=== PATIENT | female | born 1960 | race Caucasian/White ===

== ENCOUNTER 2024-02-01 08:46 | Outpatient (OUT) | payer OTHER, SELFPAY ==
[2024-02-01 10:17] LABS: Anion Gap 10.3; BUN Creatinine Ratio 14.4; Carbon Dioxide 30.7 mmol/L (21.0-32.0); Chloride 100 mmol/L (98-107); Estimated GFR (African America 60 (>=60); Estimated GFR (Non-African Ame 49 (>=60); Glucose 146 mg/dL (74-106); Sodium 138 mmol/L (136-145)
== END 2024-02-01 08:47 | disposition home or self-care (01) ==
PROVIDERS: PCP Family Medicine; Visit Provider Urology
DX: Z01.812 Encounter for preprocedural laboratory examination (principal); N20.0 Calculus of kidney; E78.5 Hyperlipidemia, unspecified; F32.A Depression, unspecified; N12 Tubulo-interstitial nephritis, not specified as acute or chronic; R31.9 Hematuria, unspecified
CPT/HCPCS: 80048

== ENCOUNTER 2024-02-04 07:18 | Day surgery (SDC) | payer OTHER, SELFPAY ==
[2024-02-01 09:46] VITALS: BP 148/85; PULSE 100; TEMP 36.2; O2SAT 97; BMI 37.2
[2024-02-04] VITALS (11 sets, daily range): BP systolic 162–182; BP diastolic 68–107; PULSE 81–102; TEMP 36.2–36.8; O2SAT 94–98; BMI 37.2
--- OUTSIDE RECORDS SUMMARY | 2024-02-04 07:21 | XMS_ITS | CCD ---
Author Organization [facility] Care Team Providers Care Aerial Lineman Name Role Phone Flakito Jade Attending Provider [phone] Boy Thompson Attending Provider [phone] Rhonda Narayan Primary Care Provider [phone] Boy Thompson Unavailable Rhonda Narayan Primary Care Physician Emely Larose Unavailable Unavailable Rhonda Narayan Attending Unavailable Rhonda Narayan Admitting Unavailable Rhonda Narayan Attending Unavailable Rhonda Narayan Admitting Unavailable Sudhir Amaral Attending Unavailable Rhonda Narayan Admitting Unavailable Rhonda Narayan Attending Unavailable Sudhir Amaral Attending Unavailable Janis Calderon Attending Unavailable Janis Calderon Attending Unavailable Vamsi MILLER Attending Unavailable Vamsi MILLER Attending Unavailable Vamsi MILLER Admitting Unavailable Allergies Allergy Classification Reported Allergen(s) Allergy Type Date of Onset Reaction(s) Facility Dihydrofolate Reductase Inhibitors (antibiotic) (1 source) Trimethoprim Drug Allergy 08-17-19 21 N/V [facility] Iodine (and Iodine containting drugs) (1 source) Iodine Drug Allergy 08-17-19 21 Anaphylaxis [facility] Macrolides (antibiotic) (1 source) Clarithromycin Drug Allergy 08-17-19 21 N/V [facility] Mushrooms (1 source) Mushroom (edible) Food Allergy 08-17-19 21 Congested, sneeze [facility] NSAIDs (2 sources) Ibuprofen Drug Allergy 08-17-19 21 N/V, closed up throat, N/V, throat closed [facility] Opioid Agonists (1 source) HYDROcodone Drug Allergy 08-17-19 21 N/V [facility] Penicillins (antibiotic) (1 source) Penicillins Drug Allergy 08-17-[address] [facility] Sulfonamides (antibiotic) (1 source) Sulfamethoxazole Drug Allergy 08-17-19 N/[address] [facility] Unclassified (1 source) Fish Containing Products Allergy to substance 08-17-[address] [facility] Unclassified (1 source) perfume Allergy to substance 08-17-[address] [facility] (10 sources) Clarithromycin; Translations: [clarithromycin] Drug Allergy Unknown, Respiratory distress, needing intubation/mec hanical ventilation [facility] [employer] Other (2 sources) HYDROcodone Drug Allergy Unknown [facility] [employer] Other (14 sources) Ibuprofen; Translations: [Ibuprofen] Drug Allergy Unknown, Respiratory distress, needing intubation/mec hanical ventilation [facility] [employer] Other (10 sources) meloxicam; Translations: [meloxicam] Drug Allergy Unknown, Respiratory distress, needing intubation/mec hanical ventilation [facility] [employer] Other (2 sources) penicillAMINE Drug Allergy Unknown [facility] [employer] Other (10 sources) Sulfamethoxazole / Trimethoprim; Translations: [sulfamethoxazole-t rimethoprim] Drug Allergy Unknown, Respiratory distress, needing intubation/mec hanical ventilation [facility] [employer] Other (12 sources) Acetaminophen / HYDROcodone; Translations: [acetaminophen-hydr ocodone] Drug Allergy Respiratory distress, needing intubation/mec hanical ventilation [facility] (20 sources) Ibuprofen; Translations: [ibuprofen] Drug Allergy Respiratory distress, needing intubation/mec hanical ventilation [facility] (12 sources) Penicillin; Translations: [penicillin] Drug Allergy Respiratory distress, needing intubation/mec hanical ventilation [facility] (12 sources) Shellfish; Translations: [shellfish] Drug allergy Congestion of throat (finding) [facility] (4 sources) Clarithromycin; Translations: [Biaxin] Drug Allergy [facility] (4 sources) Ibuprofen; Translations: [Advil] Drug Allergy [facility] (4 sources) meloxicam; Translations: [Mobic] Drug Allergy [facility] (4 sources) Sulfamethoxazole / Trimethoprim; Translations: [Bactrim] Drug Allergy [facility] Medications Current Medications Medication Drug Class(es) Dates Sig (Normalized) Sig (Original) [id number] 200 actuat albuterol 0.09 mg/actuat metered dose inhaler (2 sources) beta2-Adrenergic Agonist take 2 puff(s) by mouth every four hours as needed Albuterol Sulfate HFA 108 (90 Base) MCG/ACT INHALE 2 PUFFS BY MOUTH EVERY 4 HOURS NEEDED FOR SHORTNESS OF BREATH Inhalation for 17 Active take 2 puff(s) by mo uth every four hours as needed Albuterol Sulfate HFA 108 (90 Base) MCG/ ACT INHALE 2 PUFFS BY MOUTH EVERY 4 HOURS NEEDED FOR SHORTNESS OF BREATH Inhalation for 17 Active alendronic acid 70 mg oral tablet (2 sources) Bisphosphonate Start: 01-27-2024 alendronate 70 mg Tab 70 mg = 1 tab(s), Oral Start Date: 01/27/24 Status: Ordered aspirin 81 mg delayed release oral tablet (1 source) Platelet Aggregation Inhibitor, Nonsteroidal Anti-inflammatory Drug Start: 08-16-2020 take 1 tablet by mouth once daily Aspirin (Aspirin Low Dose) 81 mg Tablet,Delayed Release (Dr/Ec) Active 81 MG PO Daily August 16, 2020 2:05pm Black Cohosh (1 source) Start: 08-16-2020 take 540 mg by mouth once daily [place] Active 540 MG PO Daily August 16, 2020 2:01pm buPROPion hydrochloride 75 mg oral tablet (12 sources) Aminoketone Start: 08-16-2020 take 150 mg by mouth once daily in the morning Bupropion Hcl Active 150 MG PO Every morning August 16, 2020 1:47pm Start: 08-16-2020 take 75 mg by mouth once daily in the morning Bupropion Hcl Active 75 MG PO Every morning August 16, 2020 1:47pm Start: 11-19-2009 take 150 mg by mouth once bob y Wellbutrin 150 mg, Oral, Daily, Refills(s) 0 Start Date: 11/19/09 Status: Ordered cefpodoxime 200 mg oral tablet (2 sources) Cephalosporin Antibacterial Start: 01-27-2024 take 1 tablet by mouth every twelve hours cefpodoxime 200 mg Tab 200 mg = 1 tab(s), Oral, q12hr Start Date: 01/27/24 Status: Ordered clotrimazole 10 mg/ml topical cream (1 source) Azole Antifungal Start: 08-16-2020 Clotrimazole Active 1 APPLIC TOPICAL Daily August 16, 2020 1:47pm esomeprazole 40 mg oral tablet (8 sources) Proton Pump Inhibitor Start: 11-19-2009 take 40 mg by mouth once daily Nexium 40 mg, Oral, Daily, Refills(s) 0 Start Date: 11/19/09 Status: Ordered furosemide 20 mg oral tablet (2 sources) Loop Diuretic take 1 tablet by mouth once daily as needed Furosemide 20 MG TAKE 1 TABLET BY MOUTH ONCE DAILY NEEDED FOR SWELLING Oral for 30 Active gabapentin 300 mg oral capsule (11 sources) Anti-epileptic Agent Start: 02-22-2020 take 1 capsule by mouth three times daily gabapentin 300 mg Cap 300 mg = 1 cap(s), Oral, TID, Refills(s) 0 Start Date: 02/22/20 Status: Ordered hydroCHLOROthiazide 12.5 mg / losartan potassium 50 mg oral tablet (11 sources) Thiazide Diuretic, Angiotensin 2 Receptor Patricia Start: 11-02-2011 take 1 tablet by mouth once daily Hyzaar 12.5 mg-50 mg Tab 1 tab(s), Oral, Daily, Refill(s) 0 Start Date: 11/02/11 Status: Ordered take 1 tablet by mouth once bob y Losartan Potassium-HCTZ 100-12.5 MG TAKE 1 TABLET BY MOUTH ONCE DAILY Oral for 30 Active levocetirizine dihydrochloride 5 mg oral tablet (11 sources) Histamine-1 Receptor Antagonist Start: 11-19-2009 take 5 mg by mouth once daily Xyzal 5 mg, Oral, Daily, Refill(s) 0 Start Date: 11/19/09 Status: Ordered metoclopramide 10 mg oral tablet (11 sources) Dopamine-2 Receptor Antagonist Start: 11-19-2009 take 10 mg by mouth once daily Reglan 10 mg, Oral, Daily, Refills(s) 0 Start Date: 11/19/09 Status: Ordered metoprolol tartrate 25 mg oral tablet (2 sources) beta-Adrenergic Patricia Start: 01-27-2024 take 1 tablet by mouth once daily Lopressor 25 mg oral tablet 25 mg = 1 tab(s), Oral, Daily Start Date: 01/27/24 Status: Ordered Multivitamin preparation (1 source) Start: 08-16-2020 take 1 tablet by mouth once daily Multivitamin Active 1 TAB PO Daily August 16, 2020 2:01pm naproxen 500 mg oral tablet (1 source) Nonsteroidal Anti-inflammatory Drug Start: 08-16-2020 take 500 mg by mouth once daily Naproxen Active 500 MG PO Daily August 16, 2020 1:54pm nitrofurantoin, macrocrystals 25 mg / nitrofurantoin, monohydrate 75 mg oral capsule (1 source) Nitrofuran Antibacterial Start: 01-05-2024 End: 01-10-2024 take 1 capsule by mouth twice daily nitrofurantoin macrocrystals-monoh ydrate 100 mg Cap 100 mg = 1 cap(s), Oral, BID, X 5 day(s), # 10 cap(s), Refills(s) 0, Pharmacy: [facility], 157.5, cm, 01/05/24 17:40:00 EDT, Height/Length Dosing, 95.8, kg, 01/05/24 17:40:00 EDT, Weight Dosing Start Date: 01/05/24 Stop Date: 01/10/24 Status: Ordered Nystatin (3 sources) Polyene Antifungal Start: 01-27-2024 nystatin Oral, Refills(s) 0 Start Date: 01/27/24 Status: Ordered Start: 01-24-2022 End: 02-07-2022 nystatin Top 100,000 units/g Oint 1 major, Topical, TID for 14 day(s), 30 gm, Refill(s) 0, Apply with triamcinolone ointment to left foot, [facility], 158, cm, 01/24/22 17:57:00 EDT, Height/Length Dosing, 99.4, kg, 01/24/22 17:57:00 EDT, Weight Dosing Start Date: 01/24/22 Stop Date: 02/07/22 Status: Ordered omeprazole 40 mg delayed release oral capsule (3 sources) Proton Pump Inhibitor Start: 08-16-2020 take 40 mg by mouth once daily in the morning Omeprazole Active 40 MG PO Every morning August 16, 2020 1:54pm ondansetron 4 mg oral tablet (4 sources) Serotonin-3 Receptor Antagonist Start: 01-27-2024 take 1 tablet by mouth every eight hours Zofran 4 mg Tab 4 mg = 1 tab(s), Oral, q8hr, # 20 tab(s), Refills(s) 0, Pharmacy: [facility] 1986, 157, cm, 01/27/24 14:06:00 EDT, Height/Length Dosing, 91.5, kg, 01/27/24 14:06:00 EDT, Weight Dosing Start Date: 01/27/24 Status: Ordered polyethylene glycol 3350 51721 mg powder for oral solution (9 sources) Osmotic Laxative Start: 08-16-2020 Polyethylene Glycol 3350 (Clearlax) 17 gram/dose powder Active 17 GM PO Daily August 16, 2020 1:54pm Start: 11-02-2011 MiraLax 17 gra m, Oral, Daily Constipation, Refill(s) 0 Start Date: 11/02/11 Status: Ordered sertraline 50 mg oral tablet (11 sources) Serotonin Reuptake Inhibitor Start: 02-21-2020 take 1 tablet by mouth once daily Zoloft 50 mg Tab 50 mg = 1 tab(s), Oral, Daily, Refills(s) 0 Start Date: 02/21/20 Status: Ordered simvastatin 40 mg oral tablet (11 sources) HMG-CoA Reductase Inhibitor Start: 02-21-2020 take 1 tablet by mouth once daily at bedtime simvastatin 40 mg Tab 40 mg = 1 tab(s), Oral, Once a day (at bedtime), Refills(s) 0 Start Date: 02/21/20 Status: Ordered temazepam 15 mg oral capsule (10 sources) Benzodiazepine Start: 11-19-2009 take 15 mg by mouth once daily at bedtime Restoril 15 mg, Oral, Once a day (at bedtime), Refills(s) 0 Start Date: 11/19/09 Status: Ordered 24 hr tolterodine tartrate 2 mg extended release oral capsule (3 sources) Cholinergic Muscarinic Antagonist Start: 08-16-2020 take 2 mg by mouth once daily in the morning Tolterodine Active 2 MG PO Every morning August 16, 2020 1:54pm traMADol hydrochloride 50 mg oral tablet (9 sources) Opioid Agonist Start: 11-19-2009 take 50 mg by mouth three times daily Ultram 50 mg, Oral, TID, Refills(s) 0 Start Date: 11/19/09 Status: Ordered triamcinolone acetonide 0.001 mg/mg topical ointment (1 source) Corticosteroid Start: 01-24-2022 End: 02-07-2022 triamcinolone Top 0.1% Oint 1 major, Topical, TID for 14 day(s), 30 gm, Refill(s) 0, Apply with nystatin ointment to left foot, [facility], 158, cm, 01/24/22 17:57:00 EDT, Height/Length Dosing, 99.4, kg, 01/24/22 17:57:00 EDT, Weight Dosing Start Date: 01/24/22 Stop Date: 02/07/22 Status: Ordered zolpidem tartrate 10 mg oral tablet (3 sources) gamma-Aminobutyric Acid-ergic Agonist Start: 01-27-2024 take 1 tablet by mouth once daily at bedtime as needed for sleep zolpidem 10 mg Tab 10 mg = 1 tab(s), Oral, Once a day (at bedtime), PRN for sleep Start Date: 01/27/24 Status: Ordered Start: 08-16-2020 take 10 mg by mouth once daily at bedtime Zolpidem Active 10 MG PO Daily at bedtime August 16, 2020 1:54pm Completed/Discontinued Medications Medication Drug Class(es) Dates Sig (Normalized) Sig (Original) benzonatate 200 mg oral capsule (1 source) Non-narcotic Antitussive Start: 08-16-2020 End: 08-16-2020 Benzonatate Discontinued MG PO August 16, 2020 1:44pm August 16, 2020 1:46pm Problems Active Problems Problem Classification Problem Date Documented Da te Episodic/Chronic Calculus of urinary tract (3 sources) Kidney stone; Translations: [Calculus of kidney] Onset: 01-27-2024 Episodic Diabetes mellitus without complication (8 sources) Diabetes mellitus 07-15-2013 Chronic Essential hypertension (16 sources) Hypertensive disorder 11-02-2011 Chronic Other injuries and conditions due to external causes (1 source) Foreign body in bladder; Translations: [Foreign body in bladder, initial encounter] Onset: 01-27-2024 Episodic Other nervous system disorders (2 sources) Cervical myelopathy; Translations: [Disease of spinal cord, unspecified] Chronic Other nervous system disorders (2 sources) Disease of spinal cord, unspecified Onset: 2021 Resolved: 07-25-2021 Chronic Other nutritional; endocrine; and metabolic disorders (1 source) Obese class II; Translations: [Body mass index (BMI) 39.0-39.9, adult] Onset: 01-24-2022 Chronic Other skin disorders (1 source) Eruption; Translations: [Rash and other nonspecific skin eruption] Onset: 01-24-2022 Episodic Spondylosis; intervertebral disc disorders; other back problems (2 sources) Lumbar spondylosis; Translations: [Spondylosis without myelopathy or radiculopathy, lumbar region] Chronic Urinary tract infections (4 sources) Urinary tract infectious disease; Translations: [Urinary tract infection, site not specified] Onset: 01-05-2024 Episodic Past or Other Problems Problem Classification Problem Date Documented Da te Episodic/Chronic Other connective tissue disease (2 sources) Arthrodesis status Onset: 2021 Resolved: 07-25-2021 Episodic Unclassified (2 sources) Hyperlipemia( Confirmed ) 11-02-2011 Unclassified (6 sources) Hyperlipemia 11-02-2011 Results Test Name Value Interpretation Reference Range Facility C Urineon 01-21-2024 Bacteria identified Cx Nom (U) Microbiology PROCEDURE: Urine Culture [R1] SOURCE: U CleanCatch BODY SITE: COLLECTED DATE/TIME: 01/19/2024 17:43 EDT RECEIVED DATE/TIME: 01/19/2024 18:56 EDT START DATE/TIME: 01/19/2024 18:56 EDT FREE TEXT SOURCE: Kvng Espinoza, Janis Calderon M.D., Janis Akbar FINAL REPORTS Final Report [] Verified Date/Time: 01/21/2024 09:54 EDT <10,000 cfu/ml Mixed skin contaminants Performing Locations R1: This test was performed at: [facility], [address] [place] [address], [address] [place] [address], [facility] Comment on above: Performed By: #### 2 [id number] #### [facility] [address] [place] [address] BMPon 01-19-2024 Anion gap [Moles/Vol] 13 mmol/L Normal 6-16 [facility] Comment on above: Performed By: #### 2 [id number] #### [facility] [address] [place] [address] Calcium [Mass/Vol] 9.5 mg/dL Normal 8.9-11.1 [facility] Comment on above: Performed By: #### 2 [id number] #### [facility] [address] [place] [address] Chloride [Moles/Vol] 101 mmol/L Normal 101-111 [facility] Comment on above: Performed By: #### 2 [id number] #### [facility] [address] [place] [address] CO2 [Moles/Vol] 28 mmol/L Normal 21-31 [facility] Comment on above: Performed By: #### 2 [id number] #### [facility] [address] [place] [address] Creatinine [Mass/Vol] 0.9 mg/dL Normal 0.5-1.3 [facility] Comment on above: Performed By: #### 2 [id number] #### [facility] [address] [place] [address] Glucose [Mass/Vol] 153 mg/dL Normal 55-199 [facility] Comment on above: Performed By: #### 2 [id number] #### [facility] [address] [place] [address] Potassium [Moles/Vol] 3.6 mmol/L Normal 3.5-5.3 [facility] Comment on above: Performed By: #### 2 [id number] #### [facility] [address] [place] [address] Sodium [Moles/Vol] 138 mmol/L Normal 135-145 [facility] Comment on above: Performed By: #### 2 [id number] #### [facility] [address] [place] [address] Urea nitrogen [Mass/Vol] 18 mg/dL Normal 5-21 [facility] Comment on above: Performed By: #### 2 [id number] #### [facility] [address] [place] [address] Urea nitrogen/Creatinine [Mass ratio] 20 No Units Normal 10-20 [facility] Comment on above: Performed By: #### 2 [id number] #### [facility] [address] [place] [address] CBC w/ Auto Diffon 4 Basophils/100 WBC (Bld) 0.6 % Normal 0.0-2.0 [facility] Comment on above: Performed By: #### 2 [id number] #### [facility] [address] [place] [address] Basophils/Leukocytes Auto (Bld) [Pure # fraction] 0.1 E9/L Normal 0.0-0.2 [facility] Comment on above: Performed By: #### 2 [id number] #### [facility] [address] [place] [address] Eosinophils (Bld) [#/Vol] 0.3 E9/L Normal 0.0-0.5 [facility] Comment on above: Performed By: #### 2 [id number] #### [facility] [address] [place] [address] Eosinophils/100 WBC (Bld) 2.4 % Normal 0.0-8.0 [facility] Comment on above: Performed By: #### 2 [id number] #### [facility] [address] [place] [address] Erythrocyte distribution width (RBC) [Ratio] 13.6 % Normal 10.9-14.2 [facility] Comment on above: Performed By: #### 2 [id number] #### [facility] [address] [place] [address] Hematocrit (Bld) [Volume fraction] 38.5 % Normal 34.0-46.0 [facility] Comment on above: Performed By: #### 2 [id number] #### [facility] [address] [place] [address] Hemoglobin (Bld) [Mass/Vol] 13.5 g/dL Normal 12.0-16.0 [facility] Comment on above: Performed By: #### 2 [id number] #### [facility] [address] [place] [address] Lymphocytes (Bld) [#/Vol] 3.1 E9/L Normal 1.0-4.0 [facility] Comment on above: Performed By: #### 2 [id number] #### [facility] [address] [place] [address] Lymphocytes/100 WBC (Bld) 24.7 % Normal 14.0-50.0 [facility] Comment on above: Performed By: #### 2 [id number] #### [facility] [address] [place] [address] MCH (RBC) [Entitic mass] 32.7 pg Normal 27.0-34.0 [facility] Comment on above: Performed By: #### 2 [id number] #### [facility] [address] [place] [address] MCHC (RBC) [Mass/Vol] 35.1 g/dL Normal 31.4-36.0 [facility] Comment on above: Performed By: #### 2 [id number] #### [facility] [address] [place] [address] MCV (RBC) [Entitic vol] 93.0 fL Normal 80.0-100.0 [facility] Comment on above: Performed By: #### 2 [id number] #### [facility] [address] [place] [address] Monocytes (Bld) [#/Vol] 0.8 E9/L Normal 0.2-1.0 [facility] Comment on above: Performed By: #### 2 [id number] #### [facility] [address] [place] [address] Neutrophils (Bld) [#/Vol] 8.2 E9/L High 2.0-7.5 [facility] Comment on above: Performed By: #### 2 [id number] #### [facility] [address] [place] [address] Neutrophils/100 WBC (Bld) 65.8 % Normal 36.0-75.0 [facility] Comment on above: Performed By: #### 2 [id number] #### [facility] [address] [place] [address] Platelet 323.0 E9/L Normal 150.0-500.0 [facility] Comment on above: Performed By: #### 2 [id number] #### [facility] [address] [place] [address] Platelet mean volume (Bld) [Entitic vol] 8.6 fL Normal 6.4-10.8 [facility] Comment on above: Performed By: #### 2 [id number] #### [facility] [address] [place] [address] RBC (Bld) [#/Vol] 4.1 E12/L Low 4.3-5.9 [facility] Comment on above: Performed By: #### 2 [id number] #### [facility] [address] [place] [address] WBC corrected for nucl RBC Auto (Bld) [#/Vol] 12.5 E9/L High 4.0-11.0 [facility] Comment on above: Performed By: #### 2 [id number] #### [facility] [address] [place] [address] CT Abdomen/Pelvis w/o Contra ston 01-19-2024 CT Abdomen/Pelvis w/o Contrast Exam Date/Time: 01/19/2024 17:13 EDT Reason for Exam: ABDOMINAL PAIN, ACUTE, NONLOCALIZED;Other (please specify) Report IMPRESSION: Mildly obstructing 13 mm calculus right renal pelvis. Additional nonobstructing right renal calculi. Nonspecific mild prominence of the endometrium, not well assessed on this study. Correlate with pelvic symptoms and could consider nonemergent follow-up pelvic ultrasound for further evaluation. EXAMINATION: CT Abdomen/Pelvis w/o Contrast HISTORY: Right lower abdominal pain. Right flank pain. Hematuria. TECHNIQUE: Non-IV contrast imaging of the abdomen and pelvis was performed using standard technique, scanning from just above the dome of the diaphragm to the symphysis pubis. Unenhanced imaging is limited for the evaluation of some intra-abdominal and pelvic pathology. Unless otherwise stated, incidental findings in this report do not require further routine follow-up imaging. All CT scans at this facility use dose modulation, iterative reconstruction, and/or weight based dosing when appropriate to reduce radiation dose to as low as reasonably achievable. COMPARISON: None. RESULT: Abdomen / Pelvis: Liver: Possible steatosis. Subcentimeter lesion right superior liver, too small to characterize but likely benign. Biliary: Cholelithiasis. No associated gallbladder wall thickening or pericholecystic fluid. No distinct bile duct dilation. Pancreas: Unremarkable. Spleen: No splenomegaly. Adrenals: No mass. Kidneys and urinary tract: 13 mm calculus right renal pelvis. Mild right hydronephrosis. Mild stranding adjacent to the renal pelvis. Multiple additional Report right-sided renal calculi especially within the lower pole with the largest measuring around 12 mm. No distinct left renal calculi. No left hydronephrosis. No ureteral calculi or bladder calculi. Bladder decompressed. GI Tract: Moderate hiatal hernia. No bowel dilation. Normal appendix. Diverticulosis, without evidence for diverticulitis. Feces throughout the colon. Lymph Nodes: No lymphadenopathy. Mesentery/peritoneum/r etroperitoneum: No ascites or mass. Vasculature: Mild to moderate vascular calcifications. No aortic aneurysm. Pelvis: No significant free fluid. Mild prominence of the endometrium, not well assessed on this study. Bones/Soft Tissues: No acute osseous findings. Degenerative changes. Lower thorax: Bibasilar atelectasis/scarring. Ordering Provider: Janis Calderon FINAL REPORT Dictated: 01/19/2024 5:30 pm Joby Kolb MD Signed (Electronic Signature): 01/19/2024 5:30 pm Signed by: Joby Kolb MD Transcribed by: JULIETA Technologist: NICK Technical Comments Rectal Contrast Given? No Oral contrast amount in ml's: 0 Normal [facility] ED Clinical Summaryon 2023 ED Clinical Summary ED Clinical Summary [address] [address] ED Clinical Summary Person Information Name: CIERA CHAN [facility] Age: 63 Years : 1960 Sex: Female Language: Cameroonian PCP: Rhonda Narayan MD Marital Status: Single Visit Id: Visit Reason: Flank pain; Abdominal pain; Dysuria; Hematuria; LOWER RIGHT SIDE/ BACK PAIN Speciality: Acuity: 3 Enc Type: Emergency Med Service: Emergency Arrival: 01/19/2024 16:26:28 Discharge: 01/19/2024 20:34:46 LOS: 000 04:08 Checkin: 01/19/2024 16:26:28 Checkout: 01/19/2024 20:34:46 Dispo Type: Undefined HC Fac EVENTS: Event Name Event Status Request Date/Time Start Date/Time Complete Date/Time Arrive Complete 01/19/2024 16:26:28 01/19/2024 16:26:28 01/19/2024 16:26:28 Document Home Meds Request 01/19/2024 16:26:28 Triage Complete 01/19/2024 16:26:28 01/19/2024 16:32:32 01/19/2024 16:32:32 Bed Assign Complete 01/19/2024 16:26:28 01/19/2024 16:26:28 01/19/2024 16:26:28 Dr Exam Complete 01/19/2024 16:26:28 01/19/2024 16:28:23 01/19/2024 16:28:23 RN Exam Complete 01/19/2024 16:26:28 01/19/2024 16:55:56 01/19/2024 16:55:56 Registration Complete 01/19/2024 16:28:23 01/19/2024 16:52:38 01/19/2024 16:52:38 CT Complete 01/19/2024 16:37:43 01/19/2024 16:48:01 01/19/2024 17:13:41 Meds Admin Complete 01/19/2024 16:37:43 01/19/2024 16:54:51 Pending Labs Complete 01/19/2024 16:37:43 01/19/2024 18:26:47 Lab Complete 01/19/2024 16:37:43 01/19/2024 17:22:23 Reg Complete Request 01/19/2024 16:52:38 Reg Bed Request Complete 01/19/2024 16:52:38 01/19/2024 16:52:38 01/19/2024 16:52:38 Pending Labs Complete 01/19/2024 16:59:22 01/19/2024 16:59:22 01/19/2024 17:22:23 Lab Complete 01/19/2024 16:59:22 01/19/2024 16:59:22 01/19/2024 17:22:23 Pending Labs Complete 01/19/2024 17:00:00 01/19/2024 17:00:00 01/19/2024 17:00:00 Meds Admin Complete 01/19/2024 17:59:05 01/19/2024 18:14:55 Pending Labs Inlab 01/19/2024 18:26:48 01/19/2024 18:26:48 Lab Inlab 01/19/2024 18:26:48 01/19/2024 18:26:48 Meds Admin Complete 01/19/2024 18:37:17 01/19/2024 19:06:33 Meds Admin Complete 01/19/2024 18:54:24 01/19/2024 19:06:34 Patient Care Request 01/19/2024 19:11:34 Transfer Complete 01/19/2024 19:11:34 01/19/2024 20:35:26 01/19/2024 20:35:26 Discharge Complete 01/19/2024 20:35:26 01/19/2024 20:35:26 01/19/2024 20:35:26 ADDRESS: [address] [place] [id number] [facility] DOC NOTES: MEDICAL INFORMATION: Prescriptions Given: Medications to Continue with No Changes Other Medications buPROPion (Wellbutrin) 150 Milligram By Mouth every day. esomeprazole (Nexium) 40 Milligram By Mouth every day. gabapentin (gabapentin 300 mg Cap) 1 Capsules By Mouth 3 times a day. hydrochlorothiazide-lo sartan (Hyzaar 12.5 mg-50 mg Tab) 1 Tablets By Mouth every day. levocetirizine (Xyzal) 5 Milligram By Mouth every day. metoclopramide (Reglan) 10 Milligram By Mouth every day. polyethylene glycol 3350 (MiraLax) 17 Gram By Mouth every day as needed Constipation. sertraline (Zoloft 50 mg Tab) 1 Tablets By Mouth every day. simvastatin (simvastatin 40 mg Tab) 1 Tablets By Mouth once a day (at bedtime). temazepam (Restoril) 15 Milligram By Mouth once a day (at bedtime). tramadol (Ultram) 50 Milligram By Mouth 3 times a day. PATIENT EDUCATION INFORMATION: Instructions: Follow up: DIAGNOSIS: 1:Renal colic; 2:Kidney stone; 3:Hydronephrosis with obstructing calculus; 4:Urinary tract infection; 5:Accelerated hypertension Normal [facility] ED Note-Nursingon 01-19-2024 ED Note-Nursing ED Note-Nursing spoke with pts sister Day lyle from pt. via phone, sister aware that pt. will go to [facility] with a squad eta of 2030 tonight. Normal [facility] ED Note-Physicianon 01-19-20 ED Note-Physician ED Note-Physician Basic Information Time Seen: Janis Calderon M.D. 01/19/2024 16:28 Chief Complaint pt to Er c/o R lower abd pain, r flank pain and hematuria. Pt states that the pain has come and gone since Mar. Pt recently seen and treated for UTI. pt also c/o nausea. History of Present Illness The patient is a 63-year-old female past medical history of hypertension, hyperlipidemia, diabetes who presented to the emergency room with a right flank pain. The patient stated the pain starts in right lower quadrants and radiates to the right flank. The patient states she has been having this pain since last March on and off. The patient reports nausea. She vomited the other day. The patient reports burning with urination and frequency with urination. She reports hematuria. The patient denies any fever denies any chills. She denies any diarrhea. The patient states the pain gets worse when she is ambulating or leaning forward. The patient denies any other associated symptoms. Review of Systems Additional ROS info: Except as noted in the above Review of Systems and in the History of Present Illness all other systems have been reviewed and are negative or noncontributory. Physical Exam Vitals & Measurements T: 36.7 ?C(Oral) HR: 118(Monitored) RR: 19 BP: 193/95 SpO2: 94% HT: 157.48 cm WT: 98.3 kg BMI: 39.64 General: alert, no acute distress Skin: warm, dry, Head: no trauma, normocephalic Neck: Trachea midline, no tenderness, supple Eye: normal conjunctiva, sclera clear, PERRL, EOMI, vision unchanged ENMT: Oral mucosa dry Cardiovascular: regular rate and rhythm, Respiratory: Lungs CTA, respirations non labored, breath sounds equal, Gastrointestinal: soft, non distended, mild tenderness right lower quadrant and right hypochondria, no guarding, Back: Mild CVA tenderness on the right side Extremities: no deformity, no trauma Neurological: Alert and oriented, speech normal, no focal neuro deficits Psychiatric: cooperative, affect appropriate for age, Medical Decision Making MEDICAL DECISION MAKING Number and Complexity of Problems Differential Diagnosis: [] [facility] Data External documents reviewed: [] My EKG interpretation: [] My CT interpretation: [] My X-ray interpretation: [] My Ultrasound interpretation: [] Decision rules/scores evaluated: [] Discussed with: Dr. Gilman and Treatment and Disposition ED Course: The patient presented with right flank pain. She does have a 13 mm mildly obstructing renal pelvis stone on the right with mild hydronephrosis and pelvic stranding. The patient has leukocytosis. She has elements of urinary tract infection as well. The patient is afebrile. The patient was started on Rocephin. She has had cefdinir in the past. The patient was given IV fluid and morphine and her pain improved. The blood pressure was elevated. Patient was given hydralazine. There is no urology on-call at [facility]. Initially the case was discussed with who has recommended patient going to the ER. I discussed the case with the ER attending Dr. Capo Trotter who accepted the patient. The patient will be transferred via [facility]. Shared decision making: [] Code status: [] Critical Care Time: 40 minutes, critical care time is separate from any procedures that are performed. The following was considered in the determination of critical care but not limited to the level medical decision-making, intensive cardiac and/or respiratory monitor, frequent vital sign monitoring, evaluation of laboratory studies, evaluation of a radiographic studies, oxygen monitoring and constant monitoring. Assessment/Plan 1. Renal colic (N23: Unspecified renal colic) 2. Kidney stone (N20.0: Calculus of kidney) 3. Hydronephrosis with obstructing calculus (N13.2: Hydronephrosis with renal and ureteral calculous obstruction) 4. Urinary tract infection (N39.0: Urinary tract infection, site not specified) 5. Accelerated hypertension (I10: Essential (primary) hypertension) Orders: ceftriaxone + Sodium Chloride 0.9% intravenous solution 50 mL, 1,000 mg = 1 EA, IV Piggyback, Once, Stop date 01/19/24 18:37:00 EDT, STAT, Start date 01/19/24 18:37:00 EDT, 100 mL/hr, Infuse over 30 minute(s), 01/19/24 18:37:00 EDT hydrALAZINE, 10 mg = 0.5 mL, Injection, IV Push, Once, Stop date 01/19/24 18:54:00 EDT, STAT, Start date 01/19/24 18:54:00 EDT, 01/19/24 18:54:00 EDT morphine, 4 mg = 1 mL, Injection, IV Push, Once, Stop date 01/19/24 17:58:00 EDT, STAT, Start date 01/19/24 17:58:00 EDT, 01/19/24 17:58:00 EDT morphine, 2 mg = 1 mL, Injection, IV Push, Once, Stop date 01/19/24 16:37:00 EDT, STAT, Start date 01/19/24 16:37:00 EDT, 01/19/24 16:37:00 EDT ondansetron, 4 mg = 2 mL, Injection, IV Push, Once, Stop date 01/19/24 16:37:00 EDT, STAT, Start date 01/19/24 16:37:00 EDT, 01/19/24 16:37:00 EDT Sodium Chloride 0.9% intravenous solution, 1,000 mL, Soln-IV, IV, Once, Stop date 01/19/24 16:37:00 (more content not included)... Normal [facility] Comment on above: Result Comment: Elec tronically Signed By: Kvng Espinoza, Janis Akbar\.br\Date and Time Signed: 01/19/24 19:17 EDT ED Patient Education Noteon 01-19-2024 ED Patient Education Note ED Patient Education Note Normal [facility] ED Patient Summaryon ED Patient Summary ED Patient Summary [place] [id number] Patient Discharge Instructions Person Information Name: CIERA CHAN Age: 63 Years Arrival Date: 01/19/2024 16:26:28 Discharge Diagnosis: 1:Renal colic; 2:Kidney stone; 3:Hydronephrosis with obstructing calculus; 4:Urinary tract infection; 5:Accelerated hypertension Primary Care Physician: Rhonda Narayan MD Provider Information Primary Provider: Janis Calderon M.D. Advanced Hoop Cutter:None The exam and treatment you received in the Emergency Department were for an urgent problem and are not intended as complete care. It is important that you follow up with a doctor, nurse practitioner, or physician?s assistant professor of life sciences for ongoing care. If your symptoms become worse or you do not improve as expected and you are unable to reach your usual health care provider, you should return to the Emergency Department. We are available 24 hours a day. CIERA CHAN has been given the following list of patient education materials, prescriptions and follow-up instructions: Follow-up Instructions: In the event that this physician does not participate in your insurance network, please consult with your insurance company to find a nearby participating provider. Patient Education Materials: A MESSAGE TO ALL PATIENTS REGARDING OPIOIDS PRESCRIPTION OPIOIDS: WHAT YOU NEED TO KNOW Prescription opioids can be used to help relieve hakasfxn-eo-kbwlug pain and are often prescribed following a surgery or injury, or for certain health conditions. These medications can be an important part of the treatment but also come with serious risks. It is important to work with your healthcare provider to make sure you are getting the safest, most effective care. WHAT ARE THE RISKS AND SIDE EFFECTS OF OPIOID USE? Prescription opioids carry serious risks of addiction and overdose, especially with prolonged use. An opioid overdose, often marked by slowed breathing, can cause sudden . The use of prescription opioids can have a number of side effects as well, even when taken as directed: ? Tolerance?meaning you might need to take more of the medication for the same pain relief ? Physical dependence?meaning you have symptoms of withdrawal when a medication is stopped ? Increased sensitivity to pain ? Constipation ? Nausea, vomiting, and dry mouth ? Sleepiness and dizziness ? Confusion ? Depression ? Low levels of testosterone that can result in lower sex drive, energy, and strength ? Itching and sweating RISKS ARE GREATER WITH: ? History of drug misuse, substance use disorder, or overdose ? Mental health conditions (such as depression or anxiety) ? Sleep apnea ? Older age (65 years and older) ? Avoid alcohol while taking prescription opioids. Also, unless specifically advised by your health care provider, medications to avoid include: ? Benzodiazepines (such as Xanax or Valium) ? Muscle relaxants (such as Soma or Flexeril) ? Hypnotics (such as Ambien or Lunesta) ? Other prescription opioids KNOW YOUR OPTIONS Talk to your health care provider about ways to manage your pain that don?t involve prescription opioids. Some of these options may actually work better and have fewer risks and side effects. Options may include: ? Pain relievers such as acetaminophen, ibuprofen, and naproxen ? Some medication that are also used for depression or seizures ? Physical therapy and exercise ? Cognitive behavioral therapy, a psychological, goal-directed approach, in which patients learn how to modify physical, behavioral, and emotional triggers of pain and stress. IF YOU ARE PRESCRIBED OPIOIDS FOR PAIN: ? Never take opioids in greater amounts or more often than prescribed. ? Follow up with your primary health care provider. o Work together to create a plan on how to manage your pain. o Talk about ways to help manage your pain that don?t involve prescription opioids. o Talk about any and all concerns and side effects. ? Help prevent misuse and abuse o Never sell or share prescription opioids. o Never use another person?s prescription opioids. ? Store prescription opioids in a secure place and out of reach of others (this may include visitors, children, friends, and family). ? Safely dispose of unused prescription opioids: Find your community drug take-back program or your pharmacy mail-back program, or flush them down the toilet, following guidance from the Food and Drug Administration (www.fda.gov/Drugs/Res ourcesForYou). ? Visit www.cdc.gov/drugoverdo se to learn about the risks of opioids abuse and overdose. ? If you believe you may be struggling with addiction, tell your health manager career and ask for guidance or call [facility]?S National Helpline at 7-995-350-DHJH. i Source: [place] Department of Health and Human Services/ (more content not included)... [facility] Hep Func Panelon 01-19-2024 Albumin [Mass/Vol] 4.3 g/dL Normal 3.3-5.0 [facility] Comment on above: Performed By: #### 2 [id number] #### [facility] [address] [place] [address] Albumin/Globulin (S) [Mass conc ratio] 1.3 Normal 1.1-2.2 [facility] Comment on above: Performed By: #### 2 [id number] #### [facility] [address] [place] [address] ALP [Catalytic activity/Vol] 75 Int._Unit/L Normal 21-98 [facility] Comment on above: Performed By: #### 2 [id number] #### [facility] [address] [place] [address] ALT No additional P-5'-P [Catalytic activity/Vol] 15 Int._Unit/L Normal 6-46 [facility] Comment on above: Performed By: #### 2 [id number] #### [facility] [address] [place] [address] AST [Catalytic activity/Vol] 19 Int._Unit/L Normal 5-43 [facility] Comment on above: Performed By: #### 2 [id number] #### [facility] [address] [place] [address] Bilirubin [Mass/Vol] 0.5 mg/dL Normal 0.0-1.1 [facility] Comment on above: Performed By: #### 2 [id number] #### [facility] [address] [place] [address] Bilirubin.direct [Mass/Vol] 0.0 mg/dL Normal 0.0-0.4 [facility] Comment on above: Performed By: #### 2 [id number] #### [facility] [address] [place] [address] Bilirubin.indirect [Mass or moles/Vol] 0.5 mg/dL Normal 0.1-0.9 [facility] Comment on above: Performed By: #### 2 [id number] #### [facility] [address] [place] [address] Globulin (S) [Mass/Vol] 3.4 g/dL Normal 1.4-4.0 [facility] Comment on above: Performed By: #### 2 [id number] #### [facility] [address] [place] [address] Protein [Mass/Vol] 7.7 g/dL Normal 6.0-7.8 [facility] Comment on above: Performed By: #### 2 [id number] #### [facility] [address] [place] [address] Lipase Levelon 01-19-2024 Lipase [Catalytic activity/Vol] 24 U/L Normal 13-58 [facility] Comment on above: Performed By: #### 2 [id number] #### [facility] [address] [place] [address] PT & PTTon 01-19-2024 aPTT Coag (PPP) [Time] 33.9 second(s) Normal 25.1-36.5 [facility] Comment on above: Result Comment: Para meter 15 days - 4 weeks 1 - 5 months 6 - 11 months 1 - 5 years 6 - 10 years 11 - 17 years PTT Mean: 35.4 (27.6-45.6) Mean: 33.5 (24.8-40.7) Mean: 32.4 (25.1-40.7) Mean: 31.6 (24.0-39.2) Mean: 31.6 (26.9-38.7) Mean: 31.0 (24.6-38.4) Pediatric Reference ranges were obtained from a study by [employer] prepared from 1437 samples obtained at 7 different centers using the same coagulation reagent and instrumentation as [facility]. Currently there are no coagulation studies available worldwide for children to 14 days, and no normal ranges. Heparin therapeutic range (represented by Anti-Factor Xa activity of 0.2 - 0.4 U/mL) corresponds to PTT of 56.6 - 109.0 sec. Performed By: #### 1 [id number] #### [facility] [address] [place] [address] INR Coag (PPP) [Relative time] 1.00 {INR} Invalid Interpretation Code [facility] Comment on above: Result Comment: INR results are specifically intended to assess patients stabilized on long-term Anticoagulation therapy suggested INR?s ?Less Intensive Anticoagulation? 2.0 ? 3.0 Conventional Range 3.0 ? 4.5 Performed By: #### 1 [id number] #### [facility] [address] [place] [address] PT Coag (PPP) [Time] 11.2 second(s) Normal 9.4-12.5 [facility] Comment on above: Result Comment: 15 d ays - 4 weeks 1 - 5 months 6 -11 months 1 ? 5 years 6 ? 10 years 11 -17 years Mean: 11.2 (9.5 ? 12.6) Mean: 11.0 (9.7 ? 12.8) Mean: 11.0 (9.8 ? 13.0) Mean: 11.3 (9.9 ? 13.4) Mean: 11.7 (10.0 ? 14.6) Mean: 11.8 (10.0 - 14.1) Pediatric Reference ranges were obtained from a study by [place], et al. prepared from 1437 samples obtained at 7 different centers using the same coagulation reagent and instrumentation as [facility]. Currently there are no coagulation studies available worldwide for children to 14 days, and no normal ranges. Performed By: #### 1 [id number] #### [facility] [address] [place] [address] Pre-Arrival Noteon Pre-Arrival Note Pre-Arrival Note Pre-Arrival Summary Name: , [place] [id number] Current Date: 01/19/2024 16:27:08 EDT Gender: Female Date of : Age: 63 Pre-Arrival Type: EMS ETA: 01/19/2024 16:47:00 EDT Primary Care Physician: Presenting Problem: abd. pain, hematuria, on antibiotics Pre-Arrival User: Deepali Vega RN Referring Source: Location: DC Completion Date/Time: 01/19/2024 16:18:00 [facility] Emergency Department Pre-Hospital Report Form Vital Signs: Pre-Hospital Report: Treatment in Route: Response to Treatment: Misc. Issues: Normal [facility] UA with Cult Rflxon 01-19-20 24 Bacteria Auto Ql (U) Trace Normal Trace [facility] Comment on above: Performed By: #### 4 [id number] #### [facility] [address] [place] [address] Bilirubin Ql (U) Negative Normal Negative [facility] Comment on above: Performed By: #### 4 [id number] #### [facility] [address] [place] [address] Clarity (U) Turbid Abnormal Clear [facility] Comment on above: Performed By: #### 4 [id number] #### [facility] [address] [place] [address] Color (U) Yellow Normal Yellow [facility] Comment on above: Result Comment: Micr oscopic readings are only performed on those samples that meet specific criteria set forth by [facility]. Performed By: #### 4 [id number] #### [facility] [address] [place] [address] Epithelial cells.squamous Auto (Urine sed) [#/Area] >10 Invalid Interpretation Code [facility] Comment on above: Performed By: #### 4 [id number] #### [facility] [address] [place] [address] Glucose Ql (U) Negative Normal Negative [facility] Comment on above: Performed By: #### 4 [id number] #### [facility] [address] [place] [address] Hemoglobin Auto test strip (U) [Mass/Vol] 3+ mg/dL Abnormal Negative [facility] Comment on above: Performed By: #### 4 [id number] #### [facility] [address] [place] [address] Ketones Auto test strip Ql (U) Negative Normal Negative [facility] Comment on above: Performed By: #### 4 [id number] #### [facility] [address] [place] [address] Leukocyte clumps Auto (Urine sed) [#/Area] 4-[address] [facility] Comment on above: Performed By: #### 4 [id number] #### [facility] [address] [place] [address] Leukocyte esterase Auto test strip Ql (U) 500 Jorge A/uL Abnormal Negative [facility] Comment on above: Performed By: #### 4 [id number] #### [facility] [address] [place] [address] Mucus Auto Ql (U) Negative Normal Negative [facility] Comment on above: Performed By: #### 4 [id number] #### [facility] [address] [place] [address] Nitrite Auto test strip Ql (U) Negative Normal Negative [facility] Comment on above: Performed By: #### 4 [id number] #### [facility] [address] [place] [address] pH (U) 7.0 [pH] Invalid Interpretation Code 5.0-9.0 [facility] Comment on above: Performed By: #### 4 [id number] #### [facility] [address] [place] [address] Protein Ql (U) 1+ mg/dL Abnormal Negative [facility] Comment on above: Performed By: #### 4 [id number] #### [facility] [address] [place] [address] RBC Ql (U) >75 Abnormal 0-3 [facility] Comment on above: Performed By: #### 4 [id number] #### [facility] [address] [place] [address] Specific gravity (U) [Rel density] 1.023 Invalid Interpretation Code 1.005-1.030 [facility] Comment on above: Performed By: #### 4 [id number] #### [facility] [address] [place] [address] Urobilinogen (U) [Mass/Vol] Negative Normal Negative [facility] Comment on above: Performed By: #### 4 [id number] #### [facility] [address] [place] [address] WBC Auto (Urine sed) [#/Area] >75 Abnormal 0-5 [facility] Comment on above: Performed By: #### 4 [id number] #### [facility] [address] [place] [address] Type of Urine collection method Clean Catch Normal [facility] Comment on above: Performed By: #### 4 [id number] #### [facility] [address] [place] [address] eGFRon 01-19-2024 eGFR 71 mL/min/1.73 m2 Normal >=59 [facility] Comment on above: Order Comment: Order added by Discern Expert. Performed By: #### 1 [id number] #### [facility] [address] [place] [address] C Urineon 01-08-2024 Bacteria identified Cx Nom (U) Microbiology PROCEDURE: Urine Culture [R1] SOURCE: U Random BODY SITE: COLLECTED DATE/TIME: 01/05/2024 19:55 EDT RECEIVED DATE/TIME: 01/06/2024 00:29 EDT START DATE/TIME: 01/06/2024 00:29 EDT FREE TEXT SOURCE: Sudhir Amaral DO, DO, Sudhir FINAL REPORTS Final Report [] Verified Date/Time: 01/08/2024 10:51 EDT <10,000 cfu/ml Mixed skin contaminants Performing Locations R1: This test was performed at: [facility], [address] [place] [address], [phone] , [place], Normal [facility] Comment on above: Performed By: #### 2 [id number] #### [facility] [address] [place] [address] ED Note-Physicianon 01-08-20 24 ED Note-Physician ED Note-Physician Basic Information Time Seen: Valentina CALLAWAY, Domitila Whitney 01/05/2024 19:45 Chief Complaint patient presents with right lower quadrant abdominal pain that wraps around into flank with hematuria and dysuria. patient states this is on and off since march. treated for UTI multiple times History of Present Illness Patient is a 63-year-old female with a history of diabetes and hypertension who presents to the ED with right lower quadrant abdominal pain that radiates to her right flank that has been occurring intermittently since March. Patient also notes dysuria and hematuria that began 2 to 3 days ago. Patient states that she has previously seen her family physician for similar symptoms in which she has been diagnosed with a urinary tract infection numerous times. She states her most recent UTI was 2 to 3 months ago in which she was prescribed Ultram. Patient denies any fever, nausea/vomiting, or any other complaints. Review of Systems A 10 point review of systems is negative except as noted above. Medical and Surgical History: Reviewed and noted Social history: Lives at home Family History: Reviewed. Tobacco: denies Physical Exam Vitals & Measurements T: 36.6 ?C(Oral) HR: 82(Peripheral) RR: 18 BP: 117/77 SpO2: 98% HT: 157.48 cm WT: 95.8 kg BMI: 38.63 General: The patient appears well and in no apparent distress. Patient is resting comfortably on cart. Skin: Warm, dry, no pallor noted. Head: Normocephalic, atraumatic Neck: No JVD Eye: PERRLA, EOMI ENT: Moist mucus membranes Cardiovascular: Regular rate normal peripheral perfusion Respiratory: No respiratory distress no accessory muscle use no obvious audible wheezing Chest Wall: no deformity Musculoskeletal: normal ROM, no deformity, no swelling GI: no tenderness to palpation, negative psoas and Rovsing sign, soft no obvious distention. No rebound or rigidity. No guarding. No CVA tenderness. Neurological: A&O moves all extremities equal strength and symmetry Psychiatric: Cooperative and appropriate Medical Decision Making Patient is a 63-year-old female with a history of diabetes and hypertension who presents to the ED with right lower quadrant abdominal pain that radiates to her right flank that has been occurring intermittently since March. Patient is hemodynamically stable and afebrile. Abdominal exam is unremarkable without tenderness to palpation. Patient had negative psoas and Rovsing signs. Patient was given fluids while in the ED. Lab work is reviewed and unremarkable. Urinalysis is positive for a urinary tract infection in which the patient is being prescribed nitrofurantoin and was given her first dose prior to discharge. Abdominal x-ray shows normal bowel gas patterns. Patient was updated on the results. She will follow-up with her family physician for further management of care. She was advised to return to the ED with any worsening symptoms. Patient is agreeable with the plan and all questions were answered. Assessment/Plan Acute lower UTI (urinary tract infection) (N39.0: Urinary tract infection, site not specified) Orders: nitrofurantoin, 100 mg = 1 cap(s), Cap, Oral, Once, Stop date 01/05/24 21:42:00 EDT, STAT, Start date 01/05/24 21:42:00 EDT, 01/05/24 21:42:00 EDT nitrofurantoin, 100 mg = 1 cap(s), Oral, BID, X 5 day(s), # 10 cap(s), Refills(s) 0, Pharmacy: [facility] 1986, 157.5, cm, 01/05/24 17:40:00 EDT, Height/Length Dosing, 95.8, kg, 01/05/24 17:40:00 EDT, Weight Dosing Sodium Chloride 0.9% intravenous solution 1,000 mL, 1,000 mL, IV, bolus, STAT, Start date 01/05/24 20:07:00 EDT, Total volume (mL): 1,000, Bolus Dose: 1,000 mL, 95.8 kg, 2.05, m2 XR Abdomen Series w/ Chest 1 View Medications Administered Given Sodium Chloride 0.9% IV Nery 1000 mL 1,000 mL, 1000 mL, IV nitrofurantoin macrocrystals-monohydr ate 100 mg Cap, 100 mg, Oral Disposition Plan Patient Discharge Condition stable Discharge Disposition home Discharge Prescription List Prescriptions nitrofurantoin macrocrystals-monohydr ate 100 mg Cap, 100 mg= 1 cap(s), Oral, BID Follow-up With When Contact Information Rhonda Narayan In 3 days 01/08/2024 EDT [address] [place] [address] [employer] (1) Additional Instructions: Call to schedule a follow-up appoint with your family physician if symptoms not improve in the next 2 to 3 days. Use the antibiotic as prescribed. Return to the ED with any worsening symptoms. Patient Education Urinary Tract Infection, Adult, Eunr-ha-Cdyx Attestation Patient seen and evaluated by the physician assistant professor of life sciences. Attending physician was present in the emergency department and supervised care. This visit was performed by both the physician and an APC. I performed all aspects of the MDM as documented. This report was transcribed using voice recognition software. Every effort was made to ensure accuracy, however, inadvertently computerized unemployment claims adjudicator mistakes may be present. Appr (more content not included)... Normal [facility] Comment on above: Result Comment: Elec tronically Signed By: Domitila Montgomery PA-C\.br\Date and Time Signed: 01/06/24 00:15 EDT\.br\Electronically Co-Signed By: Sudhir Amaral DO\.br\Date and Time Co-Signed: 01/08/24 07:31 EDT XR Abdomen Series w/ Chest 1 Viewon 01-06-2024 XR Abdomen Series w/ Chest 1 View Exam Date/Time: 01/05/2024 20:39 EDT Reason for Exam: Flank pain Report IMPRESSION: No acute findings radiographically. EXAMINATION/TECHNIQUE: XR Abdomen Series w/ Chest 1 View HISTORY: Right lower quadrant pain. COMPARISON: None RESULT: No distinct focal consolidation. No large pleural effusion. No pneumothorax. Linear area of probable scarring left lower lung zone. Normal cardiomediastinal silhouette. No evidence for pneumoperitoneum. No urinary tract calcifications radiographically. Nonspecific nondilated bowel gas pattern. Feces throughout the colon. No distinct acute osseous findings. Degenerative changes within the spine and bony pelvis. Postsurgical changes lower cervical spine. No other significant abnormality. Ordering Provider: Domitila Montgomery FINAL REPORT Dictated: 01/06/2024 10:13 am Joby Kolb MD Signed (Electronic Signature): 01/06/2024 10:13 am Signed by: Joby Kolb MD Transcribed by: JULIETA Technologist: EDDIE Technical Comments Radiation Dose: Ka,r in mGy = na DAP = na [facility] Anion gap [Moles/Vol] 14 mmol/L Normal 6-16 [facility] Comment on above: Performed By: #### 2 [id number] #### [facility] [address] [place] [address] Calcium [Mass/Vol] 9.2 mg/dL Normal 8.9-11.1 [facility] Comment on above: Performed By: #### 2 [id number] #### [facility] [address] [place] [address] Chloride [Moles/Vol] 102 mmol/L Normal 101-111 [facility] Comment on above: Performed By: #### 2 [id number] #### [facility] [address] [place] [address] CO2 [Moles/Vol] 27 mmol/L Normal 21-31 [facility] Comment on above: Performed By: #### 2 [id number] #### [facility] [address] [place] [address] Creatinine [Mass/Vol] 0.9 mg/dL Normal 0.5-1.3 [facility] Comment on above: Performed By: #### 2 [id number] #### [facility] [address] [place] [address] Glucose [Mass/Vol] 126 mg/dL Normal 55-199 [facility] Comment on above: Performed By: #### 2 [id number] #### [facility] [address] [place] [address] Potassium [Moles/Vol] 3.9 mmol/L Normal 3.5-5.3 [facility] Comment on above: Performed By: #### 2 [id number] #### [facility] [address] [place] [address] Sodium [Moles/Vol] 139 mmol/L Normal 135-145 [facility] Comment on above: Performed By: #### 2 [id number] #### [facility] [address] [place] [address] Urea nitrogen [Mass/Vol] 15 mg/dL Normal 5-21 [facility] Comment on above: Performed By: #### 2 [id number] #### [facility] [address] [place] [address] Urea nitrogen/Creatinine [Mass ratio] 17 No Units Normal 10-20 [facility] Comment on above: Performed By: #### 2 [id number] #### [facility] [address] [place] [address] CBC w/ Auto Diffon 4 Basophils/100 WBC (Bld) 0.7 % Normal 0.0-2.0 [facility] Comment on above: Performed By: #### 2 [id number] #### [facility] [address] [place] [address] Basophils/Leukocytes Auto (Bld) [Pure # fraction] 0.1 E9/L Normal 0.0-0.2 [facility] Comment on above: Performed By: #### 2 [id number] #### [facility] [address] [place] [address] Eosinophils (Bld) [#/Vol] 0.3 E9/L Normal 0.0-0.5 [facility] Comment on above: Performed By: #### 2 [id number] #### [facility] [address] [place] [address] Eosinophils/100 WBC (Bld) 3.3 % Normal 0.0-8.0 [facility] Comment on above: Performed By: #### 2 [id number] #### [facility] [address] [place] [address] Erythrocyte distribution width (RBC) [Ratio] 13.8 % Normal 10.9-14.2 [facility] Comment on above: Performed By: #### 2 [id number] #### [facility] [address] [place] [address] Hematocrit (Bld) [Volume fraction] 41.1 % Normal 34.0-46.0 [facility] Comment on above: Performed By: #### 2 [id number] #### [facility] [address] [place] [address] Hemoglobin (Bld) [Mass/Vol] 13.9 g/dL Normal 12.0-16.0 [facility] Comment on above: Performed By: #### 2 [id number] #### [facility] [address] [place] [address] Lymphocytes (Bld) [#/Vol] 3.7 E9/L Normal 1.0-4.0 [facility] Comment on above: Performed By: #### 2 [id number] #### [facility] [address] [place] [address] Lymphocytes/100 WBC (Bld) 36.9 % Normal 14.0-50.0 [facility] Comment on above: Performed By: #### 2 [id number] #### [facility] [address] [place] [address] MCH (RBC) [Entitic mass] 31.7 pg Normal 27.0-34.0 [facility] Comment on above: Performed By: #### 2 [id number] #### [facility] [address] [place] [address] MCHC (RBC) [Mass/Vol] 33.8 g/dL Normal 31.4-36.0 [facility] Comment on above: Performed By: #### 2 [id number] #### [facility] [address] [place] [address] MCV (RBC) [Entitic vol] 93.9 fL Normal 80.0-100.0 [facility] Comment on above: Performed By: #### 2 [id number] #### [facility] [address] [place] [address] Monocytes (Bld) [#/Vol] 0.7 E9/L Normal 0.2-1.0 [facility] Comment on above: Performed By: #### 2 [id number] #### [facility] [address] [place] [address] Neutrophils (Bld) [#/Vol] 5.2 E9/L Normal 2.0-7.5 [facility] Comment on above: Performed By: #### 2 [id number] #### [facility] [address] [place] [address] Neutrophils/100 WBC (Bld) 52.3 % Normal 36.0-75.0 [facility] Comment on above: Performed By: #### 2 [id number] #### [facility] [address] [place] [address] Platelet mean volume (Bld) [Entitic vol] 8.8 fL Normal 6.4-10.8 [facility] Comment on above: Performed By: #### 2 [id number] #### [facility] [address] [place] [address] Platelets (Bld) [#/Vol] 277.0 E9/L Normal 150.0-500.0 [facility] Comment on above: Performed By: #### 2 [id number] #### [facility] [address] [place] [address] RBC (Bld) [#/Vol] 4.4 E12/L Normal 4.3-5.9 [facility] Comment on above: Performed By: #### 2 [id number] #### [facility] [address] [place] [address] WBC corrected for nucl RBC Auto (Bld) [#/Vol] 10.0 E9/L Normal 4.0-11.0 [facility] Comment on above: Performed By: #### 2 [id number] #### [facility] [address] [place] [address] CHEMISTRYOrdered By: SYSTEM SYSTEM on 01-05-2024 Albumin [Mass/Vol] 4.4 g/dL Normal 3.3 - 5.0 gm/dL Remisol Chem Albumin/Globulin [Mass ratio] 1.3 {ratio} Normal 1.1 - 2.2 Remisol Chem ALP [Catalytic activity/Vol] 72 [iU]/d Normal 21 - 98 Int._Unit/L Remisol Chem ALT No additional P-5'-P [Catalytic activity/Vol] 19 [iU]/d Normal 6 - 46 Int._Unit/L Remisol Chem Anion gap [Moles/Vol] 14 mmol/L Normal 6 - 16 mEq/L R emisol Chem AST [Catalytic activity/Vol] 20 [iU]/d Normal 5 - 43 Int._Unit/L Remisol Chem Bilirubin [Mass/Vol] 0.5 mg/dL Normal 0.0 - 1 .1 mg/dL Remisol Chem Bilirubin.direct [Mass/Vol] 0.0 mg/dL Normal 0.0 - 0.4 mg/dL Remisol Chem Bilirubin.indirect [Mass or moles/Vol] 0.5 mg/dL Normal 0.1 - 0.9 mg/dL Remisol Chem Calcium [Mass/Vol] 9.2 mg/dL Normal 8.9 - 11. 1 mg/dL Rem[facility] Chem Chloride [Moles/Vol] 102 mmol/L Normal 101 - 1 11 mmol/L Rem[facility] Chem CO2 [Moles/Vol] 27 mmol/L Normal 21 - 31 mmol/L [facility] Chem Creatinine [Mass/Vol] 0.9 mg/dL Normal 0.5 - 1.3 mg/dL Remisol Chem eGFR 71 mL/min/1.73 m2 Normal >=59mL/min /1 .73 m2 Rem[facility] Chem Globulin (S) [Mass/Vol] 3.5 g/dL Normal 1.4 - 4.0 gm/dL Remisol Chem Glucose [Mass/Vol] 126 mg/dL Normal 55 - 199 mg/dL Remisol Chem Lipase [Catalytic activity/Vol] 21 U/L Normal 13 - 58 unit/L Remisol Chem Potassium [Moles/Vol] 3.9 mmol/L Normal 3.5 - 5.3 mmol/L Remisol Chem Protein [Mass/Vol] 7.9 g/dL High 6.0 - 7.8 gm/dL Remisol Chem Sodium [Moles/Vol] 139 mmol/L Normal 135 - 145 mmol/L Remisol Chem Urea nitrogen [Mass/Vol] 15 mg/dL Normal 5 - 21 mg/dL Remisol Chem Urea nitrogen/Creatinine [Mass ratio] 17 mg/mg Normal 10 - 20 Rem[facility] Chem ED Clinical Summaryon 2023 ED Clinical Summary ED Clinical Summary [place] [address] ED Clinical Summary Person Information Name: CIERA CHAN [facility] Age: 63 Years : 1960 Sex: Female Language: Cameroonian PCP: Rhonda Narayan MD Marital Status: Single Visit Id: Visit Reason: Hematuria; Flank pain; Abdominal pain; RIGHT SIDE PAIN Speciality: Acuity: 3 Enc Type: Emergency Med Service: Emergency Arrival: 01/05/2024 17:13:45 Discharge: 01/05/2024 22:24:32 LOS: 000 05:11 Checkin: 01/05/2024 17:13:45 Checkout: 01/05/2024 22:24:32 Dispo Type: Home (Routine DC) EVENTS: Event Name Event Status Request Date/Time Start Date/Time Complete Date/Time Arrive Complete 01/05/2024 17:13:45 01/05/2024 17:13:45 01/05/2024 17:13:45 Document Home Meds Request 01/05/2024 17:13:45 Triage Complete 01/05/2024 17:13:45 01/05/2024 17:40:11 01/05/2024 17:40:11 Registration Complete 01/05/2024 17:17:02 01/05/2024 17:17:02 01/05/2024 17:17:02 Reg Complete Request 01/05/2024 17:17:02 Reg Bed Request Complete 01/05/2024 17:17:02 01/05/2024 17:17:02 01/05/2024 17:17:02 Pending Labs Complete 01/05/2024 17:41:59 01/05/2024 20:14:52 Lab Complete 01/05/2024 17:41:59 01/05/2024 18:45:41 Pending Labs Complete 01/05/2024 18:18:12 01/05/2024 18:18:12 01/05/2024 18:18:12 Pending Labs Complete 01/05/2024 18:23:09 01/05/2024 18:23:09 01/05/2024 18:45:41 Lab Complete 01/05/2024 18:23:09 01/05/2024 18:23:09 01/05/2024 18:45:41 Bed Assign Complete 01/05/2024 19:42:22 01/05/2024 19:42:22 01/05/2024 19:42:22 Dr Exam Complete 01/05/2024 19:42:22 01/05/2024 19:45:39 01/05/2024 19:45:39 RN Exam Complete 01/05/2024 19:42:22 01/05/2024 19:59:50 01/05/2024 19:59:50 Registration Request 01/05/2024 19:45:39 Dr Exam Complete 01/05/2024 19:45:51 01/05/2024 19:45:51 01/05/2024 19:45:51 Meds Admin Request 01/05/2024 20:07:25 X-Ray Complete 01/05/2024 20:09:11 01/05/2024 20:15:17 01/05/2024 20:39:17 Pending Labs Collected 01/05/2024 20:14:52 01/05/2024 20:14:52 Lab Collected 01/05/2024 20:14:52 01/05/2024 20:14:52 Wet Read Request 01/05/2024 20:39:17 Meds Admin Complete 01/05/2024 21:42:34 01/05/2024 21:50:19 Discharge Complete 01/05/2024 21:44:42 01/05/2024 22:24:39 01/05/2024 22:24:39 Transfer Complete 01/05/2024 22:24:39 01/05/2024 22:24:39 01/05/2024 22:24:39 ADDRESS: [address] [place] [id number] PHYS DOC NOTES: MEDICAL INFORMATION: Prescriptions Given: New Medications [facility] 1987, [address] [facility] [place], [place] [id number], [phone] nitrofurantoin (nitrofurantoin macrocrystals-monohydr ate 100 mg Cap) 1 Capsules By Mouth 2 times a day for 5 Days. Refills: 0. Medications to Continue with No Changes Other Medications buPROPion (Wellbutrin) 150 Milligram By Mouth every day. esomeprazole (Nexium) 40 Milligram By Mouth every day. gabapentin (gabapentin 300 mg Cap) 1 Capsules By Mouth 3 times a day. hydrochlorothiazide-lo sartan (Hyzaar 12.5 mg-50 mg Tab) 1 Tablets By Mouth every day. levocetirizine (Xyzal) 5 Milligram By Mouth every day. metoclopramide (Reglan) 10 Milligram By Mouth every day. polyethylene glycol 3350 (MiraLax) 17 Gram By Mouth every day as needed Constipation. sertraline (Zoloft 50 mg Tab) 1 Tablets By Mouth every day. simvastatin (simvastatin 40 mg Tab) 1 Tablets By Mouth once a day (at bedtime). temazepam (Restoril) 15 Milligram By Mouth once a day (at bedtime). tramadol (Ultram) 50 Milligram By Mouth 3 times a day. PATIENT EDUCATION INFORMATION: Instructions: Urinary Tract Infection, Adult, Yfrs-ca-Btjd Follow up: With: Address: When: Rhonda Narayan [address] [place], [place] [address]e., [address] [place] [address] [phone] Business (1) In 3 days 01/08/2024 Comments: Call to schedule a follow-up appoint with your family physician if symptoms not improve in the next 2 to 3 days. Use the antibiotic as prescribed. Return to the ED with any worsening symptoms. DIAGNOSIS: Acute lower UTI (urinary tract infection) Normal [facility] ED Patient Summaryon 024 ED Patient Summary ED Patient Summary [address] [id number] Patient Discharge Instructions Person Information Name: CIERA CHAN Age: 63 Years Arrival Date: 01/05/2024 17:13:45 Discharge Diagnosis: Acute lower UTI (urinary tract infection) Primary Care Physician: Rhonda Narayan MD Provider Information Primary Provider: Vinnie Marcus DO Advanced Hoop Cutter:Domitila Montgomery PA-C The exam and treatment you received in the Emergency Department were for an urgent problem and are not intended as complete care. It is important that you follow up with a doctor, nurse practitioner, or physician?s assistant professor of life sciences for ongoing care. If your symptoms become worse or you do not improve as expected and you are unable to reach your usual health care provider, you should return to the Emergency Department. We are available 24 hours a day. CIERA CHAN has been given the following list of patient education materials, prescriptions and follow-up instructions: Follow-up Instructions: With: Address: When: Rhonda Narayan [address] [place] [id number] [employer] (1) In 3 days 01/08/2024 Comments: Call to schedule a follow-up appoint with your family physician if symptoms not improve in the next 2 to 3 days. Use the antibiotic as prescribed. Return to the ED with any worsening symptoms. In the event that this physician does not participate in your insurance network, please consult with your insurance company to find a nearby participating provider. Patient Education Materials: Urinary Tract Infection, Adult, Mwox-aw-Iuit A MESSAGE TO ALL PATIENTS REGARDING OPIOIDS PRESCRIPTION OPIOIDS: WHAT YOU NEED TO KNOW Prescription opioids can be used to help relieve llfzemzs-hh-bzecsn pain and are often prescribed following a surgery or injury, or for certain health conditions. These medications can be an important part of the treatment but also come with serious risks. It is important to work with your healthcare provider to make sure you are getting the safest, most effective care. WHAT ARE THE RISKS AND SIDE EFFECTS OF OPIOID USE? Prescription opioids carry serious risks of addiction and overdose, especially with prolonged use. An opioid overdose, often marked by slowed breathing, can cause sudden . The use of prescription opioids can have a number of side effects as well, even when taken as directed: ? Tolerance?meaning you might need to take more of the medication for the same pain relief ? Physical dependence?meaning you have symptoms of withdrawal when a medication is stopped ? Increased sensitivity to pain ? Constipation ? Nausea, vomiting, and dry mouth ? Sleepiness and dizziness ? Confusion ? Depression ? Low levels of testosterone that can result in lower sex drive, energy, and strength ? Itching and sweating RISKS ARE GREATER WITH: ? History of drug misuse, substance use disorder, or overdose ? Mental health conditions (such as depression or anxiety) ? Sleep apnea ? Older age (65 years and older) ? Avoid alcohol while taking prescription opioids. Also, unless specifically advised by your health care provider, medications to avoid include: ? Benzodiazepines (such as Xanax or Valium) ? Muscle relaxants (such as Soma or Flexeril) ? Hypnotics (such as Ambien or Lunesta) ? Other prescription opioids KNOW YOUR OPTIONS Talk to your health care provider about ways to manage your pain that don?t involve prescription opioids. Some of these options may actually work better and have fewer risks and side effects. Options may include: ? Pain relievers such as acetaminophen, ibuprofen, and naproxen ? Some medication that are also used for depression or seizures ? Physical therapy and exercise ? Cognitive behavioral therapy, a psychological, goal-directed approach, in which patients learn how to modify physical, behavioral, and emotional triggers of pain and stress. IF YOU ARE PRESCRIBED OPIOIDS FOR PAIN: ? Never take opioids in greater amounts or more often than prescribed. ? Follow up with your primary health care provider. o Work together to create a plan on how to manage your pain. o Talk about ways to help manage your pain that don?t involve prescription opioids. o Talk about any and all concerns and side effects. ? Help prevent misuse and abuse o Never sell or share prescription opioids. o Never use another person?s prescription opioids. ? Store prescription opioids in a secure place and out of reach of others (this may include visitors, children, friends, and family). ? Safely dispose of unused prescription opioids: Find your community drug take-back program or your pharmacy mail-back program, or flush them down the toilet, following guidance from the Food and Drug Administration (www.fda.gov/Drugs/Res ourcesForYou) (more content not included)... Normal [facility] Extra Blueon 01-05-2024 Tube Collected Plasma Yes Invalid Interpretation Code [facility] Comment on above: Performed By: #### 1 [id number] #### [facility] [address] [place] [address] HEMATOLOGYOrdered By: SYSTEM SYSTEM on 01-05-2024 Basophils/100 WBC (Bld) 0.7 % Normal 0.0 - 2.0 % Remisol Heme Basophils/Leukocytes Auto (Bld) [Pure # fraction] 0.1 E9/L Normal 0.0 - 0.2 E9/L Remisol Heme Eosinophils (Bld) [#/Vol] 0.3 E9/L Normal 0.0 - 0.5 E9/L Remisol Heme Eosinophils/100 WBC (Bld) 3.3 % Normal 0.0 - 8.0 % Remisol Heme Erythrocyte distribution width (RBC) [Ratio] 13.8 % Normal 10.9 - 14.2 % Remisol Heme Hematocrit (Bld) [Volume fraction] 41.1 % Normal 34.0 - 46.0 % Remisol Heme Hemoglobin (Bld) [Mass/Vol] 13.9 g/dL Normal 12.0 - 16.0 gm/dL Remisol Heme Lymphocytes (Bld) [#/Vol] 3.7 E9/L Normal 1.0 - 4.0 E9/L Remisol Heme Lymphocytes/100 WBC (Bld) 36.9 % Normal 14.0 - 50.0 % Remisol Heme MCH (RBC) [Entitic mass] 31.7 pg Normal 27.0 - 34.0 pg Remisol Heme MCHC (RBC) [Mass/Vol] 33.8 g/dL Normal 31.4 - 36.0 gm/dL Remisol Heme MCV (RBC) [Entitic vol] 93.9 fL Normal 80.0 - 100.0 fL Remisol Heme Monocytes (Bld) [#/Vol] 0.7 E9/L Normal 0.2 - 1.0 E9/L Remisol Heme Monocytes/100 WBC (Bld) 6.8 % Normal 4.0 - 14.0 % Remisol Heme Neutrophils (Bld) [#/Vol] 5.2 E9/L Normal 2.0 - 7.5 E9/L Remisol Heme Neutrophils/100 WBC (Bld) 52.3 % Normal 36.0 - 75.0 % Remisol Heme Platelet mean volume (Bld) [Entitic vol] 8.8 fL Normal 6.4 - 10.8 fL Remisol Heme Platelets (Bld) [#/Vol] 277.0 E9/L Normal 150.0 - 500.0 E9/L Remisol Heme RBC (Bld) [#/Vol] 4.4 E12/L Normal 4.3 - 5.9 E12/L Remisol Heme WBC corrected for nucl RBC Auto (Bld) [#/Vol] 10.0 E9/L Normal 4.0 - 11.0 E9/L Remisol Heme Hep Func Panelon 01-05-2024 Albumin [Mass/Vol] 4.4 g/dL Normal 3.3-5.0 [facility] Comment on above: Performed By: #### 2 [id number] #### [facility] [address] [place] [address] Albumin/Globulin (S) [Mass conc ratio] 1.3 Normal 1.1-2.2 [facility] Comment on above: Performed By: #### 2 [id number] #### [facility] [address] [place] [address] ALP [Catalytic activity/Vol] 72 Int._Unit/L Normal 21-98 [facility] Comment on above: Performed By: #### 2 [id number] #### [facility] [address] [place] [address] ALT No additional P-5'-P [Catalytic activity/Vol] 19 Int._Unit/L Normal 6-46 [facility] Comment on above: Performed By: #### 2 [id number] #### [facility] [address] [place] [address] AST [Catalytic activity/Vol] 20 Int._Unit/L Normal 5-43 [facility] Comment on above: Performed By: #### 2 [id number] #### [facility] [address] [place] [address] Bilirubin [Mass/Vol] 0.5 mg/dL Normal 0.0-1.1 [facility] Comment on above: Performed By: #### 2 [id number] #### [facility] [address] [place] [address] Bilirubin.direct [Mass/Vol] 0.0 mg/dL Normal 0.0-0.4 [facility] Comment on above: Performed By: #### 2 [id number] #### [facility] [address] [place] [address] Bilirubin.indirect [Mass or moles/Vol] 0.5 mg/dL Normal 0.1-0.9 [facility] Comment on above: Performed By: #### 2 [id number] #### [facility] [address] [place] [address] Globulin (S) [Mass/Vol] 3.5 g/dL Normal 1.4-4.0 [facility] Comment on above: Performed By: #### 2 [id number] #### [facility] [address] [place] [address] Protein [Mass/Vol] 7.9 g/dL High 6.0-7.8 [facility] Comment on above: Performed By: #### 2 [id number] #### [facility] [address] [place] [address] Lipase Levelon 01-05-2024 Lipase [Catalytic activity/Vol] 21 U/L Normal 13-58 [facility] Comment on above: Performed By: #### 2 [id number] #### [facility] [address] [place] [address] UA with Cult [employer] 01-05-20 24 Bacteria Auto Ql (U) 4+ /HPF Abnormal Trace Fish er [facility] Comment on above: Performed By: #### 4 [id number] #### [facility] [address] [place] [address] Bilirubin Ql (U) Negative Normal Negative [facility] Comment on above: Performed By: #### 4 [id number] #### [facility] [address] [place] [address] Clarity (U) Turbid Abnormal Clear [facility] Comment on above: Performed By: #### 4 [id number] #### [facility] [address] [place] [address] Color (U) Yellow Normal Yellow [facility] Comment on above: Result Comment: Micr oscopic readings are only performed on those samples that meet specific criteria set forth by [facility]. Performed By: #### 4 [id number] #### [facility] [address] [place] [address] Epithelial cells.squamous Auto (Urine sed) [#/Area] >10 Invalid Interpretation Code [facility] Comment on above: Performed By: #### 4 [id number] #### [facility] [address] [place] [address] Glucose Ql (U) Negative Normal Negative [facility] Comment on above: Performed By: #### 4 [id number] #### [facility] [address] [place] [address] Hemoglobin Auto test strip (U) [Mass/Vol] 2+ Abnormal Negative [facility] Comment on above: Performed By: #### 4 [id number] #### [facility] [address] [place] [address] Ketones Auto test strip Ql (U) Negative Normal Negative [facility] Comment on above: Performed By: #### 4 [id number] #### [facility] [address] [place] [address] Leukocyte esterase Auto test strip Ql (U) 500 Jorge A/uL Abnormal Negative [facility] Comment on above: Performed By: #### 4 [id number] #### [facility] [address] [place] [address] Mucus Auto Ql (U) Trace Normal Negative [facility] Comment on above: Performed By: #### 4 [id number] #### [facility] [address] [place] [address] Nitrite Auto test strip Ql (U) Negative Normal Negative [facility] Comment on above: Performed By: #### 4 [id number] #### [facility] [address] [place] [address] pH (U) 7.5 [pH] Invalid Interpretation Code 5.0-9.0 [facility] Comment on above: Performed By: #### 4 [id number] #### [facility] [address] [place] [address] Protein Ql (U) 1+ mg/dL Abnormal Negative [facility] Comment on above: Performed By: #### 4 [id number] #### [facility] [address] [place] [address] RBC Ql (U) >75 Abnormal 0-3 [facility] Comment on above: Performed By: #### 4 [id number] #### [facility] [address] [place] [address] Specific gravity (U) [Rel density] 1.013 Invalid Interpretation Code 1.005-1.030 [facility] Comment on above: Performed By: #### 4 [id number] #### [facility] [address] [place] [address] Transitional cells Computer assisted (U) [#/Area] 0-2 Normal 0-2 [facility] Comment on above: Performed By: #### 4 [id number] #### [facility] [address] [place] [address] Urobilinogen (U) [Mass/Vol] Negative Normal Negative [facility] Comment on above: Performed By: #### 4 [id number] #### [facility] [address] [place] [address] WBC Auto (Urine sed) [#/Area] >75 Abnormal 0-5 [facility] Comment on above: Performed By: #### 4 [id number] #### [facility] [address] [place] [address] Type of Urine collection method Clean Catch Normal [facility] Comment on above: Performed By: #### 4 [id number] #### [facility] [address] [place] [address] URINALYSISOrdered By: Prakash Menjivar on 01-05-2024 Bacteria Auto Ql (U) 4+ /HPF Invalid Interpretation Code Trace/HPF [facility] UA Auto SS Bilirubin Ql (U) Negative Normal Negativemg/ d L [facility] UA Auto SS Clarity (U) Turbid *ABN* (01/05/24 7:55 PM) Invalid Interpretation Code Clear [facility] UA Auto SS Color (U) Yellow 1 (01/05/24 7:55 PM) Normal Yellow [facility] UA Auto SS Comment on above: Interpretive Data: M icroscopic readings are only performed on those samples that meet specific criteria set forth by [facility]. Epithelial cells.squamous Auto (Urine sed) [#/Area] >10 graded/HPF Invalid Interpretation Code [facility] UA Auto SS Glucose Ql (U) Negative Normal Negativemg/d L [facility] UA Auto SS Hemoglobin Auto test strip (U) [Mass/Vol] 2+ *ABN* (01/05/24 7:55 PM) Invalid Interpretation Code Negative [facility] UA Auto SS Ketones Auto test strip Ql (U) Negative Normal Negativemg/d L [facility] UA Auto SS Leukocyte esterase Auto test strip Ql (U) 500 Jorge A/uL *ABN* (01/05/24 7:55 PM) Invalid Interpretation Code Negative [facility] UA Auto SS Mucus Auto Ql (U) Trace Normal Negative [facility] UA Auto SS Nitrite Auto test strip Ql (U) Negative Normal Negativemg/d L [facility] UA Auto SS pH (U) 7.5 *NA* (01/05/24 7:55 PM) Invalid Interpretation Code 5.0 - 9.0 [facility] UA Auto SS Protein Ql (U) 1+ mg/dL Invalid Interpretation Code Negativemg/d L [facility] UA Auto SS RBC Ql (U) >75 graded/HPF Invalid Interpretation Code 0-3graded/HP F [facility] UA Auto SS Specific gravity (U) [Rel density] 1.013 *NA* (01/05/24 7:55 PM) Invalid Interpretation Code 1.005 - 1.030 [facility] UA Auto SS Transitional cells Computer assisted (U) [#/Area] 0-2 graded/HPF Normal 0-2graded/HP F [facility] UA Auto SS Urobilinogen (U) [Mass/Vol] Negative Normal Negativemg/d L [facility] UA Auto SS WBC Auto (Urine sed) [#/Area] >75 *ABN* (01/05/24 7:55 PM) Invalid Interpretation Code 0-5 [facility] UA Auto SS URINALYSISOrdered By: Adrienne Mckeon on 01-05-2024 UA Spec Desc Clean Catch (01/05/24 7:55 PM) Normal [place] U[facility] Auto SS eGFRon 01-05-2024 eGFR 71 mL/min/1.73 m2 Normal >=59 [facility] Comment on above: Order Comment: Order added by Discern Expert. Performed By: #### 1 [id number] #### [facility] [address] [place] [address] BMPon 09-17-2023 Anion gap [Moles/Vol] 13 mmol/L Normal 6-16 [facility] Comment on above: Performed By: #### 2 [id number] #### [facility] [address] [place] [address] Calcium [Mass/Vol] 9.4 mg/dL Normal 8.9-11.1 [facility] Comment on above: Performed By: #### 2 [id number] #### [facility] [address] [place] [address] Chloride [Moles/Vol] 102 mmol/L Normal 101-111 [facility] Comment on above: Performed By: #### 2 [id number] #### [facility] [address] [place] [address] CO2 [Moles/Vol] 27 mmol/L Normal 21-31 [facility] Comment on above: Performed By: #### 2 [id number] #### [facility] [address] [place] [address] Creatinine [Mass/Vol] 1.1 mg/dL Normal 0.5-1.3 [facility] Comment on above: Performed By: #### 2 [id number] #### [facility] [address] [place] [address] Glucose [Mass/Vol] 143 mg/dL Normal 55-199 [facility] Comment on above: Performed By: #### 2 [id number] #### [facility] [address] [place] [address] Potassium [Moles/Vol] 4.2 mmol/L Normal 3.5-5.3 [facility] Comment on above: Performed By: #### 2 111617 #### [facility] [address] [place] [address] Sodium [Moles/Vol] 138 mmol/L Normal 135-145 [facility] Comment on above: Performed By: #### 2 [id number] #### [facility] [address] [place] [address] Urea nitrogen [Mass/Vol] 16 mg/dL Normal 5-21 [facility] Comment on above: Performed By: #### 2 768321 #### [facility] [address] [place] [address] Urea nitrogen/Creatinine [Mass ratio] 14 No Units Normal 10-20 [facility] Comment on above: Performed By: #### 2 [id number] #### [facility] [address] [place] [address] CBC w/Indiceson 09-17-2023 Erythrocyte distribution width (RBC) [Ratio] 14.8 % High 10.9-14.2 [facility] Comment on above: Performed By: #### 2 [id number] #### [facility] [address] [place] [address] Hematocrit (Bld) [Volume fraction] 40.5 % Normal 34.0-46.0 [facility] Comment on above: Performed By: #### 2 [id number] #### [facility] [address] [place] [address] Hemoglobin (Bld) [Mass/Vol] 13.4 g/dL Normal 12.0-16.0 [facility] Comment on above: Performed By: #### 2 [id number] #### [facility] [address] [place] [address] MCH (RBC) [Entitic mass] 30.8 pg Normal 27.0-34.0 [facility] Comment on above: Performed By: #### 2 292530 #### [facility] [address] [place] [address] MCHC (RBC) [Mass/Vol] 33.1 g/dL Normal 31.4-36.0 [facility] Comment on above: Performed By: #### 2 848209 #### [facility] [address] [place] [address] MCV (RBC) [Entitic vol] 92.8 fL Normal 80.0-100.0 [facility] Comment on above: Performed By: #### 2 [id number] #### [facility] [address] [place] [address] Platelet mean volume (Bld) [Entitic vol] 9.0 fL Normal 6.4-10.8 [facility] Comment on above: Performed By: #### 2 [id number] #### [facility] [address] [place] [address] Platelets (Bld) [#/Vol] 306.0 E9/L Normal 150.0-500.0 [facility] Comment on above: Performed By: #### 2 151275 #### [facility] [address] [place] [address] RBC (Bld) [#/Vol] 4.4 E12/L Normal 4.3-5.9 [facility] Comment on above: Performed By: #### 2 739182 #### [facility] [address] [place] [address] RBC size Nom (Bld) NORMAL Invalid Interpretation Code [facility] Comment on above: Performed By: #### 2 [id number] #### [facility] [address] [place] [address] WBC corrected for nucl RBC Auto (Bld) [#/Vol] 11.3 E9/L High 4.0-11.0 [facility] Comment on above: Performed By: #### 2 [id number] #### [facility] [address] [place] [address] CHEMISTRYOrdered By: SYSTEM SYSTEM on 09-17-2023 Albumin [Mass/Vol] 4.4 g/dL Normal 3.3 - 5.0 gm/dL [facility] Albumin/Globulin [Mass ratio] 1.4 {ratio} Normal 1.1 - 2.2 [facility] ALP [Catalytic activity/Vol] 74 [iU]/d Normal 21 - 98 Int._Unit/L [facility] ALT No additional P-5'-P [Catalytic activity/Vol] 16 [iU]/d Normal 6 - 46 Int._Unit/L [facility] Anion gap [Moles/Vol] 13 mmol/L Normal 6 - 16 mEq/L R [facility] Chem AST [Catalytic activity/Vol] 21 [iU]/d Normal 5 - 43 Int._Unit/L [facility] Bilirubin [Mass/Vol] 0.5 mg/dL Normal 0.0 - 1 .1 mg/dL [facility] Bilirubin.direct [Mass/Vol] 0.1 mg/dL Normal 0.0 - 0.4 mg/dL [facility] Bilirubin.indirect [Mass or moles/Vol] 0.4 mg/dL Normal 0.1 - 0.9 mg/dL [facility] Calcium [Mass/Vol] 9.4 mg/dL Normal 8.9 - 11. 1 mg/dL [facility] Chloride [Moles/Vol] 102 mmol/L Normal 101 - 1 11 mmol/L [facility] Cholesterol [Mass/Vol] 186 mg/dL Normal 120 - 200 mg/dL [facility] Cholesterol in HDL [Mass/Vol] 41 mg/dL Invalid Interpretation Code [facility] Comment on above: Result Comment: '>= 60 LOW RISK' '<= 40 HIGH RISK' Cholesterol in LDL [Mass/Vol] 117 mg/dL Normal <=129mg/dL [facility] Cholesterol in VLDL [Mass/Vol] 42 mg/dL High 7 - 40 mg/dL [facility] CO2 [Moles/Vol] 27 mmol/L Normal 21 - 31 mmol/L [facility] Creatinine [Mass/Vol] 1.1 mg/dL Normal 0.5 - 1.3 mg/dL [facility] eGFR 56 mL/min/1.73 m2 Low >=59mL/min /1 .73 m2 [facility] Globulin (S) [Mass/Vol] 3.2 g/dL Normal 1.4 - 4.0 gm/dL [facility] Glucose [Mass/Vol] 143 mg/dL Normal 55 - 199 mg/dL [facility] Potassium [Moles/Vol] 4.2 mmol/L Normal 3.5 - 5.3 mmol/L [facility] Protein [Mass/Vol] 7.6 g/dL Normal 6.0 - 7.8 gm/dL [facility] Sodium [Moles/Vol] 138 mmol/L Normal 135 - 145 mmol/L [facility] Triglyceride [Mass/Vol] 210 mg/dL High <=149mg/dL [facility] Urea nitrogen [Mass/Vol] 16 mg/dL Normal 5 - 21 mg/dL [facility] Urea nitrogen/Creatinine [Mass ratio] 14 mg/mg Normal 10 - 20 [facility] CHEMISTRYOrdered By: Lizet Ha on 09-17-2023 HbA1c (Bld) [Mass fraction] 6.3 % High <=5.9% [place] ChemAutoSS Consent for Treatmenton 09-01 Consent for Treatment [id number]#[id number] 0TIFF Normal [facility] HEMATOLOGYOrdered By: SYSTEM SYSTEM on 09-17-2023 Erythrocyte distribution width (RBC) [Ratio] 14.8 % High 10.9 - 14.2 % [facility] Hematocrit (Bld) [Volume fraction] 40.5 % Normal 34.0 - 46.0 % [facility] Hemoglobin (Bld) [Mass/Vol] 13.4 g/dL Normal 12.0 - 16.0 gm/dL [facility] MCH (RBC) [Entitic mass] 30.8 pg Normal 27.0 - 34.0 pg [facility] MCHC (RBC) [Mass/Vol] 33.1 g/dL Normal 31.4 - 36.0 gm/dL [facility] MCV (RBC) [Entitic vol] 92.8 fL Normal 80.0 - 100.0 fL [facility] Platelet mean volume (Bld) [Entitic vol] 9.0 fL Normal 6.4 - 10.8 fL [facility] Platelets (Bld) [#/Vol] 306.0 E9/L Normal 150.0 - 500.0 E9/L [facility] RBC (Bld) [#/Vol] 4.4 E12/L Normal 4.3 - 5.9 E12/L [facility] RBC size Nom (Bld) NORMAL *NA* (09/17/23 12:10 PM) Invalid Interpretation Code [facility] WBC corrected for nucl RBC Auto (Bld) [#/Vol] 11.3 E9/L High 4.0 - 11.0 E9/L [facility] Hep Func Panelon 09-17-2023 Albumin [Mass/Vol] 4.4 g/dL Normal 3.3-5.0 [facility] Comment on above: Performed By: #### 2 [id number] #### [facility] [address] [place] [address] Albumin/Globulin (S) [Mass conc ratio] 1.4 Normal 1.1-2.2 [facility] Comment on above: Performed By: #### 2 998399 #### [facility] [address] [place] [address] ALP [Catalytic activity/Vol] 74 Int._Unit/L Normal 21-98 [facility] Comment on above: Performed By: #### 2 [id number] #### [facility] [address] [place] [address] ALT No additional P-5'-P [Catalytic activity/Vol] 16 Int._Unit/L Normal 6-46 [facility] Comment on above: Performed By: #### 2 105047 #### [facility] [address] [place] [address] AST [Catalytic activity/Vol] 21 Int._Unit/L Normal 5-43 [facility] Comment on above: Performed By: #### 2 [id number] #### [facility] [address] [place] [address] Bilirubin [Mass/Vol] 0.5 mg/dL Normal 0.0-1.1 [facility] Comment on above: Performed By: #### 2 360104 #### [facility] [address] [place] [address] Bilirubin.direct [Mass/Vol] 0.1 mg/dL Normal 0.0-0.4 [facility] Comment on above: Performed By: #### 2 624033 #### [facility] [address] [place] [address] Bilirubin.indirect [Mass or moles/Vol] 0.4 mg/dL Normal 0.1-0.9 [facility] Comment on above: Performed By: #### 2 [id number] #### [facility] [address] [place] [address] Globulin (S) [Mass/Vol] 3.2 g/dL Normal 1.4-4.0 [facility] Comment on above: Performed By: #### 2 200038 #### [facility] [address] [place] [address] Protein [Mass/Vol] 7.6 g/dL Normal 6.0-7.8 [facility] Comment on above: Performed By: #### 2 246616 #### [facility] [address] [place] [address] [id number] 09-17-2023 HbA1c (Bld) [Mass fraction] 6.3 % High <=5.9 [facility] Comment on above: Performed By: #### 7 [id number] #### [facility] [address] [place] [address] Lipid Panelon 09-17-2023 Cholesterol [Mass/Vol] 186 mg/dL Normal 120-200 [facility] Comment on above: Performed By: #### 2 270523 #### [facility] [address] [place] [address] Cholesterol in HDL [Mass/Vol] 41 mg/dL Invalid Interpretation Code [facility] Comment on above: Result Comment: '>= 60 LOW RISK' '<= 40 HIGH RISK' Performed By: #### 2 269790 #### [facility] [address] [place] [address] Cholesterol in LDL [Mass/Vol] 117 mg/dL Normal <=129 [facility] Comment on above: Performed By: #### 2 193006 #### [facility] [address] [place] [address] Cholesterol in VLDL [Mass/Vol] 42 mg/dL High 7-40 [facility] Comment on above: Performed By: #### 2 718106 #### [facility] [address] [place] [address] Triglyceride [Mass/Vol] 210 mg/dL High <=149 [facility] Comment on above: Performed By: #### 2 087447 #### [facility] [address] [place] [address] Physician Orderon 09-17-2023 Physician Order [id number] Normal [facility] eGFRon 09-17-2023 eGFR 56 mL/min/1.73 m2 Low >=59 [facility] Comment on above: Order Comment: Order added by Discern Expert. Performed By: #### 1 [id number] #### [facility] [address] [place] [address] BMPon 02-12-2023 Creatinine [Mass/Vol] 1.1 mg/dL Normal 0.5-1.3 [facility] Comment on above: Performed By: #### 2 273187, 9570769, 37935211, 8208513, 224780295, 5306803 #### [facility] [address] [place] [address] Urea nitrogen [Mass/Vol] 19 mg/dL Normal 5-21 [facility] Comment on above: Performed By: #### 2 861664, 8567898, 97104312, 4589568, 076016422, 4556042 #### [facility] [address] [place] [address] Urea nitrogen/Creatinine [Mass ratio] 17 No Units Normal 10-20 [facility] Comment on above: Performed By: #### 2 125191, 9283165, 14780312, 9936095, 841120424, 9179689 #### [facility] [address] [place] [address] Anion gap [Moles/Vol] 15 mmol/L Normal 6-16 [facility] Comment on above: Performed By: #### 2 685437, 9553630, 83726961, 8258061, 690714022, 1162560 #### [facility] [address] [place] [address] Calcium [Mass/Vol] 10.0 mg/dL Normal 8.9-11.1 [facility] Comment on above: Performed By: #### 2 991799, 2092239, 72458153, 6395120, 110668979, 2881872 #### [facility] [address] [place] [address] Chloride [Moles/Vol] 107 mmol/L Normal 101-111 [facility] Comment on above: Performed By: #### 2 916268, 1553125, 45695495, 6097770, 606750966, 5376860 #### [facility] [address] [place] [address] CO2 [Moles/Vol] 24 mmol/L Normal 21-31 [facility] Comment on above: Performed By: #### 2 682892, 4282242, 42969639, 3277224, 493005746, 4611724 #### [facility] [address] [place] [address] Glucose [Mass/Vol] 155 mg/dL Normal 55-199 [facility] Comment on above: Result Comment: If t his glucose result represents a fasting glucose, interpretation should refer to the following reference range: 55-99 mg/dL Performed By: #### 2 673392, 4006390, 32837675, 9919788, 790042317, 5528758 #### [facility] [address] [place] [address] Potassium [Moles/Vol] 3.9 mmol/L Normal 3.5-5.3 [facility] Comment on above: Performed By: #### 2 096513, 0166978, 74952144, 3178411, 418654723, 0145296 #### [facility] [address] [place] [address] Sodium [Moles/Vol] 142 mmol/L Normal 135-145 [facility] Comment on above: Performed By: #### 2 944119, 0996689, 40318410, 1884675, 256309339, 6095335 #### [facility] [address] [place] [address] CBC w/Indiceson 02-12-2023 Erythrocyte distribution width (RBC) [Ratio] 13.5 % Normal 10.9-14.2 [facility] Comment on above: Performed By: #### 2 553548, 5534896, 26938273, 4807233, 630378362, 4966053 #### [facility] [address] [place] [address] Hematocrit (Bld) [Volume fraction] 39.2 % Normal 34.0-46.0 [facility] Comment on above: Performed By: #### 2 076605, 9691958, 11915225, 7755014, 306543396, 9083854 #### [facility] [address] [place] [address] Hemoglobin (Bld) [Mass/Vol] 13.2 g/dL Normal 12.0-16.0 [facility] Comment on above: Performed By: #### 2 528617, 2713469, 94578994, 4906339, 987315816, 0601296 #### [facility] [address] [place] [address] MCH (RBC) [Entitic mass] 31.3 pg Normal 27.0-34.0 [facility] Comment on above: Performed By: #### 2 568494, 8014178, 94641367, 8135737, 731704306, 7642003 #### [facility] [address] [place] [address] MCHC (RBC) [Mass/Vol] 33.6 g/dL Normal 31.4-36.0 [facility] Comment on above: Performed By: #### 2 095371, 1429261, 43358187, 1772618, 930675009, 6706656 #### [facility] [address] [place], [place] [address] MCV (RBC) [Entitic vol] 93.2 fL Normal 80.0-100.0 [facility] Comment on above: Performed By: #### 2 635323, 3626332, 59166589, 8860632, 330800995, 7745400 #### [facility] [address] [place], [place] [address] Platelet mean volume (Bld) [Entitic vol] 9.3 fL Normal 6.4-10.8 [facility] Comment on above: Performed By: #### 2 002471, 3861502, 04072047, 5436722, 904842149, 4714159 #### [facility] [address] [place], [place] [address] Platelets (Bld) [#/Vol] 290.0 E9/L Normal 150.0-500.0 [facility] Comment on above: Performed By: #### 2 253522, 3987890, 52092903, 4718145, 089566403, 7711606 #### [facility] [address] [place] [address] RBC (Bld) [#/Vol] 4.2 E12/L Low 4.3-5.9 [facility] Comment on above: Performed By: #### 2 418138, 5638915, 15711381, 6071246, 420927901, 1929261 #### [facility] [address] [place] [address] WBC corrected for nucl RBC Auto (Bld) [#/Vol] 8.4 E9/L Normal 4.0-11.0 [facility] Comment on above: Performed By: #### 2 173694, 2801935, 98865473, 5783448, 989631095, 2709106 #### [facility] [address] [place] [address] CHEMISTRYOrdered By: SYSTEM SYSTEM on 02-12-2023 Albumin [Mass/Vol] 3.9 g/dL Normal 3.3 - 5.0 gm/dL [facility] Remisol Albumin/Globulin [Mass ratio] 1.0 {ratio} Low 1.1 - 2.2 [facility] Remisol ALP [Catalytic activity/Vol] 76 [iU]/d Normal 21 - 98 Int._Unit/L [facility] Remisol ALT No additional P-5'-P [Catalytic activity/Vol] 23 [iU]/d Normal 6 - 46 Int._Unit/L [facility] Remisol Anion gap [Moles/Vol] 15 mmol/L Normal 6 - 16 mEq/L [facility] Remisol AST [Catalytic activity/Vol] 33 [iU]/d Normal 5 - 43 Int._Unit/L [facility] Remisol Bilirubin [Mass/Vol] 0.5 mg/dL Normal 0.0 - 1 .1 mg/dL [facility] Remisol Bilirubin.direct [Mass/Vol] 0.2 mg/dL Normal 0.1 - 0.4 mg/dL [facility] Remisol Bilirubin.indirect [Mass or moles/Vol] 0.3 mg/dL Normal 0.1 - 0.9 mg/dL [facility] Remisol Calcium [Mass/Vol] 10.0 mg/dL Normal 8.9 - 11. 1 mg/dL [facility]isol Chloride [Moles/Vol] 107 mmol/L Normal 101 - 1 11 mmol/L [facility] Remisol Cholesterol [Mass/Vol] 191 mg/dL Normal 120 - 200 mg/dL [facility] Remisol Cholesterol in HDL [Mass/Vol] 37 mg/dL Invalid Interpretation Code [facility] Comment on above: Interpretive Data: H DL > or equal to 60 mg/dL: Low cardiovascular risk HDL < 40 mg/dL : High cardiovascular risk Cholesterol in LDL [Mass/Vol] 115 mg/dL Normal <=129mg/dL [facility] Remisol Cholesterol in VLDL [Mass/Vol] 41 mg/dL High 7 - 40 mg/dL FT Remisol CO2 [Moles/Vol] 24 mmol/L Normal 21 - 31 mmol/L FT Remisol Creatinine [Mass/Vol] 1.1 mg/dL Normal 0.5 - 1.3 mg/dL FT Remisol GFR/1.73 sq M.predicted among non-blacks MDRD (S/P/Bld) [Vol rate/Area] 56 mL/min/1.73 m2 Low >=59mL/min/1 .73 m2 [facility] Comment on above: Interpretive Data: C hronic kidney disease could be indicated at eGFR's of less than 60 mL/min/1.73m2. Kidney failure is indicated at less than 15 mL/min/1.73m2. Globulin (S) [Mass/Vol] 3.9 g/dL Normal 1.4 - 4.0 gm/dL [facility] Glucose [Mass/Vol] 155 mg/dL Normal 55 - 199 mg/dL [facility] Comment on above: Interpretive Data: I f this glucose result represents a fasting glucose, interpretation should refer to the following reference range: 55-99 mg/dL Potassium [Moles/Vol] 3.9 mmol/L Normal 3.5 - 5.3 mmol/L [facility] Protein [Mass/Vol] 7.8 g/dL Normal 6.0 - 7.8 gm/dL [facility] Sodium [Moles/Vol] 142 mmol/L Normal 135 - 145 mmol/L [facility] Triglyceride [Mass/Vol] 206 mg/dL High <=149mg/dL [facility] Urea nitrogen [Mass/Vol] 19 mg/dL Normal 5 - 21 mg/dL [facility] Urea nitrogen/Creatinine [Mass ratio] 17 mg/mg Normal 10 - 20 [facility] CHEMISTRYOrdered By: Karoline wiley on 02-12-2023 HbA1c (Bld) [Mass fraction] 6.1 % High <=5.9% [facility] Consent for Treatmenton 02-01 Consent for Treatment [id number] 0TIFF Normal [facility] HEMATOLOGYOrdered By: Sarah araiza on 02-12-2023 Erythrocyte distribution width (RBC) [Ratio] 13.5 % Normal 10.9 - 14.2 % [facility] Hematocrit (Bld) [Volume fraction] 39.2 % Normal 34.0 - 46.0 % [facility] Hemoglobin (Bld) [Mass/Vol] 13.2 g/dL Normal 12.0 - 16.0 gm/dL [facility] MCH (RBC) [Entitic mass] 31.3 pg Normal 27.0 - 34.0 pg [facility] MCHC (RBC) [Mass/Vol] 33.6 g/dL Normal 31.4 - 36.0 gm/dL [facility] MCV (RBC) [Entitic vol] 93.2 fL Normal 80.0 - 100.0 fL [facility] Platelet mean volume (Bld) [Entitic vol] 9.3 fL Normal 6.4 - 10.8 fL [facility] Platelets (Bld) [#/Vol] 290.0 E9/L Normal 150.0 - 500.0 E9/L [facility] RBC (Bld) [#/Vol] 4.2 E12/L Low 4.3 - 5.9 E12/L [facility] WBC corrected for nucl RBC Auto (Bld) [#/Vol] 8.4 E9/L Normal 4.0 - 11.0 E9/L [facility] Hep Func Panelon 02-12-2023 Albumin [Mass/Vol] 3.9 g/dL Normal 3.3-5.0 [facility] Comment on above: Performed By: #### 2 145505, 8212700, 02637305, 9369899, [id number], 4299196 #### [facility] [address] [place] [address] Albumin/Globulin (S) [Mass conc ratio] 1.0 Low 1.1-2.2 [facility] Comment on above: Performed By: #### 2 414050, 7728251, 16518417, 6121181, [id number], 1612623 #### [facility] [address] [place] [address] AST [Catalytic activity/Vol] 33 Int._Unit/L Normal 5-43 [facility] Comment on above: Performed By: #### 2 257496, 0370189, 51481670, 0506975, [id number], 4168994 #### [facility] [address] [place] [address] Bilirubin [Mass/Vol] 0.5 mg/dL Normal 0.0-1.1 [facility] Comment on above: Performed By: #### 2 512206, 4709799, 25007713, 5752954, [id number], 6979545 #### [facility] [address] [place] [address] Bilirubin.direct [Mass/Vol] 0.2 mg/dL Normal 0.1-0.4 [facility] Comment on above: Performed By: #### 2 303276, 7965524, 47812851, 2749071, 381762069, 8466088 #### [facility] [address] [place] [address] Bilirubin.indirect [Mass or moles/Vol] 0.3 mg/dL Normal 0.1-0.9 [facility] Comment on above: Performed By: #### 2 703122, 3688793, 99218642, 4237531, 649513129, 4432940 #### [facility] [address] [place] [address] Globulin (S) [Mass/Vol] 3.9 g/dL Normal 1.4-4.0 [facility] Comment on above: Performed By: #### 2 031886, 3598323, 75664426, 3035211, 092626376, 2807364 #### [facility] [address] [place] [address] Protein [Mass/Vol] 7.8 g/dL Normal 6.0-7.8 [facility] Comment on above: Performed By: #### 2 262214, 3945759, 17916944, 2687143, 379195935, 3287031 #### [facility] [address] [place] [address] ALP [Catalytic activity/Vol] 76 Int._Unit/L Normal 21-98 [facility] Comment on above: Performed By: #### 2 599210, 7566255, 12200006, 0937877, 142901740, 6215654 #### [facility] [address] [place] [address] ALT No additional P-5'-P [Catalytic activity/Vol] 23 Int._Unit/L Normal 6-46 [facility] Comment on above: Performed By: #### 2 172670, 6874122, 04561603, 7517967, 513389527, 9270236 #### [facility] [address] [place] [address] [id number] 02-12-2023 HbA1c (Bld) [Mass fraction] 6.1 % High <=5.9 [facility] Comment on above: Performed By: #### 2 081152, 9274037, 58929159, 9970712, 825775917, 3347206 #### [facility] [address] [place] [address] Lipid Panelon 02-12-2023 Cholesterol in HDL [Mass/Vol] 37 mg/dL Invalid Interpretation Code [facility] Comment on above: Result Comment: HDL > or equal to 60 mg/dL: Low cardiovascular risk HDL < 40 mg/dL : High cardiovascular risk Performed By: #### 2 953620, 2301841, 49842371, 8594275, 310948519, 7381561 #### [facility] [address] [place] [address] Cholesterol in LDL [Mass/Vol] 115 mg/dL Normal <=129 [facility] Comment on above: Performed By: #### 2 075195, 3826534, 63360676, 8471565, 694633385, 6086737 #### [facility] [address] [place] [address] Cholesterol in VLDL [Mass/Vol] 41 mg/dL High 7-40 [facility] Comment on above: Performed By: #### 2 014895, 9846109, 44091993, 8868817, 821730299, 5254270 #### [facility] [address] [place] [address] Triglyceride [Mass/Vol] 206 mg/dL High <=149 [facility] Comment on above: Performed By: #### 2 744583, 4449550, 50798118, 5233139, 714341590, 5765016 #### [facility] [address] [place] [address] Cholesterol [Mass/Vol] 191 mg/dL Normal 120-200 [facility] Comment on above: Performed By: #### 2 057131, 2028690, 30641419, 3744208, 238153169, 7582884 #### [facility] [address] [place] [address] Physician Orderon 02-12-2023 Physician Order [id number] TIFF Normal [facility] eGFRon 02-12-2023 GFR/1.73 sq M.predicted among non-blacks MDRD (S/P/Bld) [Vol rate/Area] 56 mL/min/1.73 m2 Low >=59 [facility] Comment on above: Order Comment: Order added by Discern Expert. Result Comment: Shaping Machine Operator ami kidney disease could be indicated at eGFR's of less than 60 mL/min/1.73m2. Kidney failure is indicated at less than 15 mL/min/1.73m2. Performed By: #### 2 609676, 1447980, 72387094, 3272605, 973230198, 9636617 #### [facility] [address] [place] [address] CHEMISTRYOrdered By: SYSTEM SYSTEM on 05-20-2022 Albumin [Mass/Vol] 4.2 g/dL Normal 3.3 - 5.0 gm/dL [facility] Albumin/Globulin [Mass ratio] 1.1 {ratio} Normal 1.1 - 2.2 [facility] ALP [Catalytic activity/Vol] 70 [iU]/d Normal 21 - 98 Int._Unit/L [facility] ALT No additional P-5'-P [Catalytic activity/Vol] 24 [iU]/d Normal 6 - 46 Int._Unit/L [facility] Anion gap [Moles/Vol] 18 mmol/L High 6 - 16 mEq/L [facility] AST [Catalytic activity/Vol] 29 [iU]/d Normal 5 - 43 Int._Unit/L [facility] Bilirubin [Mass/Vol] 0.6 mg/dL Normal 0.0 - 1 .1 mg/dL [facility] Bilirubin.direct [Mass/Vol] mg/dL Normal 0.1 - 0.4 mg/dL [facility] Bilirubin.indirect [Mass or moles/Vol] Unable to Calculate mg/dL Invalid Interpretation Code 0.1 - 0.9 mg/dL [facility] Calcium [Mass/Vol] 9.4 mg/dL Normal 8.9 - 11. 1 mg/dL [facility] Chloride [Moles/Vol] 101 mmol/L Normal 101 - 1 11 mmol/L [facility] Cholesterol [Mass/Vol] 195 mg/dL Normal 120 - 200 mg/dL [facility] Cholesterol in HDL [Mass/Vol] 43 mg/dL Invalid Interpretation Code [facility] Cholesterol in LDL [Mass/Vol] 121 mg/dL Normal <=129mg/dL [facility] Cholesterol in VLDL [Mass/Vol] 41 mg/dL High 7 - 40 mg/dL [facility] CO2 [Moles/Vol] 23 mmol/L Normal 21 - 31 mmol/L [facility] Creatinine [Mass/Vol] 1.0 mg/dL Normal 0.5 - 1.3 mg/dL [facility] GFR/1.73 sq M.predicted among blacks MDRD (S/P/Bld) [Vol rate/Area] mL/min/1.73 m2 Normal >=59mL/min/1 .73 m2 [facility] GFR/1.73 sq M.predicted among non-blacks MDRD (S/P/Bld) [Vol rate/Area] 56 mL/min/1.73 m2 Low >=59mL/min/1 .73 m2 [facility] Globulin (S) [Mass/Vol] 3.7 g/dL Normal 1.4 - 4.0 gm/dL [facility] Glucose [Mass/Vol] 140 mg/dL Normal 55 - 199 mg/dL [facility] Potassium [Moles/Vol] 3.6 mmol/L Normal 3.5 - 5.3 mmol/L [facility] Protein [Mass/Vol] 7.9 g/dL High 6.0 - 7.8 gm/dL [facility] Sodium [Moles/Vol] 138 mmol/L Normal 135 - 145 mmol/L [facility] Triglyceride [Mass/Vol] 207 mg/dL High <=149mg/dL [facility] Urea nitrogen [Mass/Vol] 18 mg/dL Normal 5 - 21 mg/dL [facility] Urea nitrogen/Creatinine [Mass ratio] 18 mg/mg Normal 10 - 20 [facility] CHEMISTRYOrdered By: Reji mukherjee on 05-20-2022 HbA1c (Bld) [Mass fraction] 6.4 % High <=5.9% [facility] HEMATOLOGYOrdered By: Olivia Lucas on 05-20-2022 Erythrocyte distribution width (RBC) [Ratio] 13.7 % Normal 10.9 - 14.2 % [facility] Hematocrit (Bld) [Volume fraction] 41.6 % Normal 34.0 - 46.0 % [facility] Hemoglobin (Bld) [Mass/Vol] 13.8 g/dL Normal 12.0 - 16.0 gm/dL [facility] MCH (RBC) [Entitic mass] 31.3 pg Normal 27.0 - 34.0 pg [facility] MCHC (RBC) [Mass/Vol] 33.3 g/dL Normal 31.4 - 36.0 gm/dL [facility] MCV (RBC) [Entitic vol] 93.9 fL Normal 80.0 - 100.0 fL [facility] Platelet mean volume (Bld) [Entitic vol] 9.6 fL Normal 6.4 - 10.8 fL [facility] Platelets (Bld) [#/Vol] 274.0 E9/L Normal 150.0 - 500.0 E9/L [facility] RBC (Bld) [#/Vol] 4.4 E12/L Normal 4.3 - 5.9 E12/L [facility] WBC corrected for nucl RBC Auto (Bld) [#/Vol] 8.7 E9/L Normal 4.0 - 11.0 E9/L [facility] CHEMISTRYOrdered By: SYSTEM SYSTEM on 11-21-2021 Albumin [Mass/Vol] 3.9 g/dL Normal 3.3 - 5.0 gm/dL [facility] Albumin/Globulin [Mass ratio] 1.0 {ratio} Low 1.1 - 2.2 [facility] ALP [Catalytic activity/Vol] 63 [iU]/d Normal 21 - 98 Int._Unit/L [facility] ALT No additional P-5'-P [Catalytic activity/Vol] 25 [iU]/d Normal 6 - 46 Int._Unit/L [facility] Anion gap [Moles/Vol] 18 mmol/L High 6 - 16 mEq/L [facility] AST [Catalytic activity/Vol] 34 [iU]/d Normal 5 - 43 Int._Unit/L [facility] Bilirubin [Mass/Vol] 0.8 mg/dL Normal 0.0 - 1 .1 mg/dL [facility] Bilirubin.direct [Mass/Vol] 0.1 mg/dL Normal 0.1 - 0.4 mg/dL [facility] Bilirubin.indirect [Mass or moles/Vol] 0.7 mg/dL Normal 0.1 - 0.9 mg/dL [facility] Calcium [Mass/Vol] 9.4 mg/dL Normal 8.9 - 11. 1 mg/dL [facility] Chloride [Moles/Vol] 101 mmol/L Normal 101 - 1 11 mmol/L [facility] Cholesterol [Mass/Vol] 193 mg/dL Normal 120 - 200 mg/dL [facility] Cholesterol in HDL [Mass/Vol] 39 mg/dL Invalid Interpretation Code [facility] Cholesterol in LDL [Mass/Vol] 108 mg/dL Normal <=129mg/dL [facility] Cholesterol in VLDL [Mass/Vol] 61 mg/dL High 7 - 40 mg/dL [facility] CO2 [Moles/Vol] 28 mmol/L Normal 21 - 31 mmol/L [facility] Creatinine [Mass/Vol] 0.9 mg/dL Normal 0.5 - 1.3 mg/dL [facility] GFR/1.73 sq M.predicted among blacks MDRD (S/P/Bld) [Vol rate/Area] mL/min/1.73 m2 Normal >=59mL/min/1 .73 m2 [facility] GFR/1.73 sq M.predicted among non-blacks MDRD (S/P/Bld) [Vol rate/Area] mL/min/1.73 m2 Normal >=59mL/min/1 .73 m2 [facility] Globulin (S) [Mass/Vol] 3.7 g/dL Normal 1.4 - 4.0 gm/dL [facility] Glucose [Mass/Vol] 128 mg/dL Normal 55 - 199 mg/dL [facility] Potassium [Moles/Vol] 4.5 mmol/L Normal 3.5 - 5.3 mmol/L [facility] Protein [Mass/Vol] 7.6 g/dL Normal 6.0 - 7.8 gm/dL [facility] Sodium [Moles/Vol] 142 mmol/L Normal 135 - 145 mmol/L [facility] Triglyceride [Mass/Vol] 304 mg/dL High <=149mg/dL [facility] Urea nitrogen [Mass/Vol] 16 mg/dL Normal 5 - 21 mg/dL [facility] Urea nitrogen/Creatinine [Mass ratio] 18 mg/mg Normal 10 - 20 [facility] CHEMISTRYOrdered By: Analisa griffith on 11-21-2021 HbA1c (Bld) [Mass fraction] 6.7 % High <=5.9% [facility] HEMATOLOGYOrdered By: Sierra mills on 11-21-2021 Erythrocyte distribution width (RBC) [Ratio] 13.6 % Normal 10.9 - 14.2 % [facility] Hematocrit (Bld) [Volume fraction] 39.9 % Normal 34.0 - 46.0 % [facility] Hemoglobin (Bld) [Mass/Vol] 13.2 g/dL Normal 12.0 - 16.0 gm/dL [facility] MCH (RBC) [Entitic mass] 30.8 pg Normal 27.0 - 34.0 pg [facility] MCHC (RBC) [Mass/Vol] 33.2 g/dL Normal 31.4 - 36.0 gm/dL [facility] MCV (RBC) [Entitic vol] 92.9 fL Normal 80.0 - 100.0 fL [facility] Platelet mean volume (Bld) [Entitic vol] 9.7 fL Normal 6.4 - 10.8 fL [facility] Platelets (Bld) [#/Vol] 262.0 E9/L Normal 150.0 - 500.0 E9/L [facility] RBC (Bld) [#/Vol] 4.3 E12/L Normal 4.3 - 5.9 E12/L [facility] WBC corrected for nucl RBC Auto (Bld) [#/Vol] 8.1 E9/L Normal 4.0 - 11.0 E9/L [facility] XR cerv spine AP/LAT/FLX/EXT on 07-25-2021 XR cerv spine AP/LAT/FLX/EXT [facility] [place] [address] XRay Report Signed Patient: Ciera Chan MR#: [id number] : 1960 Acct:[id number] Age/Sex: 61 / F ADM Date: 07/25/21 Loc: XD Room: Type: [facility] Attending Dr: Boy Thompson MD Ordering Provider: Boy Thompson MD Date of Service: 07/25/21 XR/XR cerv spine AP/LAT/FLX/EXT: G95.9 Copies to: Boy Thompson MD CERVICAL SPINE WITH FLEXION AND EXTENSION VIEWS -4 views: CLINICAL HISTORY: Follow-up after cervical fusion. COMPARISON: 2021 AP as well as lateral views in neutral, flexion and extension were obtained. There is osteopenia. There is redemonstration of an anterior plate and screws and interbody grafting material extending from C4 through C7. Appearance is unchanged from the prior. There are no developing fractures or displacement. No instability is seen. The disc spaces above the level of fusion are maintained. No prevertebral soft tissue swelling is seen. XR/XR cerv spine AP/LAT/FLX/EXT IMPRESSION: STABLE CERVICAL FUSION. Impression dictated by: Vanna Mcinytre M.D.07/25/2021 3:22 PM Dictation Location: [place] [address] Transcribed By: [facility] 07/25/21 152 Dictated By: Vanna Mcintyre MD 07/25/21 1520 Signed By: 07/25/21 1522 [facility] XR cerv spine AP/LAT/FLX/EXT on 2021 XR cerv spine AP/LAT/FLX/EXT [facility] [place] [address] XRay Report Signed Patient: Ciera Chan MR#: [id number] : 1960 Acct:[id number] Age/Sex: 61 / F ADM Date: 03/21/21 Loc: XD Room: Type: [facility] Attending Dr: Boy Thompson MD Ordering Provider: Boy Thompson MD Date of Service: 03/21/21 XR/XR cerv spine AP/LAT/FLX/EXT: G95.9 Copies to: Boy Thompson MD XR cerv spine AP/LAT/FLX/EXT 2021 12:36 PM SIGNS AND SYMPTOMS: Follow-up anterior cervical fusion. PROTOCOLS: Frontal and lateral radiographs of the cervical spine including flexion and extension views COMPARISON: 10/18/2020 FINDINGS: The bones are in anatomic alignment. There is anterior fusion hardware at the C4-C7 level. There is no pathologic movement on flexion or extension. There is preservation of the vertebral body heights and intervertebral disc spaces outside diffuse levels. There is no fracture or destructive lesion. XR/XR cerv spine AP/LAT/FLX/EXT IMPRESSION: There is anterior fusion hardware at the C4-C7 level. There is no pathologic movement on flexion or extension. No fracture or subluxation. Impression dictated by: Garret Sanchez M.D.03/21/2021 2:34 PM Dictation Location: [facility] Transcribed By: MARY 03/21/21 1434 Dictated By: Garret Sanchez II, MD 03/21/21 1429 Signed By: 03/21/21 1434 [facility] XR cervical spine 2Von 10-18 XR cervical spine 2V [facility] [place] [address] XRay Report Signed Patient: Ciera Chan MR#: [id number] : 1960 Acct:[id number] Age/Sex: 60 / F ADM Date: 10/18/20 Loc: XD Room: Type: [facility] Attending Dr: Boy Thompson MD Ordering Provider: Boy Thompson MD Date of Service: 10/18/20 XR/XR cervical spine 2V: G95.9 CERV MYELOPATHY Copies to: Boy Thompson MD XR cervical spine 2V 10/18/2020 1:22 PM SIGNS AND SYMPTOMS: Status post revision of cervical hardware, follow-up PROTOCOLS: Frontal and lateral graphs of the cervical spine COMPARISON: 07/12/2020 FINDINGS: There has been extension of anterior fusion hardware now covering the C4-C7 levels. There is no hardware palpation. There is no malalignment. This preservation of vertebral body heights with preservation of intervertebral disks outside diffuse levels. The prevertebral soft tissues are within normal limits. XR/XR cervical spine 2V IMPRESSION: Interval extension of anterior fusion hardware from C4 through C7 without hardware complication or malalignment. Impression dictated by: Garret Sanchez M.D.10/18/2020 3:39 PM Dictation Location: [facility]--11 Transcribed By: MARY 10/18/20 1539 Dictated By: Garret Sanchez II, MD 10/18/20 1538 Signed By: 10/18/20 1539 [facility] Complete Blood Count Auto Di ffon 08-31-2020 Basophils (Bld) [#/Vol] 0.1 10*3/uL Normal 0.0-0.[address] [facility] Comment on above: Result Comment: PERF ORMED BY: [place] [address] PATHOLOGIST RESEARCH EPIDEMIOLOGIST JANELLE SHANNON M.D. Performed By: #### B MP, CBC #### [address] Basophils/100 WBC (Bld) 0.5 % Normal . [facility] Comment on above: Performed By: #### B MP, CBC #### [address] Eosinophils (Bld) [#/Vol] 0.1 10*3/uL Normal 0.0-0.[address] [facility] Comment on above: Performed By: #### B MP, CBC #### [address] Eosinophils/100 WBC (Bld) 0.5 % Normal . [facility] Comment on above: Performed By: #### B MP, CBC #### [address] Erythrocyte distribution width (RBC) [Ratio] 13.9 % Normal 11.9-15.[address] [facility] Comment on above: Performed By: #### B MP, CBC #### [address] Hematocrit (Bld) [Volume fraction] 37.4 % Normal 34.0-46.[address] [facility] Comment on above: Performed By: #### B MP, CBC #### [address] Hemoglobin (Bld) [Mass/Vol] 12.5 g/dL Normal 11.8-15.[address] [facility] Comment on above: Performed By: #### B MP, CBC #### [address] Lymphocytes (Bld) [#/Vol] 3.8 10*3/uL Normal 1.00-4.[address] [facility] Comment on above: Performed By: #### B MP, CBC #### [address] [address] [place] Lymphocytes/100 WBC (Bld) 30.9 % Normal . [facility] Comment on above: Performed By: #### B MP, CBC #### [address] MCH (RBC) [Entitic mass] 31.1 pg Normal 24.7-34.[address] [facility] Comment on above: Performed By: #### B MP, CBC #### [address] MCV (RBC) [Entitic vol] 92.9 fL Normal 80-[address] [facility] Comment on above: Performed By: #### B MP, CBC #### [address] Mean Corpuscular HGB Conc 33.5 g/dL Normal 32.0-35.[address] [facility] Comment on above: Performed By: #### B MP, CBC #### [address] Monocytes (Bld) [#/Vol] 1.2 10*3/uL High 0.0-0.[address] [facility] Comment on above: Performed By: #### B MP, CBC #### [address] Monocytes/100 WBC (Bld) 10.0 % Normal . [facility] Comment on above: Performed By: #### B MP, CBC #### [address] Neutrophils (Bld) [#/Vol] 7.2 10*3/uL Normal 1.8-7.[address] [facility] Comment on above: Performed By: #### B MP, CBC #### [address] Neutrophils/100 WBC (Bld) 58.1 % Normal . [facility] Comment on above: Performed By: #### B MP, CBC #### [address] Nucleated RBC/100 WBC (Bld) [Ratio] 0.2 % Normal 0-0.[address] [facility] Comment on above: Performed By: #### B MP, CBC #### [address] Platelet mean volume (Bld) [Entitic vol] 9.2 fL Normal 6.3-10.[address] [facility] Comment on above: Performed By: #### B MP, CBC #### [address] Platelets (Bld) [#/Vol] 252 10*3/uL Normal 150-[address] [facility] Comment on above: Performed By: #### B MP, CBC #### [address] RBC (Bld) [#/Vol] 4.03 10*6/uL Normal 3.60-5.00 [facility] Comment on above: Performed By: #### B MP, CBC #### [address] WBC (Bld) [#/Vol] 12.5 10*3/uL High 4.5-11.0 [facility] Comment on above: Performed By: #### B MP, CBC #### [address] Comprehensive Metabolic Pane sean 08-31-2020 Albumin [Mass/Vol] 3.4 g/dL Normal 3.2-5.5 [facility] Comment on above: Performed By: #### B MP, CBC #### [address] Albumin/Globulin [Mass ratio] 1.1 {ratio} Normal [facility] Comment on above: Performed By: #### B MP, CBC #### [address] ALP [Catalytic activity/Vol] 71 U/L Normal 32-[address] [facility] Comment on above: Performed By: #### B MP, CBC #### [address] ALT [Catalytic activity/Vol] 25 U/L Normal 10-[address] [facility] Comment on above: Performed By: #### B MP, CBC #### [facility] [address] [place] [id number] [facility] AST [Catalytic activity/Vol] 21 U/L Normal 10-[address] [facility] Comment on above: Performed By: #### B MP, CBC #### [facility] [address] Bilirubin [Mass/Vol] 0.3 mg/dL Normal 0.3-1.2 [facility] Comment on above: Performed By: #### B MP, CBC #### [facility] [address] Calcium [Mass/Vol] 9.0 mg/dL Normal 8.2-10.2 [facility] Comment on above: Performed By: #### B MP, CBC #### [facility] [address] Chloride [Moles/Vol] 105 mmol/L Normal 95-114 [facility] Comment on above: Performed By: #### B MP, CBC #### [facility] [address] CO2 [Moles/Vol] 26.7 mmol/L Normal 22.0-30.0 [facility] Comment on above: Performed By: #### B MP, CBC #### [facility] [address] [place] [address] [place] Creatinine [Mass/Vol] 0.98 mg/dL Normal 0.44-1.[address] [facility] Comment on above: Performed By: #### B MP, CBC #### [facility] [address] [place] [address] [place] Creatinine Clr Calc Pharmacy 62.[address] [facility] Comment on above: Performed By: #### B MP, CBC #### [facility] [address] [place] [address] [place] Estimated GFR ( Jacqui > [address] [facility] Comment on above: Result Comment: GFR estimated reference range: According to KDOQI guidelines, <60 ml/min/1.73m2 is sufficient to diagnose a patient with chronic kidney disease. Performed By: #### B MP, CBC #### [facility] [address] Estimated GFR (Non- Am 58 [facility] Comment on above: Performed By: #### B MP, CBC #### [facility] [address] Globulin (S) [Mass/Vol] 3.0 g/dL [facility] Comment on above: Performed By: #### B MP, CBC #### [address] Glucose [Mass/Vol] 111 mg/dL High 70-100 [facility] Comment on above: Result Comment: [place] Glucose Reference Range is dependent on time and content of last meal. Glucose of more than 200 mg/dL in a nonstressed, ambulatory subject supports the diagnosis of Diabetes Mellitus. ADA recommended reference range Performed By: #### B MP, CBC #### [address] Potassium [Moles/Vol] 3.6 mmol/L Normal 3.5-5.[address] [facility] Comment on above: Performed By: #### B MP, CBC #### [address] Protein [Mass/Vol] 6.4 g/dL Normal 6.1-7.9 [facility] Comment on above: Performed By: #### B MP, CBC #### [address] Sodium [Moles/Vol] 142 mmol/L Normal 136-146 [facility] Comment on above: Performed By: #### B MP, CBC #### [address] Urea nitrogen [Mass/Vol] 13 mg/dL Normal 9-[address] [facility] Comment on above: Performed By: #### B MP, CBC #### [place] [address] [place] Folateon 08-31-2020 Folate 22.0 ng/mL Normal >5.[address] [facility] Comment on above: Result Comment: Adry te reference range: >5.9 ng/ml The WHO technical consultation on folate and vitamin b12 deficiencies has determined that folate concentrations less than 4 ng/ml are considered deficient. PERFORMED BY: [place] [address] PATHOLOGIST RESEARCH EPIDEMIOLOGIST JANELLE SHANNON M.D. Performed By: #### B MP, CBC #### [address] Prealbuminon 08-31-2020 Prealbumin [Mass/Vol] 20.1 mg/dL Normal 18.0-38.[address] [facility] Comment on above: Performed By: #### B MP, CBC #### [address] Vitamin B12on 08-31-2020 Cobalamin (Vitamin B12) [Mass/Vol] 323 pg/mL Normal 180-[address] [facility] Comment on above: Performed By: #### B MP, CBC #### [address] Basic Metabolic Panelon 08-03 Calcium [Mass/Vol] 8.6 mg/dL Normal 8.2-10.2 [facility] Comment on above: Performed By: #### B MP #### [place] [address] [place] Chloride [Moles/Vol] 104 mmol/L Normal 95-114 [facility] Comment on above: Performed By: #### B MP #### [place] [address] [place] CO2 [Moles/Vol] 24.2 mmol/L Normal 22.0-30.0 [facility] Comment on above: Performed By: #### B MP #### [address] Creatinine [Mass/Vol] 0.81 mg/dL Normal 0.44-1.[address] [facility] Comment on above: Performed By: #### B MP #### [facility] [address] [place] [address] [place] Creatinine Clr Calc Pharmacy 76.06 [facility] Comment on above: Result Comment: PERF ORMED BY: [place] [address] PATHOLOGIST RESEARCH EPIDEMIOLOGIST JANELLE SHANNON M.D. Performed By: #### B MP #### [address] Estimated GFR ( Jacqui > 60 [facility] Comment on above: Result Comment: GFR estimated reference range: According to KDOQI guidelines, <60 ml/min/1.73m2 is sufficient to diagnose a patient with chronic kidney disease. Performed By: #### B MP #### [address] Estimated GFR (Non- Am > 60 [facility] Comment on above: Performed By: #### B MP #### [address] Glucose [Mass/Vol] 206 mg/dL High 70-100 [facility] Comment on above: Result Comment: [place] om Glucose Reference Range is dependent on time and content of last meal. Glucose of more than 200 mg/dL in a nonstressed, ambulatory subject supports the diagnosis of Diabetes Mellitus. ADA recommended reference range Performed By: #### B MP #### [place] [address] [place] Potassium [Moles/Vol] 4.0 mmol/L Normal 3.5-5.[address] [facility] Comment on above: Performed By: #### B MP #### [place] [address] [place] Sodium [Moles/Vol] 137 mmol/L Normal 136-146 [facility] Comment on above: Performed By: #### B MP #### [address] Urea nitrogen [Mass/Vol] 8 mg/dL Low 9-[address] [facility] Comment on above: Performed By: #### B MP #### [facility] [address] [place], [place] [id number] [facility] COVID-19 FRMCon 08-30-2020 SARS-CoV-2 (COVID-19) RNA ZENA+probe Ql (Unsp spec) Negative Normal Negative [facility] Comment on above: Order Comment: Healt hcare Worker?: N Result Comment: Test ing for SARS-CoV-2 by RT-PCR This test was developed and its performance characteristics determined by [employer] (Zapproved) and validated at the [facility]. This test has not been FDA cleared or approved. This test has been authorized by FDA under an Emergency Use Authorization (EUA). This test has been validated in accordance with the FDA's Guidance Document (Policy for Diagnostics Testing in Laboratories Certified to Perform High Complexity Testing under CLIA prior to Emergency Use Authorization for Coronavirus Disease-2019 during the Public Health Emergency) issued on August 04, 2019. This test is only authorized for the duration of time the declaration that circumstances exist justifying the authorization of the emergency use of in vitro diagnostic tests for detection of SARS-CoV-2 virus and/or diagnosis of COVID-19 infection under section 564(b)(1) of the Act, 21 U.S.C. 360bbb-3(b)(1), unless the authorization is terminated or revoked sooner. PERFORMED BY: [place] [address] PATHOLOGIST RESEARCH EPIDEMIOLOGIST JANELLE SHANNON M.D. Performed By: #### C OVID-19 [facility] #### [facility] [address] [place], [place] [id number] [facility] ABO/Rh Retypeon 08-29-2020 ABO/RH Recheck Result Positive Normal [facility] Comment on above: Result Comment: PERF ORMED BY: [place] [address] PATHOLOGIST RESEARCH EPIDEMIOLOGIST JANELLE SHANNON M.D. Sean 08-29-2020 L -- ---- Specimen: Received: 08/29/20 Status: WILLIAM Chavesbette Num: [id number] Spec Type: Surgical Subm Dr: Boy Thompson MD Tissues: A Disc - Intervertebral/Lumbar/ Cervical (DISC ANTERIOR NECK) Procedures: HE Stain, Gross/Micro L3 ---- Patient Age/Sex Location Account Attending Physician ---- Ciera Chan 60/F [place] [id number] Boy Thompson MD ---- SPEC NUM: RECD: 08/29/20 STATUS: WILLIAM CHAVESBette NUM: [id number] DION: 08/29/20-[address]: Boy Thompson MD ENTERED: 08/29/20 GENARO OCHOA: SPEC TYPE: Surgical DEPT: S ORDERED: HE Stain, Gross/Micro L3 ORDERED: HE Stain, Gross/Micro L3 Pathological Diagnosis Cervical disc, C45, C5-6 and C6-7, discectomies/revision: - Fragments of fibrocartilaginous tissue, minute bone and marrow with trilineage hematopoiesis. Clinical Information Myelopathy Gross Description Received in formalin labeled with the patient's name, number and disc is a 3 x 2.8 x 1 cm aggregate of mandujano-pink, slightly cauterized and ragged fibrous tissue. Turkey Boner sections are submitted in one cassette labeled A1. (FREEDOM/YJ) Microscopic Description One glass slide with H E stained material has been examined. The microscopic findings support the above pathologic diagnosis. CPT Codes 10438 ---- ---- Specimen: [id number] Received: 08/29/20 Status: WILLIAM Metz Num: [id number] Spec Type: Surgical Subm Dr: Boy Thompson MD Tissues: A Disc - Intervertebral/Lumbar/ Cervical (DISC ANTERIOR NECK) Procedures: HE Stain, Gross/Micro L3 ---- Patient: Ciera Chan [id number] (Continued) ---- Signed (signature on file) Hu Garrett MD 08/30/20 1507 [facility] Type and Screenon 08-29-2020 ABO and Rh group Nom (Bld) Blood group A Rh(D) positive [facility] Comment on above: Result Comment: PERF ORMED BY: [place] [address] PATHOLOGIST RESEARCH EPIDEMIOLOGIST JANELLE SHANNON M.D. XR cervical spine 1Von 08-29 XR cervical spine 1V [facility] [place] [address] XRay Report Signed Patient: Ciera Chan MR#: [id number] : 1960 Acct:[id number] Age/Sex: 60 / F ADM Date: 08/29/20 Loc: [place] Room: Type: [facility] Attending Dr: Boy Thompson MD Ordering Provider: Boy Thompson MD Date of Service: 08/29/20 XR/XR cervical spine 1V: . Copies to: Boy Thompson MD Single fluoroscopic imaging for localization intraoperatively. One image. Total time 40 seconds. HISTORY: C4-5 fusion. C5-6 revision Cervical localization performed. XR/XR cervical spine 1V IMPRESSION: Cervical localization. Impression dictated by: Demetrio Asencio M.D.08/29/2020 12:49 PM Dictation Location: [place] [address] Transcribed By: [facility] 08/29/20 1249 Dictated By: Demetrio Asencio DO 08/29/20 1244 Signed By: 08/29/[address] [facility] COVID-19 FRMCon 08-27-2020 SARS-CoV-2 (COVID-19) RNA ZENA+probe Ql (Unsp spec) Negative Normal Negative [facility] Comment on above: Order Comment: Healt hcare Worker?: N Result Comment: Test ing for SARS-CoV-2 by RT-PCR This test was developed and its performance characteristics determined by [employer] (Zapproved) and validated at the [facility]. This test has not been FDA cleared or approved. This test has been authorized by FDA under an Emergency Use Authorization (EUA). This test has been validated in accordance with the FDA's Guidance Document (Policy for Diagnostics Testing in Laboratories Certified to Perform High Complexity Testing under CLIA prior to Emergency Use Authorization for Coronavirus Disease-2019 during the Public Health Emergency) issued on August 04, 2019. This test is only authorized for the duration of time the declaration that circumstances exist justifying the authorization of the emergency use of in vitro diagnostic tests for detection of SARS-CoV-2 virus and/or diagnosis of COVID-19 infection under section 564(b)(1) of the Act, 21 U.S.C. 360bbb-3(b)(1), unless the authorization is terminated or revoked sooner. PERFORMED BY: [place] [address] PATHOLOGIST RESEARCH EPIDEMIOLOGIST JANELLE SHANNON M.D. Performed By: #### C OVID-19 [facility] #### [facility] [address] [place] [address] COVID-19 Positive/Negativeon 08-27-2020 SARS-CoV-2 (COVID-19) N gene ZENA+probe Ql (Resp) Negative Negative [facility] Comment on above: Testing for SARS-CoV -2 by RT-PCRThis test was developed and its performance characteristics determined by [employer] (Zapproved) and validated at the [facility]. This test has not been FDA cleared or approved. This test has been authorized by FDA under an Emergency Use Authorization (EUA). This test has been validated in accordance with the FDA's Guidance Document (Policy for Diagnostics Testing in Laboratories Certified to Perform High Complexity Testing under CLIA prior to Emergency Use Authorization for Coronavirus Disease-2019 during the Public Health Emergency) issued on August 04, 2019. This test is only authorized for the duration of time the declaration that circumstances exist justifying the authorization of the emergency use of in vitro diagnostic tests for detection of SARS-CoV-2 virus and/or diagnosis of COVID-19 infection under section 564(b)(1) of the Act, 21 U.S.C. 360bbb-3(b)(1), unless the authorization is terminated or revoked sooner. Laboratory - Microbiology an d Antimicrobial susceptibilityon 08-27-2020 SARS-CoV-2 (COVID-19) RNA ZENA+probe Ql (Unsp spec) N/A [facility] Basic Metabolic Panelon 08-02 Calcium [Mass/Vol] 9.7 mg/dL Normal 8.2-10.2 [facility] Comment on above: Result Comment: PERF ORMED BY: [place] [address] PATHOLOGIST RESEARCH EPIDEMIOLOGIST JANELLE SHANNON M.D. Performed By: #### B MP, CBC #### [address] Chloride [Moles/Vol] 104 mmol/L Normal 95-114 [facility] Comment on above: Performed By: #### B MP, CBC #### [address] CO2 [Moles/Vol] 29.2 mmol/L Normal 22.0-30.0 [facility] Comment on above: Performed By: #### B MP, CBC #### [address] Creatinine [Mass/Vol] 0.95 mg/dL Normal 0.44-1.[address] [facility] Comment on above: Performed By: #### B MP, CBC #### [place] [address] [place] Estimated GFR ( Jacqui > [address] [facility] Comment on above: Result Comment: GFR estimated reference range: According to KDOQI guidelines, <60 ml/min/1.73m2 is sufficient to diagnose a patient with chronic kidney disease. Performed By: #### B MP, CBC #### [address] Estimated GFR (Non- Am [address] [facility] Comment on above: Performed By: #### B MP, CBC #### [address] Glucose [Mass/Vol] 106 mg/dL High 70-100 [facility] Comment on above: Result Comment: [place] Glucose Reference Range is dependent on time and content of last meal. Glucose of more than 200 mg/dL in a nonstressed, ambulatory subject supports the diagnosis of Diabetes Mellitus. ADA recommended reference range Performed By: #### B MP, CBC #### [address] Potassium [Moles/Vol] 4.4 mmol/L Normal 3.5-5.[address] [facility] Comment on above: Performed By: #### B MP, CBC #### [address] Sodium [Moles/Vol] 141 mmol/L Normal 136-146 [facility] Comment on above: Performed By: #### B MP, CBC #### [address] Urea nitrogen [Mass/Vol] 13 mg/dL Normal 9-[address] [facility] Comment on above: Performed By: #### B MP, CBC #### [place] [address] [place] Basophils Auto (Bld) [#/Vol] on 08-16-2020 Basophils (Bld) [#/Vol] 0.0 10*3/uL 0.0-0.2 [facility] Basophils/100 WBC Auto (Bld) on 08-16-2020 Basophils/100 WBC (Bld) 0.6 % [facility] Blood hemoglobin measurement (mass/volume)on 08-16-2020 Hemoglobin (Bld) [Mass/Vol] 13.8 g/dL 11.8-15.4 [facility] Blood leukocytes automated c ount (number/volume)on 08-16-2020 WBC (Bld) [#/Vol] 7.4 10*3/uL 4.5-11.0 [facility] Complete Blood Count Auto Di ffon 08-16-2020 Basophils (Bld) [#/Vol] 0.0 10*3/uL Normal 0.0-0.[address] [facility] Comment on above: Result Comment: PERF ORMED BY: [place] [address] PATHOLOGIST RESEARCH EPIDEMIOLOGIST JANELLE SHANNON M.D. Performed By: #### B MP, CBC #### [address] Basophils/100 WBC (Bld) 0.6 % Normal . [facility] Comment on above: Performed By: #### B MP, CBC #### [address] Eosinophils (Bld) [#/Vol] 0.2 10*3/uL Normal 0.0-0.[address] [facility] Comment on above: Performed By: #### B MP, CBC #### [address] Eosinophils/100 WBC (Bld) 2.7 % Normal . [facility] Comment on above: Performed By: #### B MP, CBC #### [address] Erythrocyte distribution width (RBC) [Ratio] 14.2 % Normal 11.9-15.[address] [facility] Comment on above: Performed By: #### B MP, CBC #### [address] Hematocrit (Bld) [Volume fraction] 40.5 % Normal 34.0-46.[address] [facility] Comment on above: Performed By: #### B MP, CBC #### [address] Hemoglobin (Bld) [Mass/Vol] 13.8 g/dL Normal 11.8-15.[address] [facility] Comment on above: Performed By: #### B MP, CBC #### [facility] [address] [place] [address] [place] Lymphocytes (Bld) [#/Vol] 2.7 10*3/uL Normal 1.00-4.[address] [facility] Comment on above: Performed By: #### B MP, CBC #### [facility] [address] Lymphocytes/100 WBC (Bld) 36.0 % Normal . [facility] Comment on above: Performed By: #### B MP, CBC #### [facility] [address] MCH (RBC) [Entitic mass] 31.6 pg Normal 24.7-34.[address] [facility] Comment on above: Performed By: #### B MP, CBC #### [facility] [address] MCV (RBC) [Entitic vol] 93.2 fL Normal 80-[address] [facility] Comment on above: Performed By: #### B MP, CBC #### [address] Mean Corpuscular HGB Conc 33.9 g/dL Normal 32.0-35.[address] [facility] Comment on above: Performed By: #### B MP, CBC #### [facility] [address] [place] [address] [place] Monocytes (Bld) [#/Vol] 0.6 10*3/uL Normal 0.0-0.[address] [facility] Comment on above: Performed By: #### B MP, CBC #### [facility] [address] [place] [address] [place] Monocytes/100 WBC (Bld) 8.0 % Normal . [facility] Comment on above: Performed By: #### B MP, CBC #### [address] Neutrophils (Bld) [#/Vol] 3.9 10*3/uL Normal 1.8-7.[address] [facility] Comment on above: Performed By: #### B MP, CBC #### [facility] [address] [place] [address] [place] Neutrophils/100 WBC (Bld) 52.7 % Normal . [facility] Comment on above: Performed By: #### B MP, CBC #### [facility] [address] [place] [address] [place] Nucleated RBC/100 WBC (Bld) [Ratio] 0.4 % Normal 0-0.[address] [facility] Comment on above: Performed By: #### B MP, CBC #### [facility] [address] Platelet mean volume (Bld) [Entitic vol] 8.6 fL Normal 6.3-10.[address] [facility] Comment on above: Performed By: #### B MP, CBC #### [facility] [address] [place] [address] [place] Platelets (Bld) [#/Vol] 254 10*3/uL Normal 150-[address] [facility] Comment on above: Performed By: #### B MP, CBC #### [facility] [address] [place] [address] [place] RBC (Bld) [#/Vol] 4.35 10*6/uL Normal 3.60-5.00 [facility] Comment on above: Performed By: #### B MP, CBC #### [facility] [address] [place] [address] [place] WBC (Bld) [#/Vol] 7.4 10*3/uL Normal 4.5-11.0 [facility] Comment on above: Performed By: #### B MP, CBC #### [place] [address] [place] Creatinine and Glomerular fi ltration rate.predicted panel (S/P/Bld)on 08-16-2020 Creatinine [Mass/Vol] 0.95 mg/dL 0.44-1.03 [facility] ECG 12 lead ECGon 08-16-2020 ECG 12 lead ECG [facility] [place] [address] [place] [address] Electrocardiograph Report Signed Patient: Ciera Chan MR#: [id number] : 1960 Acct:[id number] Age/Sex: 60 / F ADM Date: 08/16/20 Loc: PS Room: Type: [facility] Attending Dr: Boy Thompson MD Ordering Provider: Boy Thompson MD Date of Service: 08/16/20 ECG/ECG 12 lead ECG: surgery 08-29-2020 Copies to: Test Reason : Blood Pressure : / mmHG Vent. Rate : 081 BPM Atrial Rate : 081 BPM P-R Int : 146 ms QRS Dur : 088 ms QT Int : 398 ms P-R-T Axes : 055 021 032 degrees QTc Int : 462 ms Normal sinus rhythm Normal ECG No previous ECGs available Confirmed by DEMETRIO SANCHEZ DO ([id number]) on 08/16/2020 3:41:49 PM Referred By: SHAHNAZ THOMPSON Electronically Signed By:DEMETRIO SANCHEZ DO Transcribed By: [facility] Dictated By: Demetrio Sanchez DO 08/16/20 1319 Signed By: 08/16/[address] [facility] Eosinophils Auto (Bld) [#/Vo l]on 08-16-2020 Eosinophils (Bld) [#/Vol] 0.2 10*3/uL 0.0-0.45 [facility] Eosinophils/100 WBC Auto (Bl d)on 08-16-2020 Eosinophils/100 WBC (Bld) 2.7 % [facility] Erythrocyte distribution wid th Auto (RBC) [Ratio]on 08-16-2020 Erythrocyte distribution width (RBC) [Ratio] 14.2 % 11.9-15.3 [facility] Estimated glomerular filtrat ion rate (GFR) non- Americanon 08-16-2020 GFR/1.73 sq M.predicted among non-blacks MDRD (S/P/Bld) [Vol rate/Area] 60 mL/Min [facility] Hematocrit Auto (Bld) [Volum e fraction]on 08-16-2020 Hematocrit (Bld) [Volume fraction] 40.5 % 34.0-46.4 [facility] Laboratory - Hematology and Cell countson 08-16-2020 Nucleated RBC/100 WBC (Bld) [Ratio] 0.4 % 0-0.5 [facility] Lymphocytes Auto (Bld) [#/Vo l]on 08-16-2020 Lymphocytes (Bld) [#/Vol] 2.7 10*3/uL 1.00-4.8 [facility] Lymphocytes/100 WBC Auto (Bl d)on 08-16-2020 Lymphocytes/100 WBC (Bld) 36.0 % [facility] MCH Auto (RBC) [Entitic mass ]on 08-16-2020 MCH (RBC) [Entitic mass] 31.6 pg 24.7-34.3 [facility] MCHC Auto (RBC) [Mass/Vol]on 08-16-2020 MCHC (RBC) [Mass/Vol] 33.9 g/dL 32.0-35.0 [facility] MCV Auto (RBC) [Entitic vol] on 08-16-2020 MCV (RBC) [Entitic vol] 93.2 fL 80-100 [facility] Monocytes Auto (Bld) [#/Vol] on 08-16-2020 Monocytes (Bld) [#/Vol] 0.6 10*3/uL 0.0-0.8 [facility] Monocytes/100 WBC Auto (Bld) on 08-16-2020 Monocytes/100 WBC (Bld) 8.0 % [facility] Neutrophils Auto (Bld) [#/Vo l]on 08-16-2020 Neutrophils (Bld) [#/Vol] 3.9 10*3/uL 1.8-7.7 [facility] Neutrophils/100 WBC Auto (Bl d)on 08-16-2020 Neutrophils/100 WBC (Bld) 52.7 % [facility] No Panel Informationon 08-16 Estimated GFR () > 60 mL/Min [facility] Comment on above: GFR estimated refere nce range: According to KDOQI guidelines, <60 ml/min/1.73m2 is sufficient to diagnose a patient with chronic kidney disease. Pharmacy Creatinine Clearance (Chem N/A [facility] Platelet mean volume Auto (B ld) [Entitic vol]on 08-16-2020 Platelet mean volume (Bld) [Entitic vol] 8.6 fL 6.3-10.7 [facility] Platelets Auto (Bld) [#/Vol] on 08-16-2020 Platelets (Bld) [#/Vol] 254 10*3/uL 150-450 [facility] RBC Auto (Bld) [#/Vol]on RBC (Bld) [#/Vol] 4.35 10*6/uL 3.60-5.00 [facility] Serum or plasma calcium kashmir urement (mass/volume)on 08-16-2020 Calcium [Mass/Vol] 9.7 mg/dL 8.2-10.2 [facility] Serum or plasma chloride bruce surement (moles/volume)on 08-16-2020 Chloride [Moles/Vol] 104 mmol/L 95-114 [facility] Serum or plasma glucose kashmir urement (mass/volume)on 08-16-2020 Glucose [Mass/Vol] 106 mg/dL 70-100 [facility] Comment on above: ADA recommended refe rence rangeRandom Glucose Reference Range is dependent on time and content of last meal. Glucose of more than 200 mg/dL in a nonstressed, ambulatory subject supports the diagnosis of Diabetes Mellitus. Serum or plasma potassium me asurement (moles/volume)on 08-16-2020 Potassium [Moles/Vol] 4.4 mmol/L 3.5-5.1 [facility] Serum or plasma sodium measu rement (moles/volume)on 08-16-2020 Sodium [Moles/Vol] 141 mmol/L 136-146 [facility] Serum or plasma total carbon dioxide measurement (moles/volume)on 08-16-2020 CO2 [Moles/Vol] 29.2 mmol/L 22.0-30.0 [facility] Serum or plasma urea nitroge n measurement (mass/volume)on 08-16-2020 Urea nitrogen [Mass/Vol] 13 mg/dL 9-23 [facility] Vital Signs Date Time Vital Sign Value Performing Clinician Facility 01-27-2024 14:00-0400 Blood Pressure Location Vamsi MILLER [facility] 01-27-2024 14:00-0400 Diastolic blood pressure 77 mm[Hg] Vamsisandra MILLER [facility] 01-27-2024 14:00-0400 Heart rate 88 /min Vamsisandra MILLER [facility] 01-27-2024 14:00-0400 Respiratory rate 16 /min Vamsisandra MILLER [facility] 01-27-2024 14:00-0400 Systolic blood pressure 148 mm[Hg] Vamsisandra MILLER [facility] 01-05-2024 22:00-0400 Hourly Rounding Sudhir Munir [facility] 01-05-2024 22:00-0400 Promise to Return Sudhir Munir [facility] 01-05-2024 21:00-0400 Hourly Rounding Sudhir Munir [facility] 01-05-2024 21:00-0400 Promise to Return Sudhir Munir [facility] 01-05-2024 20:00-0400 Hourly Rounding Sudhir Munir [facility] 01-05-2024 20:00-0400 Promise to Return Sudhir Munir [facility] 01-05-2024 17:36-0400 Body temperature 97.88 [degF] Sudhir Munir [facility] 01-05-2024 17:36-0400 Diastolic blood pressure 77 mm[Hg] Sudhir Munir [facility] 01-05-2024 17:36-0400 Heart rate 82 /min Sudhir Amaral [facility] 01-05-2024 17:36-0400 Respiratory rate 18 /min Sudhir Amaral [facility] 01-05-2024 17:36-0400 SaO2% (BldA) [Mass fraction] 98 % Sudhir Amaral [facility] 01-05-2024 17:36-0400 Systolic blood pressure 117 mm[Hg] Sudhir Amaral [facility] 01-24-2022 17:40-0400 Blood Pressure Location Veracristel Garzaar [facility] 01-24-2022 17:40-0400 Body temperature 97.88 [degF] Vera Cogar [facility] 01-24-2022 17:40-0400 Diastolic blood pressure 90 mm[Hg] Vera Cogar [facility] 01-24-2022 17:40-0400 Heart rate 104 /min Vera Cogar [facility] 01-24-2022 17:40-0400 SaO2% (BldA) [Mass fraction] 99 % Vera Cogar [facility] 01-24-2022 17:40-0400 Systolic blood pressure 140 mm[Hg] Vera Cogar [facility] 07-25-2021 14:40-0400 Body height 157.48 cm Boy Thompson Other [facility] Other 07-25-2021 14:40-0400 Body mass index (BMI) [Ratio] 36.76 kg/m2 Boy Thompson Other [facility] Other 07-25-2021 14:40-0400 Body weight 91.17 kg Boy Thompson Other [facility] Other 2021 14:40-0500 Body height 157.48 cm Boy Thompson Other [facility] Other 2021 14:40-0500 Body mass index (BMI) [Ratio] 36.76 kg/m2 Boy Thompson Other [facility] Other 2021 14:40-0500 Body weight 91.17 kg Boy Thompson Other [employer] Other Encounters Encounter Date Encounter Type Care Provider Facility Start: 01-27-2024 [place] [facility] Start: 01-27-2024 End: 01-27-2024 Patient encounter procedure Vamsi MILLER [facility] Start: 01-27-2024 ambulatory Vamsi Lopez ty:[place] Start: 01-27-2024 End: 01-27-2024 Patient encounter procedure Vamsi MILLER [facility] Start: 01-22-2024 ambulatory Vamsi MILLER Facility :[facility] Start: 01-19-2024 End: 01-19-2024 Emergency department patient visit Janis Akbar Kvng Facility:[facility] Start: 01-05-2024 End: 01-05-2024 Emergency department patient visit Sudhir Amaral [facility] Start: 09-17-2023 ambulatory Rhonda Narayan Faci lity:[facility] Start: 09-17-2023 End: 09-17-2023 ambulatory Rhonda Narayan Facility:[facility] Start: 09-17-2023 End: 09-17-2023 Patient encounter procedure Rhonda Narayan [facility] Start: 02-12-2023 End: 02-13-2023 ambulatory Rhonda Narayan Facility:[facility] Start: 02-12-2023 End: 02-12-2023 Patient encounter procedure Rhonda Narayan [facility] Start: 05-20-2022 End: 05-20-2022 Patient encounter procedure Rhonda Narayan [facility] Start: 01-24-2022 End: 01-24-2022 Patient encounter procedure Vera Flakito Hargrove [facility] Start: 11-21-2021 End: 11-21-2021 Patient encounter procedure Rhonda Narayan [facility] Start: 07-25-2021 End: 07-25-2021 ambulatory Boy Ulises Other [facility] [employer] Other Start: 07-25-2021 Office outpatient visit 15 minutes Boy Thompson [facility] operated by [facility] Start: 2021 End: 2021 ambulatory Boy Thompson Other [facility] [employer] Other Start: 2021 Office outpatient visit 15 minutes Boy Thompson [facility] Start: 08-27-2020 End: 08-27-2020 Patient encounter procedure Flakito Jade Work Phone: -Pre-Surgical Testing Start: 08-16-2020 End: 08-16-2020 Patient encounter procedure Flakito Jade Work Phone: -Pre-Surgical Testing Start: 07-12-2020 End: 07-12-2020 Patient encounter procedure Flakito Jade Work Phone: -MRI [address] Start: 06-11-2020 End: 06-11-2020 Patient encounter procedure Flakito Jade Work Phone: -MRI [address] Procedures Date Procedure Procedure Detail Performing Clinician Start: 08-29-2020 Antibody screen Comment on above: Result Comment: PERF ORMED BY: [facility] [address] [place] [address] PATHOLOGIST RESEARCH EPIDEMIOLOGIST JANELLE SHANNON M.D. Start: 07-12-2020 MRI of cervical spin e without contrast Flakito Valenciaett Work Phone: Start: 07-12-2020 Radiography of cervi kelsea spine Flakito Valenciaett Work Phone: Start: 06-11-2020 MR lumbar spine wo con Flakito Valenciaett Work Phone: Start: 06-11-2020 XR pre/post mri xray Flakito Valenciaett Work Phone: Neck Rhonda Tomso n Immunizations Immunization Date Immunization Notes Care Provider Fa cility 06-05-2020 SARS-CoV-2 (COVID-19 ) mRNA-1273 vaccine Vera Cogar [facility] 05-22-2020 SARS-CoV-2 (COVID-19 ) mRNA BNT-162b2 vax Vera Cogar [facility] 05-08-2020 SARS-CoV-2 (COVID-19 ) mRNA-1273 vaccine Vera Cogar [facility] 05-01-2020 SARS-CoV-2 (COVID-19 ) mRNA BNT-162o8 vax Vera Cogar [facility] Payers Date Payer Category Payer Medicaid [id number] 9a [id number] 1960 Unknown [id number] 2.16.8 [id number] 1960 Unknown [id number] 2.16.8 [id number] 1959 Unknown [id number] 2.16.8 [id number] 1959 Unknown [id number] 2.16.8 [id number] 1959 Unknown [id number] 2.16.8 [id number] 1959 Unknown [id number] 2.16.8 [id number] 1959 Unknown [id number] 2.16.8 [id number] 1959 Unknown [id number] 2.16.8 [id number] 1959 Unknown [id number] 2.16.8 [id number] 1959 Unknown [id number] 2.16.8 [id number] 1959 Unknown [id number] 2.16.8 [id number] Self-pay Self Pay [id number] Unknown [id number] Social History Date Type Detail Facility Start: 08-16-2020 End: 01-27-2024 Tobacco smoking status NHIS Never smoked tobacco (finding) [facility] Start: 1960 Sex Assigned At Female [facility] Sex Assigned At [facility] [employer] Other Tobacco smoking status No Smokin g Status Entered [facility] Comment on above: Denies. Tobacco smoking status Never Isadora [facility] Tobacco smoking status No Smokin g Status Entered [facility] Goals Date Patient Goal Desired Activity /State Functional Status Date Assessment Result Facility 01-27-2024 Functional Status N/A [facility] 01-05-2024 Functional Status N/A [facility] 01-24-2022 Functional Status N/A [facility] Clinical Notes 2021 to 01-27-2024 Note Date & Type Note Facility 01-27-2024 Hospital Discharge instructions Patient Education 01/27/2024 14:45:09 Laser Therapy for Kidney Stones, Care After Laser Therapy for Kidney Stones, Care After After laser therapy for kidney stones, it is common to have: Pain. A burning feeling when you pee (urinate). Small amounts of blood in your pee (urine). A need to pee a lot. Parts of the kidney stone in your pee. Mild discomfort in your back when you pee. You may have this if you had a small mesh tube (stent) placed during the procedure. Follow these instructions at home: Medicines Take hhah-cba-hpxvlbf and prescription medicines only as told by your health care provider. If you were prescribed antibiotics, take them as told by your provider. Do not stop using the antibiotic even if you start to feel better. Ask your provider if the medicine prescribed to you: ?Requires you to avoid driving or using machinery. ?Can cause constipation. You may need to take these actions to prevent or treat constipation: ?Drink enough fluid to keep your pee pale yellow. ?Take bbba-yzi-zfjxxpk or prescription medicines. ?Eat foods that are high in fiber, such as beans, whole grains, and fresh fruits and vegetables. ?Limit foods that are high in fat and processed sugars, such as fried or sweet foods. Activity If you were given a sedative during the procedure, it can affect you for several hours. Do not drive or operate machinery until your provider says that it is safe. Return to your normal activities as told by your provider. Ask your provider what activities are safe for you. General instructions Your provider may recommend that you drink a lot of water for a few hours after your procedure. If you have heart or kidney disease, ask your provider how much you should drink. You may be asked to strain your pee to collect any stone pieces that you pass. Your provider may have these pieces tested. Do not take baths, swim, or use a hot tub until your provider approves. Ask your provider if you may take warm baths to soothe the burning. Keep all follow-up visits. If you have a stent, you will need to go back to your provider to have it removed. Your provider may give you more instructions. Make sure you know what you can and cannot do. Contact a health care provider if: You have pain or a burning feeling that lasts for more than 2 days. You feel nauseous. You vomit more and more often. You have trouble peeing. You have pain that gets worse or does not get better with medicine. You have a fever or shaking chills. Get help right away if: You cannot pee, even when your bladder feels full. You faint. You have chest pain, shortness of breath, or cough up blood. You have: ?Bright red blood or blood clots in your pee. ?Severe pain or discomfort. ?Pain in your abdomen. ?Swelling in your legs. These symptoms may be an emergency. Get help right away. Call 911. Do not wait to see if the symptoms will go away. Do not drive yourself to the hospital. This information is not intended to replace advice given to you by your health care provider. Make sure you discuss any questions you have with your health care provider. Document Revised: 12/19/2022 Document Reviewed: 12/19/2022 [employer] Patient Education 2023 [employer]. 01/27/2024 14:45:08 Laser Therapy for Kidney Stones Laser Therapy for Kidney Stones Laser therapy for kidney stones is a procedure to break up rock-like masses that form inside the kidneys (kidney stones). It is done using a device that beams a strong light (laser) on the kidney stones. This breaks the stones up into small pieces. These small pieces may leave your body when you pee (urinate) or may be taken out during the procedure. You may need laser therapy if you have kidney stones that are painful or that are stopping you from being able to pee. Tell a health care provider about: Any allergies you have. All medicines you are taking, including vitamins, herbs, eye drops, creams, and qfhm-mtg-jwhblya medicines. Any problems you or family members have had with anesthesia. Any bleeding problems you have. Any surgeries you have had. Any medical conditions you have. Whether you are or may be . What are the risks? Your health care provider will talk with you about risks. These may include: Infection. Bleeding. Allergic reactions to medicines. Damage to: ?The part of your body that drains pee (urine) from the bladder (urethra). ?The bladder. ?The tube that connects the bladder to the kidneys (ureter). Urinary tract infection (UTI). Urethral stricture. This is when the urethra is narrowed by scarring. Trouble peeing. Blockage of the kidney. This may be caused by a piece of kidney stone. What happens before the procedure? When to stop eating and drinking Follow instructions from your provider about what you may eat and drink. These may include: 8 hours before the procedure ?Stop eating most foods. Do not eat meat, fried foods, or fatty foods. ?Eat only light foods, such as toast or crackers. ?All liquids are okay except energy drinks and alcohol. 6 hours before the procedure ?Stop eating. ?Drink only clear liquids, such as water, clear fruit juice, black coffee, plain tea, and sports drinks. ?Do not drink energy drinks or alcohol. 2 hours before the procedure ?Stop drinking all liquids. ?You may be allowed to take medicines with small sips of water. If you do not follow your provider's instructions, your procedure may be delayed or canceled. Medicines Ask your provider about: ?Changing or stopping your regular medicines. These include any diabetes medicines or blood thinners you take. ?Taking medicines such as aspirin and ibuprofen. These medicines can thin your blood. Do not take them unless your provider tells you to. ?Taking fjvo-gsy-gdyjmlb medicines, vitamins, herbs, and supplements. Tests You may have a physical exam before the procedure. You may also have tests done. These may include: ?Imaging tests. ?Blood or pee tests. Surgery safety Ask your provider: ?How your surgery site will be marked. ?What steps will be taken to help prevent infection. These steps may include: ?Removing hair at the surgery site. ?Washing skin with a soap that kills germs. ?Taking antibiotics. General instructions Do not use any products that contain nicotine or tobacco for at least 4 weeks before the procedure. These products include cigarettes, chewing tobacco, and vaping devices, such as e-cigarettes. If you need help quitting, ask your provider. If you will be going home right after the procedure, plan to have a responsible adult: ?Take you home from the hospital or clinic. You will not be allowed to drive. ?Care for you for the time you are told. What happens during the procedure? An IV will be inserted into one of your veins. You will be given: ?A sedative. This helps you relax. ?Anesthesia. This keeps you from feeling pain. It will make you fall asleep for surgery. A tool with a camera on the end (ureteroscope) will be put into your urethra. It will be moved through your bladder to your kidney. It will send pictures to a screen in the operating room. This will show what parts of your kidney need to be treated. A tube will be put through the ureteroscope. It will be moved into your kidney. The laser device will be put into your kidney through the tube. The laser will be used to break up the kidney stones. A tool with a tiny wire basket may be put through the tube into your kidney. This can help remove the small pieces of the kidney stone. A small mesh tube (stent) may be placed to allow your kidney to drain. The tube and ureteroscope will be taken out at the end of the surgery. The procedure may vary among providers and hospitals. What happens after the procedure? Your blood pressure, heart rate, breathing rate, and blood oxygen level will be monitored until you leave the hospital or clinic. If you had a stent placed, it may have a string that will be secured to your skin. This helps your provider remove the stent. You may be given a strainer to collect any stone pieces that you pass in your pee. Your provider may have these tested. This information is not intended to replace advice given to you by your health care provider. Make sure you discuss any questions you have with your health care provider. Document Revised: 12/19/2022 Document Reviewed: 12/19/2022 [employer] Patient Education 2023 [employer] Follow Up Care 01/25/2024 14:14:00 With:PAUL GARDNER, Vamsi Schultz, URL Address: [facility] [address], [place] [address]- [phone] When: Unknown Comments:jessica REDDY [facility] 01-19-2024 Note Progress Note-Nurse This nurse into answer call light and patient off bedside commode, pt re-vitalized and tachy on the monitor in the 120's and hypertension. Primary nurse aware and Dr. Calderon [facility] 01-05-2024 Hospital Discharge instructions Patient Education 01/05/2024 21:44:46 Urinary Tract Infection, Adult, Wufv-qd-Zqss Urinary Tract Infection, Adult A urinary tract infection (UTI) is an infection of any part of the urinary tract. The urinary tract includes: The kidneys. The ureters. The bladder. The urethra. These organs make, store, and get rid of pee (urine) in the body. What are the causes? This infection is caused by germs (bacteria) in your genital area. These germs grow and cause swelling (inflammation) of your urinary tract. What increases the risk? The following factors may make you more likely to develop this condition: Using a small, thin tube (catheter) to drain pee. Not being able to control when you pee or poop (incontinence). Being female. If you are female, these things can increase the risk: ?Using these methods to prevent : ?A medicine that kills sperm (spermicide). ?A device that blocks sperm (diaphragm). ?Having low levels of a female hormone (estrogen). ?Being . You are more likely to develop this condition if: You have genes that add to your risk. You are sexually active. You take antibiotic medicines. You have trouble peeing because of: ?A prostate that is bigger than normal, if you are male. ?A blockage in the part of your body that drains pee from the bladder. ?A kidney stone. ?A nerve condition that affects your bladder. ?Not getting enough to drink. ?Not peeing often enough. You have other conditions, such as: ?Diabetes. ?A weak disease-fighting system (immune system). ?Sickle cell disease. ?Gout. ?Injury of the spine. What are the signs or symptoms? Symptoms of this condition include: Needing to pee right away. Peeing small amounts often. Pain or burning when peeing. Blood in the pee. Pee that smells bad or not like normal. Trouble peeing. Pee that is cloudy. Fluid coming from the vagina, if you are female. Pain in the belly or lower back. Other symptoms include: Vomiting. Not feeling hungry. Feeling mixed up (confused). This may be the first symptom in older adults. Being tired and grouchy (irritable). A fever. Watery poop (diarrhea). How is this treated? Taking antibiotic medicine. Taking other medicines. Drinking enough water. In some cases, you may need to see a specialist. Follow these instructions at home: Medicines Take ebnh-btt-rrjzyxr and prescription medicines only as told by your doctor. If you were prescribed an antibiotic medicine, take it as told by your doctor. Do not stop taking it even if you start to feel better. General instructions Make sure you: ?Pee until your bladder is empty. ?Do not hold pee for a long time. ?Empty your bladder after sex. ?Wipe from front to back after peeing or pooping if you are a female. Use each tissue one time when you wipe. Drink enough fluid to keep your pee pale yellow. Keep all follow-up visits. Contact a doctor if: You do not get better after 1 2 days. Your symptoms go away and then come back. Get help right away if: You have very bad back pain. You have very bad pain in your lower belly. You have a fever. You have chills. You feeling like you will vomit or you vomit. Summary A urinary tract infection (UTI) is an infection of any part of the urinary tract. This condition is caused by germs in your genital area. There are many risk factors for a UTI. Treatment includes antibiotic medicines. Drink enough fluid to keep your pee pale yellow. This information is not intended to replace advice given to you by your health care provider. Make sure you discuss any questions you have with your health care provider. Document Revised: 11/25/2020 Document Reviewed: 11/30/2020 [employer] Patient Education 2023 [employer]. Follow Up Care 01/05/2024 17:14:57 With:Rhonda Shahnaz Address: [address] [place] [phone]- Business (1) When:01/08/2024 21:44:28 Comments:Call to schedule a follow-up appoint with your family physician if symptoms not improve in the next 2 to 3 days. Use the antibiotic as prescribed. Return to the ED with any worsening symptoms. [facility] 01-05-2024 Note ED Patient Education Note Obstetrics and Gynecology Urinary Tract Infection, Adult A urinary tract infection (UTI) is an infection of any part of the urinary tract. The urinary tract includes: ? The kidneys. ? The ureters. ? The bladder. ? The urethra. These organs make, store, and get rid of pee (urine) in the body. What are the causes? This infection is caused by germs (bacteria) in your genital area. These germs grow and cause swelling (inflammation) of your urinary tract. What increases the risk? The following factors may make you more likely to develop this condition: ? Using a small, thin tube (catheter) to drain pee. ? Not being able to control when you pee or poop (incontinence). ? Being female. If you are female, these things can increase the risk: ? Using these methods to prevent : ? A medicine that kills sperm (spermicide). ? A device that blocks sperm (diaphragm). ? Having low levels of a female hormone (estrogen). ? Being . You are more likely to develop this condition if: ? You have genes that add to your risk. ? You are sexually active. ? You take antibiotic medicines. ? You have trouble peeing because of: ? A prostate that is bigger than normal, if you are male. ? A blockage in the part of your body that drains pee from the bladder. ? A kidney stone. ? A nerve condition that affects your bladder. ? Not getting enough to drink. ? Not peeing often enough. ? You have other conditions, such as: ? Diabetes. ? A weak disease-fighting system (immune system). ? Sickle cell disease. ? Gout. ? Injury of the spine. What are the signs or symptoms? Symptoms of this condition include: ? Needing to pee right away. ? Peeing small amounts often. ? Pain or burning when peeing. ? Blood in the pee. ? Pee that smells bad or not like normal. ? Trouble peeing. ? Pee that is cloudy. ? Fluid coming from the vagina, if you are female. ? Pain in the belly or lower back. Other symptoms include: ? Vomiting. ? Not feeling hungry. ? Feeling mixed up (confused). This may be the first symptom in older adults. ? Being tired and grouchy (irritable). ? A fever. ? Watery poop (diarrhea). How is this treated? ? Taking antibiotic medicine. ? Taking other medicines. ? Drinking enough water. In some cases, you may need to see a specialist. Follow these instructions at home: Medicines ? Take yefq-wno-zsnflsh and prescription medicines only as told by your doctor. ? If you were prescribed an antibiotic medicine, take it as told by your doctor. Do not stop taking it even if you start to feel better. General instructions ? Make sure you: ? Pee until your bladder is empty. ? Do not hold pee for a long time. ? Empty your bladder after sex. ? Wipe from front to back after peeing or pooping if you are a female. Use each tissue one time when you wipe. ? Drink enough fluid to keep your pee pale yellow. ? Keep all follow-up visits. Contact a doctor if: ? You do not get better after 1?2 days. ? Your symptoms go away and then come back. Get help right away if: ? You have very bad back pain. ? You have very bad pain in your lower belly. ? You have a fever. ? You have chills. ? You feeling like you will vomit or you vomit. Summary ? A urinary tract infection (UTI) is an infection of any part of the urinary tract. ? This condition is caused by germs in your genital area. ? There are many risk factors for a UTI. ? Treatment includes antibiotic medicines. ? Drink enough fluid to keep your pee pale yellow. This information is not intended to replace advice given to you by your health care provider. Make sure you discuss any questions you have with your health care provider. Document Revised: 11/25/2020 Document Reviewed: 11/30/2020 [employer] Patient Education ? 2023 [facility] Evaluation + Plan note Diagnostic Tests PendingUrine Culture 01/05/24 [facility] 01-24-2022 Hospital Discharge instructions Patient Education 01/24/2022 18:42:31 BMI for Adults BMI for Adults Body mass index (BMI) is a number that is calculated from a person's weight and height. BMI may help to estimate how much of a person's weight is composed of fat. BMI can help identify those who may be at higher risk for certain medical problems. How is BMI used with adults? BMI is used as a screening tool to identify possible weight problems. It is used to check whether a person is obese, overweight, healthy weight, or underweight. How is BMI calculated? BMI measures your weight and compares it to your height. This can be done either in [place] or metric measurements. Note that charts are available to help you find your BMI quickly and easily without having to do these calculations yourself. To calculate your BMI in [place] measurements, your health care provider will: 1.Measure your weight in pounds (lb). 2.Multiply the number of pounds by 703. For example, for a person who weighs 180 lb, multiply that number by 703, which equals 126,540. 3.Measure your height in inches (in). Then multiply that number by itself to get a measurement called inches squared. For example, for a person who is 70 in tall, the inches squared measurement is 70 in x 70 in, which equals 4900 inches squared. 4.Divide the total from Step 2 (number of lb x 703) by the total from Step 3 (inches squared): 126,540 4900 = 25.8. This is your BMI. To calculate your BMI in metric measurements, your health care provider will: 1.Measure your weight in kilograms (kg). 2.Measure your height in meters (m). Then multiply that number by itself to get a measurement called meters squared. For example, for a person who is 1.75 m tall, the meters squared measurement is 1.75 m x 1.75 m, which is equal to 3.1 meters squared. 3.Divide the number of kilograms (your weight) by the meters squared number. In this example: 70 3.1 = 22.6. This is your BMI. How is BMI interpreted? To interpret your results, your health care provider will use BMI charts to identify whether you are underweight, normal weight, overweight, or obese. The following guidelines will be used: Underweight: BMI less than 18.5. Normal weight: BMI between 18.5 and 24.9. Overweight: BMI between 25 and 29.9. Obese: BMI of 30 and above. Please note: Weight includes both fat and muscle, so someone with a muscular build, such as an athlete, may have a BMI that is higher than 24.9. In cases like these, BMI is not an accurate measure of body fat. To determine if excess body fat is the cause of a BMI of 25 or higher, further assessments may need to be done by a health care provider. BMI is usually interpreted in the same way for men and women. Why is BMI a useful tool? BMI is useful in two ways: Identifying a weight problem that may be related to a medical condition, or that may increase the risk for medical problems. Promoting lifestyle and diet changes in order to reach a healthy weight. Summary Body mass index (BMI) is a number that is calculated from a person's weight and height. BMI may help to estimate how much of a person's weight is composed of fat. BMI can help identify those who may be at higher risk for certain medical problems. BMI can be measured using Cameroonian measurements or metric measurements. To interpret your results, your health care provider will use BMI charts to identify whether you are underweight, normal weight, overweight, or obese. This information is not intended to replace advice given to you by your health care provider. Make sure you discuss any questions you have with your health care provider. Document Released: 12/30/2004 Document Revised: 04/02/2018 Document Reviewed: 03/03/2018 [employer] Patient Education 2020 [employer] 01/24/2022 18:42:28 Rash, Adult Rash, Adult A rash is a change in the color of your skin. A rash can also change the way your skin feels. There are many different conditions and factors that can cause a rash. Some rashes may disappear after a few days, but some may last for a few weeks. Common causes of rashes include: Viral infections, such as: ?Colds. ?Measles. ?Hand, foot, and mouth disease. Bacterial infections, such as: ?Scarlet fever. ?Impetigo. Fungal infections, such as Unique. Allergic reactions to food, medicines, or skin care products. Follow these instructions at home: The goal of treatment is to stop the itching and keep the rash from spreading. Pay attention to any changes in your symptoms. Follow these instructions to help with your condition: Medicine Take or apply vzfd-bpa-vubuvwm and prescription medicines only as told by your health care provider. These may include: Corticosteroid creams to treat red or swollen skin. Anti-itch lotions. Oral allergy medicines (antihistamines). Oral corticosteroids for severe symptoms. Skin care Apply cool compresses to the affected areas. Do not scratch or rub your skin. Avoid covering the rash. Make sure the rash is exposed to air as much as possible. Managing itching and discomfort Avoid hot showers or baths, which can make itching worse. A cold shower may help. Try taking a bath with: ?Epsom salts. Follow exhibition carver instructions on the packaging. You can get these at your local pharmacy or grocery store. ?Baking soda. Pour a small amount into the bath as told by your health care provider. ?Colloidal oatmeal. Follow exhibition carver instructions on the packaging. You can get this at your local pharmacy or grocery store. Try applying baking soda paste to your skin. Stir water into baking soda until it reaches a paste-like consistency. Try applying calamine lotion. This is an vort-kjo-acjyznn lotion that helps to relieve itchiness. Keep cool and out of the sun. Sweating and being hot can make itching worse. General instructions Rest as needed. Drink enough fluid to keep your urine pale yellow. Wear loose-fitting clothing. Avoid scented soaps, detergents, and perfumes. Use gentle soaps, detergents, perfumes, and other cosmetic products. Avoid any substance that causes your rash. Keep a journal to help track what causes your rash. Write down: ?What you eat. ?What cosmetic products you use. ?What you drink. ?What you wear. This includes jewelry. Keep all follow-up visits as told by your health care provider. This is important. Contact a health care provider if: You sweat at night. You lose weight. You urinate more than normal. You urinate less than normal, or you notice that your urine is a darker color than usual. You feel weak. You vomit. Your skin or the whites of your eyes look yellow (jaundice). Your skin: ?Tingles. ?Is numb. Your rash: ?Does not go away after several days. ?Gets worse. You are: ?Unusually thirsty. ?More tired than normal. You have: ?New symptoms. ?Pain in your abdomen. ?A fever. ?Diarrhea. Get help right away if you: Have a fever and your symptoms suddenly get worse. Develop confusion. Have a severe headache or a stiff neck. Have severe joint pains or stiffness. Have a seizure. Develop a rash that covers all or most of your body. The rash may or may not be painful. Develop blisters that: ?Are on top of the rash. ?Grow larger or grow together. ?Are painful. ?Are inside your nose or mouth. Develop a rash that: ?Looks like purple pinprick-sized spots all over your body. ?Has a bull's eye or looks like a target. ?Is not related to sun exposure, is red and painful, and causes your skin to peel. Summary A rash is a change in the color of your skin. Some rashes disappear after a few days, but some may last for a few weeks. The goal of treatment is to stop the itching and keep the rash from spreading. Take or apply jsex-qnx-pjtwirj and prescription medicines only as told by your health care provider. Contact a health care provider if you have new or worsening symptoms. Keep all follow-up visits as told by your health care provider. This is important. This information is not intended to replace advice given to you by your health care provider. Make sure you discuss any questions you have with your health care provider. Document Released: 04/10/2003 Document Revised: 08/12/2019 Document Reviewed: 11/22/2018 [employer] Patient Education 2020 [employer] Follow Up Care 01/24/2022 17:38:26 With:Rhonda Narayan MD, FAM Address:Unknown When: Unknown [facility] 07-25-2021 Evaluation note Encounter Date Diagnosis Assessment Notes 24 Mar, 2022 History of fusion of cervical spine (ICD-10 - Z98.1) The patient has no neck pain. Her x-ray today looks to have a good functional fusion with flexion and extension views were independently reviewed. She walks poorly she is very proud of her walk now that she no longer uses a cane but I strongly recommended the patient consider the walker, she just looks unsteady. From a neck point of view I think she is doing well I will discharge her from my care I will see her on an as-needed basis Jul, Cervical myelopathy (ICD-10 - G95.9) [facility] [employer] Other 11-18-2021 Evaluation note* Encounter Date Diagnosis Assessment Notes Treatment Notes Treatment Clinical Notes Mar, History of fusion of cervical spine (ICD-10 - Z98.1) At 6 months postop the patient has no neck pain. Her arms do not hurt and her walking is better. She is happy with her progress. I have reviewed the plain x-ray of the cervical spine done today with the previous; there has been subsidence of her graft without full integration into bone. I am concerned there may be a nonunion but she still could be functionally fused. With no symptoms I am happy with her progress but I would like to see her neck with flexion and extension views 1 more time in about 4 months. Mar, Cervical myelopathy (ICD-10 - G95.9) [employer] Other evaluation + Plan note No data available for this section [facility] - Reported* Type Description Date Medical History hypertension Medical History Esophageal reflux Medical History overactive bladder Medical History diabetes mallitus Medical History chronic depression Medical History anxiety Surgical History Neck Surgery Hospitalization History See Above [employer] Other Hospital Discharge instructions No data available for this section [facility] No data available for this section [facility] Advance Directives Advance Directive Response Recorded Date/ Time Advance Directives No May 06, 2020 11:48am Chief Complaint and Reason for Visit Chief Complaint r29.898 e11.49 G95.9 Myelopathy Myelopathy Family History Relationship Condition Age at Onset Recorded Date/T kelly father Coronary artery disease Unknown Deep vein thrombosis (DVT) Unknown Not Specified Malignant neoplasm of colon Unknown Malignant neoplasm of liver Unknown sister Deep vein thrombosis (DVT) Unknown Summary Purpose Additional Source Comments INFORMATION SOURCE (unrecogn ized section and content) DATE CREATED AUTHOR 08/13/2021 [facility] DATE CREATED AUTHOR AUTHOR'S ORGANIZ ATION 09/19/2023 [facility] DATE CREATED AUTHOR AUTHOR'S ORGANIZ ATION 09/20/2023 [facility] DATE CREATED AUTHOR AUTHOR'S ORGANIZ ATION 01/07/2024 [facility] DATE CREATED AUTHOR AUTHOR'S ORGANIZ ATION 01/09/2024 [facility] DATE CREATED AUTHOR AUTHOR'S ORGANIZ ATION 01/21/2024 [facility] DATE CREATED AUTHOR AUTHOR'S ORGANIZ ATION 01/27/2024 [facility] REASON FOR VISIT (unrecogniz ed section and content) 6 months po ACDF10 month po ACDF Care Team (unrecognized sect ion and content) Personnel Name: Rhonda Narayan MD Address: [address] [place] [address] [place] [address] Name: Emely Larose Personnel Name: Rhonda Narayan MD Address: [address] [place] [address]. [address] [place] [address] Name: Emely Larose Personnel Name: Rhonda Narayan MD Address: Address: [address] [place] [address] Name: Emely Larose Personnel Name: Rhonda Narayan MD Address: Address: [address] [place] [address]. [address] Name: Emely Larose Personnel Name: Rhonda Narayan MD Address: Address: [address] [place] [address]. [address] Name: Emely Larose Personnel Name: Rhonda Narayan MD Address: Address: [address] [place] [address] Name: Emely Larose Personnel Name: Rhonda Narayan MD Address: Address: [address] [place] [address]. [address] [place] [address] Name: Emely Larose Personnel Name: Rhonda Narayan MD Address: Address: [address] Name: Emely Larose FOR RECORDS PERTAINING TO PATIENTS WHO ARE OR HAVE BEEN ENROLLED IN A CHEMICAL DEPENDENCY/SUBSTANCEABUSE PROGRAM, SOME INFORMATION MAY BE OMITTED. This clinical summary was aggregated from multiple sources. Caution should be exercised in using it in the provision of clinical care. This summary normalizes information from multiple sources, and as a consequence, information in this document may materially change the coding, format and clinical context of patient data. In addition, data may be omitted in some cases. CLINICAL DECISIONS SHOULD BE BASED ON THE PRIMARY CLINICAL RECORDS. [facility] [employer] [facility]. provides no warranty or guarantee of the accuracy or completeness of information in this document.
--- NOTE | 2024-02-04 07:41 | XR_ITS ---
The [address] [address] Patient Name: ABIEL MARTIN MRN: [id number] date: 1960 Sex: F Assigned Patient Location: [facility] Current Patient Location: Accession/Order Number: [id number] Exam Date: 02/04/2024 07:35 Report Date: 02/04/2024 13:23 At the request of: JESS MILLER Procedure: XR abdomen 1V EXAMINATION: XR abdomen 1V HISTORY: kidney stones COMPARISON: No relevant comparison available. FINDINGS: KIDNEY/URETER - RIGHT: Multiple nephroliths the largest projects over the pelvis measuring 1.2 cm in diameter. Normally positioned right double-J ureteral stent KIDNEY/URETER - LEFT: No visible renal or ureteral calcifications. PELVIS: No visible ureteral calcifications. Any visible calcifications favor phleboliths. BOWEL: No abnormal dilation or deviation. BONES: No acute abnormality. Moderate degenerative changes OTHER: Negative. No abnormal gaseous collections. XR/XR abdomen 1V IMPRESSION: Right nephrolithiasis with ureteral stent Electronically authenticated by: JESS ZUÑIGA Date: 02/04/2024 13:23
[2024-02-04 07:47] LABS: Potassium 3.3 mmol/L (3.5-5.1)
[2024-02-04] MEDS: LACTATED RINGER'S SOLUTION 1,000 ML 50 ML IV (08:10)
[2024-02-04] MEDS: CIPROFLOXACIN 400 MG/200 ML D5W PREMIX 200 MG IV (08:41)
--- NOTE | 2024-02-04 09:40 | P.URON_ITS ---
Urology Surgery Operative Note Operative Note Procedure Date: 02/04/24 Time Out Performed: yes Pre-op Diagnosis: Right nephrolithiasis Post-op Diagnosis: same as pre-op Procedures performed: 1. Right ESWL. Anesthesia: General-LMA Primary Surgeon: Vamsi Anaya Complications: None Estimated blood loss (mL): 0 Findings: Right renal pelvis stone and right lower pole stone; status post right stent placement Indications for Procedures: This lady had a 1.3 cm right renal pelvis stone and a lower pole 1.2 cm right renal stone. She was stented. She now presents for right ESWL and possible right stent removal. She has signed an informed consent after risks were explained. Some of these risks include bleeding, perinephric hematoma, infection and anesthesia to name a few. Detailed description of Procedure: The patient was brought to the Operating Room and placed on Siemens electromagnetic lithotripsy treatment table in the supine position. SCDs were placed on their lower extremities and turned on and functioning during the entire case. Timeout was done by all parties in the room. We all agreed upon the patient's identification and the planned procedures for this patient. General Anesthesia was then administered via LMA. Treatment head was then brought to the patient's correct side. While using flourscopy the right renal pelvis stone was identified and lined up into the crosshairs. We then began applying shocks. We started at power level 2.0 and began increasing the power level to a maximum of 3.5. She experienced ectopy in the form of PVCs. We adjusted her positioning and lowered the rate. The PVCs continued. Therefore, the procedure was temporarily halted. We then started to treat her in a gated fashion. We applied a total of 3000 shocks to this right renal pelvis stone. No ectopy was noted for the remainder of the procedure. We saw dramatic fragmentation in the form of spreading out and debris streaming down the ureter. After 3000 shocks were delivered we could see a minimal persistence of stone debris at the origin of the stone in the renal pelvis along the stent. The procedure was then terminated. The stent was left indwelling. The patient was then transferred to a [facility] bed and wheeled to PACU in stable condition. The plan will be to check a KUB in a week or 2 and then bring her back for a second ESWL treatment and probable right stent removal at that time.
== END 2024-02-04 11:50 | disposition home or self-care (01) ==
PROVIDERS: Anesthesiology; PCP Family Medicine; Visit Provider Urology
PROC: (CPT 873; principal; 2024-02-04 08:50)
DX: N20.0 Calculus of kidney (principal)
CPT/HCPCS: 50590; 36415; 74018; 84132; J0744; J1100; J2405; J2704; J3010

== ENCOUNTER 2024-02-26 13:13 | Outpatient (OUT) | payer OTHER, SELFPAY ==
--- OUTSIDE RECORDS SUMMARY | 2024-02-26 13:17 | XMS_ITS | CCD ---
Author Organization [facility] Inform ion Partnership [facility] Care Team Providers Care Deputy Fire Marshal Name Role Phone Flakito Jade Attending Provider Boy Thompson Attending Provider Rhonda Narayan Primary Care Provider Boy Thompson Unavailable Rhonda Narayan Primary Care Physician Emely Larose Unavailable Unavailable Rhonda Narayan Attending Unavailable Narayan, Rhonda Duran Admitting Unavailable Narayan, Rhonda Duran Attending Unavailable Narayan, Rhonda Duran Admitting Unavailable Munir, Sudhir Attending Unavailable Narayan, Rhonda Duran Admitting Unavailable Narayan, Rhonda Duran Attending Unavailable Munir, Sudhir Attending Unavailable Hajdari, Astrit H Attending Unavailable Hajdari, Astrjose H Attending Unavailable ANAYA, Vamsi R Attending Unavailable ANAYA, Vamsi R Attending Unavailable ANAYA, Vamsi R Attending Unavailable ANAYA, Vamsi R Referring Unavailable ANAYA, Vamsi R Attending Unavailable ANAYA, Vamsi R Admitting Unavailable ANAYA, Vamsi R Attending Unavailable ANAYA, Vamsi R Attending Unavailable ANAYA, Vamsi R Admitting Unavailable Allergies Allergy Classification Reported Allergen(s) Allergy Type Date of Onset Reaction(s) Facility Dihydrofolate Reductase Inhibitors (antibiotic) (1 source) Trimethoprim Drug Allergy 08-17-19 21 N/V [facility] Iodine (and Iodine containting drugs) (1 source) Iodine Drug Allergy 08-17-19 21 Anaphylaxis [facility] Macrolides (antibiotic) (1 source) Clarithromycin Drug Allergy 08-17-19 21 N/V [facility] Mushrooms (1 source) Mushroom (edible) Food Allergy 08-17-19 21 Congested, sneeze [facility] NSAIDs (2 sources) Ibuprofen Drug Allergy 08-17-19 N/V, closed up throat, N/V, throat closed [facility] Opioid Agonists (1 source) HYDROcodone Drug Allergy 08-17-19 N/V [facility] Penicillins (antibiotic) (1 source) Penicillins Drug Allergy 08-17-19 Anaphylaxis [facility] Sulfonamides (antibiotic) (1 source) Sulfamethoxazole Drug Allergy 08-17-19 N/V [facility] Unclassified (1 source) Fish Containing Products Allergy to substance 08-17-19 Anaphylaxis [facility] Unclassified (1 source) perfume Allergy to substance 08-17-19 Difficulty Breathing [facility] (11 sources) Clarithromycin; Translations: [clarithromycin] Drug Allergy Unknown, Respiratory distress, needing intubation/mec hanical ventilation [facility] [employer] Other (2 sources) HYDROcodone Drug Allergy Unknown [email or web address] [employer] Other (15 sources) Ibuprofen; Translations: [Ibuprofen] Drug Allergy Unknown, Respiratory distress, needing intubation/mec hanical ventilation [email or web address] [employer] Other (11 sources) meloxicam; Translations: [meloxicam] Drug Allergy Unknown, Respiratory distress, needing intubation/mec hanical ventilation [email or web address] [employer] Other (2 sources) penicillAMINE Drug Allergy Unknown [email or web address] [employer] Other (11 sources) Sulfamethoxazole / Trimethoprim; Translations: [sulfamethoxazole-t rimethoprim] Drug Allergy Unknown, Respiratory distress, needing intubation/mec hanical ventilation [facility] [employer] Other (13 sources) Acetaminophen / HYDROcodone; Translations: [acetaminophen-hydr ocodone] Drug Allergy Respiratory distress, needing intubation/mec hanical ventilation [facility] (20 sources) Ibuprofen; Translations: [ibuprofen] Drug Allergy Respiratory distress, needing intubation/mec hanical ventilation [facility] (13 sources) Penicillin; Translations: [penicillin] Drug Allergy Respiratory distress, needing intubation/mec hanical ventilation [facility] (13 sources) Shellfish; Translations: [shellfish] Drug allergy Congestion of throat (finding) [facility] (4 sources) Clarithromycin; Translations: [Biaxin] Drug Allergy [facility] (4 sources) Ibuprofen; Translations: [Advil] Drug Allergy [facility] (4 sources) meloxicam; Translations: [Mobic] Drug Allergy [facility] (4 sources) Sulfamethoxazole / Trimethoprim; Translations: [Bactrim] Drug Allergy [facility] Medications Current Medications Medication Drug Class(es) Dates Sig (Normalized) Sig (Original) [id number] 200 actuat albuterol 0.09 mg/actuat metered dose [...] Active alendronic acid 70 mg oral tablet (3 sources) Bisphosphonate Start: 01-27-2024 alendronate 70 mg [...] 2:01pm buPROPion hydrochloride 75 mg oral tablet (13 sources) Aminoketone Start: 08-16-2020 take 150 mg [...] Status: Ordered cefpodoxime 200 mg oral tablet (3 sources) Cephalosporin Antibacterial Start: 01-27-2024 take 1 tablet by mouth every twelve hours cefpodoxime 200 mg Tab 200 mg = 1 tab(s), Oral, q12hr Start Date: 01/27/24 Status: Ordered clotrimazole 10 mg/ml topical cream (1 source) Azole Antifungal Start: 08-16-2020 Clotrimazole Active 1 APPLIC TOPICAL Daily August 16, 2020 1:47pm esomeprazole 40 mg oral tablet (9 sources) Proton Pump Inhibitor Start: 11-19-2009 take [...] 30 Active gabapentin 300 mg oral capsule (12 sources) Anti-epileptic Agent Start: 02-22-2020 take 1 capsule by mouth three times daily gabapentin 300 mg Cap 300 mg = 1 cap(s), Oral, TID, Refills(s) 0 Start Date: 02/22/20 Status: Ordered hydroCHLOROthiazide 12.5 mg / losartan potassium 50 mg oral tablet (12 sources) Thiazide Diuretic, Angiotensin 2 Receptor Patricia Start: 11-02-2011 take 1 tablet by mouth once daily Hyzaar 12.5 mg-50 mg Tab 1 tab(s), Oral, Daily, Refill(s) 0 Start Date: 11/02/11 Status: Ordered take 1 tablet by mouth once bob y Losartan Potassium-HCTZ 100-12.5 MG TAKE 1 TABLET BY MOUTH ONCE DAILY Oral for 30 Active levocetirizine dihydrochloride 5 mg oral tablet (12 sources) Histamine-1 Receptor Antagonist Start: 11-19-2009 take 5 mg by mouth once daily Xyzal 5 mg, Oral, Daily, Refill(s) 0 Start Date: 11/19/09 Status: Ordered metoclopramide 10 mg oral tablet (12 sources) Dopamine-2 Receptor Antagonist Start: 11-19-2009 take 10 mg by mouth once daily Reglan 10 mg, Oral, Daily, Refills(s) 0 Start Date: 11/19/09 Status: Ordered metoprolol tartrate 25 mg oral tablet (3 sources) beta-Adrenergic Patricia Start: 01-27-2024 take 1 [...] day(s), # 10 cap(s), Refills(s) 0, Pharmacy: [facility], 157.5, cm, 01/05/24 17:40:00 EDT, Height/Length Dosing, 95.8, kg, 01/05/24 17:40:00 EDT, Weight Dosing Start Date: 01/05/24 Stop Date: 01/10/24 Status: Ordered Nystatin (4 sources) Polyene Antifungal Start: 01-27-2024 nystatin Oral, Refills(s) 0 Start Date: 01/27/24 Status: Ordered Start: 01-24-2022 End: 02-07-2022 nystatin Top 100,000 units/g Oint 1 major, Topical, TID for 14 day(s), 30 gm, Refill(s) 0, Apply with triamcinolone ointment to left foot, [facility], 158, cm, 01/24/22 17:57:00 [...] 2020 1:54pm ondansetron 4 mg oral tablet (6 sources) Serotonin-3 Receptor Antagonist Start: 01-27-2024 take 1 tablet by mouth every eight hours Zofran 4 mg Tab 4 mg = 1 tab(s), Oral, q8hr, # 20 tab(s), Refills(s) 0, Pharmacy: [facility], 157, cm, 01/27/24 14:06:00 EDT, Height/Length Dosing, 91.5, kg, 01/27/24 14:06:00 EDT, Weight Dosing Start Date: 01/27/24 Status: Ordered polyethylene glycol 3350 60756 mg powder for oral solution (10 sources) Osmotic Laxative Start: 08-16-2020 Polyethylene Glycol 3350 (Clearlax) 17 gram/dose powder Active 17 GM PO Daily August 16, 2020 1:54pm Start: 11-02-2011 MiraLax 17 gra m, Oral, Daily Constipation, Refill(s) 0 Start Date: 11/02/11 Status: Ordered sertraline 50 mg oral tablet (12 sources) Serotonin Reuptake Inhibitor Start: 02-21-2020 take 1 tablet by mouth once daily Zoloft 50 mg Tab 50 mg = 1 tab(s), Oral, Daily, Refills(s) 0 Start Date: 02/21/20 Status: Ordered simvastatin 40 mg oral tablet (12 sources) HMG-CoA Reductase Inhibitor Start: 02-21-2020 take 1 tablet by mouth once daily at bedtime simvastatin 40 mg Tab 40 mg = 1 tab(s), Oral, Once a day (at bedtime), Refills(s) 0 Start Date: 02/21/20 Status: Ordered temazepam 15 mg oral capsule (11 sources) Benzodiazepine Start: 11-19-2009 take 15 mg [...] 1:54pm traMADol hydrochloride 50 mg oral tablet (10 sources) Opioid Agonist Start: 11-19-2009 take 50 mg by mouth three times daily Ultram 50 mg, Oral, TID, Refills(s) 0 Start Date: 11/19/09 Status: Ordered triamcinolone acetonide 0.001 mg/mg topical ointment (1 source) Corticosteroid Start: 01-24-2022 End: 02-07-2022 triamcinolone Top 0.1% Oint 1 major, Topical, TID for 14 day(s), 30 gm, Refill(s) 0, Apply with nystatin ointment to left foot, [facility], 158, cm, 01/24/22 17:57:00 EDT, Height/Length Dosing, 99.4, kg, 01/24/22 17:57:00 EDT, Weight Dosing Start Date: 01/24/22 Stop Date: 02/07/22 Status: Ordered zolpidem tartrate 10 mg oral tablet (4 sources) gamma-Aminobutyric Acid-ergic Agonist Start: 01-27-2024 take [...] Da te Episodic/Chronic Calculus of urinary tract (4 sources) Kidney stone; Translations: [Calculus of kidney] Onset: 01-27-2024 Episodic Diabetes mellitus without complication (9 sources) Diabetes mellitus 07-15-2013 Chronic Essential hypertension (18 sources) Hypertensive disorder 11-02-2011 Chronic Other injuries [...] radiculopathy, lumbar region] Chronic Urinary tract infections (5 sources) Urinary tract infectious disease; Translations: [Urinary tract infection, site not specified] Onset: 01-05-2024 Episodic Past or Other Problems Problem Classification Problem Date Documented Da te Episodic/Chronic Other connective tissue disease (2 sources) Arthrodesis status Onset: 2021 Resolved: 07-25-2021 Episodic Unclassified (2 sources) Hyperlipemia( Confirmed ) 11-02-2011 Unclassified (7 sources) Hyperlipemia 11-02-2011 Results Test Name Value Interpretation Reference Range Facility XR Abdomen 1 Viewon 02-16-20 XR Abdomen 1 View Exam Date/Time: 02/12/2024 12:10 EDT Reason for Exam: Kidney stone;Kidney stone Report IMPRESSION: RIGHT DOUBLE-J URETERAL STENT UNCHANGED IN POSITION WITH MULTIPLE RIGHT RENAL CALCULI DISCUSSED. CLINICAL HISTORY: Kidney stone, Kidney stone COMPARISON: 01/27/2024 FINDINGS: Right double-J ureteral stent unchanged in position. Multiple calculi identified over region right kidney measuring up to 6 7 mm. No right ureteral calculi identified. No calculi identified over region of left ureter or left kidney. Phleboliths left pelvic inlet unchanged. Gas and stool in colon. No diffuse small bowel dilatation or mass effect. Marginal osteophytes lower lumbar spine. Ordering Provider: Vamsi ANAYA FINAL REPORT Dictated: 02/16/2024 5:46 pm Ricardo Pimentel MD Signed (Electronic Signature): 02/16/2024 5:46 pm Signed by: Ricardo Pimentel MD Transcribed by: JULIETA Technologist: MICKEY Technical Comments Radiation Dose: Ka,r in mGy = . DAP = . Normal [facility] XR Abdomen 1 Viewon 01-29-20 24 XR Abdomen 1 View Exam Date/Time: 01/27/2024 12:12 EDT Reason for Exam: kidney stones;Kidney stone Report IMPRESSION: RIGHT RENAL CALCULI. EXAMINATION: XR Abdomen 1 View HISTORY: Kidney stone TECHNIQUE: Frontal view of the abdomen and pelvis COMPARISON: 01/05/2024 radiograph 01/19/2024 CT FINDINGS: Right-sided ureteral stent is present. 3 calcifications project over the right renal shadow, the largest of which measures approximately 14 mm. No calcifications identified over the left renal shadow, expected course of the left ureter, or along the right ureteral stent. Pelvic calcifications noted. Nonobstructive bowel gas pattern. No evidence of free air. No acute osseous abnormality. Ordering Provider: Vamsi ANAYA FINAL REPORT Dictated: 01/29/2024 3:56 pm Guanakito Jones DO Signed (Electronic Signature): 01/29/2024 3:56 pm Signed by: Guanakito Jones DO Transcribed by: JULIETA Technologist: OJ Technical Comments Radiation Dose: Ka,r in mGy = na DAP = na Normal [facility] Ambulatory Visit Summaryon 0 01-27-2024 Ambulatory Visit Summary Ambulatory Visit Summary CIERA CHAN :1960 Visit Date:01/27/2024 Ambulatory Visit Instructions Your Diagnosis Kidney stones Foreign body in bladder Pyelonephritis Your Care Team Attending Physician - Vamsi ANAYA MD Primary Care Physician - Rhonda Narayan MD This Is Your Medications List ondansetron (Zofran 4 mg Tab) ondansetron (Zofran 4 mg Tab) Contact prescribing physician if questions or concerns alendronate (alendronate 70 mg Tab) buPROPion (Wellbutrin) cefpodoxime (cefpodoxime 200 mg Tab) esomeprazole (Nexium) gabapentin (gabapentin 300 mg Cap) hydrochlorothiazide-lo sartan (Hyzaar 12.5 mg-50 mg Tab) levocetirizine (Xyzal) metoclopramide (Reglan) metoprolol (Lopressor 25 mg oral tablet) nystatin polyethylene glycol 3350 (MiraLax) sertraline (Zoloft 50 mg Tab) simvastatin (simvastatin 40 mg Tab) temazepam (Restoril) tramadol (Ultram) zolpidem (zolpidem 10 mg Tab) Procedures Performed Neck. Discharge Vitals Heart Rate (Peripheral) 88 Respiratory Rate 16 Blood Pressure 148/77 Height 157 cm Height 62 in Weight 91.5 kg Weight 201.3 lb BMI 37.12 What to do next You Need to Schedule the Following Appointments Follow Up with PAUL GARDNER, GEOVANNI Su When: Comments: jessica REDDY Where: [facility] [address] , [place] [address]- [phone] Medications What How Much When Instructions New ondansetron (Zofran 4 mg Tab) 1 Tablets By Mouth Every 8 hours as needed for Nausea Pickup at [facility] 1985 New ondansetron (Zofran 4 mg Tab) 1 Tablets By Mouth Every 8 hours Pickup at [facility] 1985 Unchanged alendronate (alendronate 70 mg Tab) 1 Tablets By Mouth Contact prescribing physician if questions or concerns Unchanged buPROPion (Wellbutrin) 150 Milligram By Mouth Every day Contact prescribing physician if questions or concerns Unchanged cefpodoxime (cefpodoxime 200 mg Tab) 1 Tablets By Mouth Every 12 hours Contact prescribing physician if questions or concerns Unchanged esomeprazole (Nexium) 40 Milligram By Mouth Every day Contact prescribing physician if questions or concerns Unchanged gabapentin (gabapentin 300 mg Cap) 1 Capsules By Mouth 3 times a day Contact prescribing physician if questions or concerns Unchanged hydrochlorothiazide-lo sartan (Hyzaar 12.5 mg-50 mg Tab) 1 Tablets By Mouth Every day Contact prescribing physician if questions or concerns Unchanged levocetirizine (Xyzal) 5 Milligram By Mouth Every day Contact prescribing physician if questions or concerns Unchanged metoclopramide (Reglan) 10 Milligram By Mouth Every day Contact prescribing physician if questions or concerns Unchanged metoprolol (Lopressor 25 mg oral tablet) 1 Tablets By Mouth Every day Contact prescribing physician if questions or concerns Unchanged nystatin By Mouth Contact prescribing physician if questions or concerns Unchanged polyethylene glycol 3350 (MiraLax) 17 Gram By Mouth Every day as needed for Constipation Contact prescribing physician if questions or concerns Unchanged sertraline (Zoloft 50 mg Tab) 1 Tablets By Mouth Every day Contact prescribing physician if questions or concerns Unchanged simvastatin (simvastatin 40 mg Tab) 1 Tablets By Mouth Once a day (at bedtime) Contact prescribing physician if questions or concerns Unchanged temazepam (Restoril) 15 Milligram By Mouth Once a day (at bedtime) Contact prescribing physician if questions or concerns Unchanged tramadol (Ultram) 50 Milligram By Mouth 3 times a day Contact prescribing physician if questions or concerns Unchanged zolpidem (zolpidem 10 mg Tab) 1 Tablets By Mouth Once a day (at bedtime) as needed for for sleep Contact prescribing physician if questions or concerns Pharmacy Information [facility]: [address] [facility] [place], [place] [id number] [phone] Allergies Advil Bactrim (Respiratory distress, needing intubation/mechanical ventilation) Biaxin (Respiratory distress, needing intubation/mechanical ventilation) Mobic (Respiratory distress, needing intubation/mechanical ventilation) Motrin (Respiratory distress, needing intubation/mechanical ventilation) Vicodin (Respiratory distress, needing intubation/mechanical ventilation) ibuprofen (Respiratory distress, needing intubation/mechanical ventilation) penicillin (Respiratory distress, needing intubation/mechanical ventilation) shellfish (Swelling of throat) Problems Ongoing - Any problem that you are currently receiving treatment for. Hypertension Kidney stones Pyelonephritis Historical - Any problem that you are no longer receiving treatment for. Diabetes mellitus HTN - Hypertension Hyperlipemia Patient Survey You may receive a survey via text or e-mail asking about your office visit. Please share your experience with us by completing your survey. We appreciate your feedback and thank you for choosing us for yo (more content not included)... Normal [facility] Urology Office/Clinic Noteon 01-27-2024 Urology Office/Clinic Note Urology Office/Clinic Note Chief Complaint New Pt HPI Staff New Pt. Hospital follow up from [facility] 01/19/24 due to calculus of renal pelvis KUB 01/27/24[facility] Cysto/right renal stone w/intermittent obstruction with right urteral sten placement 01/21/24- [facility] Dysuria: denies pain burning Incomplete bladder emptying: denies Hematuria: denies visible blood Frequency: 5x or more Urgency: yes Nocturia: 2x Stream: denies hesitancy, denies weak stream Leaking: yes Post void dripping: denies Wearing pads/ Depends: yes wears depends daily, changes once a day Urge incontinence: sometimes Stress incontinence: yes Incontinence without Sensory Awareness: denies Abdominal pain: denies Flank pain: denies Sexual complaints: denies History of Present Illness Tests reviewed: reviewed UA, ER notes & labs I have reviewed the previous health record information and history for this patient from external providers. I have reviewed and verified the staff HPI to be accurate for this encounter. Review of Systems PHQ Score Initial Depression Screen Score: 0 SCORE ROS - Provider Constitutional: denies weight loss, denies hot flashes. Eyes: denies eye problems. Gastrointestinal: denies nausea, denies vomiting. Cardiovascular: denies chest pain or angina. Integumentary: no dryness Musculoskeletal: denies musculoskeletal symptoms. ENMT: denies otolaryngeal symptoms. Respiratory: no shortness of breath. Heme/Lymph: denies easy bleeding tendency, denies easy bruising tendency. Psychiatric: no confusion, no anxiety. Genitourinary: See HPI. Physical Exam Vitals & Measurements HR: 88(Peripheral) RR: 16 BP: 148/77 HT: 62 in HT: 157 cm WT: 91.5 kg WT: 201.3 lb BMI: 37.12 General Appearance: alert , no acute distress, well nourished, well developed female. Assessment/Plan Ciera is a 63 yo female new pt here for f/u to ER visit due to kidney stones. Pt here with her niece. 1. Kidney stones (N20.0: Calculus of kidney) CT AP wo con 01/19/24 [facility] - 13 mm calculus R renal pelvis. Mild R hydro. Mild stranding adjacent to the renal pelvis. Multiple additional R renal calculi especially within the lower pole, largest measuring 12 mm. No distinct L renal calculi. No L hydro. No ureteral calculi or bladder calculi. S/p Cysto/R ureteral stent placement 01/21/24 at [facility]. KUB 01/27/24 [facility] - report pending. Personal review: right ureteral stent in place with significant stone burden Most recent renal fxn 01/21/24 - BUN 10, Cr 0.69, GFR >90 Has been nauseated since stent placement. Has not been able to keep food down. Shares she has been taking OTC anti-nausea medication. Reviewed imaging results. Advised pt 13mm stone needs treated and may require staged procedures given multiple other renal calculi. Discussed intervention including extracorporeal shockwave lithotripsy vs ureteroscopy with laser lithotripsy/stone basket extraction possible stent. Risks/benefits of each were discussed including but not limited to: ESWL- bleeding, hematoma, pain, infection, inability to break up the stone, ureteral obstruction, cardiac arrhythmias, damage to surrounding structures and need for additional procedures; ureteroscopy - bleeding, pain, infection, damage to surrounding structures, ureteral perforation, stricture, inability to treat the stone and need for additional procedures. -Take Zofran. Rx sent to [facility]. -Will schedule Right ESWL. The procedure risks, benefits, details and treatment alternatives have been discussed with the patient. These include blood in the urine, infection, bleeding around the kidney, kidney bruising, inability to break up the stone, need for blood transfusion, blockage from stone fragments, and need for additional procedures, among others. Full informed consent has been obtained. Will order General anesthesia. 2. Foreign body in bladder (T19.1XXA: Foreign body in bladder, initial encounter) S/p Cysto/R ureteral stent placement 01/21/24 at [facility]. -Schedule stent removal after R ESWL 3. Pyelonephritis (N12: Tubulo-interstitial nephritis, not specified as acute or chronic) [facility] ER 01/19/24 due to R flank pain. Pt had leukocytosis and was started on Rocephin. Pt was transferred to [facility]. Infectious disease was consulted and treated pt. UCx 01/19/24 [facility] - [facility] today shows large blood and small leuks. Likely due to stone burden. Currently on abx. -Stay on current abx course Follow-up With When Contact Information PAUL GARDNER, Vamsi Schultz, [facility] [address], [place] [address]- [phone] Additional Instructions: sched R ESWL Patient Education Laser Therapy for Kidney Stones, Care After Laser Therapy for Kidney Stones I, Reena Arteaga, personally scribed for Dr. Anaya on 01/27/2024 14:51:36. . Documentation recorded by the (more content not included)... [facility] Comment on above: Result Comment: Elec tronically Signed By: Vamsi ANAYA MD\.br\Date and Time Signed: 01/27/24 14:56 EDT\.br\Electronically Co-Signed By: Reena Arteaga\.br\Date and Time Co-Signed: 01/27/24 14:52 EDT C Urineon 01-21-2024 Bacteria identified Cx Nom [...] Locations R1: This test was performed at: [facility], [address] [place] [address], [phone] , , [facility] Comment on above: Performed By: #### [id number] #### [facility] [address] [place] [address] BMPon 01-19-2024 Anion gap [Moles/Vol] 13 mmol/L Normal 6-16 [facility] Comment on above: Performed By: #### [id number] #### [facility] [address] [place] [address] Calcium [Mass/Vol] 9.5 mg/dL Normal 8.9-11.1 [facility] Comment on above: Performed By: #### 2 [id number] #### [facility] [address] [place] [address] Chloride [Moles/Vol] 101 mmol/L Normal 101-111 [facility] Comment on above: Performed By: #### 2 [id number] #### [facility] [address] [place] [address] CO2 [Moles/Vol] 28 mmol/L Normal 21-31 [facility] Comment on above: Performed By: #### 2 [id number] #### [facility] [address] [place] [address] Creatinine [Mass/Vol] 0.9 mg/dL Normal 0.5-1.3 [facility] Comment on above: Performed By: #### 2 [id number] #### [facility] [address] [place] [address] Glucose [Mass/Vol] 153 mg/dL Normal 55-199 [facility] Comment on above: Performed By: #### 2 [id number] #### [facility] [address] [place] [address] Potassium [Moles/Vol] 3.6 mmol/L Normal 3.5-5.3 [facility] [facility] Comment on above: Performed By: #### 2 [id number] #### [facility] [address] [place] [address] Sodium [Moles/Vol] 138 mmol/L Normal 135-145 [facility] Comment on above: Performed By: #### 2 [id number] #### [facility] [address] [place] [address] Urea nitrogen [Mass/Vol] 18 mg/dL Normal 5-21 [facility] Comment on above: Performed By: #### 2 [id number] #### [facility] [address] [place] [address] Urea nitrogen/Creatinine [Mass ratio] 20 No Units Normal 10-20 [facility] Comment on above: Performed By: #### 2 737172 #### [facility] [address] [place] [address] CBC w/ Auto Diffon 4 Basophils/100 WBC (Bld) 0.6 % Normal 0.0-2.0 [facility] Comment on above: Performed By: #### 2 [id number] #### [facility] [address] [place] [address] Basophils/Leukocytes Auto (Bld) [Pure # fraction] 0.1 E9/L Normal 0.0-0.2 [facility] Comment on above: Performed By: #### 2 036220 #### [facility] [address] [place] [address] Eosinophils (Bld) [#/Vol] 0.3 E9/L Normal 0.0-0.5 [facility] Comment on above: Performed By: #### 2 359881 #### [facility] [address] [place] [address] Eosinophils/100 WBC (Bld) 2.4 % Normal 0.0-8.0 [facility] Comment on above: Performed By: #### 2 169379 #### [facility] [address] [place] [address] Erythrocyte distribution width (RBC) [Ratio] 13.6 % Normal 10.9-14.2 [facility] Comment on above: Performed By: #### 2 977004 #### [facility] [address] [place] [address] Hematocrit (Bld) [Volume fraction] 38.5 % Normal 34.0-46.0 [facility] Comment on above: Performed By: #### 2 333934 #### [facility] [address] [place] [address] Hemoglobin (Bld) [Mass/Vol] 13.5 g/dL Normal 12.0-16.0 [facility] Comment on above: Performed By: #### 2 416210 #### [facility] [address] [place] [address] Lymphocytes (Bld) [#/Vol] 3.1 E9/L Normal 1.0-4.0 [facility] Comment on above: Performed By: #### 2 662251 #### [facility] [address] [place] [address] Lymphocytes/100 WBC (Bld) 24.7 % Normal 14.0-50.0 [facility] Comment on above: Performed By: #### 2 259602 #### [facility] [address] [place] [address] MCH (RBC) [Entitic mass] 32.7 pg Normal 27.0-34.0 [facility] Comment on above: Performed By: #### 2 000903 #### [facility] [address] [place] [address] MCHC (RBC) [Mass/Vol] 35.1 g/dL Normal 31.4-36.0 [facility] Comment on above: Performed By: #### 2 110925 #### [facility] [address] [place] [address] MCV (RBC) [Entitic vol] 93.0 fL Normal 80.0-100.0 [facility] Comment on above: Performed By: #### 2 583838 #### [facility] [address] [place] [address] Monocytes (Bld) [#/Vol] 0.8 E9/L Normal 0.2-1.0 [facility] Comment on above: Performed By: #### 2 363955 #### [facility] [address] [place] [address] Neutrophils (Bld) [#/Vol] 8.2 E9/L High 2.0-7.5 [facility] Comment on above: Performed By: #### 2 701329 #### [facility] [address] [place] [address] Neutrophils/100 WBC (Bld) 65.8 % Normal 36.0-75.0 [facility] Comment on above: Performed By: #### 2 415082 #### [facility] [address] [place] [address] Platelet 323.0 E9/L Normal 150.0-500.0 [facility] Comment on above: Performed By: #### 2 518699 #### [facility] [address] [place] [address] Platelet mean volume (Bld) [Entitic vol] 8.6 fL Normal 6.4-10.8 [facility] Comment on above: Performed By: #### 2 434477 #### [facility] [address] [place] [address] RBC (Bld) [#/Vol] 4.1 E12/L Low 4.3-5.9 [facility] Comment on above: Performed By: #### 2 222412 #### [facility] [address] [place] [address] WBC corrected for nucl RBC Auto (Bld) [#/Vol] 12.5 E9/L High 4.0-11.0 [facility] Comment on above: Performed By: #### 2 941124 #### [facility] [address] [place] [address] CT Abdomen/Pelvis w/o Contra romeo 01-19-2024 CT Abdomen/Pelvis w/o Contrast Exam Date/Time: [...] Oral contrast amount in ml's: 0 Normal [facility] ED Clinical Summaryon 2023 ED Clinical Summary ED Clinical Summary [address] [address] ED Clinical Summary Person Information Name: CIERA CHAN [facility] Age: 63 Years : 1960 Sex: Female Language: Montenegrin PCP: Rhonda Narayan MD Marital Status: Single [...] 01/19/2024 20:35:26 01/19/2024 20:35:26 01/19/2024 20:35:26 ADDRESS: [address] [place] [id number] PHYS DOC NOTES: MEDICAL INFORMATION: Prescriptions Given: Medications [...] calculus; 4:Urinary tract infection; 5:Accelerated hypertension Normal [facility] ED Note-Nursingon 01-19-2024 ED Note-Nursing ED Note-Nursing spoke with pts sister Day lyle from pt. via phone, sister aware that pt. will go to [facility] with a squad eta of 2030 tonight. Normal [facility] ED Note-Physicianon 01-19-20 ED Note-Physician ED Note-Physician [...] and Complexity of Problems Differential Diagnosis: [] [facility] Data External documents reviewed: [] [...] hydralazine. There is no urology on-call at [facility]. Initially the case was discussed with who has recommended patient going to the ER. I discussed the case with the ER attending Dr. Capo Trotter who accepted the patient. The patient will be transferred via [facility]. Shared decision making: [] Code status: [] [...] 01/19/24 16:37:00 (more content not included)... Normal [facility] Comment on above: Result Comment: Elec tronically Signed By: Kvng Espinoza, Janis Akbar\.br\Date and Time Signed: 01/19/24 19:17 EDT ED Patient Education Noteon 01-19-2024 ED Patient Education Note ED Patient Education Note Normal [facility] ED Patient Summaryon 024 ED Patient Summary ED Patient Summary [place] [id number] Patient Discharge Instructions Person Information Name: CIERA CHAN Age: 63 Years Arrival Date: 01/19/2024 16:26:28 Discharge Diagnosis: 1:Renal colic; 2:Kidney stone; 3:Hydronephrosis with obstructing calculus; 4:Urinary tract infection; 5:Accelerated hypertension Primary Care Physician: Rhonda Narayan MD Provider Information Primary Provider: Janis Calderon M.D. [facility] Custodian:None The exam and treatment you received in the Emergency Department were for an urgent problem and are not intended as complete care. It is important that you follow up with a doctor, nurse practitioner, or physician?s content assistant for ongoing care. If your symptoms become [...] opioids can be used to help relieve loxlkjmt-mu-xbwlsq pain and are often prescribed following a [...] be struggling with addiction, tell your health managed care provider and ask for guidance or call [facility]?S National Helpline at 8-056-792-HGVV. x Source: [place] Department of Health and Human Services/ (more content not included)... Normal [facility] Hep Func Panelon 01-19-2024 Albumin [Mass/Vol] 4.3 g/dL Normal 3.3-5.0 [facility] Comment on above: Performed By: #### 2 [id number] #### [facility] [address] [place] [address] Albumin/Globulin (S) [Mass conc ratio] 1.3 Normal 1.1-2.2 [facility] Comment on above: Performed By: #### 2 358892 #### [facility] [address] [place] [address] ALP [Catalytic activity/Vol] 75 Int._Unit/L Normal 21-98 [facility] Comment on above: Performed By: #### 2 743247 #### [facility] [address] [place] [address] ALT No additional P-5'-P [Catalytic activity/Vol] 15 Int._Unit/L Normal 6-46 [facility] Comment on above: Performed By: #### 2 271215 #### [facility] [address] [place] [address] AST [Catalytic activity/Vol] 19 Int._Unit/L Normal 5-43 [facility] Comment on above: Performed By: #### 2 344111 #### [facility] [address] [place] [address] Bilirubin [Mass/Vol] 0.5 mg/dL Normal 0.0-1.1 [facility] Comment on above: Performed By: #### 2 284772 #### [facility] [address] [place] [address] Bilirubin.direct [Mass/Vol] 0.0 mg/dL Normal 0.0-0.4 [facility] Comment on above: Performed By: #### 2 076206 #### [facility] [address] [place] [address] Bilirubin.indirect [Mass or moles/Vol] 0.5 mg/dL Normal 0.1-0.9 [facility] Comment on above: Performed By: #### 2 068319 #### [facility] [address] [place] [address] Globulin (S) [Mass/Vol] 3.4 g/dL Normal 1.4-4.0 [facility] Comment on above: Performed By: #### 2 307165 #### [facility] [address] [place] [address] Protein [Mass/Vol] 7.7 g/dL Normal 6.0-7.8 [facility] Comment on above: Performed By: #### 2 167524 #### [facility] [address] [place] [address] Lipase Levelon 01-19-2024 Lipase [Catalytic activity/Vol] 24 U/L Normal 13-58 [facility] Comment on above: Performed By: #### 2 884838 #### [facility] [address] [place] [address] PT & PTTon 01-19-2024 aPTT Coag (PPP) [Time] 33.9 second(s) Normal 25.1-36.5 [facility] Comment on above: Result Comment: Para meter 15 days - 4 weeks 1 - 5 months 6 - 11 months 1 - 5 years 6 - 10 years 11 - 17 years PTT Mean: 35.4 (27.6-45.6) Mean: 33.5 (24.8-40.7) Mean: 32.4 (25.1-40.7) Mean: 31.6 (24.0-39.2) Mean: 31.6 (26.9-38.7) Mean: 31.0 (24.6-38.4) Pediatric Reference ranges were obtained from a study by beatriz Oshea. prepared from 1437 samples obtained at 7 different centers using the same coagulation reagent and instrumentation as [facility]. Currently there are no coagulation studies available worldwide for children to 14 days, and no normal ranges. Heparin therapeutic range (represented by Anti-Factor Xa activity of 0.2 - 0.4 U/mL) corresponds to PTT of 56.6 - 109.0 sec. Performed By: #### 1 [id number] #### [facility] [address] [place] [address] INR Coag (PPP) [Relative time] 1.00 {INR} Invalid Interpretation Code [facility] Comment on above: Result Comment: INR results are specifically intended to assess patients stabilized on long-term Anticoagulation therapy suggested INR?s ?Less Intensive Anticoagulation? 2.0 ? 3.0 Conventional Range 3.0 ? 4.5 Performed By: #### 1 [id number] #### [facility] [address] [place] [address] PT Coag (PPP) [Time] 11.2 second(s) Normal 9.4-12.5 [facility] Comment on above: Result Comment: 15 d [...] were obtained from a study by Rocco Pruitt et al. prepared from 1437 samples obtained at 7 different centers using the same coagulation reagent and instrumentation as [facility]. Currently there are no coagulation studies available worldwide for children to 14 days, and no normal ranges. Performed By: #### 1 [id number] #### [facility] [address] [place] [address] Pre-Arrival Noteon Pre-Arrival Note Pre-Arrival Note Pre-Arrival Summary Name: , [place] [id number] Current Date: 01/19/2024 16:27:08 EDT Gender: Female Date of : Age: 63 Pre-Arrival Type: EMS ETA: 01/19/2024 16:47:00 EDT Primary Care Physician: Presenting Problem: abd. pain, hematuria, on antibiotics Pre-Arrival User: Gary CAIN, Deepali Hilliard Referring Source: Location: [place] Completion Date/Time: 01/19/2024 16:18:00 [facility] Emergency Department Pre-Hospital Report Form Vital Signs: Pre-Hospital Report: Treatment in Route: Response to Treatment: Misc. Issues: Normal [facility] UA with Cult Rflxon 01-19-20 24 Bacteria Auto Ql (U) Trace Normal Trace [facility] Comment on above: Performed By: #### 4 [id number] #### [facility] [address] [place] [address] Bilirubin Ql (U) Negative Normal Negative [facility] Comment on above: Performed By: #### 4 [id number] #### [facility] [address] [place] [address] Clarity (U) Turbid Abnormal Clear [facility] Comment on above: Performed By: #### 4 [id number] #### [facility] [address] [place] [address] Color (U) Yellow Normal Yellow [facility] Comment on above: Result Comment: Micr oscopic readings are only performed on those samples that meet specific criteria set forth by [facility]. Performed By: #### 4 [id number] #### [facility] [address] [place] [address] Epithelial cells.squamous Auto (Urine sed) [#/Area] >10 Invalid Interpretation Code [facility] Comment on above: Performed By: #### 4 [id number] #### [facility] [address] [place] [address] Glucose Ql (U) Negative Normal Negative [facility] Comment on above: Performed By: #### 4 [id number] #### [facility] [address] [place] [address] Hemoglobin Auto test strip (U) [Mass/Vol] 3+ mg/dL Abnormal Negative [facility] Comment on above: Performed By: #### 4 [id number] #### [facility] [address] [place] [address] Ketones Auto test strip Ql (U) Negative Normal Negative [facility] Comment on above: Performed By: #### 4 [id number] #### [facility] [address] [place] [address] Leukocyte clumps Auto (Urine sed) [#/Area] 4-10 Abnormal [facility] Comment on above: Performed By: #### 4 [id number] #### [facility] [address] [place] [address] Leukocyte esterase Auto test strip Ql (U) 500 Jorge A/uL Abnormal Negative [facility] Comment on above: Performed By: #### 4 [id number] #### [facility] [address] [place] [address] Mucus Auto Ql (U) Negative Normal Negative [facility] Comment on above: Performed By: #### 4 [id number] #### [facility] [address] [place] [address] Nitrite Auto test strip Ql (U) Negative Normal Negative [facility] Comment on above: Performed By: #### 4 [id number] #### [facility] [address] [place] [address] pH (U) 7.0 [pH] Invalid Interpretation Code 5.0-9.0 [facility] Comment on above: Performed By: #### 4 [id number] #### [facility] [address] [place] [address] Protein Ql (U) 1+ mg/dL Abnormal Negative [facility] Comment on above: Performed By: #### 4 [id number] #### [facility] [address] [place] [address] RBC Ql (U) >75 Abnormal 0-3 [facility] Comment on above: Performed By: #### 4 [id number] #### [facility] [address] [place] [address] Specific gravity (U) [Rel density] 1.023 Invalid Interpretation Code 1.005-1.030 [facility] Comment on above: Performed By: #### 4 [id number] #### [facility] [address] [place] [address] Urobilinogen (U) [Mass/Vol] Negative Normal Negative [facility] Comment on above: Performed By: #### 4 [id number] #### [facility] [address] [place] [address] WBC Auto (Urine sed) [#/Area] >75 Abnormal 0-5 [facility] Comment on above: Performed By: #### 4 [id number] #### [facility] [address] [place] [address] Type of Urine collection method Clean Catch Normal [facility] Comment on above: Performed By: #### 4 [id number] #### [facility] [address] [place] [address] eGFRon 01-19-2024 eGFR 71 mL/min/1.73 m2 Normal >=59 [facility] Comment on above: Order Comment: Order added by Discern Expert. Performed By: #### 1 [id number] #### [facility] [address] [place] [address] C Urineon 01-08-2024 Bacteria identified Cx Nom (U) Microbiology PROCEDURE: Urine Culture [R1] SOURCE: U Random BODY SITE: COLLECTED DATE/TIME: 01/05/2024 19:55 EDT RECEIVED DATE/TIME: 01/06/2024 00:29 EDT START DATE/TIME: 01/06/2024 00:29 EDT FREE TEXT SOURCE: Sudhir Amaral DO, DO, John FINAL REPORTS Final Report [] Verified Date/Time: 01/08/2024 10:51 EDT <10,000 cfu/ml Mixed skin contaminants Performing Locations R1: [facility], [address] [place] [address], [address] , [place], Normal [facility] Comment on above: Performed By: #### 2 [id number] #### [facility] [address] [place] [address] ED Note-Physicianon 01-08-20 ED Note-Physician ED Note-Physician Basic Information Time Seen: Domitila Montgomery PA-C 01/05/2024 19:45 Chief Complaint patient presents with [...] day(s), # 10 cap(s), Refills(s) 0, Pharmacy: [facility], 157.5, cm, 01/05/24 17:40:00 [...] Narayan In 3 days 01/08/[address] [place] [address]- [facility] (1) Additional Instructions: Call to schedule a follow-up appoint with your family physician if symptoms not improve in the next 2 to 3 days. Use the antibiotic as prescribed. Return to the ED with any worsening symptoms. Patient Education Urinary Tract Infection, Adult, Yxwq-io-Nwqt Attestation Patient seen and evaluated by the physician content assistant. Attending physician was present in the emergency department and supervised care. This visit was performed by both the physician and an APC. I performed all aspects of the MDM as documented. This report was transcribed using voice recognition software. Every effort was made to ensure accuracy, however, inadvertently computerized legal transcriptionist mistakes may be present. Appr (more content not included)... Normal [facility] Comment on above: Result Comment: Elec tronically [...] mGy = na DAP = na Normal [facility] BMPon 01-05-2024 Anion gap [Moles/Vol] 14 mmol/L Normal 6-16 [facility] Comment on above: Performed By: #### 2 [id number] #### [facility] [address] [place] [address] Calcium [Mass/Vol] 9.2 mg/dL Normal 8.9-11.1 [facility] Comment on above: Performed By: #### 2 [id number] #### [facility] [address] [place] [address] Chloride [Moles/Vol] 102 mmol/L Normal 101-111 [facility] Comment on above: Performed By: #### 2 [id number] #### [facility] [address] [place] [address] CO2 [Moles/Vol] 27 mmol/L Normal 21-31 [facility] Comment on above: Performed By: #### 2 064039 #### [facility] [address] [place] [address] Creatinine [Mass/Vol] 0.9 mg/dL Normal 0.5-1.3 [facility] Comment on above: Performed By: #### 2 079958 #### [facility] [address] [place] [address] Glucose [Mass/Vol] 126 mg/dL Normal 55-199 [facility] Comment on above: Performed By: #### 2 152978 #### [facility] [address] [place] [address] Potassium [Moles/Vol] 3.9 mmol/L Normal 3.5-5.3 [facility] Comment on above: Performed By: #### 2 [id number] #### [facility] [address] [place] [address] Sodium [Moles/Vol] 139 mmol/L Normal 135-145 [facility] Comment on above: Performed By: #### 2 774644 #### [facility] [address] [place] [address] Urea nitrogen [Mass/Vol] 15 mg/dL Normal 5-21 [facility] Comment on above: Performed By: #### 2 983590 #### [facility] [address] [place] [address] Urea nitrogen/Creatinine [Mass ratio] 17 No Units Normal 10-20 [facility] Comment on above: Performed By: #### 2 [id number] #### [facility] [address] [place] [address] CBC w/ Auto Diffon 4 Basophils/100 WBC (Bld) 0.7 % Normal 0.0-2.0 [facility] Comment on above: Performed By: #### 2 [id number] #### [facility] [address] [place] [address] Basophils/Leukocytes Auto (Bld) [Pure # fraction] 0.1 E9/L Normal 0.0-0.2 [facility] Comment on above: Performed By: #### 2 [id number] #### [facility] [address] [place] [address] Eosinophils (Bld) [#/Vol] 0.3 E9/L Normal 0.0-0.5 [facility] Comment on above: Performed By: #### 2 667115 #### [facility] [address] [place] [address] Eosinophils/100 WBC (Bld) 3.3 % Normal 0.0-8.0 [facility] Comment on above: Performed By: #### 2 094429 #### [facility] [address] [place] [address] Erythrocyte distribution width (RBC) [Ratio] 13.8 % Normal 10.9-14.2 [facility] Comment on above: Performed By: #### 2 577097 #### [facility] [address] [place] [address] Hematocrit (Bld) [Volume fraction] 41.1 % Normal 34.0-46.0 [facility] Comment on above: Performed By: #### 2 427902 #### [facility] [address] [place] [address] Hemoglobin (Bld) [Mass/Vol] 13.9 g/dL Normal 12.0-16.0 [facility] Comment on above: Performed By: #### 2 036745 #### [facility] [address] [place] [address] Lymphocytes (Bld) [#/Vol] 3.7 E9/L Normal 1.0-4.0 [facility] Comment on above: Performed By: #### 2 909929 #### [facility] [address] [place] [address] Lymphocytes/100 WBC (Bld) 36.9 % Normal 14.0-50.0 [facility] Comment on above: Performed By: #### 2 568733 #### [facility] [address] [place] [address] MCH (RBC) [Entitic mass] 31.7 pg Normal 27.0-34.0 [facility] Comment on above: Performed By: #### 2 814626 #### [facility] [address] [place] [address] MCHC (RBC) [Mass/Vol] 33.8 g/dL Normal 31.4-36.0 [facility] Comment on above: Performed By: #### 2 377207 #### [facility] [address] [place] [address] MCV (RBC) [Entitic vol] 93.9 fL Normal 80.0-100.0 [facility] Comment on above: Performed By: #### 2 404444 #### [facility] [address] [place] [address] Monocytes (Bld) [#/Vol] 0.7 E9/L Normal 0.2-1.0 [facility] Comment on above: Performed By: #### 2 053002 #### [facility] [address] [place] [address] Neutrophils (Bld) [#/Vol] 5.2 E9/L Normal 2.0-7.5 [facility] Comment on above: Performed By: #### 2 170884 #### [facility] [address] [place] [address] Neutrophils/100 WBC (Bld) 52.3 % Normal 36.0-75.0 [facility] Comment on above: Performed By: #### 2 [id number] #### [facility] [address] [place] [address] Platelet mean volume (Bld) [Entitic vol] 8.8 fL Normal 6.4-10.8 [facility] Comment on above: Performed By: #### 2 523431 #### [facility] [address] [place] [address] Platelets (Bld) [#/Vol] 277.0 E9/L Normal 150.0-500.0 [facility] Comment on above: Performed By: #### 2 836253 #### [facility] [address] [place] [address] RBC (Bld) [#/Vol] 4.4 E12/L Normal 4.3-5.9 [facility] Comment on above: Performed By: #### 2 730621 #### [facility] [address] [place] [address] WBC corrected for nucl RBC Auto (Bld) [#/Vol] 10.0 E9/L Normal 4.0-11.0 [facility] Comment on above: Performed By: #### 2 567251 #### [facility] [address] [place] [address] CHEMISTRYOrdered By: SYSTEM SYSTEM on 01-05-2024 Albumin [...] 2023 ED Clinical Summary ED Clinical Summary [place] [address] ED Clinical Summary Person Information Name: CIERA CHAN [facility] Age: 63 Years : 1960 Sex: Female Language: Montenegrin PCP: Rhonda Narayan MD Marital Status: Single [...] 01/05/2024 22:24:39 01/05/2024 22:24:39 01/05/2024 22:24:39 AD[address]ESS: [address] [id number] PHYS DOC NOTES: MEDICAL INFORMATION: Prescriptions Given: New Medications [facility] 1987, [address] [facility] [place] [id number], [phone] nitrofurantoin (nitrofurantoin macrocrystals-monohydr ate 100 mg Cap) [...] EDUCATION INFORMATION: Instructions: Urinary Tract Infection, Adult, Nnyb-mc-Tugz Follow up: With: Address: When: Rhonda Narayan [address] [place] [address], [address] [place] [address] Business (1) In 3 days 01/08/2024 Comments: Call to schedule a follow-up appoint with your family physician if symptoms not improve in the next 2 to 3 days. Use the antibiotic as prescribed. Return to the ED with any worsening symptoms. DIAGNOSIS: Acute lower UTI (urinary tract infection) Normal [facility] ED Patient Summaryon 024 ED Patient Summary ED Patient Summary [address] [address] Patient Discharge Instructions Person Information Name: CIERA CHAN Age: 63 Years Arrival Date: 01/05/2024 17:13:45 Discharge Diagnosis: Acute lower UTI (urinary tract infection) Primary Care Physician: Rhonda Narayan MD Provider Information Primary Provider: Vinnie Marcus DO [facility] Custodian:Domitila Montgomery PA-C The exam and treatment you received in the Emergency Department were for an urgent problem and are not intended as complete care. It is important that you follow up with a doctor, nurse practitioner, or physician?s content assistant for ongoing care. If your symptoms become worse or you do not improve as expected and you are unable to reach your usual health care provider, you should return to the Emergency Department. We are available 24 hours a day. CIERA CHAN has been given the following list of patient education materials, prescriptions and follow-up instructions: Follow-up Instructions: With: Address: When: Rhonda Narayan [address] [place] [address]., [address] [place] [address] Business (1) In 3 days 01/08/2024 Comments: [...] Patient Education Materials: Urinary Tract Infection, Adult, Ocxj-id-Gsai A MESSAGE TO ALL PATIENTS REGARDING OPIOIDS PRESCRIPTION OPIOIDS: WHAT YOU NEED TO KNOW Prescription opioids can be used to help relieve ccaxhecd-mj-kyvxke pain and are often prescribed following a [...] (www.fda.gov/Drugs/Res ourcesForYou) (more content not included)... Normal [facility] Extra Blueon 09-03-2024 Tube Collected Plasma Yes Invalid Interpretation Code [facility] Comment on above: Performed By: #### 1 [id number] #### [facility] [address] [address] HEMATOLOGYOrdered By: SYSTEM SYSTEM on 01-05-2024 Basophils/100 [...] 01-05-2024 Albumin [Mass/Vol] 4.4 g/dL Normal 3.3-5.0 [facility] Comment on above: Performed By: #### 2 747032 #### [facility] [address] [place] [address] Albumin/Globulin (S) [Mass conc ratio] 1.3 Normal 1.1-2.2 [facility] Comment on above: Performed By: #### 2 458115 #### [facility] [address] [place] [address] ALP [Catalytic activity/Vol] 72 Int._Unit/L Normal 21-98 [facility] Comment on above: Performed By: #### 2 830034 #### [facility] [address] [place] [address] ALT No additional P-5'-P [Catalytic activity/Vol] 19 Int._Unit/L Normal 6-46 [facility] Comment on above: Performed By: #### 2 212618 #### [facility] [address] [place] [address] AST [Catalytic activity/Vol] 20 Int._Unit/L Normal 5-43 [facility] Comment on above: Performed By: #### 2 954050 #### [facility] [address] [place] [address] Bilirubin [Mass/Vol] 0.5 mg/dL Normal 0.0-1.1 [facility] Comment on above: Performed By: #### 2 667304 #### [facility] [address] [place] [address] Bilirubin.direct [Mass/Vol] 0.0 mg/dL Normal 0.0-0.4 [facility] Comment on above: Performed By: #### 2 913875 #### [facility] [address] [place] [address] Bilirubin.indirect [Mass or moles/Vol] 0.5 mg/dL Normal 0.1-0.9 [facility] Comment on above: Performed By: #### 2 893446 #### [facility] [address] [place] [address] Globulin (S) [Mass/Vol] 3.5 g/dL Normal 1.4-4.0 [facility] Comment on above: Performed By: #### 2 527608 #### [facility] [address] [place] [address] Protein [Mass/Vol] 7.9 g/dL High 6.0-7.8 [facility] Comment on above: Performed By: #### 2 745460 #### [facility] [address] [place] [address] Lipase Levelon 01-05-2024 Lipase [Catalytic activity/Vol] 21 U/L Normal 13-58 [facility] Comment on above: Performed By: #### 2 606344 #### [facility] [address] [place] [address] UA with Cult [employer] 01-05-20 24 Bacteria Auto Ql (U) 4+ /HPF Abnormal Trace [facility] Comment on above: Performed By: #### 4 [id number] #### [facility] [address] [place] [address] Bilirubin Ql (U) Negative Normal Negative [facility] Comment on above: Performed By: #### 4 [id number] #### [facility] [address] [place] [address] Clarity (U) Turbid Abnormal Clear [facility] Comment on above: Performed By: #### 4 [id number] #### [facility] [address] [place] [address] Color (U) Yellow Normal Yellow [facility] Comment on above: Result Comment: Micr oscopic readings are only performed on those samples that meet specific criteria set forth by [facility]. Performed By: #### 4 [id number] #### [facility] [address] [place] [address] Epithelial cells.squamous Auto (Urine sed) [#/Area] >10 Invalid Interpretation Code [facility] Comment on above: Performed By: #### 4 [id number] #### [facility] [address] [place] [address] Glucose Ql (U) Negative Normal Negative [facility] Comment on above: Performed By: #### 4 [id number] #### [facility] [address] [place] [address] Hemoglobin Auto test strip (U) [Mass/Vol] 2+ Abnormal Negative [facility] Comment on above: Performed By: #### 4 [id number] #### [facility] [address] [place] [address] Ketones Auto test strip Ql (U) Negative Normal Negative [facility] Comment on above: Performed By: #### 4 [id number] #### [facility] [address] [place] [address] Leukocyte esterase Auto test strip Ql (U) 500 Jorge A/uL Abnormal Negative [facility] Comment on above: Performed By: #### 4 [id number] #### [facility] [address] [place] [address] Mucus Auto Ql (U) Trace Normal Negative [facility] Comment on above: Performed By: #### 4 [id number] #### [facility] [address] [place] [address] Nitrite Auto test strip Ql (U) Negative Normal Negative [facility] Comment on above: Performed By: #### 4 [id number] #### [facility] [address] [place] [address] pH (U) 7.5 [pH] Invalid Interpretation Code 5.0-9.0 [facility] Comment on above: Performed By: #### 4 [id number] #### [facility] [address] [place] [address] Protein Ql (U) 1+ mg/dL Abnormal Negative [facility] Comment on above: Performed By: #### 4 [id number] #### [facility] [address] [place] [address] RBC Ql (U) >75 Abnormal 0-3 [facility] Comment on above: Performed By: #### 4 [id number] #### [facility] [address] [place] [address] Specific gravity (U) [Rel density] 1.013 Invalid Interpretation Code 1.005-1.030 [facility] Comment on above: Performed By: #### 4 [id number] #### [facility] [address] [place] [address] Transitional cells Computer assisted (U) [#/Area] 0-2 Normal 0-2 [facility] Comment on above: Performed By: #### 4 [id number] #### [facility] [address] [place] [address] Urobilinogen (U) [Mass/Vol] Negative Normal Negative [facility] Comment on above: Performed By: #### 4 [id number] #### [facility] [address] [place] [address] WBC Auto (Urine sed) [#/Area] >75 Abnormal 0-5 [facility] Comment on above: Performed By: #### 4 [id number] #### [facility] [address] [place] [address] Type of Urine collection method Clean Catch Normal [facility] Comment on above: Performed By: #### 4 [id number] #### [facility] [address] [place] [address] URINALYSISOrdered By: Prakash Menjivar on 01-05-2024 Bacteria [...] that meet specific criteria set forth by [facility]. Epithelial cells.squamous Auto (Urine sed) [#/Area] [...] >75 graded/HPF Invalid Interpretation Code 0-3graded/HP F [facility] UA Auto SS Specific gravity (U) [Rel density] 1.013 *NA* (01/05/24 7:55 PM) Invalid Interpretation Code 1.005 - 1.030 [facility] UA Auto SS Transitional cells Computer assisted (U) [#/Area] 0-2 graded/HPF Normal 0-2graded/HP F [facility] UA Auto SS Urobilinogen (U) [Mass/Vol] Negative Normal Negativemg/d L [facility] UA Auto SS WBC Auto (Urine sed) [#/Area] >75 *ABN* (01/05/24 7:55 PM) Invalid Interpretation Code 0-5 [facility] UA Auto SS URINALYSISOrdered By: Adrienne Mckeon on 01-05-2024 UA Spec Desc Clean Catch (01/05/24 7:55 PM) Normal [facility] UA Auto SS eGFRon 01-05-2024 eGFR 71 mL/min/1.73 m2 Normal >=59 [facility] Comment on above: Order Comment: Order added by Discern Expert. Performed By: #### 1 [id number] #### [facility] [address] [place] [address] BMPon 09-17-2023 Anion gap [Moles/Vol] 13 mmol/L Normal 6-16 [facility] Comment on above: Performed By: #### 2 241528 #### [facility] [address] [place] [address] Calcium [Mass/Vol] 9.4 mg/dL Normal 8.9-11.1 [facility] Comment on above: Performed By: #### 2 990745 #### [facility] [address] [place] [address] Chloride [Moles/Vol] 102 mmol/L Normal 101-111 [facility] Comment on above: Performed By: #### 2 577200 #### [facility] [address] [place] [address] CO2 [Moles/Vol] 27 mmol/L Normal 21-31 [facility] Comment on above: Performed By: #### 2 443651 #### [facility] [address] [place] [address] Creatinine [Mass/Vol] 1.1 mg/dL Normal 0.5-1.3 [facility] Comment on above: Performed By: #### 2 746235 #### [facility] [address] [place] [address] Glucose [Mass/Vol] 143 mg/dL Normal 55-199 [facility] Comment on above: Performed By: #### 2 283739 #### [facility] [address] [place] [address] Potassium [Moles/Vol] 4.2 mmol/L Normal 3.5-5.3 [facility] Comment on above: Performed By: #### 2 749454 #### [facility] [address] [place] [address] Sodium [Moles/Vol] 138 mmol/L Normal 135-145 [facility] Comment on above: Performed By: #### 2 356353 #### [facility] [address] [place] [address] Urea nitrogen [Mass/Vol] 16 mg/dL Normal 5-21 [facility] Comment on above: Performed By: #### 2 936202 #### [facility] [address] [place] [address] Urea nitrogen/Creatinine [Mass ratio] 14 No Units Normal 10-20 [facility] Comment on above: Performed By: #### 2 053618 #### [facility] [address] [place] [address] CBC w/Indiceson 09-17-2023 Erythrocyte distribution width (RBC) [Ratio] 14.8 % High 10.9-14.2 [facility] Comment on above: Performed By: #### 2 083757 #### [facility] [address] [place] [address] Hematocrit (Bld) [Volume fraction] 40.5 % Normal 34.0-46.0 [facility] Comment on above: Performed By: #### 2 875832 #### [facility] [address] [place] [address] Hemoglobin (Bld) [Mass/Vol] 13.4 g/dL Normal 12.0-16.0 [facility] Comment on above: Performed By: #### 2 267435 #### [facility] [address] [place] [address] MCH (RBC) [Entitic mass] 30.8 pg Normal 27.0-34.0 [facility] Comment on above: Performed By: #### 2 053585 #### [facility] [address] [place] [address] MCHC (RBC) [Mass/Vol] 33.1 g/dL Normal 31.4-36.0 [facility] Comment on above: Performed By: #### 2 560029 #### [facility] [address] [place] [address] MCV (RBC) [Entitic vol] 92.8 fL Normal 80.0-100.0 [facility] Comment on above: Performed By: #### 2 343585 #### [facility] [address] [place] [address] Platelet mean volume (Bld) [Entitic vol] 9.0 fL Normal 6.4-10.8 [facility] Comment on above: Performed By: #### 2 514995 #### [facility] [address] [place] [address] Platelets (Bld) [#/Vol] 306.0 E9/L Normal 150.0-500.0 [facility] Comment on above: Performed By: #### 2 139429 #### [facility] [address] [place] [address] RBC (Bld) [#/Vol] 4.4 E12/L Normal 4.3-5.9 [facility] Comment on above: Performed By: #### 2 546268 #### [facility] [address] [place] [address] RBC size Nom (Bld) NORMAL Invalid Interpretation Code [facility] Comment on above: Performed By: #### 2 646230 #### [facility] [address] [place] [address] WBC corrected for nucl RBC Auto (Bld) [#/Vol] 11.3 E9/L High 4.0-11.0 [facility] Comment on above: Performed By: #### 2 885532 #### [facility] [address] [place] [address] CHEMISTRYOrdered By: SYSTEM SYSTEM on 09-17-2023 Albumin [...] (Bld) [Mass fraction] 6.3 % High <=5.9% [facility] ChemAutoSS Consent for Treatmenton 09-01 Consent for Treatment [id number] 0TIFF Normal [facility] HEMATOLOGYOrdered By: SYSTEM SYSTEM on 09-17-2023 Erythrocyte [...] 09-17-2023 Albumin [Mass/Vol] 4.4 g/dL Normal 3.3-5.0 [facility] Comment on above: Performed By: #### 2 826991 #### [facility] [address] [place] [address] Albumin/Globulin (S) [Mass conc ratio] 1.4 Normal 1.1-2.2 [facility] Comment on above: Performed By: #### 2 647078 #### [facility] [address] [place] [address] ALP [Catalytic activity/Vol] 74 Int._Unit/L Normal 21-98 [facility] Comment on above: Performed By: #### 2 952967 #### [facility] [address] [place] [address] ALT No additional P-5'-P [Catalytic activity/Vol] 16 Int._Unit/L Normal 6-46 [facility] Comment on above: Performed By: #### 2 786452 #### [facility] [address] [place] [address] AST [Catalytic activity/Vol] 21 Int._Unit/L Normal 5-43 [facility] Comment on above: Performed By: #### 2 127492 #### [facility] [address] [place] [address] Bilirubin [Mass/Vol] 0.5 mg/dL Normal 0.0-1.1 [facility] Comment on above: Performed By: #### 2 168944 #### [facility] [address] [place] [address] Bilirubin.direct [Mass/Vol] 0.1 mg/dL Normal 0.0-0.4 [facility] Comment on above: Performed By: #### 2 191932 #### [facility] [address] [place] [address] Bilirubin.indirect [Mass or moles/Vol] 0.4 mg/dL Normal 0.1-0.9 [facility] Comment on above: Performed By: #### 2 649406 #### [facility] [address] [place] [address] Globulin (S) [Mass/Vol] 3.2 g/dL Normal 1.4-4.0 [facility] Comment on above: Performed By: #### 2 445485 #### [facility] [address] [place] [address] Protein [Mass/Vol] 7.6 g/dL Normal 6.0-7.8 [facility] Comment on above: Performed By: #### 2 652917 #### [facility] [address] [place] [address] MpvH0vly 09-17-2023 HbA1c (Bld) [Mass fraction] 6.3 % High <=5.9 [facility] Comment on above: Performed By: #### 7 [id number] #### [facility] [address] [place] [address] Lipid Panelon 09-17-2023 Cholesterol [Mass/Vol] 186 mg/dL Normal 120-200 [facility] Comment on above: Performed By: #### 2 320576 #### [facility] [address] [place] [address] Cholesterol in HDL [Mass/Vol] 41 mg/dL Invalid Interpretation Code [facility] Comment on above: Result Comment: '>= 60 LOW RISK' '<= 40 HIGH RISK' Performed By: #### 2 403453 #### [facility] [address] [place] [address] Cholesterol in LDL [Mass/Vol] 117 mg/dL Normal <=129 [facility] Comment on above: Performed By: #### 2 169584 #### [facility] [address] [place] [address] Cholesterol in VLDL [Mass/Vol] 42 mg/dL High 7-40 [facility] Comment on above: Performed By: #### 2 177146 #### [facility] [address] [place] [address] Triglyceride [Mass/Vol] 210 mg/dL High <=149 [facility] Comment on above: Performed By: #### 2 607113 #### [facility] [address] [place] [address] Physician Orderon 09-17-2023 Physician Order [id number]. [id number] Normal [facility] eGFRon 09-17-2023 eGFR 56 mL/min/1.73 m2 Low >=59 [facility] Comment on above: Order Comment: Order added by Discern Expert. Performed By: #### 1 [id number] #### [facility] [address] [place] [address] BMPon 02-12-2023 Creatinine [Mass/Vol] 1.1 mg/dL Normal 0.5-1.3 [facility] Comment on above: Performed By: #### 2 440292, 2656545, 31707862, 2663907, 487156676, 3295553 #### [facility] [address] [place] [address] Urea nitrogen [Mass/Vol] 19 mg/dL Normal 5-21 [facility] Comment on above: Performed By: #### 2 428570, 7980186, 98516228, 9427451, 982704578, 8827314 #### [facility] [address] [place] [address] Urea nitrogen/Creatinine [Mass ratio] 17 No Units Normal 10-20 [facility] Comment on above: Performed By: #### 2 058856, 4932634, 70961642, 0954890, 065220789, 7786107 #### [facility] [address] [place] [address] Anion gap [Moles/Vol] 15 mmol/L Normal 6-16 [facility] Comment on above: Performed By: #### 2 317279, 5848586, 45327481, 9135330, 789594944, 9201201 #### [facility] [address] [place] [address] Calcium [Mass/Vol] 10.0 mg/dL Normal 8.9-11.1 [facility] Comment on above: Performed By: #### 2 219350, 5152673, 93327157, 6837839, 471236616, 5701264 #### [facility] [address] [place] [address] Chloride [Moles/Vol] 107 mmol/L Normal 101-111 [facility] Comment on above: Performed By: #### 2 949003, 5479266, 91258465, 8868732, 961648464, 4536187 #### [facility] [address] [place] [address] CO2 [Moles/Vol] 24 mmol/L Normal 21-31 [facility] Comment on above: Performed By: #### 2 294196, 4981981, 15063830, 4812601, 298432740, 2731143 #### [facility] [address] [place] [address] Glucose [Mass/Vol] 155 mg/dL Normal 55-199 [facility] Comment on above: Result Comment: If t his glucose result represents a fasting glucose, interpretation should refer to the following reference range: 55-99 mg/dL Performed By: #### 2 787686, 7637568, 35343431, 8434945, 860445613, 1813916 #### [facility] [address] [place] [address] Potassium [Moles/Vol] 3.9 mmol/L Normal 3.5-5.3 [facility] Comment on above: Performed By: #### 2 908689, 0361654, 73083028, 5225114, 741463314, 3721960 #### [facility] [address] [place] [address] Sodium [Moles/Vol] 142 mmol/L Normal 135-145 [facility] Comment on above: Performed By: #### 2 339991, 6017581, 18268006, 4263638, 002730220, 5619745 #### [facility] [address] [place] [address] CBC w/Indiceson 02-12-2023 Erythrocyte distribution width (RBC) [Ratio] 13.5 % Normal 10.9-14.2 [facility] Comment on above: Performed By: #### 2 530696, 9178543, 28072868, 0357266, 525782107, 7264347 #### [facility] [address] [place] [address] Hematocrit (Bld) [Volume fraction] 39.2 % Normal 34.0-46.0 [facility] Comment on above: Performed By: #### 2 522953, 1298498, 38995574, 7537445, 283202148, 7144849 #### [facility] [address] [place] [address] Hemoglobin (Bld) [Mass/Vol] 13.2 g/dL Normal 12.0-16.0 [facility] Comment on above: Performed By: #### 2 137587, 2834828, 93117965, 3549904, 173066161, 1530405 #### [facility] [address] [place] [address] MCH (RBC) [Entitic mass] 31.3 pg Normal 27.0-34.0 [facility] Comment on above: Performed By: #### 2 039178, 4367844, 34905575, 7944141, 409416588, 2518197 #### [facility] [address] [place] [address] MCHC (RBC) [Mass/Vol] 33.6 g/dL Normal 31.4-36.0 [facility] Comment on above: Performed By: #### 2 562627, 6678591, 78812234, 5307445, 958980327, 0700115 #### [facility] [address] [place] [address] MCV (RBC) [Entitic vol] 93.2 fL Normal 80.0-100.0 [facility] Comment on above: Performed By: #### 2 090807, 6093974, 29934529, 4574935, 214196219, 3186926 #### [facility] [address] [place] [address] Platelet mean volume (Bld) [Entitic vol] 9.3 fL Normal 6.4-10.8 [facility] Comment on above: Performed By: #### 2 819953, 4660431, 13264380, 5070873, [id number], 0994451 #### [facility] [address] [place] [address] Platelets (Bld) [#/Vol] 290.0 E9/L Normal 150.0-500.0 [facility] Comment on above: Performed By: #### 2 937087, 9259820, 54710928, 5494672, 692564819, 2235078 #### [facility] [address] [place], [place] [address] RBC (Bld) [#/Vol] 4.2 E12/L Low 4.3-5.9 [facility] Comment on above: Performed By: #### 2 242209, 1837518, 35497576, 6640092, 207833614, 8826113 #### [facility] [address] [place] [address] WBC corrected for nucl RBC Auto (Bld) [#/Vol] 8.4 E9/L Normal 4.0-11.0 [facility] Comment on above: Performed By: #### 2 020226, 2482648, 24562768, 1320433, 223728871, 3124198 #### [facility] [address] [place], [place] [address] CHEMISTRYOrdered By: SYSTEM SYSTEM on 02-12-2023 Albumin [...] - 40 mg/dL [facility] Remisol CO2 [Moles/Vol] 24 mmol/L Normal 21 - 31 mmol/L [facility] Remisol Creatinine [Mass/Vol] 1.1 mg/dL Normal 0.5 - 1.3 mg/dL [facility] Remisol GFR/1.73 sq M.predicted among non-blacks MDRD (S/P/Bld) [Vol rate/Area] 56 mL/min/1.73 m2 Low >=59mL/min/[address] [facility] Chem S Comment on above: Interpretive Data: C hronic kidney disease could be indicated at eGFR's of less than 60 mL/min/1.73m2. Kidney failure is indicated at less than 15 mL/min/1.73m2. Globulin (S) [Mass/Vol] 3.9 g/dL Normal 1.4 - 4.0 gm/dL [facility] Remisol Glucose [Mass/Vol] 155 mg/dL Normal 55 - 199 mg/dL [facility] Remisol Comment on above: Interpretive Data: I [...] Remisol Triglyceride [Mass/Vol] 206 mg/dL High <=149mg/dL [facility] Remisol Urea nitrogen [Mass/Vol] 19 mg/dL Normal 5 - 21 mg/dL [facility] Remisol Urea nitrogen/Creatinine [Mass ratio] 17 mg/mg Normal 10 - [address] [facility] Remisol CHEMISTRYOrdered By: Karoline wiley on 02-12-2023 HbA1c (Bld) [Mass fraction] 6.1 % High <=5.9% [facility] ChemAutoSS Consent for Treatmenton 02-01 Consent for Treatment [id number] 0TIFF Normal [facility] HEMATOLOGYOrdered By: Sarah araiza on 02-12-2023 Erythrocyte distribution width (RBC) [Ratio] 13.5 % Normal 10.9 - 14.2 % [facility] HemeAutoSS Hematocrit (Bld) [Volume fraction] 39.2 % Normal 34.0 - 46.0 % [facility] HemeAutoSS Hemoglobin (Bld) [Mass/Vol] 13.2 g/dL Normal [...] 8.4 E9/L Normal 4.0 - 11.0 E9/L [facility] HemeAutoSS Hep Func Panelon 02-12-2023 Albumin [Mass/Vol] 3.9 g/dL Normal 3.3-5.0 [facility] Comment on above: Performed By: #### 2 639017, 1082177, 33890717, 3307706, 151772703, 6806587 #### [facility] [address] [place] [address] Albumin/Globulin (S) [Mass conc ratio] 1.0 Low 1.1-2.2 [facility] Comment on above: Performed By: #### 2 640845, 5330076, 91501742, 7659327, 445455415, 2643535 #### [facility] [address] [place] [address] AST [Catalytic activity/Vol] 33 Int._Unit/L Normal 5-43 [facility] Comment on above: Performed By: #### 2 040878, 7923547, 98902412, 2199825, 427222390, 6591048 #### [facility] [address] [place] [address] Bilirubin [Mass/Vol] 0.5 mg/dL Normal 0.0-1.1 [facility] Comment on above: Performed By: #### 2 824695, 2836236, 14721261, 9152530, 173484612, 1160933 #### [facility] [address] [place] [address] Bilirubin.direct [Mass/Vol] 0.2 mg/dL Normal 0.1-0.4 [facility] Comment on above: Performed By: #### 2 009737, 1811811, 04271109, 3488479, 584645831, 6745465 #### [facility] [address] [place] [address] Bilirubin.indirect [Mass or moles/Vol] 0.3 mg/dL Normal 0.1-0.9 [facility] Comment on above: Performed By: #### 2 164519, 6094233, 14366564, 4474615, 837490335, 5943687 #### [facility] [address] [place] [address] Globulin (S) [Mass/Vol] 3.9 g/dL Normal 1.4-4.0 [facility] Comment on above: Performed By: #### 2 369164, 1022679, 84218895, 0647137, 327766181, 2126284 #### [facility] [address] [place] [address] Protein [Mass/Vol] 7.8 g/dL Normal 6.0-7.8 [facility] Comment on above: Performed By: #### 2 220036, 8820101, 20393404, 3843322, 752323792, 4068939 #### [facility] [address] [place] [address] ALP [Catalytic activity/Vol] 76 Int._Unit/L Normal 21-98 [facility] Comment on above: Performed By: #### 2 149264, 1873835, 65329143, 0458073, 816463514, 9868134 #### [facility] [address] [place] [address] ALT No additional P-5'-P [Catalytic activity/Vol] 23 Int._Unit/L Normal 6-46 [facility] Comment on above: Performed By: #### 2 051186, 1261753, 15251366, 3286189, 627459645, 3086118 #### [facility] [address] [place] [address] [id number] 02-12-2023 HbA1c (Bld) [Mass fraction] 6.1 % High <=5.9 [facility] Comment on above: Performed By: #### 2 465550, 1934378, 85349940, 5763825, 628011579, 2793147 #### [facility] [address] [place] [address] Lipid Panelon 02-12-2023 Cholesterol in HDL [Mass/Vol] 37 mg/dL Invalid Interpretation Code [facility] Comment on above: Result Comment: HDL > or equal to 60 mg/dL: Low cardiovascular risk HDL < 40 mg/dL : High cardiovascular risk Performed By: #### 2 305844, 9405028, 01504150, 4678017, 013908876, 3753996 #### [facility] [address] [place] [address] Cholesterol in LDL [Mass/Vol] 115 mg/dL Normal <=129 [facility] Comment on above: Performed By: #### 2 240503, 9149752, 22598306, 6216949, 857273190, 2181281 #### [facility] [address] [place] [address] Cholesterol in VLDL [Mass/Vol] 41 mg/dL High 7-40 [facility] Comment on above: Performed By: #### 2 710748, 2569073, 91309301, 6691294, 238765580, 8226998 #### [facility] [address] [place] [address] Triglyceride [Mass/Vol] 206 mg/dL High <=149 [facility] Comment on above: Performed By: #### 2 390256, 0813141, 38861899, 6743349, 983810812, 8604788 #### [facility] [address] [place] [address] Cholesterol [Mass/Vol] 191 mg/dL Normal 120-200 [facility] Comment on above: Performed By: #### 2 492594, 0617709, 15706537, 7104876, 826527019, 5656182 #### [facility] [address] [place] [address] Physician Orderon 02-12-2023 Physician Order [id number] TIFF Normal [facility] eGFRon 02-12-2023 GFR/1.73 sq M.predicted among non-blacks MDRD (S/P/Bld) [Vol rate/Area] 56 mL/min/1.73 m2 Low >=59 [facility] Comment on above: Order Comment: Order added by Discern Expert. Result Comment: [employer] ami kidney disease could be indicated at eGFR's of less than 60 mL/min/1.73m2. Kidney failure is indicated at less than 15 mL/min/1.73m2. Performed By: #### 2 885288, 9471018, 06135037, 8659643, 063043579, 9437400 #### [facility] [address] [place] [address] CHEMISTRYOrdered By: SYSTEM SYSTEM on 05-20-2022 Albumin [...] 56 mL/min/1.73 m2 Low >=59mL/min/1 .73 m2 [facility] S Globulin (S) [Mass/Vol] 3.7 g/dL Normal 1.4 - 4.0 gm/dL [facility] Remisol Glucose [Mass/Vol] 140 mg/dL Normal 55 - 199 mg/dL [facility] Remisol Potassium [Moles/Vol] 3.6 mmol/L Normal 3.5 - 5.3 mmol/L [facility] Protein [Mass/Vol] 7.9 g/dL High 6.0 - 7.8 gm/dL [facility] Sodium [Moles/Vol] 138 mmol/L Normal 135 - 145 mmol/L [facility] Triglyceride [Mass/Vol] 207 mg/dL High <=149mg/dL [facility] Urea nitrogen [Mass/Vol] 18 mg/dL Normal 5 - 21 mg/dL [facility] Remisol Urea nitrogen/Creatinine [Mass ratio] 18 mg/mg Normal 10 - 20 [facility] CHEMISTRYOrdered By: Reji mukherjee on 05-20-2022 HbA1c (Bld) [Mass fraction] 6.4 % High <=5.9% [facility] ChemAutoSS HEMATOLOGYOrdered By: Olivia Lucas on 05-20-2022 Erythrocyte distribution width (RBC) [Ratio] 13.7 % Normal 10.9 - 14.2 % [facility] HemeAutoSS Hematocrit (Bld) [Volume fraction] 41.6 % Normal 34.0 - 46.0 % [facility] HemeAutoSS Hemoglobin (Bld) [Mass/Vol] 13.8 g/dL Normal 12.0 - 16.0 gm/dL [facility] HemeAutoSS MCH (RBC) [Entitic mass] 31.3 pg Normal 27.0 - 34.0 pg [facility] HemeAutoSS MCHC (RBC) [Mass/Vol] 33.3 g/dL Normal 31.4 - 36.0 gm/dL [facility] HemeAutoSS MCV (RBC) [Entitic vol] 93.9 fL Normal 80.0 - 100.0 fL [facility] HemeAutoSS Platelet mean volume (Bld) [Entitic vol] 9.6 fL Normal 6.4 - 10.8 fL [facility] HemeAutoSS Platelets (Bld) [#/Vol] 274.0 E9/L Normal 150.0 - 500.0 E9/L [facility] HemeAutoSS RBC (Bld) [#/Vol] 4.4 E12/L Normal 4.3 - 5.9 E12/L [facility] HemeAutoSS WBC corrected for nucl RBC Auto (Bld) [#/Vol] 8.7 E9/L Normal 4.0 - 11.0 E9/L [facility] HemeAutoSS CHEMISTRYOrdered By: SYSTEM SYSTEM on 11-21-2021 [...] rate/Area] mL/min/1.73 m2 Normal >=59mL/min/[address] [facility] Chem S GFR/1.73 sq M.predicted among non-blacks MDRD (S/P/Bld) [Vol rate/Area] mL/min/1.73 m2 Normal >=59mL/min/[address] [facility] Chem S Globulin (S) [Mass/Vol] 3.7 g/dL Normal 1.4 - 4.0 gm/dL [facility]isol Glucose [Mass/Vol] 128 mg/dL Normal 55 - 199 mg/dL [facility] Potassium [Moles/Vol] 4.5 mmol/L Normal 3.5 - 5.3 mmol/L [facility] Protein [Mass/Vol] 7.6 g/dL Normal 6.0 - 7.8 gm/dL [facility] Sodium [Moles/Vol] 142 mmol/L Normal 135 - 145 mmol/L [facility] Triglyceride [Mass/Vol] 304 mg/dL High <=149mg/dL [facility] Urea nitrogen [Mass/Vol] 16 mg/dL Normal 5 - 21 mg/dL [facility] Urea nitrogen/Creatinine [Mass ratio] 18 mg/mg Normal 10 - [address] [facility] Remisol CHEMISTRYOrdered By: Analisa griffith on 11-21-2021 HbA1c (Bld) [Mass fraction] 6.7 % High <=5.9% [facility] ChemAutoSS HEMATOLOGYOrdered By: Sierra mills on 11-21-2021 Erythrocyte distribution width (RBC) [Ratio] 13.6 % Normal 10.9 - 14.2 % [facility] HemeAutoSS Hematocrit (Bld) [Volume fraction] 39.9 % Normal 34.0 - 46.0 % [facility] HemeAutoSS Hemoglobin (Bld) [Mass/Vol] 13.2 g/dL Normal 12.0 - 16.0 gm/dL [facility] HemeAutoSS MCH (RBC) [Entitic mass] 30.8 pg Normal 27.0 - 34.0 pg [facility] HemeAutoSS MCHC (RBC) [Mass/Vol] 33.2 g/dL Normal 31.4 - 36.0 gm/dL [facility] HemeAutoSS MCV (RBC) [Entitic vol] 92.9 fL Normal 80.0 - 100.[address] [facility] HemeAutoSS Platelet mean volume (Bld) [Entitic vol] 9.7 fL Normal 6.4 - 10.8 fL [facility] HemeAutoSS Platelets (Bld) [#/Vol] 262.0 E9/L Normal 150.0 - 500.0 E9/L [facility] HemeAutoSS RBC (Bld) [#/Vol] 4.3 E12/L Normal 4.3 - 5.9 E12/L [facility] HemeAutoSS WBC corrected for nucl RBC Auto (Bld) [#/Vol] 8.1 E9/L Normal 4.0 - 11.0 E9/L [facility] HemeAutoSS XR cerv spine AP/LAT/FLX/EXT on 07-25-2021 XR cerv spine AP/LAT/FLX/EXT [facility] [place] [address] XRay Report Signed Patient: Ciera Chan MR#: [id number] : 1960 Acct:[id number] Age/Sex: 61 / F ADM Date: 07/25/21 Loc: XD Room: Type: [facility] Attending Dr: Boy Thompson MD Ordering [...] STABLE CERVICAL FUSION. Impression dictated by: Vanna Mcintyre M.D.07/25/2021 3:22 PM Dictation Location: [place] [address] Transcribed By: [facility] 07/25/21 1522 Dictated By: Vanna Mcintyre MD 07/25/21 1520 Signed By: 07/25/21 1522 [place] XR cerv spine AP/LAT/FLX/EXT on 2021 XR cerv spine AP/LAT/FLX/EXT [facility] Main [address] [address] XRay Report Signed Patient: Ciera Chan MR#: [id number] : 1960 Acct:[id number] Age/Sex: 61 / F ADM Date: 03/21/21 Loc: XD Room: Type: [facility] Attending Dr: Boy Thompson MD Ordering Provider: Boy Tohmpson MD Date of Service: 03/21/21 XR/XR cerv [...] Garret Sanchez M.D.03/21/2021 2:34 PM Dictation Location: [place] [address] Transcribed By: [facility] 03/21/21 1434 Dictated By: Garret Sanchez II, MD 03/21/21 1429 Signed By: 03/21/21 1434 [place] XR cervical spine 2Von 10-18 XR cervical spine 2V [facility] Main [address] [address] XRay Report Signed Patient: Ciera Chan MR#: [id number] : 1960 Acct:[id number] Age/Sex: 60 / F ADM Date: 10/18/20 Loc: XD Room: Type: [facility] Attending Dr: Boy Thompson MD Ordering [...] Garret Sanchez M.D.10/18/2020 3:39 PM Dictation Location: [place] [address] Transcribed By: [facility] 10/18/20 153 Dictated By: Garret Sanchez II, MD 10/18/20 153 Signed By: 10/18/20 1539 Normal [facility] Complete Blood Count Auto Di ffon 08-31-2020 Basophils (Bld) [#/Vol] 0.1 10*3/uL Normal 0.0-0.2 [facility] Comment on above: Result Comment: PERF ORMED BY: [place] [address] PATHOLOGIST [employer] JANELLE SHANNON M.D. Performed By: #### B MP, CBC #### [facility] [address] [place] [address] Basophils/100 WBC (Bld) 0.5 % Normal . [facility] Comment on above: Performed By: #### B MP, CBC #### [facility] [address] [place] [address] [place] Eosinophils (Bld) [#/Vol] 0.1 10*3/uL Normal 0.0-0.45 [facility] Comment on above: Performed By: #### B MP, CBC #### [address] Eosinophils/100 WBC (Bld) 0.5 % Normal . [facility] Comment on above: Performed By: #### B MP, CBC #### [address] Erythrocyte distribution width (RBC) [Ratio] 13.9 % Normal 11.9-15.3 [facility] Comment on above: Performed By: #### B MP, CBC #### [address] Hematocrit (Bld) [Volume fraction] 37.4 % Normal 34.0-46.4 [facility] Comment on above: Performed By: #### B MP, CBC #### [address] Hemoglobin (Bld) [Mass/Vol] 12.5 g/dL Normal 11.8-15.4 [facility] Comment on above: Performed By: #### B MP, CBC #### [address] Lymphocytes (Bld) [#/Vol] 3.8 10*3/uL Normal 1.00-4.8 [facility] Comment on above: Performed By: #### B MP, CBC #### [address] Lymphocytes/100 WBC (Bld) 30.9 % Normal . [facility] Comment on above: Performed By: #### B MP, CBC #### [address] MCH (RBC) [Entitic mass] 31.1 pg Normal 24.7-34.3 [facility] Comment on above: Performed By: #### B MP, CBC #### [address] MCV (RBC) [Entitic vol] 92.9 fL Normal 80-100 [facility] Comment on above: Performed By: #### B MP, CBC #### [address] Mean Corpuscular HGB Conc 33.5 g/dL Normal 32.0-35.0 [facility] Comment on above: Performed By: #### B MP, CBC #### [address] Monocytes (Bld) [#/Vol] 1.2 10*3/uL High 0.0-0.8 [facility] Comment on above: Performed By: #### B MP, CBC #### [address] Monocytes/100 WBC (Bld) 10.0 % Normal . [facility] Comment on above: Performed By: #### B MP, CBC #### [address] Neutrophils (Bld) [#/Vol] 7.2 10*3/uL Normal 1.8-7.7 [facility] Comment on above: Performed By: #### B MP, CBC #### [address] Neutrophils/100 WBC (Bld) 58.1 % Normal . [facility] Comment on above: Performed By: #### B MP, CBC #### [address] Nucleated RBC/100 WBC (Bld) [Ratio] 0.2 % Normal 0-0.5 [facility] Comment on above: Performed By: #### B MP, CBC #### [address] Platelet mean volume (Bld) [Entitic vol] 9.2 fL Normal 6.3-10.7 [facility] Comment on above: Performed By: #### B MP, CBC #### [address] Platelets (Bld) [#/Vol] 252 10*3/uL Normal 150-450 [facility] Comment on above: Performed By: #### B MP, CBC #### [facility] [address] [place] [address] RBC (Bld) [#/Vol] 4.03 10*6/uL Normal 3.60-5.00 [facility] Comment on above: Performed By: #### B MP, CBC #### [address] WBC (Bld) [#/Vol] 12.5 10*3/uL High 4.5-11.0 [facility] Comment on above: Performed By: #### B MP, CBC #### [address] Comprehensive Metabolic Pane sean 08-31-2020 Albumin [Mass/Vol] 3.4 g/dL Normal 3.2-5.5 [facility] Comment on above: Performed By: #### B MP, CBC #### [address] Albumin/Globulin [Mass ratio] 1.1 {ratio} Normal [facility] Comment on above: Performed By: #### B MP, CBC #### [address] ALP [Catalytic activity/Vol] 71 U/L Normal 32-92 [facility] Comment on above: Performed By: #### B MP, CBC #### [address] ALT [Catalytic activity/Vol] 25 U/L Normal 10-60 [facility] Comment on above: Performed By: #### B MP, CBC #### [address] AST [Catalytic activity/Vol] 21 U/L Normal 10-42 [facility] Comment on above: Performed By: #### B MP, CBC #### [address] Bilirubin [Mass/Vol] 0.3 mg/dL Normal 0.3-1.2 [facility] Comment on above: Performed By: #### B MP, CBC #### [facility] [address] Calcium [Mass/Vol] 9.0 mg/dL Normal 8.2-10.2 [facility] Comment on above: Performed By: #### B MP, CBC #### [facility] [address] Chloride [Moles/Vol] 105 mmol/L Normal 95-114 [facility] Comment on above: Performed By: #### B MP, CBC #### [facility] [address] CO2 [Moles/Vol] 26.7 mmol/L Normal 22.0-30.0 [facility] Comment on above: Performed By: #### B MP, CBC #### [facility] [address] Creatinine [Mass/Vol] 0.98 mg/dL Normal 0.44-1.03 [facility] Comment on above: Performed By: #### B MP, CBC #### [facility] [address] [place] [address] [place] Creatinine Clr Calc Pharmacy 62.98 [place] Comment on above: Performed By: #### B MP, CBC #### [facility] [address] Estimated GFR ( Jacqui > 60 [place] Comment on above: Result Comment: GFR estimated reference range: According to KDOQI guidelines, <60 ml/min/1.73m2 is sufficient to diagnose a patient with chronic kidney disease. Performed By: #### B MP, CBC #### [facility] [address] [place] [address] [place] Estimated GFR (Non- Am 58 [place] Comment on above: Performed By: #### B MP, CBC #### [facility] [address] [place] [address] [place] Globulin (S) [Mass/Vol] 3.0 g/dL [place] Comment on above: Performed By: #### B MP, CBC #### [facility] [address] Glucose [Mass/Vol] 111 mg/dL High 70-100 [facility] Comment on above: Result Comment: [place] Glucose Reference Range is dependent on time and content of last meal. Glucose of more than 200 mg/dL in a nonstressed, ambulatory subject supports the diagnosis of Diabetes Mellitus. ADA recommended reference range Performed By: #### B MP, CBC #### [facility] [address] Potassium [Moles/Vol] 3.6 mmol/L Normal 3.5-5.1 [facility] Comment on above: Performed By: #### B MP, CBC #### [address] Protein [Mass/Vol] 6.4 g/dL Normal 6.1-7.9 [facility] Comment on above: Performed By: #### B MP, CBC #### [address] Sodium [Moles/Vol] 142 mmol/L Normal 136-146 [facility] Comment on above: Performed By: #### B MP, CBC #### [address] Urea nitrogen [Mass/Vol] 13 mg/dL Normal 9-23 [facility] Comment on above: Performed By: #### B MP, CBC #### [facility] [address] [place] [address] Folateon 08-31-2020 Folate 22.0 ng/mL Normal >5.9 [facility] Comment on above: Result Comment: Adry te reference range: >5.9 ng/ml The WHO technical consultation on folate and vitamin b12 deficiencies has determined that folate concentrations less than 4 ng/ml are considered deficient. PERFORMED BY: [place] [address] PATHOLOGIST [employer] JANELLE SHANNON M.D. Performed By: #### B MP, CBC #### [facility] [address] Prealbuminon 08-31-2020 Prealbumin [Mass/Vol] 20.1 mg/dL Normal 18.0-38.0 [facility] Comment on above: Performed By: #### B MP, CBC #### [facility] [address] Vitamin B12on 08-31-2020 Cobalamin (Vitamin B12) [Mass/Vol] 323 pg/mL Normal 180-914 [facility] Comment on above: Performed By: #### B MP, CBC #### [facility] [address] Basic Metabolic Panelon 08-03 Calcium [Mass/Vol] 8.6 mg/dL Normal 8.2-10.2 [facility] Comment on above: Performed By: #### B MP #### [facility] [address] Chloride [Moles/Vol] 104 mmol/L Normal 95-114 [facility] Comment on above: Performed By: #### B MP #### [address] CO2 [Moles/Vol] 24.2 mmol/L Normal 22.0-30.0 [facility] Comment on above: Performed By: #### B MP #### [address] Creatinine [Mass/Vol] 0.81 mg/dL Normal 0.44-1.03 [facility] Comment on above: Performed By: #### B MP #### [facility] [address] [place] [address] [place] Creatinine Clr Calc Pharmacy 76.06 Normal [facility] Comment on above: Result Comment: PERF ORMED BY: [place] [address] PATHOLOGIST [employer] JANELLE SHANNON M.D. Performed By: #### B MP #### [address] Estimated GFR ( Jacqui > 60 Normal [facility] Comment on above: Result Comment: GFR estimated reference range: According to KDOQI guidelines, <60 ml/min/1.73m2 is sufficient to diagnose a patient with chronic kidney disease. Performed By: #### B MP #### [facility] [address] Estimated GFR (Non- Am > 60 Normal [facility] Comment on above: Performed By: #### B MP #### [facility] [address] [place] [id number] [facility] Glucose [Mass/Vol] 206 mg/dL High 70-100 [facility] Comment on above: Result Comment: [place] om Glucose Reference Range is dependent on time and content of last meal. Glucose of more than 200 mg/dL in a nonstressed, ambulatory subject supports the diagnosis of Diabetes Mellitus. ADA recommended reference range Performed By: #### B MP #### [facility] [address] Potassium [Moles/Vol] 4.0 mmol/L Normal 3.5-5.1 [facility] Comment on above: Performed By: #### B MP #### [facility] [address] [place] [address] [place] Sodium [Moles/Vol] 137 mmol/L Normal 136-146 [facility] Comment on above: Performed By: #### B MP #### [facility] [address] [place] [id number] [place] Urea nitrogen [Mass/Vol] 8 mg/dL Low 9-23 [facility] Comment on above: Performed By: #### B MP #### [facility] [address] [place] [address] [place] COVID-19 FRon 08-30-2020 SARS-CoV-2 (COVID-19) RNA ZENA+probe Ql (Unsp spec) Negative Normal Negative [facility] Comment on above: Order Comment: Healt hcare Worker?: N Result Comment: Test ing for SARS-CoV-2 by RT-PCR This test was developed and its performance characteristics determined by [facility] ([employer]) and validated at the [facility]. This test has not been FDA cleared [...] is terminated or revoked sooner. PERFORMED BY: [place] [address] PATHOLOGIST [employer] DISP[employer] JANELLE SHANNON M.D. Performed By: #### C OVID-19 [facility] #### [address] ABO/Rh Retypeon 08-29-2020 ABO/RH Recheck Result Positive Normal [facility] Comment on above: Result Comment: PERF ORMED BY: [place] [address] PATHOLOGIST SODA DISPENSER JANELLE SHANNON M.D. Sean 08-29-2020 L -- ---- Specimen: [id number] Received: 08/29/20 Status: WOODThom Metz Num: [id number] Spec Type: Surgical Subm Dr: Boy Thompson MD Tissues: A Disc - Intervertebral/Lumbar/ Cervical (DISC ANTERIOR NECK) Procedures: HE Stain, Gross/Micro L3 ---- Patient Age/Sex Location Account Attending Physician ---- Ciera Chan 60/F [place] [id number] Boy Thompson MD ---- SPEC NUM: [id number] RECD: 08/29/20 STATUS: WILLIAM METZ NUM: [id number] DION: 08/29/20 [facility] DR: Boy Thompson MD ENTERED: 08/29/20 [facility] DR: ROSMERY TYPE: Surgical DEPT: S ORDERED: HE Stain, [...] mandujano-pink, slightly cauterized and ragged fibrous tissue. Legal Assistant sections are submitted in one cassette labeled A1. (FREEDOM/YJ) Microscopic Description One glass slide with H E stained material has been examined. The microscopic findings support the above pathologic diagnosis. CPT Codes 53817 ---- ---- Specimen: [id number] Received: 08/29/20 Status: WILLIAM Metz Num: [id number] Spec Type: Surgical Subm Dr: Boy Thompson MD Tissues: A Disc - Intervertebral/Lumbar/ Cervical (DISC ANTERIOR NECK) Procedures: HE Stain, Gross/Micro L3 ---- Patient: Ciera Chan [id number] (Continued) ---- Signed (signature on file) Hu Garrett MD 08/30/20 1507 [place] Type and Screenon 08-29-2020 ABO and Rh group Nom (Bld) Blood group A Rh(D) positive [place] Comment on above: Result Comment: PERF ORMED BY: [place] [address] PATHOLOGIST SODA DISPENSER JANELLE SHANNON M.D. XR cervical spine 1Von 08-29 XR cervical spine 1V [facility] Main [place] [address] [place], [place] [id number] XRay Report Signed Patient: Ciera Chan MR#: [id number] : 1960 Acct:[id number] Age/Sex: 60 / F ADM Date: 08/29/20 Loc: [place] Room: Type: [facility] Attending Dr: Boy Thompson MD Ordering Provider: Boy Thompson MD Date of Service: 08/29/20 XR/XR cervical spine 1V: . Copies to: Boy Thompson MD Single fluoroscopic imaging for localization intraoperatively. One image. Total time 40 seconds. HISTORY: C4-5 fusion. C5-6 revision Cervical localization performed. XR/XR cervical spine 1V IMPRESSION: Cervical localization. Impression dictated by: Demetrio Asencio M.D.08/29/2020 12:49 PM Dictation Location: [place] [address] Transcribed By: [facility] 08/29/20 1249 Dictated By: Demetrio Asencio DO 08/29/20 1244 Signed By: 08/29/20 1249 [place] [facility] 08-[facility] SARS-CoV-2 (COVID-19) RNA ZENA+probe Ql (Unsp spec) Negative Normal Negative [facility] Comment on above: Order Comment: Healt hcare Worker?: N Result Comment: Test ing for SARS-CoV-2 by RT-PCR This test was developed and its performance characteristics determined by [employer] ([place]) and validated at the [facility]. This test has not been FDA cleared [...] is terminated or revoked sooner. PERFORMED BY: [place] [address] PATHOLOGIST SODA DISPENSER JANELLE SHANNON M.D. Performed By: #### C OVID-19 [facility] #### [facility] [address] [place] [address] COVID-19 Positive/Negativeon 08-27-2020 SARS-CoV-2 (COVID-19) N gene ZENA+probe Ql (Resp) Negative Negative [facility] Comment on above: Testing for SARS-CoV -2 by RT-PCRThis test was developed and its performance characteristics determined by [employer] ([employer]) and validated at the [facility]. This test has not been FDA cleared [...] (COVID-19) RNA ZENA+probe Ql (Unsp spec) N/A [facility] Basic Metabolic Panelon 08-02 Calcium [Mass/Vol] 9.7 mg/dL Normal 8.2-10.2 [facility] Comment on above: Result Comment: PERF ORMED BY: [place] [address] PATHOLOGIST SODA DISPENSER JANELLE SHANNON M.D. Performed By: #### B MP, CBC #### [place] [address] [place] Chloride [Moles/Vol] 104 mmol/L Normal 95-114 [facility] Comment on above: Performed By: #### B MP, CBC #### [address] CO2 [Moles/Vol] 29.2 mmol/L Normal 22.0-30.0 [facility] Comment on above: Performed By: #### B MP, CBC #### [address] Creatinine [Mass/Vol] 0.95 mg/dL Normal 0.44-1.03 [facility] Comment on above: Performed By: #### B MP, CBC #### [address] Estimated GFR ( Jacqui > 60 [place] Comment on above: Result Comment: GFR estimated reference range: According to KDOQI guidelines, <60 ml/min/1.73m2 is sufficient to diagnose a patient with chronic kidney disease. Performed By: #### B MP, CBC #### [place] [address] [place] Estimated GFR (Non- Am 60 [place] Comment on above: Performed By: #### B MP, CBC #### [facility] [address] [place] [address] [place] Glucose [Mass/Vol] 106 mg/dL High 70-100 [facility] Comment on above: Result Comment: [place] om Glucose Reference Range is dependent on time and content of last meal. Glucose of more than 200 mg/dL in a nonstressed, ambulatory subject supports the diagnosis of Diabetes Mellitus. ADA recommended reference range Performed By: #### B MP, CBC #### [facility] [address] Potassium [Moles/Vol] 4.4 mmol/L Normal 3.5-5.1 [facility] Comment on above: Performed By: #### B MP, CBC #### [facility] [address] Sodium [Moles/Vol] 141 mmol/L Normal 136-146 [facility] Comment on above: Performed By: #### B MP, CBC #### [facility] [address] Urea nitrogen [Mass/Vol] 13 mg/dL Normal 9-23 [facility] Comment on above: Performed By: #### B MP, CBC #### [facility] [address] Basophils Auto (Bld) [#/Vol] on 08-16-2020 Basophils (Bld) [#/Vol] 0.0 10*3/uL 0.0-0.2 [facility] Basophils/100 WBC Auto (Bld) on 08-16-2020 Basophils/100 WBC (Bld) 0.6 % [facility] Blood hemoglobin measurement (mass/volume)on 08-16-2020 Hemoglobin (Bld) [Mass/Vol] 13.8 g/dL 11.8-15.4 [facility] Blood leukocytes automated c ount (number/volume)on 08-16-2020 WBC (Bld) [#/Vol] 7.4 10*3/uL 4.5-11.0 [facility] Complete Blood Count Auto Di ffon 08-16-2020 Basophils (Bld) [#/Vol] 0.0 10*3/uL Normal 0.0-0.2 [facility] Comment on above: Result Comment: PERF ORMED BY: [place] [address] PATHOLOGIST SODA DISPENSER JANELLE SHANNON M.D. Performed By: #### B MP, CBC #### [facility] [address] [place] [address] [place] Basophils/100 WBC (Bld) 0.6 % Normal . [facility] Comment on above: Performed By: #### B MP, CBC #### [facility] [address] [place] [address] [place] Eosinophils (Bld) [#/Vol] 0.2 10*3/uL Normal 0.0-0.45 [facility] Comment on above: Performed By: #### B MP, CBC #### [facility] [address] [place] [address] [place] Eosinophils/100 WBC (Bld) 2.7 % Normal . [facility] Comment on above: Performed By: #### B MP, CBC #### [facility] [address] Erythrocyte distribution width (RBC) [Ratio] 14.2 % Normal 11.9-15.3 [facility] Comment on above: Performed By: #### B MP, CBC #### [facility] [address] [place] [address] [place] Hematocrit (Bld) [Volume fraction] 40.5 % Normal 34.0-46.4 [facility] Comment on above: Performed By: #### B MP, CBC #### [facility] [address] [place] [address] [place] Hemoglobin (Bld) [Mass/Vol] 13.8 g/dL Normal 11.8-15.4 [facility] Comment on above: Performed By: #### B MP, CBC #### [facility] [address] [place] [id number] [place] Lymphocytes (Bld) [#/Vol] 2.7 10*3/uL Normal 1.00-4.8 [facility] Comment on above: Performed By: #### B MP, CBC #### [facility] [address] [place] [id number] [place] Lymphocytes/100 WBC (Bld) 36.0 % Normal . [facility] Comment on above: Performed By: #### B MP, CBC #### [facility] [address] MCH (RBC) [Entitic mass] 31.6 pg Normal 24.7-34.3 [facility] Comment on above: Performed By: #### B MP, CBC #### [facility] [address] MCV (RBC) [Entitic vol] 93.2 fL Normal 80-100 [facility] Comment on above: Performed By: #### B MP, CBC #### [facility] [address] Mean Corpuscular HGB Conc 33.9 g/dL Normal 32.0-35.0 [facility] Comment on above: Performed By: #### B MP, CBC #### [address] Monocytes (Bld) [#/Vol] 0.6 10*3/uL Normal 0.0-0.8 [facility] Comment on above: Performed By: #### B MP, CBC #### [place] [address] [place] Monocytes/100 WBC (Bld) 8.0 % Normal . [facility] Comment on above: Performed By: #### B MP, CBC #### [address] Neutrophils (Bld) [#/Vol] 3.9 10*3/uL Normal 1.8-7.7 [facility] Comment on above: Performed By: #### B MP, CBC #### [facility] [address] [place] [address] [place] Neutrophils/100 WBC (Bld) 52.7 % Normal . [facility] Comment on above: Performed By: #### B MP, CBC #### [facility] [address] Nucleated RBC/100 WBC (Bld) [Ratio] 0.4 % Normal 0-0.5 [facility] Comment on above: Performed By: #### B MP, CBC #### [facility] [address] Platelet mean volume (Bld) [Entitic vol] 8.6 fL Normal 6.3-10.7 [facility] Comment on above: Performed By: #### B MP, CBC #### [facility] [address] Platelets (Bld) [#/Vol] 254 10*3/uL Normal 150-450 [facility] Comment on above: Performed By: #### B MP, CBC #### [facility] [address] RBC (Bld) [#/Vol] 4.35 10*6/uL Normal 3.60-5.00 [facility] Comment on above: Performed By: #### B MP, CBC #### [facility] [address] WBC (Bld) [#/Vol] 7.4 10*3/uL Normal 4.5-11.0 [facility] Comment on above: Performed By: #### B MP, CBC #### [facility] [address] Creatinine and Glomerular fi ltration rate.predicted panel (S/P/Bld)on 08-16-2020 Creatinine [Mass/Vol] 0.95 mg/dL 0.44-1.03 [facility] ECG 12 lead ECGon 08-16-2020 ECG 12 lead ECG [facility] Main [place] [address] [place] [address] Electrocardiograph Report Signed Patient: Ciera Chan MR#: [id number] : 1960 Acct:[id number] Age/Sex: 60 / F ADM Date: 08/16/20 Loc: [place] Room: Type: [facility] Attending Dr: Boy Thompson MD Ordering [...] Electronically Signed By:DEMETRIO SANCHEZ DO Transcribed By: KARI Dictated By: Demetrio Sanchez DO 08/16/20 1319 Signed By: 08/16/20 1541 Normal [facility] Eosinophils Auto (Bld) [#/Vo l]on 08-16-2020 Eosinophils (Bld) [#/Vol] 0.2 10*3/uL 0.0-0.45 [facility] Eosinophils/100 WBC Auto (Bl d)on 08-16-2020 Eosinophils/100 WBC (Bld) 2.7 % [facility] Erythrocyte distribution wid th Auto (RBC) [Ratio]on 08-16-2020 Erythrocyte distribution width (RBC) [Ratio] 14.2 % 11.9-15.3 [facility] Estimated glomerular filtrat ion rate (GFR) non- Americanon 08-16-2020 GFR/1.73 sq M.predicted among non-blacks MDRD (S/P/Bld) [Vol rate/Area] 60 mL/Min [facility] Hematocrit Auto (Bld) [Volum e fraction]on 08-16-2020 Hematocrit (Bld) [Volume fraction] 40.5 % 34.0-46.4 [facility] Laboratory - Hematology and Cell countson 08-16-2020 Nucleated RBC/100 WBC (Bld) [Ratio] 0.4 % 0-0.5 [facility] Lymphocytes Auto (Bld) [#/Vo l]on 08-16-2020 Lymphocytes (Bld) [#/Vol] 2.7 10*3/uL 1.00-4.8 [facility] Lymphocytes/100 WBC Auto (Bl d)on 08-16-2020 Lymphocytes/100 WBC (Bld) 36.0 % [facility] MCH Auto (RBC) [Entitic mass ]on 08-16-2020 MCH (RBC) [Entitic mass] 31.6 pg 24.7-34.3 [facility] MCHC Auto (RBC) [Mass/Vol]on 08-16-2020 MCHC (RBC) [Mass/Vol] 33.9 g/dL 32.0-35.0 [facility] MCV Auto (RBC) [Entitic vol] on 08-16-2020 MCV (RBC) [Entitic vol] 93.2 fL 80-100 [facility] Monocytes Auto (Bld) [#/Vol] on 08-16-2020 Monocytes (Bld) [#/Vol] 0.6 10*3/uL 0.0-0.8 [facility] Monocytes/100 WBC Auto (Bld) on 08-16-2020 Monocytes/100 WBC (Bld) 8.0 % [facility] Neutrophils Auto (Bld) [#/Vo l]on 08-16-2020 Neutrophils (Bld) [#/Vol] 3.9 10*3/uL 1.8-7.7 [facility] Neutrophils/100 WBC Auto (Bl d)on 08-16-2020 Neutrophils/100 WBC (Bld) 52.7 % [facility] No Panel Informationon 08-16 Estimated GFR () > 60 mL/Min [facility] Comment on above: GFR estimated refere nce range: According to KDOQI guidelines, <60 ml/min/1.73m2 is sufficient to diagnose a patient with chronic kidney disease. Pharmacy Creatinine Clearance (Chem N/A [facility] Platelet mean volume Auto (B ld) [Entitic vol]on 08-16-2020 Platelet mean volume (Bld) [Entitic vol] 8.6 fL 6.3-10.7 [facility] Platelets Auto (Bld) [#/Vol] on 08-16-2020 Platelets (Bld) [#/Vol] 254 10*3/uL 150-450 [facility] RBC Auto (Bld) [#/Vol]on RBC (Bld) [#/Vol] 4.35 10*6/uL 3.60-5.00 [facility] Serum or plasma calcium kashmir urement (mass/volume)on 08-16-2020 Calcium [Mass/Vol] 9.7 mg/dL 8.2-10.2 [facility] Serum or plasma chloride bruce surement (moles/volume)on 08-16-2020 Chloride [Moles/Vol] 104 mmol/L 95-114 [facility] Serum or plasma glucose kashmir urement (mass/volume)on 08-16-2020 Glucose [Mass/Vol] 106 mg/dL 70-100 [facility] Comment on above: ADA recommended refe rence rangeRandom Glucose Reference Range is dependent on time and content of last meal. Glucose of more than 200 mg/dL in a nonstressed, ambulatory subject supports the diagnosis of Diabetes Mellitus. Serum or plasma potassium me asurement (moles/volume)on 08-16-2020 Potassium [Moles/Vol] 4.4 mmol/L 3.5-5.1 [facility] Serum or plasma sodium measu rement (moles/volume)on 08-16-2020 Sodium [Moles/Vol] 141 mmol/L 136-146 [facility] Serum or plasma total carbon dioxide measurement (moles/volume)on 08-16-2020 CO2 [Moles/Vol] 29.2 mmol/L 22.0-30.0 [facility] Serum or plasma urea nitroge n measurement (mass/volume)on 08-16-2020 Urea nitrogen [Mass/Vol] 13 mg/dL 9-23 [facility] Vital Signs Date Time Vital Sign Value Performing Clinician Facility 01-27-2024 14:00-0400 Blood Pressure Location Vamsi ANAYA [facility] 01-27-2024 14:00-0400 Diastolic blood pressure 77 mm[Hg] Vamsi ANAYA [facility] 01-27-2024 14:00-0400 Heart rate 88 /min Vamsi ANAYA [facility] 01-27-2024 14:00-0400 Respiratory rate 16 /min Vamsi ANAYA [facility] 01-27-2024 14:00-0400 Systolic blood pressure 148 mm[Hg] Vamsi ANAYA [facility] 01-05-2024 22:00-0400 Hourly Rounding Sudhir Munir [facility] 01-05-2024 22:00-0400 Promise to Return Sudhir Munir [facility] 01-05-2024 21:00-0400 Hourly Rounding Sudhir Munir [facility] 01-05-2024 21:00-0400 Promise to Return Sudhir Munir [facility] 01-05-2024 20:00-0400 Hourly Rounding Sudhir Munir [facility] 01-05-2024 20:00-0400 Promise to Return Sudhir Munir [facility] 01-05-2024 17:36-0400 Body temperature 97.88 [degF] Sudhir Munir [facility] 01-05-2024 17:36-0400 Diastolic blood pressure 77 mm[Hg] Sudhir Munir [facility] 01-05-2024 17:36-0400 Heart rate 82 /min Sudhir Munir [facility] 01-05-2024 17:36-0400 Respiratory rate 18 /min Sudhir Munir [facility] 01-05-2024 17:36-0400 SaO2% (BldA) [Mass fraction] 98 % Sudhir Munir [facility] 01-05-2024 17:36-0400 Systolic blood pressure 117 mm[Hg] Sudhir Munir [facility] 01-24-2022 17:40-0400 Blood Pressure Location Vera Hargrove [facility] 01-24-2022 17:40-0400 Body temperature 97.88 [degF] Vera Hargrove [facility] 01-24-2022 17:40-0400 Diastolic blood pressure 90 mm[Hg] Vera Garzaar [facility] 01-24-2022 17:40-0400 Heart rate 104 /min Vera Hargrove [facility] 01-24-2022 17:40-0400 SaO2% (BldA) [Mass fraction] 99 % Vera Hargrove [facility] 01-24-2022 17:40-0400 Systolic blood pressure 140 mm[Hg] Vera Hargrove [facility] 07-25-2021 14:40-0400 Body height 157.48 cm Boy Thompson Other [employer] Other 07-25-2021 14:40-0400 Body mass index (BMI) [Ratio] 36.76 kg/m2 Boy Thompson Other [employer] Other 07-25-2021 14:40-0400 Body weight 91.17 kg Boy Thompson Other [employer] Other 2021 14:40-0500 Body height 157.48 cm Boy Thompson Other [employer] Other 2021 14:40-0500 Body mass index (BMI) [Ratio] 36.76 kg/m2 Boy Thompson Other [employer] Other 2021 14:40-0500 Body weight 91.17 kg Boy Thompson Other [employer] Other Encounters Encounter Date Encounter Type Care Provider Facility Start: 03-03-2024 ambulatory Vamsi ANAYA Facili ty:[id number] Start: 02-12-2024 End: 02-12-2024 ambulatory Vamsi ANAYA Facility:[facility] Start: 02-12-2024 End: 02-12-2024 Patient encounter procedure Vamsi ANAYA [facility] Start: 02-04-2024 End: 02-04-2024 ambulatory Vamsi ANAYA Facility:[id number] Start: 01-27-2024 End: 01-27-2024 ambulatory Vamsi ANAYA Facility: [facility] Start: 01-27-2024 End: 01-27-2024 Patient encounter procedure Vamsi ANAYA [facility] Start: 01-27-2024 End: 01-27-2024 ambulatory Vamsi ANAYA Facility:[facility] Start: 01-27-2024 End: 01-27-2024 Patient encounter procedure Vamsi ANAYA [facility] Start: 01-22-2024 ambulatory Vamsi ANAYA Facility :[facility] Start: 01-19-2024 End: 01-19-2024 Emergency department patient visit Janis Calderon Facility:[facility] Start: 01-05-2024 End: 01-05-2024 Emergency department patient visit Sudhir Amaral [facility] Start: 09-17-2023 ambulatory Rhonda Rodrigez lity:[facility] Start: 09-17-2023 End: 09-17-2023 ambulatory Rhonda Narayan Facility:[facility] Start: 09-17-2023 End: 09-17-2023 Patient encounter procedure Rhonda Narayan [facility] Start: 02-12-2023 End: 02-13-2023 ambulatory Rhonda Narayan Facility:[facility] Start: 02-12-2023 End: 02-12-2023 Patient encounter procedure Rhonda Narayan [facility] Start: 05-20-2022 End: 05-20-2022 Patient encounter procedure Rhonda Narayan [facility] Start: 01-24-2022 End: 01-24-2022 Patient encounter procedure Vera Hargrove [facility] Start: 11-21-2021 End: 11-21-2021 Patient encounter procedure Rhonda Narayan [facility] Start: 07-25-2021 End: 07-25-2021 ambulatory Boy Ulises Other [facility] [employer] Other Start: 07-25-2021 Office outpatient visit 15 minutes Boy Thompson [facility] Start: 2021 End: 2021 ambulatory Boy Thompson Other [facility] [employer] Other Start: 2021 Office outpatient visit 15 minutes Boy Thompson [facility] Start: 08-27-2020 End: 08-27-2020 Patient encounter [...] on above: Result Comment: PERF ORMED BY: [facility] Rash[place] [address] PATHOLOGIST SODA DISPENSER JANELLE SHANNON M.D. Start: 07-12-2020 MRI of cervical spin e without contrast Flakito Venkat Kalie Work Phone: Start: 07-12-2020 Radiography of cervi kelsea spine Flakito Venkat Jade Work Phone: Start: 06-11-2020 MR lumbar spine wo con Flakito Venkat Kalie Work Phone: Start: 06-11-2020 XR pre/post mri xray Flakito Venkat Kalie Work Phone: [place] Rhonda hilliard Immunizations Immunization Date Immunization Notes Care Provider Fa cility 06-05-2020 SARS-CoV-2 (COVID-19 ) mRNA-1273 vaccine Vera Cogar [facility] 05-22-2020 SARS-CoV-2 (COVID-19 ) mRNA BNT-162b2 vax Vera Cogar [facility] 05-08-2020 SARS-CoV-2 (COVID-19 ) mRNA-1273 vaccine Vera Cogar [facility] 05-01-2020 SARS-CoV-2 (COVID-19 ) mRNA BNT-162c3 vax Vera Cogar [facility] Payers Date Payer Category Payer Medicaid [id number] 1960 Unknown [id number] 2.16.8 [id number] 1960 Unknown [id number] 2.16.8 40.1.948186.3.579.2.72 1960 Unknown [id number] 2.16.8 40.1.906367.3.579.2.72 1960 Unknown [id number] 2.16.8 40.1.013115.3.579.2. 1960 Unknown [id number] 2.16.8 40.1.999848.3.579.2.72 1960 Unknown [id number] 2.16.8 40.1.813277.3.579.2. 1960 Unknown [id number] 2.16.8 40.1.481891.3.579.2.72 1960 Unknown [id number] 2.16.8 40.1.117573.3.579.2.72 1960 Unknown [id number] 2.16.8 40.1.345855.3.579.2.72 1959 Unknown [id number] 2.16.8 40.1.600780.3.579.2.72 1960 Unknown [id number] 2.16.8 40.1.996442.3.579.2.72 1960 Unknown [id number] 2.16.8 40.1.870559.3.579.2. 1960 Unknown [id number] 2.16.8 40.1.598297.3.579.2.72 1960 Unknown [id number] 2.16.8 40.1.271639.3.579.2.72 Self-pay Self Pay [id number] Unknown [id number] Social History Date Type Detail Facility Start: 08-16-2020 End: 01-27-2024 Tobacco smoking status NHIS Never smoked tobacco (finding) [facility] Start: 1960 Sex Assigned At Female F [facility] Sex Assigned At [facility] [employer] Other Tobacco smoking status No Smokin g Status Entered [facility] Comment on above: Denies. Tobacco smoking status Never [facility] Tobacco smoking status No Smokin g Status Entered [facility] Goals Date Patient Goal Desired Activity /State Functional Status Date Assessment Result Facility 01-27-2024 Functional Status N/A [facility] 01-05-2024 Functional Status N/A [facility] 01-24-2022 Functional Status N/A [facility] Clinical Notes 2021 to 01-27-2024 [...] Follow these instructions at home: Medicines Take ljpo-sak-odbqevk and prescription medicines only as told by [...] to keep your pee pale yellow. ?Take ozub-osc-zphigjy or prescription medicines. ?Eat foods that are [...] provider. Document Revised: 12/19/2022 Document Reviewed: 12/19/2022 Elsevier Patient Education 2023 [employer]. [employer] a [employer].. 01/27/2024 14:45:08 Laser Therapy for Kidney Stones [...] including vitamins, herbs, eye drops, creams, and synq-scj-wmjxbix medicines. Any problems you or family members [...] unless your provider tells you to. ?Taking uvas-ceh-xkvtdja medicines, vitamins, herbs, and supplements. Tests You [...] provider. Document Revised: 12/19/2022 Document Reviewed: 12/19/2022 [employer] Patient Education 2023 [employer] - [employer]. Like a Man.. Follow Up Care 01/25/2024 14:14:00 With:PAUL GARDNER, Vamsi Schultz, URL Address: [facility] [address] , [place] [address] [phone] When: Unknown Comments:jessica REDDY [facility] 01-27-2024 Note Patient Education Nephrology Laser Therapy for Kidney Stones, Care After After laser therapy for kidney stones, it is common to have: ? Pain. ? A burning feeling when you pee (urinate). ? Small amounts of blood in your pee (urine). ? A need to pee a lot. ? Parts of the kidney stone in your pee. ? Mild discomfort in your back when you pee. You may have this if you had a small mesh tube (stent) placed during the procedure. Follow these instructions at home: Medicines ? Take zoik-jis-eynivma and prescription medicines only as told by your health care provider. ? If you were prescribed antibiotics, take them as told by your provider. Do not stop using the antibiotic even if you start to feel better. ? Ask your provider if the medicine prescribed to you: ? Requires you to avoid driving or using machinery. ? Can cause constipation. You may need to take these actions to prevent or treat constipation: ? Drink enough fluid to keep your pee pale yellow. ? Take ntjo-lxt-vjpltqd or prescription medicines. ? Eat foods that are high in fiber, such as beans, whole grains, and fresh fruits and vegetables. ? Limit foods that are high in fat and processed sugars, such as fried or sweet foods. Activity ? If you were given a sedative during the procedure, it can affect you for several hours. Do not drive or operate machinery until your provider says that it is safe. ? Return to your normal activities as told by your provider. Ask your provider what activities are safe for you. General instructions ? Your provider may recommend that you drink a lot of water for a few hours after your procedure. If you have heart or kidney disease, ask your provider how much you should drink. ? You may be asked to strain your pee to collect any stone pieces that you pass. Your provider may have these pieces tested. ? Do not take baths, swim, or use a hot tub until your provider approves. Ask your provider if you may take warm baths to soothe the burning. ? Keep all follow-up visits. If you have a stent, you will need to go back to your provider to have it removed. Your provider may give you more instructions. Make sure you know what you can and cannot do. Contact a health care provider if: ? You have pain or a burning feeling that lasts for more than 2 days. ? You feel nauseous. ? You vomit more and more often. ? You have trouble peeing. ? You have pain that gets worse or does not get better with medicine. ? You have a fever or shaking chills. Get help right away if: ? You cannot pee, even when your bladder feels full. ? You faint. ? You have chest pain, shortness of breath, or cough up blood. ? You have: ? Bright red blood or blood clots in your pee. ? Severe pain or discomfort. ? Pain in your abdomen. ? Swelling in your legs. These symptoms may be an emergency. Get help right away. Call 911. ? Do not wait to see if the symptoms will go away. ? Do not drive yourself to the hospital. This information is not intended to replace advice given to you by your health care provider. Make sure you discuss any questions you have with your health care provider. Document Revised: 12/19/2022 Document Reviewed: 12/19/2022 [email or web address] Patient Education ? 2023 [employer] Laser Therapy for Kidney Stones Laser therapy [...] pee. Tell a health care provider about: ? Any allergies you have. ? All medicines you are taking, including vitamins, herbs, eye drops, creams, and eeeu-llr-cawwqbt medicines. ? Any problems you or family members have had with anesthesia. ? Any bleeding problems you have. ? Any surgeries you have had. ? Any medical conditions you have. ? Whether you are or may be . What are the risks? Your health care provider will talk with you about risks. These may include: ? Infection. ? Bleeding. ? Allergic reactions to medicines. ? Damage to: ? The part of your body that drains pee (urine) from the bladder (urethra). ? The bladder. ? The tube that connects the bladder to the kidneys (ureter). ? Urinary tract infection (UTI). ? Urethral stricture. This is when the urethra is narrowed by scarring. ? Trouble peeing. ? Blockage of the kidney. This may be caused by a piece of kidney stone. What happens before the procedure? When to stop eating and drinking Follow instructions from your provider about what you may eat and drink. These may include: ? 8 hours before the procedure ? Stop eating most foods. Do not e (more content not included)... [facility] 01-19-2024 Note Progress Note-Nurse This nurse into answer call light and patient off bedside commode, pt re-vitalized and tachy on the monitor in the 120's and hypertension. Primary nurse aware and Dr. Calderon [facility] 01-05-2024 Hospital Discharge instructions Patient Education 01/05/2024 21:44:46 Urinary Tract Infection, Adult, Akdf-lr-Bvtn Urinary Tract Infection, Adult A urinary tract [...] Follow these instructions at home: Medicines Take qtih-bpq-bsmmvif and prescription medicines only as told by [...] provider. Document Revised: 11/25/2020 Document Reviewed: 11/30/2020 [employer] Patient Education 2023 [employer] Follow Up Care 01/05/2024 17:14:57 With:Rhonda Narayan Address: [address] [place] [address]. [address] [place] [address] Business (1) When:01/08/2024 21:44:28 Comments:Call to schedule a follow-up appoint with your family physician if symptoms not improve in the next 2 to 3 days. Use the antibiotic as prescribed. Return to the ED with any worsening symptoms. [facility] 01-05-2024 Note ED Patient Education Note [...] these instructions at home: Medicines ? Take xsiz-ogy-bbzzsat and prescription medicines only as told by [...] provider. Document Revised: 11/25/2020 Document Reviewed: 11/30/2020 [employer] Patient Education ? 2023 [employer] [facility] 01-05-2024 Evaluation + Plan note Diagnostic Tests PendingUrine Culture 01/05/24 [facility] 01-24-2022 Hospital Discharge instructions Patient Education [...] height. This can be done either in [place] or metric measurements. Note that charts are available to help you find your BMI quickly and easily without having to do these calculations yourself. To calculate your BMI in [place] measurements, your health care provider will: [...] medical problems. BMI can be measured using [place]ene[place]in measurements or metric measurements. To interpret your [...] 12/30/2004 Document Revised: 04/02/2018 Document Reviewed: 03/03/2018 [employer] Patient Education 2020 [employer] 01/24/2022 18:42:28 Rash, Adult Rash, Adult A [...] with your condition: Medicine Take or apply mzgr-jcn-ovotgql and prescription medicines only as told by [...] taking a bath with: ?Epsom salts. Follow hazardous materials waste technician instructions on the packaging. You can get these at your local pharmacy or grocery store. ?Baking soda. Pour a small amount into the bath as told by your health care provider. ?Colloidal oatmeal. Follow hazardous materials waste technician instructions on the packaging. You can get this at your local pharmacy or grocery store. Try applying baking soda paste to your skin. Stir water into baking soda until it reaches a paste-like consistency. Try applying calamine lotion. This is an zqwd-yal-nmylqvs lotion that helps to relieve itchiness. Keep [...] the rash from spreading. Take or apply rkdc-mux-yctiuez and prescription medicines only as told by [...] 04/10/2003 Document Revised: 08/12/2019 Document Reviewed: 11/22/2018 [employer] Patient Education 2020 [employer] Follow Up Care 01/24/2022 17:38:26 With:Shahnaz GARDNER, KENDRA Esteban Address:Unknown When: Unknown [facility] 07-25-2021 Evaluation note Encounter Date Diagnosis Assessment Notes Jul, History of fusion of cervical spine (ICD-10 [...] basis Jul, Cervical myelopathy (ICD-10 - G95.9) [employer] Other 11-18-2021 Evaluation note* Encounter Date Diagnosis [...] months. Mar, Cervical myelopathy (ICD-10 - G95.9) [facility] [employer] Other evaluation + Plan note No data available for this section [facility] Information Available [facility] Narrative - Reported* Type Description Date Medical History hypertension Medical History Esophageal reflux Medical History overactive bladder Medical History diabetes mallitus Medical History chronic depression Medical History anxiety Surgical History Neck Surgery Hospitalization History See Above [email or web address] [employer] Other Hospital Discharge instructions No data available for this section [facility] No data available for this section [facility] Advance Directives No Advanced Directives Records Found Advance Directive Response Recorded Date/ Time Advance Directives No May 06, 2020 11:48am Chief Complaint and Reason for Visit Chief Complaint r29.898 e11.49 G95.9 Myelopathy Myelopathy Family History No Family History Records Found Relationship Condition Age at Onset Recorded Date/T kelly father Coronary artery disease Unknown Deep vein thrombosis (DVT) Unknown Not Specified Malignant neoplasm of colon Unknown Malignant neoplasm of liver Unknown sister Deep vein thrombosis (DVT) Unknown Summary Purpose Additional Source Comments INFORMATION SOURCE (unrecogn ized section and content) DATE CREATED AUTHOR 08/13/2021 [facility] DATE CREATED AUTHOR AUTHOR'S ORGANIZ ATION 09/19/2023 [facility] DATE CREATED AUTHOR AUTHOR'S ORGANIZ ATION 09/20/2023 [facility] DATE CREATED AUTHOR AUTHOR'S ORGANIZ ATION 01/07/2024 [facility] DATE CREATED AUTHOR AUTHOR'S ORGANIZ ATION 01/09/2024 [facility] DATE CREATED AUTHOR AUTHOR'S ORGANIZ ATION 01/21/2024 [facility] DATE CREATED AUTHOR AUTHOR'S ORGANIZ ATION 02/23/2024 [facility] REASON FOR VISIT (unrecogniz ed section and content) 6 months po ACDF10 month po ACDF Care Team (unrecognized sect ion and content) Personnel Name: Rhonda Narayan MD Address: [address] [place] [address] [place] [id number] Name: Emely Larose Personnel Name: Rhonda Narayan MD Address: [address] [place] [address]. [address] Name: Emely Larose Personnel Name: Rhonda Narayan MD Address: Address: [address] [place] [address]. [address] Name: Emely Larose Personnel Name: Rhonda Narayan MD Address: Address: [address] [place] [address]. [address] Name: Emely Larose Personnel Name: Rhonda Narayan MD Address: Address: [address] [place] [address]. [address] Name: Emely Larose Personnel Name: Rhonda Narayan MD Address: Address: [address] [place] [address]. [address] Name: Emely Larose Personnel Name: Rhonda Narayan MD Address: Address: [address] [place] [address]. [address] Name: Emely Larose Personnel Name: Rhonda Narayan MD Address: Address: [address] [place] [address]. [address] Name: Emely Larose Personnel Name: Rhonda Narayan MD Address: Address: [address] [place] [address]. [address] Name: Emely Larose FOR RECORDS PERTAINING [...] BE BASED ON THE PRIMARY CLINICAL RECORDS. [employer] [facility] provides no warranty or guarantee of the accuracy or completeness of information in this document.
== END 2024-02-26 13:14 | disposition home or self-care (01) ==
LOC: PST 13:13
PROVIDERS: PCP Family Medicine; Visit Provider Urology
DX: Z01.818 Encounter for other preprocedural examination (principal); N20.0 Calculus of kidney; I10 Essential (primary) hypertension; E11.9 Type 2 diabetes mellitus without complications; E78.5 Hyperlipidemia, unspecified; F32.A Depression, unspecified

== ENCOUNTER 2024-03-10 06:57 | Day surgery (SDC) | payer OTHER, SELFPAY ==
[2024-03-10] VITALS (11 sets, daily range): BP systolic 128–160; BP diastolic 69–109; PULSE 84–94; TEMP 36.1–36.4; O2SAT 92–96; BMI 36.4
--- OUTSIDE RECORDS SUMMARY | 2024-03-10 06:59 | XMS_ITS | CCD ---
Author Organization [facility] Inform ion Partnership [facility] Care Team Providers Care Carpentry Professional Name Role Phone Flakito Jade Attending Provider Boy Thompson Attending Provider [phone] Rhonda Narayan Primary Care Provider Boy Thompson [...] source) Trimethoprim Drug Allergy 08-17-19 21 N/V [facility] Iodine (and Iodine containting drugs) (1 source) Iodine Drug Allergy 08-17-19 21 Anaphylaxis [facility] Macrolides (antibiotic) (1 source) Clarithromycin Drug Allergy 08-17-19 21 N/V [facility] Mushrooms (1 source) Mushroom (edible) Food Allergy 08-17-19 21 Congested, sneeze [facility] NSAIDs (2 sources) Ibuprofen Drug Allergy 08-17-19 N/V, closed up throat, N/V, throat closed [facility] Opioid Agonists (1 source) HYDROcodone Drug Allergy 08-17-19 N/V [facility] Penicillins (antibiotic) (1 source) Penicillins Drug Allergy 08-17-19 Anaphylaxis [facility] Sulfonamides (antibiotic) (1 source) Sulfamethoxazole Drug Allergy 08-17-19 N/V [facility] Unclassified (1 source) Fish Containing Products Allergy to substance 08-17-19 Anaphylaxis [facility] Unclassified (1 source) perfume Allergy to substance 08-17-19 Difficulty Breathing [facility] (11 sources) Clarithromycin; Translations: [clarithromycin] Drug Allergy Unknown, Respiratory distress, needing intubation/mec hanical ventilation [facility] Other (2 sources) HYDROcodone Drug Allergy Unknown [facility]onom[facility] Other (15 sources) Ibuprofen; Translations: [Ibuprofen] Drug Allergy Unknown, Respiratory distress, needing intubation/mec hanical ventilation proteonomix [facility] Other (11 sources) meloxicam; Translations: [meloxicam] Drug Allergy Unknown, Respiratory distress, needing intubation/mec hanical ventilation proteonom[facility] Other (2 sources) penicillAMINE Drug Allergy Unknown [facility] Other (11 sources) Sulfamethoxazole / Trimethoprim; Translations: [sulfamethoxazole-t rimethoprim] Drug Allergy Unknown, Respiratory distress, needing intubation/mec hanical ventilation [facility] Other (13 sources) Acetaminophen / HYDROcodone; Translations: [acetaminophen-hydr ocodone] Drug Allergy Respiratory distress, needing intubation/mec hanical ventilation [facility] (20 sources) Ibuprofen; Translations: [ibuprofen] Drug Allergy Respiratory distress, needing intubation/mec hanical ventilation [facility] (13 sources) Penicillin; Translations: [penicillin] Drug Allergy Respiratory distress, needing intubation/mec hanical ventilation [facility] (13 sources) Shellfish; Translations: [shellfish] Drug allergy Congestion of throat (finding) [facility] (4 sources) Clarithromycin; Translations: [Biaxin] Drug Allergy [facility] (4 sources) Ibuprofen; Translations: [Advil] Drug Allergy [facility] (4 sources) meloxicam; Translations: [Mobic] Drug Allergy [facility] (4 sources) Sulfamethoxazole / Trimethoprim; Translations: [Bactrim] Drug Allergy [facility] Repository Medications Current Medications Medication Drug Class(es) Dates Sig (Normalized) Sig (Original) [id number] 200 actuat albuterol 0.09 mg/actuat metered dose [...] day(s), # 10 cap(s), Refills(s) 0, Pharmacy: [facility], 157.5, cm, 01/05/24 17:40:00 EDT, [...] Apply with triamcinolone ointment to left foot, [facility] 1985, 158, cm, 01/24/22 17:57:00 EDT, [...] q8hr, # 20 tab(s), Refills(s) 0, Pharmacy: [facility] 1986, 157, cm, 01/27/24 14:06:00 EDT, Height/Length Dosing, 91.5, kg, 01/27/24 14:06:00 EDT, Weight Dosing Start Date: 01/27/24 Status: Ordered polyethylene glycol 3350 55108 mg powder for oral solution (10 sources) [...] Apply with nystatin ointment to left foot, [facility] 1986, 158, cm, 01/24/22 17:57:00 EDT, [...] mGy = . DAP = . Normal [facility] XR Abdomen 1 Viewon 01-29-20 24 XR [...] mGy = na DAP = na Normal [facility] Ambulatory Visit Summaryon 0 01-27-2024 Ambulatory Visit [...] [facility] [address] , [place] [address]- [phone] Medications What How Much When Instructions New ondansetron (Zofran 4 mg Tab) 1 Tablets By Mouth Every 8 hours as needed for Nausea Pickup at [facility] 1985 New ondansetron (Zofran 4 mg Tab) 1 Tablets By Mouth Every 8 hours Pickup at [facility] 1985 Unchanged alendronate (alendronate 70 mg Tab) [...] physician if questions or concerns Pharmacy Information [facility] 1986: [address] [facility] [place], [place] [id number] [phone] Allergies Advil Bactrim (Respiratory distress, needing intubation/mechanical [...] yo (more content not included)... Normal [facility] Urology Office/Clinic Noteon 01-27-2024 Urology Office/Clinic Note Urology Office/Clinic Note Chief Complaint New Pt HPI Staff New Pt. Hospital follow up from [facility] 01/19/24 due to calculus of renal pelvis KUB 01/27/24[facility] Cysto/right renal stone [...] of kidney) CT AP wo con 01/19/24 [facility] - 13 mm calculus R renal pelvis. Mild R hydro. Mild stranding adjacent to the renal pelvis. Multiple additional R renal calculi especially within the lower pole, largest measuring 12 mm. No distinct L renal calculi. No L hydro. No ureteral calculi or bladder calculi. S/p Cysto/R ureteral stent placement 01/21/24 at [facility]. KUB 01/27/24 [facility] - report pending. [...] S/p Cysto/R ureteral stent placement 01/21/24 at [facility]. -Schedule stent removal after R ESWL 3. Pyelonephritis (N12: Tubulo-interstitial nephritis, not specified as acute or chronic) [facility] ER 01/19/24 due to R flank pain. Pt had leukocytosis and was started on Rocephin. Pt was transferred to [facility]. Infectious disease was consulted and treated pt. UCx 01/19/24 [facility] - mixed skin contam. [facility] UA today shows large blood and small leuks. Likely due to stone burden. Currently on abx. -Stay on current abx course Follow-up With When Contact Information PAUL GARDNER, Vamsi Schultz, URL [facility] [address], [place] [phone] Additional Instructions: sched R ESWL Patient Education Laser Therapy for Kidney Stones, Care After Laser Therapy for Kidney Stones I, Reena Arteaga, personally scribed for Dr. Anaya on 01/27/2024 14:51:36. . Documentation recorded by the (more content not included)... [facility] Comment on above: Result Comment: Elec [...] Locations R1: This test was performed at: [facility], [address] [place] [address], [address] , , [facility] Comment on above: Performed By: #### 2 [id number] #### [facility] [address] [place] [address] BMPon 01-19-2024 Anion gap [Moles/Vol] 13 mmol/L Normal 6-16 [facility] Comment on above: Performed By: #### 2 [id number] #### [facility] [address] [place] [address] Calcium [Mass/Vol] 9.5 mg/dL Normal 8.9-11.1 [facility] Comment on above: Performed By: #### 2 [id number] #### [facility] [address] [place] [address] Chloride [Moles/Vol] 101 mmol/L Normal 101-111 [facility] Comment on above: Performed By: #### 2 [id number] #### [facility] [address] [place] [address] CO2 [Moles/Vol] 28 mmol/L Normal 21-31 [facility] Comment on above: Performed By: #### 2 [id number] #### [facility] [address] [place] [address] Creatinine [Mass/Vol] 0.9 mg/dL Normal 0.5-1.3 [facility] Comment on above: Performed By: #### 2 [id number] #### [facility] [address] [place] [address] Glucose [Mass/Vol] 153 mg/dL Normal 55-199 [facility] Comment on above: Performed By: #### 2 [id number] #### [facility] [address] [place] [address] Potassium [Moles/Vol] 3.6 mmol/L Normal 3.5-5.3 [facility] Comment on above: Performed By: #### 2 [id number] #### [facility] [address] [place] [address] Sodium [Moles/Vol] 138 mmol/L Normal 135-145 [facility] Comment on above: Performed By: #### 2 [id number] #### [facility] [address] [place] [address] Urea nitrogen [Mass/Vol] 18 mg/dL Normal 5-21 [facility] Comment on above: Performed By: #### 2 [id number] #### [facility] [address] [place] [address] Urea nitrogen/Creatinine [Mass ratio] 20 No Units Normal 10-20 [facility] Comment on above: Performed By: #### 2 [id number] #### [facility] [address] [place] [address] CBC w/ Auto Diffon 4 Basophils/100 WBC (Bld) 0.6 % Normal 0.0-2.0 [facility] Comment on above: Performed By: #### 2 [id number] #### [facility] [address] [place] [address] Basophils/Leukocytes Auto (Bld) [Pure # fraction] 0.1 E9/L Normal 0.0-0.2 [facility] Comment on above: Performed By: #### 2 [id number] #### [facility] [address] [place] [address] Eosinophils (Bld) [#/Vol] 0.3 E9/L Normal 0.0-0.5 [facility] Comment on above: Performed By: #### 2 [id number] #### [facility] [address] [place] [address] Eosinophils/100 WBC (Bld) 2.4 % Normal 0.0-8.0 [facility] Comment on above: Performed By: #### 2 [id number] #### [facility] [address] [place] [address] Erythrocyte distribution width (RBC) [Ratio] 13.6 % Normal 10.9-14.2 [facility] Comment on above: Performed By: #### 2 [id number] #### [facility] [address] [place] [address] Hematocrit (Bld) [Volume fraction] 38.5 % Normal 34.0-46.0 [facility] Comment on above: Performed By: #### 2 [id number] #### [facility] [address] [place] [address] Hemoglobin (Bld) [Mass/Vol] 13.5 g/dL Normal 12.0-16.0 [facility] Comment on above: Performed By: #### 2 [id number] #### [facility] [address] [place] [address] Lymphocytes (Bld) [#/Vol] 3.1 E9/L Normal 1.0-4.0 [facility] Comment on above: Performed By: #### 2 [id number] #### [facility] [address] [place] [address] Lymphocytes/100 WBC (Bld) 24.7 % Normal 14.0-50.0 [facility] Comment on above: Performed By: #### 2 [id number] #### [facility] [address] [place] [address] MCH (RBC) [Entitic mass] 32.7 pg Normal 27.0-34.0 [facility] Comment on above: Performed By: #### 2 [id number] #### [facility] [address] [place] [address] MCHC (RBC) [Mass/Vol] 35.1 g/dL Normal 31.4-36.0 [facility] Comment on above: Performed By: #### 2 [id number] #### [facility] [address] [place] [address] MCV (RBC) [Entitic vol] 93.0 fL Normal 80.0-100.0 [facility] Comment on above: Performed By: #### 2 [id number] #### [facility] [address] [place] [address] Monocytes (Bld) [#/Vol] 0.8 E9/L Normal 0.2-1.0 [facility] Comment on above: Performed By: #### 2 [id number] #### [facility] [address] [place] [address] Neutrophils (Bld) [#/Vol] 8.2 E9/L High 2.0-7.5 [facility] Comment on above: Performed By: #### 2 [id number] #### [facility] [address] [place] [address] Neutrophils/100 WBC (Bld) 65.8 % Normal 36.0-75.0 [facility] Comment on above: Performed By: #### 2 [id number] #### [facility] [address] [place] [address] Platelet 323.0 E9/L Normal 150.0-500.0 [facility] Comment on above: Performed By: #### 2 [id number] #### [facility] [address] [place] [address] Platelet mean volume (Bld) [Entitic vol] 8.6 fL Normal 6.4-10.8 [facility] Comment on above: Performed By: #### 2 [id number] #### [facility] [address] [place] [address] RBC (Bld) [#/Vol] 4.1 E12/L Low 4.3-5.9 [facility] Comment on above: Performed By: #### 2 [id number] #### [facility] [address] [place] [address] WBC corrected for nucl RBC Auto (Bld) [#/Vol] 12.5 E9/L High 4.0-11.0 [facility] Comment on above: Performed By: #### 2 [id number] #### [facility] [address] [place] [address] CT Abdomen/Pelvis w/o Contra romeo 01-19-2024 CT [...] Oral contrast amount in ml's: 0 Normal [facility] ED Clinical Summaryon 2023 ED Clinical Summary ED Clinical Summary [address] [address] ED Clinical Summary Person Information Name: CIERA CHAN [facility] Age: 63 Years : 1960 Sex: Female Language: Moldovan PCP: Rhonda Narayan MD Marital Status: Single [...] 01/19/2024 20:35:26 01/19/2024 20:35:26 01/19/2024 20:35:26 ADDRESS: [address] [place] [id number] PHYS DOC NOTES: MEDICAL INFORMATION: Prescriptions Given: [...] calculus; 4:Urinary tract infection; 5:Accelerated hypertension Normal [facility] ED Note-Nursingon 01-19-2024 ED Note-Nursing ED Note-Nursing spoke with pts sister Day lyle from pt. via phone, sister aware that pt. will go to [facility] with a squad eta of 2030 tonight. Normal [facility] ED Note-Physicianon 01-19-20 ED Note-Physician ED [...] and Complexity of Problems Differential Diagnosis: [] [facility] Data External documents reviewed: [] My EKG [...] hydralazine. There is no urology on-call at [facility]. Initially the case was discussed with who has recommended patient going to the ER. I discussed the case with the ER attending Dr. Capo Trotter who accepted the patient. The patient will be transferred via [facility]. Shared decision making: [] Code status: [] [...] 01/19/24 16:37:00 (more content not included)... Normal [facility] Comment on above: Result Comment: Elec tronically Signed By: Kvng Espinoza, Janis [email or web address]\.[email or web address]\Date and Time Signed: 01/19/24 19:17 EDT ED Patient Education Noteon 01-19-2024 ED Patient Education Note ED Patient Education Note Normal [facility] ED Patient Summaryon 024 ED Patient Summary ED Patient Summary [place] [id number] Patient Discharge Instructions Person Information Name: CIERA CHAN Age: 63 Years Arrival Date: 01/19/2024 16:26:28 Discharge Diagnosis: 1:Renal colic; 2:Kidney stone; 3:Hydronephrosis with obstructing calculus; 4:Urinary tract infection; 5:Accelerated hypertension Primary Care Physician: Rhonda Narayan MD Provider Information Primary Provider: Janis Calderon M.D. Advanced Plastic Molding Operator:None The exam and treatment you received in the Emergency Department were for an urgent problem and are not intended as complete care. It is important that you follow up with a doctor, nurse practitioner, or physician?s painter assistant for ongoing care. If your symptoms [...] opioids can be used to help relieve [id number] pain and are often prescribed following a [...] be struggling with addiction, tell your health resident care aid and ask for guidance or call [facility]?S National Helpline at 8-496-649-SJJR. u Source: [place] Department of Health and Human Services/ (more content not included)... Normal [facility] Hep Func Panelon 01-19-2024 Albumin [Mass/Vol] 4.3 g/dL Normal 3.3-5.0 [facility] Comment on above: Performed By: #### 2 [id number] #### [facility] [address] [place] [address] Albumin/Globulin (S) [Mass conc ratio] 1.3 Normal 1.1-2.2 [facility] Comment on above: Performed By: #### 2 [id number] #### [facility] [address] [place] [address] ALP [Catalytic activity/Vol] 75 Int._Unit/L Normal 21-98 [facility] Comment on above: Performed By: #### 2 [id number] #### [facility] [address] [place] [address] ALT No additional P-5'-P [Catalytic activity/Vol] 15 Int._Unit/L Normal 6-46 [facility] Comment on above: Performed By: #### 2 [id number] #### [facility] [address] [place] [address] AST [Catalytic activity/Vol] 19 Int._Unit/L Normal 5-43 [facility] Comment on above: Performed By: #### 2 [id number] #### [facility] [address] [place] [address] Bilirubin [Mass/Vol] 0.5 mg/dL Normal 0.0-1.1 [facility] Comment on above: Performed By: #### 2 [id number] #### [facility] [address] [place] [address] Bilirubin.direct [Mass/Vol] 0.0 mg/dL Normal 0.0-0.4 [facility] Comment on above: Performed By: #### 2 [id number] #### [facility] [address] [place] [address] Bilirubin.indirect [Mass or moles/Vol] 0.5 mg/dL Normal 0.1-0.9 [facility] Comment on above: Performed By: #### 2 [id number] #### [facility] [address] [place] [address] Globulin (S) [Mass/Vol] 3.4 g/dL Normal 1.4-4.0 [facility] Comment on above: Performed By: #### 2 [id number] #### [facility] [address] [place] [address] Protein [Mass/Vol] 7.7 g/dL Normal 6.0-7.8 [facility] Comment on above: Performed By: #### 2 [id number] #### [facility] [address] [place] [address] Lipase Levelon 01-19-2024 Lipase [Catalytic activity/Vol] 24 U/L Normal 13-58 [facility] Comment on above: Performed By: #### 2 [id number] #### [facility] [address] [place] [address] PT & PTTon 01-19-2024 aPTT Coag (PPP) [Time] 33.9 second(s) Normal 25.1-36.5 [facility] Comment on above: Result Comment: Para [...] the same coagulation reagent and instrumentation as [facility]. Currently there are no coagulation studies available worldwide for children to 14 days, and no normal ranges. Heparin therapeutic range (represented by Anti-Factor Xa activity of 0.2 - 0.4 U/mL) corresponds to PTT of 56.6 - 109.0 sec. Performed By: #### 1 [id number] #### [facility] [address] [place] [address] INR Coag (PPP) [Relative time] 1.00 {INR} Invalid Interpretation Code [facility] Comment on above: Result Comment: INR results are specifically intended to assess patients stabilized on long-term Anticoagulation therapy suggested INR?s ?Less Intensive Anticoagulation? 2.0 ? 3.0 Conventional Range 3.0 ? 4.5 Performed By: #### 1 [id number] #### [facility] [address] [place] [address] PT Coag (PPP) [Time] 11.2 second(s) Normal 9.4-12.5 [facility] Comment on above: Result Comment: 15 [...] the same coagulation reagent and instrumentation as [facility]. Currently there are no coagulation studies available worldwide for children to 14 days, and no normal ranges. Performed By: #### 1 [id number] #### [facility] [address] [place] [address] Pre-Arrival Noteon Pre-Arrival Note Pre-Arrival Note Pre-Arrival Summary Name: , [place] [id number] Current Date: 01/19/2024 16:27:08 EDT Gender: Female Date of : Age: 63 Pre-Arrival Type: EMS ETA: 01/19/2024 16:47:00 EDT Primary Care Physician: Presenting Problem: abd. pain, hematuria, on antibiotics Pre-Arrival User: Gary CAIN, Deepali Hilliard Referring Source: Location: [place] Completion Date/Time: 01/19/2024 16:18:00 [facility] Emergency Department Pre-Hospital Report Form Vital Signs: Pre-Hospital Report: Treatment in Route: Response to Treatment: Misc. Issues: Normal [facility] UA with Cult Rflxon 01-19-20 24 Bacteria Auto Ql (U) Trace Normal Trace [facility] Comment on above: Performed By: #### 4 [id number] #### [facility] [address] [place] [address] Bilirubin Ql (U) Negative Normal Negative [facility] Comment on above: Performed By: #### 4 [id number] #### [facility] [address] [place] [address] Clarity (U) Turbid Abnormal Clear [facility] Comment on above: Performed By: #### 4 [id number] #### [facility] [address] [place] [address] Color (U) Yellow Normal Yellow [facility] Comment on above: Result Comment: Micr oscopic readings are only performed on those samples that meet specific criteria set forth by [facility]. Performed By: #### 4 [id number] #### [facility] [address] [place] [address] Epithelial cells.squamous Auto (Urine sed) [#/Area] >10 Invalid Interpretation Code [facility] Comment on above: Performed By: #### 4 [id number] #### [facility] [address] [place] [address] Glucose Ql (U) Negative Normal Negative [facility] Comment on above: Performed By: #### 4 [id number] #### [facility] [address] [place] [address] Hemoglobin Auto test strip (U) [Mass/Vol] 3+ mg/dL Abnormal Negative [facility] Comment on above: Performed By: #### 4 [id number] #### [facility] [address] [place] [address] Ketones Auto test strip Ql (U) Negative Normal Negative [facility] Comment on above: Performed By: #### 4 [id number] #### [facility] [address] [place] [address] Leukocyte clumps Auto (Urine sed) [#/Area] 4-10 Abnormal [facility] Comment on above: Performed By: #### 4 [id number] #### [facility] [address] [place] [address] Leukocyte esterase Auto test strip Ql (U) 500 Jorge A/uL Abnormal Negative [facility] Comment on above: Performed By: #### 4 [id number] #### [facility] [address] [place] [address] Mucus Auto Ql (U) Negative Normal Negative [facility] Comment on above: Performed By: #### 4 [id number] #### [facility] [address] [place] [address] Nitrite Auto test strip Ql (U) Negative Normal Negative [facility] Comment on above: Performed By: #### 4 [id number] #### [facility] [address] [place] [address] pH (U) 7.0 [pH] Invalid Interpretation Code 5.0-9.0 [facility] Comment on above: Performed By: #### 4 [id number] #### [facility] [address] [place] [address] Protein Ql (U) 1+ mg/dL Abnormal Negative [facility] Comment on above: Performed By: #### 4 [id number] #### [facility] [address] [place] [address] RBC Ql (U) >75 Abnormal 0-3 [facility] Comment on above: Performed By: #### 4 [id number] #### [facility] [address] [place] [address] Specific gravity (U) [Rel density] 1.023 Invalid Interpretation Code 1.005-1.030 [facility] Comment on above: Performed By: #### 4 [id number] #### [facility] [address] [place] [address] Urobilinogen (U) [Mass/Vol] Negative Normal Negative [facility] Comment on above: Performed By: #### 4 [id number] #### [facility] [address] [place] [address] WBC Auto (Urine sed) [#/Area] >75 Abnormal 0-5 [facility] Comment on above: Performed By: #### 4 [id number] #### [facility] [address] [place] [address] Type of Urine collection method Clean Catch Normal [facility] Comment on above: Performed By: #### 4 [id number] #### [facility] [address] [place] [address] eGFRon 01-19-2024 eGFR 71 mL/min/1.73 m2 Normal >=59 [facility] Comment on above: Order Comment: Order added by Discern Expert. Performed By: #### 1 [id number] #### [facility] [address] [place] [address] C Urineon 01-08-2024 Bacteria identified Cx Nom [...] Locations R1: [facility] [address] [place] [address], [id number]- , [place], Normal [facility] Comment on above: Performed By: #### 2 [id number] #### [facility] [address] [place] [address] ED Note-Physicianon 01-08-20 ED Note-Physician ED Note-Physician [...] day(s), # 10 cap(s), Refills(s) 0, Pharmacy: [facility], 157.5, cm, 01/05/24 17:40:00 EDT, [...] Narayan In 3 days 01/08/[address] [place] [address]- [facility] (1) Additional Instructions: Call to schedule a follow-up appoint with your family physician if symptoms not improve in the next 2 to 3 days. Use the antibiotic as prescribed. Return to the ED with any worsening symptoms. Patient Education Urinary Tract Infection, Adult, Mmqa-jb-Hcib Attestation Patient seen and evaluated by the physician painter assistant. Attending physician was present in the emergency department and supervised care. This visit was performed by both the physician and an APC. I performed all aspects of the MDM as documented. This report was transcribed using voice recognition software. Every effort was made to ensure accuracy, however, inadvertently computerized insurance appraiser mistakes may be present. Appr (more content not included)... Normal [facility] Comment on above: Result Comment: Elec [...] mGy = na DAP = na Normal [facility] BMPon 01-05-2024 Anion gap [Moles/Vol] 14 mmol/L Normal 6-16 [facility] Comment on above: Performed By: #### 2 [id number] #### [facility] [address] [place] [address] Calcium [Mass/Vol] 9.2 mg/dL Normal 8.9-11.1 [facility] Comment on above: Performed By: #### 2 [id number] #### [facility] [address] [place] [address] Chloride [Moles/Vol] 102 mmol/L Normal 101-111 [facility] Comment on above: Performed By: #### 2 [id number] #### [facility] [address] [place] [address] CO2 [Moles/Vol] 27 mmol/L Normal 21-31 [facility] Comment on above: Performed By: #### 2 [id number] #### [facility] [address] [place] [address] Creatinine [Mass/Vol] 0.9 mg/dL Normal 0.5-1.3 [facility] Comment on above: Performed By: #### 2 [id number] #### [facility] [address] [place] [address] Glucose [Mass/Vol] 126 mg/dL Normal 55-199 [facility] Comment on above: Performed By: #### 2 [id number] #### [facility] [address] [place] [address] Potassium [Moles/Vol] 3.9 mmol/L Normal 3.5-5.3 [facility] Comment on above: Performed By: #### 2 [id number] #### [facility] [address] [place] [address] Sodium [Moles/Vol] 139 mmol/L Normal 135-145 [facility] Comment on above: Performed By: #### 2 [id number] #### [facility] [address] [place] [address] Urea nitrogen [Mass/Vol] 15 mg/dL Normal 5-21 [facility] Comment on above: Performed By: #### 2 [id number] #### [facility] [address] [place] [address] Urea nitrogen/Creatinine [Mass ratio] 17 No Units Normal 10-20 [facility] Comment on above: Performed By: #### 2 [id number] #### [facility] [address] [place] [address] CBC w/ Auto Diffon 4 Basophils/100 WBC (Bld) 0.7 % Normal 0.0-2.0 [facility] Comment on above: Performed By: #### 2 [id number] #### [facility] [address] [place] [address] Basophils/Leukocytes Auto (Bld) [Pure # fraction] 0.1 E9/L Normal 0.0-0.2 [facility] Comment on above: Performed By: #### 2 [id number] #### [facility] [address] [place] [address] Eosinophils (Bld) [#/Vol] 0.3 E9/L Normal 0.0-0.5 [facility] Comment on above: Performed By: #### 2 [id number] #### [facility] [address] [place] [address] Eosinophils/100 WBC (Bld) 3.3 % Normal 0.0-8.0 [facility] Comment on above: Performed By: #### 2 [id number] #### [facility] [address] [place] [address] Erythrocyte distribution width (RBC) [Ratio] 13.8 % Normal 10.9-14.2 [facility] Comment on above: Performed By: #### 2 [id number] #### [facility] [address] [place] [address] Hematocrit (Bld) [Volume fraction] 41.1 % Normal 34.0-46.0 [facility] Comment on above: Performed By: #### 2 [id number] #### [facility] [address] [place] [address] Hemoglobin (Bld) [Mass/Vol] 13.9 g/dL Normal 12.0-16.0 [facility] Comment on above: Performed By: #### 2 [id number] #### [facility] [address] [place] [address] Lymphocytes (Bld) [#/Vol] 3.7 E9/L Normal 1.0-4.0 [facility] Comment on above: Performed By: #### 2 [id number] #### [facility] [address] [place] [address] Lymphocytes/100 WBC (Bld) 36.9 % Normal 14.0-50.0 [facility] Comment on above: Performed By: #### 2 [id number] #### [facility] [address] [place] [address] MCH (RBC) [Entitic mass] 31.7 pg Normal 27.0-34.0 [facility] Comment on above: Performed By: #### 2 [id number] #### [facility] [address] [place] [address] MCHC (RBC) [Mass/Vol] 33.8 g/dL Normal 31.4-36.0 [facility] Comment on above: Performed By: #### 2 [id number] #### [facility] [address] [place] [address] MCV (RBC) [Entitic vol] 93.9 fL Normal 80.0-100.0 [facility] Comment on above: Performed By: #### 2 [id number] #### [facility] [address] [place] [address] Monocytes (Bld) [#/Vol] 0.7 E9/L Normal 0.2-1.0 [facility] Comment on above: Performed By: #### 2 [id number] #### [facility] [address] [place] [address] Neutrophils (Bld) [#/Vol] 5.2 E9/L Normal 2.0-7.5 [facility] Comment on above: Performed By: #### 2 [id number] #### [facility] [address] [place] [address] Neutrophils/100 WBC (Bld) 52.3 % Normal 36.0-75.0 [facility] Comment on above: Performed By: #### 2 [id number] #### [facility] [address] [place] [address] Platelet mean volume (Bld) [Entitic vol] 8.8 fL Normal 6.4-10.8 [facility] Comment on above: Performed By: #### 2 [id number] #### [facility] [address] [place] [address] Platelets (Bld) [#/Vol] 277.0 E9/L Normal 150.0-500.0 [facility] Comment on above: Performed By: #### 2 [id number] #### [facility] [address] [place] [address] RBC (Bld) [#/Vol] 4.4 E12/L Normal 4.3-5.9 [facility] Comment on above: Performed By: #### 2 [id number] #### [facility] [address] [place] [address] WBC corrected for nucl RBC Auto (Bld) [#/Vol] 10.0 E9/L Normal 4.0-11.0 [facility] Comment on above: Performed By: #### 2 [id number] #### [facility] [address] [place] [address] CHEMISTRYOrdered By: SYSTEM SYSTEM on 01-05-2024 Albumin [...] 2023 ED Clinical Summary ED Clinical Summary [place] [address] ED Clinical Summary Person Information Name: CIERA CHAN [facility] Age: 63 Years : 1960 Sex: Female Language: Moldovan PCP: Rhonda Narayan MD Marital Status: Single [...] 22:24:39 01/05/2024 22:24:39 01/05/2024 22:24:39 ADDRESS: [address] [id number] PHYS DOC NOTES: MEDICAL INFORMATION: Prescriptions Given: New Medications [facility], [address] [facility] [place] [id number], [phone] nitrofurantoin (nitrofurantoin macrocrystals-monohydr ate 100 mg Cap) [...] EDUCATION INFORMATION: Instructions: Urinary Tract Infection, Adult, Kmcq-ex-Urwn Follow up: With: Address: When: Rhonda Narayan [address] [place] [address], [address] [place] [address] Business (1) In 3 days 01/08/2024 Comments: Call to schedule a follow-up appoint with your family physician if symptoms not improve in the next 2 to 3 days. Use the antibiotic as prescribed. Return to the ED with any worsening symptoms. DIAGNOSIS: Acute lower UTI (urinary tract infection) Normal [facility] ED Patient Summaryon 024 ED Patient Summary ED Patient Summary [address] [address] Patient Discharge Instructions Person Information Name: CIERA CHAN Age: 63 Years Arrival Date: 01/05/2024 17:13:45 Discharge Diagnosis: Acute lower UTI (urinary tract infection) Primary Care Physician: Rhonda Narayan MD Provider Information Primary Provider: Vinnie Marcus DO Advanced Plastic Molding Operator:Domitila Montgomery PA-C The exam and treatment you received in the Emergency Department were for an urgent problem and are not intended as complete care. It is important that you follow up with a doctor, nurse practitioner, or physician?s painter assistant for ongoing care. If your symptoms [...] Follow-up Instructions: With: Address: When: Rhonda Narayan [address] [place] [address]., [address] [place] [address] Business (1) In 3 days 01/08/2024 Comments: [...] Patient Education Materials: Urinary Tract Infection, Adult, Wcmb-io-Lqam A MESSAGE TO ALL PATIENTS REGARDING OPIOIDS PRESCRIPTION OPIOIDS: WHAT YOU NEED TO KNOW Prescription opioids can be used to help relieve tbmypnrh-sx-nmttcg pain and are often prescribed following a [...] (www.fda.gov/Drugs/Res ourcesForYou) (more content not included)... Normal [facility] Extra Blueon 09-03-2024 Tube Collected Plasma Yes Invalid Interpretation Code [facility] Comment on above: Performed By: #### 1 [id number] #### [facility] [address] [address] HEMATOLOGYOrdered By: SYSTEM SYSTEM on 01-05-2024 Basophils/100 [...] 01-05-2024 Albumin [Mass/Vol] 4.4 g/dL Normal 3.3-5.0 [facility] Comment on above: Performed By: #### 2 [id number] #### [facility] [address] [place] [address] Albumin/Globulin (S) [Mass conc ratio] 1.3 Normal 1.1-2.2 [facility] Comment on above: Performed By: #### 2 [id number] #### [facility] [address] [place] [address] ALP [Catalytic activity/Vol] 72 Int._Unit/L Normal 21-98 [facility] Comment on above: Performed By: #### 2 [id number] #### [facility] [address] [place] [address] ALT No additional P-5'-P [Catalytic activity/Vol] 19 Int._Unit/L Normal 6-46 [facility] Comment on above: Performed By: #### 2 [id number] #### [facility] [address] [place] [address] AST [Catalytic activity/Vol] 20 Int._Unit/L Normal 5-43 [facility] Comment on above: Performed By: #### 2 [id number] #### [facility] [address] [place] [address] Bilirubin [Mass/Vol] 0.5 mg/dL Normal 0.0-1.1 [facility] Comment on above: Performed By: #### 2 [id number] #### [facility] [address] [place] [address] Bilirubin.direct [Mass/Vol] 0.0 mg/dL Normal 0.0-0.4 [facility] Comment on above: Performed By: #### 2 [id number] #### [facility] [address] [place] [address] Bilirubin.indirect [Mass or moles/Vol] 0.5 mg/dL Normal 0.1-0.9 [facility] Comment on above: Performed By: #### 2 [id number] #### [facility] [address] [place] [address] Globulin (S) [Mass/Vol] 3.5 g/dL Normal 1.4-4.0 [facility] Comment on above: Performed By: #### 2 [id number] #### [facility] [address] [place] [address] Protein [Mass/Vol] 7.9 g/dL High 6.0-7.8 [facility] Comment on above: Performed By: #### 2 [id number] #### [facility] [address] [place] [address] Lipase Levelon 01-05-2024 Lipase [Catalytic activity/Vol] 21 U/L Normal 13-58 [facility] Comment on above: Performed By: #### 2 [id number] #### [facility] [address] [place] [address] UA with Cult Rflxon 01-05-20 24 Bacteria Auto Ql (U) 4+ /HPF Abnormal Trace [facility] Comment on above: Performed By: #### 4 [id number] #### [facility] [address] [place] [address] Bilirubin Ql (U) Negative Normal Negative [facility] Comment on above: Performed By: #### 4 [id number] #### [facility] [address] [place] [address] Clarity (U) Turbid Abnormal Clear [facility] Comment on above: Performed By: #### 4 [id number] #### [facility] [address] [place] [address] Color (U) Yellow Normal Yellow [facility] Comment on above: Result Comment: Micr oscopic readings are only performed on those samples that meet specific criteria set forth by [facility]. Performed By: #### 4 [id number] #### [facility] [address] [place] [address] Epithelial cells.squamous Auto (Urine sed) [#/Area] >10 Invalid Interpretation Code [facility] Comment on above: Performed By: #### 4 [id number] #### [facility] [address] [place] [address] Glucose Ql (U) Negative Normal Negative [facility] Comment on above: Performed By: #### 4 [id number] #### [facility] [address] [place] [address] Hemoglobin Auto test strip (U) [Mass/Vol] 2+ Abnormal Negative [facility] Comment on above: Performed By: #### 4 [id number] #### [facility] [address] [place] [address] Ketones Auto test strip Ql (U) Negative Normal Negative [facility] Comment on above: Performed By: #### 4 [id number] #### [facility] [address] [place] [address] Leukocyte esterase Auto test strip Ql (U) 500 Jorge A/uL Abnormal Negative [facility] Comment on above: Performed By: #### 4 [id number] #### [facility] [address] [place] [address] Mucus Auto Ql (U) Trace Normal Negative [facility] Comment on above: Performed By: #### 4 [id number] #### [facility] [address] [place] [address] Nitrite Auto test strip Ql (U) Negative Normal Negative [facility] Comment on above: Performed By: #### 4 [id number] #### [facility] [address] [place] [address] pH (U) 7.5 [pH] Invalid Interpretation Code 5.0-9.0 [facility] Comment on above: Performed By: #### 4 [id number] #### [facility] [address] [place] [address] Protein Ql (U) 1+ mg/dL Abnormal Negative [facility] Comment on above: Performed By: #### 4 [id number] #### [facility] [address] [place] [address] RBC Ql (U) >75 Abnormal 0-3 [facility] Comment on above: Performed By: #### 4 [id number] #### [facility] [address] [place] [address] Specific gravity (U) [Rel density] 1.013 Invalid Interpretation Code 1.005-1.030 [facility] Comment on above: Performed By: #### 4 [id number] #### [facility] [address] [place] [address] Transitional cells Computer assisted (U) [#/Area] 0-2 Normal 0-2 [facility] Comment on above: Performed By: #### 4 [id number] #### [facility] [address] [place] [address] Urobilinogen (U) [Mass/Vol] Negative Normal Negative [facility] Comment on above: Performed By: #### 4 [id number] #### [facility] [address] [place] [address] WBC Auto (Urine sed) [#/Area] >75 Abnormal 0-5 [facility] Comment on above: Performed By: #### 4 [id number] #### [facility] [address] [place] [address] Type of Urine collection method Clean Catch Normal [facility] Comment on above: Performed By: #### 4 [id number] #### [facility] [address] [place] [address] URINALYSISOrdered By: Prakash Menjivar on 01-05-2024 Bacteria [...] that meet specific criteria set forth by [facility]. Epithelial cells.squamous Auto (Urine sed) [...] (01/05/24 7:55 PM) Invalid Interpretation Code 0-5 [facility] UA Auto SS URINALYSISOrdered By: Adrienne Mckeon on 01-05-2024 UA Spec Desc Clean Catch (01/05/24 7:55 PM) Normal [facility] UA Auto SS eGFRon 01-05-2024 eGFR 71 mL/min/1.73 m2 Normal >=59 [facility] Comment on above: Order Comment: Order added by Discern Expert. Performed By: #### 1 [id number] #### [facility] [address] [place] [address] BMPon 09-17-2023 Anion gap [Moles/Vol] 13 mmol/L Normal 6-16 [facility] Comment on above: Performed By: #### 2 [id number] #### [facility] [address] [place] [address] Calcium [Mass/Vol] 9.4 mg/dL Normal 8.9-11.1 [facility] Comment on above: Performed By: #### 2 [id number] #### [facility] [address] [place] [address] Chloride [Moles/Vol] 102 mmol/L Normal 101-111 [facility] Comment on above: Performed By: #### 2 [id number] #### [facility] [address] [place] [address] CO2 [Moles/Vol] 27 mmol/L Normal 21-31 [facility] Comment on above: Performed By: #### 2 [id number] #### [facility] [address] [place] [address] Creatinine [Mass/Vol] 1.1 mg/dL Normal 0.5-1.3 [facility] Comment on above: Performed By: #### 2 [id number] #### [facility] [address] [place] [address] Glucose [Mass/Vol] 143 mg/dL Normal 55-199 [facility] Comment on above: Performed By: #### 2 [id number] #### [facility] [address] [place] [address] Potassium [Moles/Vol] 4.2 mmol/L Normal 3.5-5.3 [facility] Comment on above: Performed By: #### 2 [id number] #### [facility] [address] [place] [address] Sodium [Moles/Vol] 138 mmol/L Normal 135-145 [facility] Comment on above: Performed By: #### 2 [id number] #### [facility] [address] [place] [address] Urea nitrogen [Mass/Vol] 16 mg/dL Normal 5-21 [facility] Comment on above: Performed By: #### 2 [id number] #### [facility] [address] [place] [address] Urea nitrogen/Creatinine [Mass ratio] 14 No Units Normal 10-20 [facility] Comment on above: Performed By: #### 2 [id number] #### [facility] [address] [place] [address] CBC w/Indiceson 09-17-2023 Erythrocyte distribution width (RBC) [Ratio] 14.8 % High 10.9-14.2 [facility] Comment on above: Performed By: #### 2 [id number] #### [facility] [address] [place] [address] Hematocrit (Bld) [Volume fraction] 40.5 % Normal 34.0-46.0 [facility] Comment on above: Performed By: #### 2 [id number] #### [facility] [address] [place] [address] Hemoglobin (Bld) [Mass/Vol] 13.4 g/dL Normal 12.0-16.0 [facility] Comment on above: Performed By: #### 2 [id number] #### [facility] [address] [place] [address] MCH (RBC) [Entitic mass] 30.8 pg Normal 27.0-34.0 [facility] Comment on above: Performed By: #### 2 [id number] #### [facility] [address] [place] [address] MCHC (RBC) [Mass/Vol] 33.1 g/dL Normal 31.4-36.0 [facility] Comment on above: Performed By: #### 2 [id number] #### [facility] [address] [place] [address] MCV (RBC) [Entitic vol] 92.8 fL Normal 80.0-100.0 [facility] Comment on above: Performed By: #### 2 [id number] #### [facility] [address] [place] [address] Platelet mean volume (Bld) [Entitic vol] 9.0 fL Normal 6.4-10.8 [facility] Comment on above: Performed By: #### 2 [id number] #### [facility] [address] [place] [address] Platelets (Bld) [#/Vol] 306.0 E9/L Normal 150.0-500.0 [facility] Comment on above: Performed By: #### 2 [id number] #### [facility] [address] [place] [address] RBC (Bld) [#/Vol] 4.4 E12/L Normal 4.3-5.9 [facility] Comment on above: Performed By: #### 2 [id number] #### [facility] [facility] [address] [place] [address] RBC size Nom (Bld) NORMAL Invalid Interpretation Code [facility] Comment on above: Performed By: #### 2 [id number] #### [facility] [address] [place] [address] WBC corrected for nucl RBC Auto (Bld) [#/Vol] 11.3 E9/L High 4.0-11.0 [facility] Comment on above: Performed By: #### 2 [id number] #### [facility] [address] [place] [address] CHEMISTRYOrdered By: SYSTEM SYSTEM on 09-17-2023 Albumin [...] (Bld) [Mass fraction] 6.3 % High <=5.9% [facility] ChemAutoSS Consent for Treatmenton 09-01 Consent for Treatment [id number]#1.0 0TIFF Normal [facility] HEMATOLOGYOrdered By: SYSTEM SYSTEM on 09-17-2023 [...] 09-17-2023 Albumin [Mass/Vol] 4.4 g/dL Normal 3.3-5.0 [facility] Comment on above: Performed By: #### 2 [id number] #### [facility] [address] [place] [address] Albumin/Globulin (S) [Mass conc ratio] 1.4 Normal 1.1-2.2 [facility] Comment on above: Performed By: #### 2 956863 #### [facility] [address] [place] [address] ALP [Catalytic activity/Vol] 74 Int._Unit/L Normal 21-98 [facility] Comment on above: Performed By: #### 2 780565 #### [facility] [address] [place] [address] ALT No additional P-5'-P [Catalytic activity/Vol] 16 Int._Unit/L Normal 6-46 [facility] Comment on above: Performed By: #### 2 372750 #### [facility] [address] [place] [address] AST [Catalytic activity/Vol] 21 Int._Unit/L Normal 5-43 [facility] Comment on above: Performed By: #### 2 645523 #### [facility] [address] [place] [address] Bilirubin [Mass/Vol] 0.5 mg/dL Normal 0.0-1.1 [facility] Comment on above: Performed By: #### 2 760573 #### [facility] [address] [place] [address] Bilirubin.direct [Mass/Vol] 0.1 mg/dL Normal 0.0-0.4 [facility] Comment on above: Performed By: #### 2 342582 #### [facility] [address] [place] [address] Bilirubin.indirect [Mass or moles/Vol] 0.4 mg/dL Normal 0.1-0.9 [facility] Comment on above: Performed By: #### 2 921504 #### [facility] [address] [place] [address] Globulin (S) [Mass/Vol] 3.2 g/dL Normal 1.4-4.0 [facility] Comment on above: Performed By: #### 2 693843 #### [facility] [address] [place] [address] Protein [Mass/Vol] 7.6 g/dL Normal 6.0-7.8 [facility] Comment on above: Performed By: #### 2 191945 #### [facility] [address] [place] [address] [id number] 09-17-2023 HbA1c (Bld) [Mass fraction] 6.3 % High <=5.9 [facility] Comment on above: Performed By: #### 7 [id number] #### [facility] [address] [place] [address] Lipid Panelon 09-17-2023 Cholesterol [Mass/Vol] 186 mg/dL Normal 120-200 [facility] Comment on above: Performed By: #### 2 580712 #### [facility] [address] [place] [address] Cholesterol in HDL [Mass/Vol] 41 mg/dL Invalid Interpretation Code [facility] Comment on above: Result Comment: '>= 60 LOW RISK' '<= 40 HIGH RISK' Performed By: #### 2 726704 #### [facility] [address] [place] [address] Cholesterol in LDL [Mass/Vol] 117 mg/dL Normal <=129 [facility] Comment on above: Performed By: #### 2 383388 #### [facility] [address] [place] [address] Cholesterol in VLDL [Mass/Vol] 42 mg/dL High 7-40 [facility] Comment on above: Performed By: #### 2 863240 #### [facility] [address] [place] [address] Triglyceride [Mass/Vol] 210 mg/dL High <=149 [facility] Comment on above: Performed By: #### 2 355038 #### [facility] [address] [place] [address] Physician Orderon 09-17-2023 Physician Order [id number]. 00TIFF Normal [facility] eGFRon 09-17-2023 eGFR 56 mL/min/1.73 m2 Low >=59 [facility] Comment on above: Order Comment: Order added by Discern Expert. Performed By: #### 1 [id number] #### [facility] [address] [place] [address] BMPon 02-12-2023 Creatinine [Mass/Vol] 1.1 mg/dL Normal 0.5-1.3 [facility] Comment on above: Performed By: #### 2 970614, 6984440, 35696271, 2535792, 784342768, 5038678 #### [facility] [address] [place] [address] Urea nitrogen [Mass/Vol] 19 mg/dL Normal 5-21 [facility] Comment on above: Performed By: #### 2 871483, 8377860, 05267797, 0296430, 229530125, 6659598 #### [facility] [address] [place] [address] Urea nitrogen/Creatinine [Mass ratio] 17 No Units Normal 10-20 [facility] Comment on above: Performed By: #### 2 637654, 4743861, 48568976, 9364593, 257130980, 1240374 #### [facility] [address] [place] [address] Anion gap [Moles/Vol] 15 mmol/L Normal 6-16 [facility] Comment on above: Performed By: #### 2 060535, 3063673, 55050856, 4880710, 331761380, 3627442 #### [facility] [address] [place] [address] Calcium [Mass/Vol] 10.0 mg/dL Normal 8.9-11.1 [facility] Comment on above: Performed By: #### 2 831646, 2706731, 52348844, 4768091, 598544743, 4622706 #### [facility] [address] [place] [address] Chloride [Moles/Vol] 107 mmol/L Normal 101-111 [facility] Comment on above: Performed By: #### 2 342372, 9346598, 56100786, 6379223, 395752073, 8371071 #### [facility] [address] [place] [address] CO2 [Moles/Vol] 24 mmol/L Normal 21-31 [facility] Comment on above: Performed By: #### 2 136765, 2466697, 74728988, 3289624, 333624046, 3725522 #### [facility] [address] [place] [address] Glucose [Mass/Vol] 155 mg/dL Normal 55-199 [facility] Comment on above: Result Comment: If t his glucose result represents a fasting glucose, interpretation should refer to the following reference range: 55-99 mg/dL Performed By: #### 2 033427, 5655322, 01248592, 7914793, 837157610, 5319815 #### [facility] [address] [place] [address] Potassium [Moles/Vol] 3.9 mmol/L Normal 3.5-5.3 [facility] Comment on above: Performed By: #### 2 633726, 6698705, 65871391, 8697633, 843008572, 5962843 #### [facility] [address] [place] [address] Sodium [Moles/Vol] 142 mmol/L Normal 135-145 [facility] Comment on above: Performed By: #### 2 569284, 4439707, 02863063, 7118871, 412728617, 6794703 #### [facility] [address] [place] [address] CBC w/Indiceson 02-12-2023 Erythrocyte distribution width (RBC) [Ratio] 13.5 % Normal 10.9-14.2 [facility] Comment on above: Performed By: #### 2 676822, 2665098, 80882920, 0509701, 168933580, 3306853 #### [facility] [address] [place] [address] Hematocrit (Bld) [Volume fraction] 39.2 % Normal 34.0-46.0 [facility] Comment on above: Performed By: #### 2 727206, 3956784, 39768725, 2166010, 218020062, 3641746 #### [facility] [address] [place] [address] Hemoglobin (Bld) [Mass/Vol] 13.2 g/dL Normal 12.0-16.0 [facility] Comment on above: Performed By: #### 2 802504, 3372553, 24132985, 2061503, 702507335, 3601941 #### [facility] [address] [place] [address] MCH (RBC) [Entitic mass] 31.3 pg Normal 27.0-34.0 [facility] Comment on above: Performed By: #### 2 791326, 8936997, 61245682, 2798979, 028010308, 9413670 #### [facility] [address] [place] [address] MCHC (RBC) [Mass/Vol] 33.6 g/dL Normal 31.4-36.0 [facility] Comment on above: Performed By: #### 2 139744, 5409542, 25695393, 9983700, 820420258, 7009867 #### [facility] [address] [place] [address] MCV (RBC) [Entitic vol] 93.2 fL Normal 80.0-100.0 [facility] Comment on above: Performed By: #### 2 486721, 6493484, 48140188, 4887675, 546126521, 4900349 #### [facility] [address] [place] [address] Platelet mean volume (Bld) [Entitic vol] 9.3 fL Normal 6.4-10.8 [facility] Comment on above: Performed By: #### 2 610209, 5708468, 62185197, 1639639, 056006975, 8163809 #### [facility] [address] [place] [address] Platelets (Bld) [#/Vol] 290.0 E9/L Normal 150.0-500.0 [facility] Comment on above: Performed By: #### 2 247784, 7130072, 14181802, 6887246, 681940252, 7865531 #### [facility] [address] [place], [place] [address] RBC (Bld) [#/Vol] 4.2 E12/L Low 4.3-5.9 [facility] Comment on above: Performed By: #### 2 738414, 5247716, 12159842, 8914974, 026921541, 9348614 #### [facility] [address] [place] [address] WBC corrected for nucl RBC Auto (Bld) [#/Vol] 8.4 E9/L Normal 4.0-11.0 [facility] Comment on above: Performed By: #### 2 326884, 5752672, 33030232, 3449984, 208144160, 9918052 #### [facility] [address] [place], [place] [address] CHEMISTRYOrdered By: SYSTEM SYSTEM on 02-12-2023 Albumin [...] 56 mL/min/1.73 m2 Low >=59mL/min/1 .73 m2 [facility] Chem S Comment on above: Interpretive Data: C hronic kidney disease could be indicated at eGFR's of less than 60 mL/min/1.73m2. Kidney failure is indicated at less than 15 mL/min/1.73m2. Globulin (S) [Mass/Vol] 3.9 g/dL Normal 1.4 - 4.0 gm/dL [facility] Remisol Glucose [Mass/Vol] 155 mg/dL Normal 55 - 199 mg/dL [facility] Remisol Comment on [...] 19 mg/dL Normal 5 - 21 mg/dL [facility] Remisol Urea nitrogen/Creatinine [Mass ratio] 17 mg/mg Normal 10 - 20 [facility] Remisol CHEMISTRYOrdered By: Karoline wiley on 02-12-2023 HbA1c (Bld) [Mass fraction] 6.1 % High <=5.9% [facility] ChemAutoSS Consent for Treatmenton 02-01 Consent for Treatment [id number]#1.0 0TIFF Normal [facility] HEMATOLOGYOrdered By: Sarah araiza on 02-12-2023 Erythrocyte distribution width (RBC) [Ratio] 13.5 % Normal 10.9 - 14.2 % [facility] HemeAutoSS Hematocrit (Bld) [Volume fraction] 39.2 % Normal 34.0 - 46.0 % [facility] HemeAutoSS Hemoglobin (Bld) [...] 8.4 E9/L Normal 4.0 - 11.0 E9/L [facility] HemeAutoSS Hep Func Panelon 02-12-2023 Albumin [Mass/Vol] 3.9 g/dL Normal 3.3-5.0 [facility] Comment on above: Performed By: #### 2 051628, 4027608, 66407674, 6397474, 304097930, 4683011 #### [facility] [address] [place] [address] Albumin/Globulin (S) [Mass conc ratio] 1.0 Low 1.1-2.2 [facility] Comment on above: Performed By: #### 2 795633, 1961582, 78824000, 4114595, 007637302, 5678320 #### [facility] [address] [place] [address] AST [Catalytic activity/Vol] 33 Int._Unit/L Normal 5-43 [facility] Comment on above: Performed By: #### 2 789278, 3347290, 98021427, 6261493, 120565245, 5590642 #### [facility] [address] [place] [address] Bilirubin [Mass/Vol] 0.5 mg/dL Normal 0.0-1.1 [facility] Comment on above: Performed By: #### 2 304288, 2936612, 42450217, 9746255, 951751815, 8488668 #### [facility] [address] [place] [address] Bilirubin.direct [Mass/Vol] 0.2 mg/dL Normal 0.1-0.4 [facility] Comment on above: Performed By: #### 2 879022, 6878493, 14127237, 2497492, 993296169, 7633020 #### [facility] [address] [place] [address] Bilirubin.indirect [Mass or moles/Vol] 0.3 mg/dL Normal 0.1-0.9 [facility] Comment on above: Performed By: #### 2 326374, 8593193, 22068907, 2009356, 238160612, 1174830 #### [facility] [address] [place] [address] Globulin (S) [Mass/Vol] 3.9 g/dL Normal 1.4-4.0 [facility] Comment on above: Performed By: #### 2 587791, 0357963, 81333149, 9456916, 069531420, 2610131 #### [facility] [address] [place] [address] Protein [Mass/Vol] 7.8 g/dL Normal 6.0-7.8 [facility] Comment on above: Performed By: #### 2 829066, 0174218, 72524331, 2458801, 078959766, 4816291 #### [facility] [address] [place] [address] ALP [Catalytic activity/Vol] 76 Int._Unit/L Normal 21-98 [facility] Comment on above: Performed By: #### 2 105955, 8146165, 58628805, 9963048, 046264690, 5252331 #### [facility] [address] [place] [address] ALT No additional P-5'-P [Catalytic activity/Vol] 23 Int._Unit/L Normal 6-46 [facility] Comment on above: Performed By: #### 2 547633, 5049101, 94113567, 1013577, 444290507, 0319656 #### [facility] [address] [place] [address] AyeF6ssy 02-12-2023 HbA1c (Bld) [Mass fraction] 6.1 % High <=5.9 [facility] Comment on above: Performed By: #### 2 167745, 8518813, 89187710, 4965323, 032132071, 8320879 #### [facility] [address] [place] [address] Lipid Panelon 02-12-2023 Cholesterol in HDL [Mass/Vol] 37 mg/dL Invalid Interpretation Code [facility] Comment on above: Result Comment: HDL > or equal to 60 mg/dL: Low cardiovascular risk HDL < 40 mg/dL : High cardiovascular risk Performed By: #### 2 314086, 4562406, 07928285, 7138318, 165139277, 5340994 #### [facility] [address] [place] [address] Cholesterol in LDL [Mass/Vol] 115 mg/dL Normal <=129 [facility] Comment on above: Performed By: #### 2 145458, 4243569, 50074308, 9519425, 328406594, 7743766 #### [facility] [address] [place] [address] Cholesterol in VLDL [Mass/Vol] 41 mg/dL High 7-40 [facility] Comment on above: Performed By: #### 2 069770, 8495174, 91752650, 5582606, 805065564, 9099423 #### [facility] [address] [place] [address] Triglyceride [Mass/Vol] 206 mg/dL High <=149 [facility] Comment on above: Performed By: #### 2 295367, 4418238, 48232343, 7692996, 049251443, 0390024 #### [facility] [address] [place] [address] Cholesterol [Mass/Vol] 191 mg/dL Normal 120-200 [facility] Comment on above: Performed By: #### 2 934883, 5590002, 63602468, 9459543, 563245068, 9916500 #### [facility] [address] [place] [address] Physician Orderon 02-12-2023 Physician Order [id number] TIFF Normal [facility] eGFRon 02-12-2023 GFR/1.73 sq M.predicted among non-blacks MDRD (S/P/Bld) [Vol rate/Area] 56 mL/min/1.73 m2 Low >=59 [facility] Comment on above: Order Comment: Order added by Discern Expert. Result Comment: Scrubbing Machine Operator ami kidney disease could be indicated at eGFR's of less than 60 mL/min/1.73m2. Kidney failure is indicated at less than 15 mL/min/1.73m2. Performed By: #### 2 357681, 1272636, 60874552, 1783572, 377339875, 8146353 #### [facility] [address] [place] [address] CHEMISTRYOrdered By: SYSTEM SYSTEM on 05-20-2022 Albumin [...] (Bld) [Mass fraction] 6.4 % High <=5.9% [facility] ChemAutoSS HEMATOLOGYOrdered By: [...] rate/Area] mL/min/1.73 m2 Normal >=59mL/min/1 .73 m2 [facility] Chem S GFR/1.73 sq M.predicted among non-blacks MDRD (S/P/Bld) [Vol rate/Area] mL/min/1.73 m2 Normal >=59mL/min/1 .73 m2 [facility] Chem S Globulin [...] ratio] 18 mg/mg Normal 10 - 20 [facility] Remisol CHEMISTRYOrdered By: Analisa griffith on 11-21-2021 HbA1c (Bld) [Mass fraction] 6.7 % High <=5.9% [facility] ChemAutoSS HEMATOLOGYOrdered By: Sierra mills on 11-21-2021 Erythrocyte distribution width (RBC) [Ratio] 13.6 % Normal 10.9 - 14.2 % [facility] HemeAutoSS Hematocrit (Bld) [...] 92.9 fL Normal 80.0 - 100.0 fL [facility] HemeAutoSS Platelet mean [...] AP/LAT/FLX/EXT on 07-25-2021 XR cerv spine AP/LAT/FLX/EXT [facility] [place] [address] XRay Report Signed Patient: Ciera Chan MR#: [id number] : 1960 Acct:[id number] Age/Sex: 61 / F ADM Date: 07/25/21 Loc: XD Room: Type: [facility] Attending Dr: Boy Thompson MD [...] Vanna Mcintyre M.D.07/25/2021 3:22 PM Dictation Location: [place] [address] Transcribed By: [facility] 07/25/21 1522 Dictated By: Vanna Mcintyre MD 07/25/21 1520 Signed By: 07/25/21 1522 [facility] XR cerv spine AP/LAT/FLX/EXT on 2021 XR cerv spine AP/LAT/FLX/EXT [facility] [address] [address] XRay Report Signed Patient: Ciera Chan MR#: [id number] : 1960 Acct:[id number] Age/Sex: 61 / F ADM Date: 03/21/21 Loc: XD Room: Type: [facility] Attending Dr: Boy Thompson MD [...] Garret Sanchez M.D.03/21/2021 2:34 PM Dictation Location: [place] [address] Transcribed By: [facility] 03/21/21 1434 Dictated By: Garret Sanchez II, MD 03/21/21 1429 Signed By: 03/21/21 1434 [facility] XR cervical spine 2Von 10-18 XR cervical spine 2V [facility] [address] [address] XRay Report Signed Patient: Ciera Chan MR#: [id number] : 1960 Acct:[id number] Age/Sex: 60 / F ADM Date: 10/18/20 Loc: XD Room: Type: [facility] Attending Dr: Boy Thompson MD [...] Garret Sanchez M.D.10/18/2020 3:39 PM Dictation Location: [place] [address] Transcribed By: [facility] 10/18/20 153 Dictated By: Garret Sanchez II, MD 10/18/20 153 Signed By: 10/18/20 1539 Normal [facility] Complete Blood Count Auto Di ffon 08-31-2020 Basophils (Bld) [#/Vol] 0.1 10*3/uL Normal 0.0-0.2 [facility] Comment on above: Result Comment: PERF ORMED BY: [place] [address] PATHOLOGIST DONOR SUPPORT TECHNICIAN JANELLE SHANNON M.D. Performed By: #### B MP, CBC #### [facility] [address] [place] [address] Basophils/100 WBC (Bld) 0.5 % Normal . [facility] Comment on above: Performed By: #### B MP, CBC #### [facility] [address] [place] [address] [place] Eosinophils (Bld) [#/Vol] 0.1 10*3/uL Normal 0.0-0.45 [facility] Comment on above: Performed By: #### B MP, CBC #### [address] Eosinophils/100 WBC (Bld) 0.5 % Normal . [facility] Comment on above: Performed By: #### B MP, CBC #### [address] Erythrocyte distribution width (RBC) [Ratio] 13.9 % Normal 11.9-15.3 [facility] Comment on above: Performed By: #### B MP, CBC #### [address] Hematocrit (Bld) [Volume fraction] 37.4 % Normal 34.0-46.4 [facility] Comment on above: Performed By: #### B MP, CBC #### [address] Hemoglobin (Bld) [Mass/Vol] 12.5 g/dL Normal 11.8-15.4 [facility] Comment on above: Performed By: #### B MP, CBC #### [address] Lymphocytes (Bld) [#/Vol] 3.8 10*3/uL Normal 1.00-4.8 [facility] Comment on above: Performed By: #### B MP, CBC #### [address] Lymphocytes/100 WBC (Bld) 30.9 % Normal . [facility] Comment on above: Performed By: #### B MP, CBC #### [address] MCH (RBC) [Entitic mass] 31.1 pg Normal 24.7-34.3 [facility] Comment on above: Performed By: #### B MP, CBC #### [address] MCV (RBC) [Entitic vol] 92.9 fL Normal 80-100 [facility] Comment on above: Performed By: #### B MP, CBC #### [address] Mean Corpuscular HGB Conc 33.5 g/dL Normal 32.0-35.0 [facility] Comment on above: Performed By: #### B MP, CBC #### [address] Monocytes (Bld) [#/Vol] 1.2 10*3/uL High 0.0-0.8 [facility] Comment on above: Performed By: #### B MP, CBC #### [address] Monocytes/100 WBC (Bld) 10.0 % Normal . [facility] Comment on above: Performed By: #### B MP, CBC #### [address] Neutrophils (Bld) [#/Vol] 7.2 10*3/uL Normal 1.8-7.7 [facility] Comment on above: Performed By: #### B MP, CBC #### [address] Neutrophils/100 WBC (Bld) 58.1 % Normal . [facility] Comment on above: Performed By: #### B MP, CBC #### [address] Nucleated RBC/100 WBC (Bld) [Ratio] 0.2 % Normal 0-0.5 [facility] Comment on above: Performed By: #### B MP, CBC #### [address] Platelet mean volume (Bld) [Entitic vol] 9.2 fL Normal 6.3-10.7 [facility] Comment on above: Performed By: #### B MP, CBC #### [address] Platelets (Bld) [#/Vol] 252 10*3/uL Normal 150-450 [facility] Comment on above: Performed By: #### B MP, CBC #### [facility] [address] [place] [address] RBC (Bld) [#/Vol] 4.03 10*6/uL Normal 3.60-5.00 [facility] Comment on above: Performed By: #### B MP, CBC #### [address] WBC (Bld) [#/Vol] 12.5 10*3/uL High 4.5-11.0 [facility] Comment on above: Performed By: #### B MP, CBC #### [address] Comprehensive Metabolic Pane sean 08-31-2020 Albumin [Mass/Vol] 3.4 g/dL Normal 3.2-5.5 [facility] Comment on above: Performed By: #### B MP, CBC #### [address] Albumin/Globulin [Mass ratio] 1.1 {ratio} Normal [facility] Comment on above: Performed By: #### B MP, CBC #### [address] ALP [Catalytic activity/Vol] 71 U/L Normal 32-92 [facility] Comment on above: Performed By: #### B MP, CBC #### [address] ALT [Catalytic activity/Vol] 25 U/L Normal 10-60 [facility] Comment on above: Performed By: #### B MP, CBC #### [address] AST [Catalytic activity/Vol] 21 U/L Normal 10-42 [facility] [facility] Comment on above: Performed By: #### B MP, CBC #### [address] Bilirubin [Mass/Vol] 0.3 mg/dL Normal 0.3-1.2 [facility] Comment on above: Performed By: #### B MP, CBC #### [facility] [address] Calcium [Mass/Vol] 9.0 mg/dL Normal 8.2-10.2 [facility] Comment on above: Performed By: #### B MP, CBC #### [facility] [address] Chloride [Moles/Vol] 105 mmol/L Normal 95-114 [facility] Comment on above: Performed By: #### B MP, CBC #### [facility] [address] CO2 [Moles/Vol] 26.7 mmol/L Normal 22.0-30.[address] [facility] Comment on above: Performed By: #### B MP, CBC #### [facility] [address] Creatinine [Mass/Vol] 0.98 mg/dL Normal 0.44-1.03 [facility] Comment on above: Performed By: #### B MP, CBC #### [facility] [address] [place] [address] [place] Creatinine Clr Calc Pharmacy 62.98 [facility] Comment on above: Performed By: #### B MP, CBC #### [facility] [address] Estimated GFR ( Jacqui > 60 [facility] Comment on above: Result Comment: GFR estimated reference range: According to KDOQI guidelines, <60 ml/min/1.73m2 is sufficient to diagnose a patient with chronic kidney disease. Performed By: #### B MP, CBC #### [facility] [address] [place] [address] [place] Estimated GFR (Non- Am 58 [facility] Comment on above: Performed By: #### B MP, CBC #### [facility] [address] [place] [address] [place] Globulin (S) [Mass/Vol] 3.0 g/dL [facility] Comment on above: Performed By: #### B MP, CBC #### [facility] [address] Glucose [Mass/Vol] 111 mg/dL High 70-100 [facility] Comment on above: Result Comment: [place] Glucose Reference Range is dependent on time and content of last meal. Glucose of more than 200 mg/dL in a nonstressed, ambulatory subject supports the diagnosis of Diabetes Mellitus. ADA recommended reference range Performed By: #### B MP, CBC #### [facility] [address] Potassium [Moles/Vol] 3.6 mmol/L Normal 3.5-5.1 [facility] Comment on above: Performed By: #### B MP, CBC #### [address] Protein [Mass/Vol] 6.4 g/dL Normal 6.1-7.9 [facility] Comment on above: Performed By: #### B MP, CBC #### [address] Sodium [Moles/Vol] 142 mmol/L Normal 136-146 [facility] Comment on above: Performed By: #### B MP, CBC #### [address] Urea nitrogen [Mass/Vol] 13 mg/dL Normal 9-23 [facility] Comment on above: Performed By: #### B MP, CBC #### [facility] [address] [place] [address] Folateon 08-31-2020 Folate 22.0 ng/mL Normal >5.9 [facility] Comment on above: Result Comment: [place] reference range: >5.9 ng/ml The WHO technical consultation on folate and vitamin b12 deficiencies has determined that folate concentrations less than 4 ng/ml are considered deficient. PERFORMED BY: [place] [address] PATHOLOGIST DONOR SUPPORT TECHNICIAN JANELLE SHANNON M.D. Performed By: #### B MP, CBC #### [facility] [address] Prealbuminon 08-31-2020 Prealbumin [Mass/Vol] 20.1 mg/dL Normal 18.0-38.0 [facility] Comment on above: Performed By: #### B MP, CBC #### [facility] [address] Vitamin B12on 08-31-2020 Cobalamin (Vitamin B12) [Mass/Vol] 323 pg/mL Normal 180-914 [facility] Comment on above: Performed By: #### B MP, CBC #### [facility] [address] Basic Metabolic Panelon 08-03 Calcium [Mass/Vol] 8.6 mg/dL Normal 8.2-10.2 [facility] Comment on above: Performed By: #### B MP #### [facility] [address] Chloride [Moles/Vol] 104 mmol/L Normal 95-114 [facility] Comment on above: Performed By: #### B MP #### [address] CO2 [Moles/Vol] 24.2 mmol/L Normal 22.0-30.[address] [facility] Comment on above: Performed By: #### B MP #### [address] Creatinine [Mass/Vol] 0.81 mg/dL Normal 0.44-1.03 [facility] Comment on above: Performed By: #### B MP #### [facility] [address] [place] [address] [place] Creatinine Clr Calc Pharmacy 76.06 Normal [facility] Comment on above: Result Comment: PERF ORMED BY: [place] [address] PATHOLOGIST DONOR SUPPORT TECHNICIAN JANELLE SHANNON M.D. Performed By: #### B MP #### [address] Estimated GFR ( Jacqui > 60 Normal [facility] Comment on above: Result Comment: GFR estimated reference range: According to KDOQI guidelines, <60 ml/min/1.73m2 is sufficient to diagnose a patient with chronic kidney disease. Performed By: #### B MP #### [facility] [address] Estimated GFR (Non- Am > 60 Normal [facility] Comment on above: Performed By: #### B MP #### [facility] [address] [place] [id number] [place] Glucose [Mass/Vol] 206 mg/dL High 70-100 [facility] Comment on above: Result Comment: [place] om Glucose Reference Range is dependent on time and content of last meal. Glucose of more than 200 mg/dL in a nonstressed, ambulatory subject supports the diagnosis of Diabetes Mellitus. ADA recommended reference range Performed By: #### B MP #### [facility] [address] Potassium [Moles/Vol] 4.0 mmol/L Normal 3.5-5.1 [facility] Comment on above: Performed By: #### B MP #### [facility] [address] [place] [address] [place] Sodium [Moles/Vol] 137 mmol/L Normal 136-146 [facility] Comment on above: Performed By: #### B MP #### [facility] [address] [place] [id number] [place] Urea nitrogen [Mass/Vol] 8 mg/dL Low 9-23 [facility] Comment on above: Performed By: #### B MP #### [facility] [address] [place] [address] [place] COVID-19 FRon 08-30-2020 SARS-CoV-2 (COVID-19) RNA ZENA+probe Ql (Unsp spec) Negative Normal Negative [facility] Comment on above: Order Comment: Healt hcare Worker?: N Result Comment: Test ing for SARS-CoV-2 by RT-PCR This test was developed and its performance characteristics determined by [employer] ([employer]) and validated at the [facility]. This test has not been FDA [...] is terminated or revoked sooner. PERFORMED BY: [place] [address] PATHOLOGIST DONOR SUPPORT TECHNICIAN JANELLE SHANNON M.D. Performed By: #### C OVID-19 [facility] #### [address] ABO/Rh Retypeon 08-29-2020 ABO/RH Recheck Result Positive Normal [facility] Comment on above: Result Comment: PERF ORMED BY: [place] [address] PATHOLOGIST DONOR SUPPORT TECHNICIAN JANELLE SHANNON M.D. Sean 08-29-2020 L -- ---- Specimen: [id number] Received: 08/29/20 Status: WOODThom Metz Num: [id number] Spec Type: Surgical Subm Dr: Boy Thompson MD Tissues: A Disc - Intervertebral/Lumbar/ Cervical (DISC ANTERIOR NECK) Procedures: HE Stain, Gross/Micro L3 ---- Patient Age/Sex Location Account Attending Physician ---- Ciera Chan 60/F [place] [id number] Boy Thompson MD ---- SPEC NUM: [id number] RECD: 08/29/20 STATUS: WILLIAM METZ NUM: [id number] DION: 08/29/[address] [facility] [address]: Boy Thompson MD ENTERED: 08/29/[address] [facility] [address]: ROSMERY TYPE: Surgical DEPT: S ORDERED: [...] mandujano-pink, slightly cauterized and ragged fibrous tissue. Supervisor [employer] sections are submitted in one cassette labeled A1. (FREEDOM/YJ) Microscopic Description One glass slide with H E stained material has been examined. The microscopic findings support the above pathologic diagnosis. CPT Codes 21996 ---- ---- Specimen: [id number] Received: 08/29/20 Status: WILLIAM Metz Num: [id number] Spec Type: Surgical Subm Dr: Boy Thompson MD Tissues: A Disc - Intervertebral/Lumbar/ Cervical (DISC ANTERIOR NECK) Procedures: HE Stain, Gross/Micro L3 ---- Patient: Ciera Chan [id number] (Continued) ---- Signed (signature on file) Hu Garrett MD 08/30/20 1507 [facility] Type and Screenon 08-29-2020 ABO and Rh group Nom (Bld) Blood group A Rh(D) positive [facility] Comment on above: Result Comment: PERF ORMED BY: [place] [address] PATHOLOGIST DONOR SUPPORT TECHNICIAN JANELLE SHANNON M.D. XR cervical spine 1Von 08-29 XR cervical spine 1V [facility] [place] [address] [place], [place] [id number] XRay Report Signed Patient: Ciera Chan MR#: [id number] : 1960 Acct:[id number] Age/Sex: 60 / F ADM Date: 08/29/20 Loc: [place] Room: Type: [facility] Attending Dr: Boy Thompson MD Ordering Provider: Boy Thompson MD Date of Service: 08/29/20 XR/XR cervical spine 1V: . Copies to: Boy Thompson MD Single fluoroscopic imaging for localization intraoperatively. One image. Total time 40 seconds. HISTORY: C4-5 fusion. C5-6 revision Cervical localization performed. XR/XR cervical spine 1V IMPRESSION: Cervical localization. Impression dictated by: Demetrio Asencio M.D.08/29/2020 12:49 PM Dictation Location: [place] [address] Transcribed By: [facility] 08/29/20 1249 Dictated By: Demetrio Asencio DO 08/29/20 1244 Signed By: 08/29/20 1249 [facility] COVID[facility] SARS-CoV-2 (COVID-19) RNA ZENA+probe Ql (Unsp spec) Negative Normal Negative [facility] Comment on above: Order Comment: Healt hcare Worker?: N Result Comment: Test ing for SARS-CoV-2 by RT-PCR This test was developed and its performance characteristics determined by [employer] ([employer]) and validated at the [facility]. This test has not been FDA [...] is terminated or revoked sooner. PERFORMED BY: [place] [address] PATHOLOGIST DONOR SUPPORT TECHNICIAN JANELLE SHANNON M.D. Performed By: #### C OVID-19 [facility] #### [facility] [address] [place] [address] COVID-19 Positive/Negativeon 08-27-2020 SARS-CoV-2 (COVID-19) N gene ZENA+probe Ql (Resp) Negative Negative [facility] Comment on above: Testing for SARS-CoV -2 by RT-PCRThis test was developed and its performance characteristics determined by [employer] ([employer]) and validated at the [facility]. This test has not been FDA [...] (COVID-19) RNA ZENA+probe Ql (Unsp spec) N/A [facility] Basic Metabolic Panelon 08-02 Calcium [Mass/Vol] 9.7 mg/dL Normal 8.2-10.2 [facility] Comment on above: Result Comment: PERF ORMED BY: [place] [address] PATHOLOGIST DONOR SUPPORT TECHNICIAN JANELLE SHANNON M.D. Performed By: #### B MP, CBC #### [place] [address] [place] Chloride [Moles/Vol] 104 mmol/L Normal 95-114 [facility] Comment on above: Performed By: #### B MP, CBC #### [address] CO2 [Moles/Vol] 29.2 mmol/L Normal 22.0-30.[address] [facility] Comment on above: Performed By: #### B MP, CBC #### [address] Creatinine [Mass/Vol] 0.95 mg/dL Normal 0.44-1.03 [facility] Comment on above: Performed By: #### B MP, CBC #### [address] Estimated GFR ( Jacqui > 60 [facility] Comment on above: Result Comment: GFR estimated reference range: According to KDOQI guidelines, <60 ml/min/1.73m2 is sufficient to diagnose a patient with chronic kidney disease. Performed By: #### B MP, CBC #### [place] [address] [place] Estimated GFR (Non- Am 60 [facility] Comment on above: Performed By: #### B MP, CBC #### [facility] [address] [place] [address] [place] Glucose [Mass/Vol] 106 mg/dL High 70-100 [facility] Comment on above: Result Comment: [place] om Glucose Reference Range is dependent on time and content of last meal. Glucose of more than 200 mg/dL in a nonstressed, ambulatory subject supports the diagnosis of Diabetes Mellitus. ADA recommended reference range Performed By: #### B MP, CBC #### [facility] [address] Potassium [Moles/Vol] 4.4 mmol/L Normal 3.5-5.1 [facility] Comment on above: Performed By: #### B MP, CBC #### [facility] [address] Sodium [Moles/Vol] 141 mmol/L Normal 136-146 [facility] Comment on above: Performed By: #### B MP, CBC #### [facility] [address] Urea nitrogen [Mass/Vol] 13 mg/dL Normal 9-23 [facility] Comment on above: Performed By: #### B MP, CBC #### [facility] [address] Basophils Auto (Bld) [#/Vol] on 08-16-2020 Basophils (Bld) [#/Vol] 0.0 10*3/uL 0.0-0.2 [facility] Basophils/100 WBC Auto (Bld) on 08-16-2020 Basophils/100 WBC (Bld) 0.6 % [facility] Blood hemoglobin measurement (mass/volume)on 08-16-2020 Hemoglobin (Bld) [Mass/Vol] 13.8 g/dL 11.8-15.4 [facility] Blood leukocytes automated c ount (number/volume)on 08-16-2020 WBC (Bld) [#/Vol] 7.4 10*3/uL 4.5-11.0 [facility] Complete Blood Count Auto Di ffon 08-16-2020 Basophils (Bld) [#/Vol] 0.0 10*3/uL Normal 0.0-0.2 [facility] Comment on above: Result Comment: PERF ORMED BY: [place] [address] PATHOLOGIST DONOR SUPPORT TECHNICIAN JANELLE SHANNON M.D. Performed By: #### B MP, CBC #### [facility] [address] [place] [address] [place] Basophils/100 WBC (Bld) 0.6 % Normal . [facility] Comment on above: Performed By: #### B MP, CBC #### [facility] [address] [place] [address] [place] Eosinophils (Bld) [#/Vol] 0.2 10*3/uL Normal 0.0-0.45 [facility] Comment on above: Performed By: #### B MP, CBC #### [facility] [address] [place] [address] [place] Eosinophils/100 WBC (Bld) 2.7 % Normal . [facility] Comment on above: Performed By: #### B MP, CBC #### [facility] [address] Erythrocyte distribution width (RBC) [Ratio] 14.2 % Normal 11.9-15.3 [facility] Comment on above: Performed By: #### B MP, CBC #### [facility] [address] [place] [address] [place] Hematocrit (Bld) [Volume fraction] 40.5 % Normal 34.0-46.4 [facility] Comment on above: Performed By: #### B MP, CBC #### [facility] [address] [place] [address] [place] Hemoglobin (Bld) [Mass/Vol] 13.8 g/dL Normal 11.8-15.4 [facility] Comment on above: Performed By: #### B MP, CBC #### [facility] [address] [place] [id number] [place] Lymphocytes (Bld) [#/Vol] 2.7 10*3/uL Normal 1.00-4.8 [facility] Comment on above: Performed By: #### B MP, CBC #### [facility] [address] [place] [id number] [place] Lymphocytes/100 WBC (Bld) 36.0 % Normal . [facility] Comment on above: Performed By: #### B MP, CBC #### [facility] [address] MCH (RBC) [Entitic mass] 31.6 pg Normal 24.7-34.3 [facility] Comment on above: Performed By: #### B MP, CBC #### [facility] [address] MCV (RBC) [Entitic vol] 93.2 fL Normal 80-100 [facility] Comment on above: Performed By: #### B MP, CBC #### [facility] [address] Mean Corpuscular HGB Conc 33.9 g/dL Normal 32.0-35.0 [facility] Comment on above: Performed By: #### B MP, CBC #### [address] Monocytes (Bld) [#/Vol] 0.6 10*3/uL Normal 0.0-0.8 [facility] Comment on above: Performed By: #### B MP, CBC #### [place] [address] [place] Monocytes/100 WBC (Bld) 8.0 % Normal . [facility] Comment on above: Performed By: #### B MP, CBC #### [address] Neutrophils (Bld) [#/Vol] 3.9 10*3/uL Normal 1.8-7.7 [facility] Comment on above: Performed By: #### B MP, CBC #### [facility] [address] [place] [address] [place] Neutrophils/100 WBC (Bld) 52.7 % Normal . [facility] Comment on above: Performed By: #### B MP, CBC #### [facility] [address] Nucleated RBC/100 WBC (Bld) [Ratio] 0.4 % Normal 0-0.5 [facility] Comment on above: Performed By: #### B MP, CBC #### [facility] [address] Platelet mean volume (Bld) [Entitic vol] 8.6 fL Normal 6.3-10.7 [facility] Comment on above: Performed By: #### B MP, CBC #### [facility] [address] Platelets (Bld) [#/Vol] 254 10*3/uL Normal 150-450 [facility] Comment on above: Performed By: #### B MP, CBC #### [facility] [address] RBC (Bld) [#/Vol] 4.35 10*6/uL Normal 3.60-5.00 [facility] Comment on above: Performed By: #### B MP, CBC #### [facility] [address] WBC (Bld) [#/Vol] 7.4 10*3/uL Normal 4.5-11.0 [facility] Comment on above: Performed By: #### B MP, CBC #### [facility] [address] Creatinine and Glomerular fi ltration rate.predicted panel (S/P/Bld)on 08-16-2020 Creatinine [Mass/Vol] 0.95 mg/dL 0.44-1.03 [facility] ECG 12 lead ECGon 08-16-2020 ECG 12 lead ECG [facility] [place] [address] [place] [address] Electrocardiograph Report Signed Patient: Ciera Chan MR#: [id number] : 1960 Acct:[id number] Age/Sex: 60 / F ADM Date: 08/16/20 Loc: [place] Room: Type: [facility] Attending Dr: Boy Thompson MD [...] 08/16/20 1319 Signed By: 08/16/20 1541 Normal [facility] Eosinophils Auto (Bld) [#/Vo l]on 08-16-2020 Eosinophils (Bld) [#/Vol] 0.2 10*3/uL 0.0-0.45 [facility] Eosinophils/100 WBC Auto (Bl d)on 08-16-2020 Eosinophils/100 WBC (Bld) 2.7 % [facility] Erythrocyte distribution wid th Auto (RBC) [Ratio]on 08-16-2020 Erythrocyte distribution width (RBC) [Ratio] 14.2 % 11.9-15.3 [facility] Estimated glomerular filtrat ion rate (GFR) non- Americanon 08-16-2020 GFR/1.73 sq M.predicted among non-blacks MDRD (S/P/Bld) [Vol rate/Area] 60 mL/Min [facility] Hematocrit Auto (Bld) [Volum e fraction]on 08-16-2020 Hematocrit (Bld) [Volume fraction] 40.5 % 34.0-46.4 [facility] Laboratory - Hematology and Cell countson 08-16-2020 Nucleated RBC/100 WBC (Bld) [Ratio] 0.4 % 0-0.5 [facility] Lymphocytes Auto (Bld) [#/Vo l]on 08-16-2020 Lymphocytes (Bld) [#/Vol] 2.7 10*3/uL 1.00-4.8 [facility] Lymphocytes/100 WBC Auto (Bl d)on 08-16-2020 Lymphocytes/100 WBC (Bld) 36.0 % [facility] MCH Auto (RBC) [Entitic mass ]on 08-16-2020 MCH (RBC) [Entitic mass] 31.6 pg 24.7-34.3 [facility] MCHC Auto (RBC) [Mass/Vol]on 08-16-2020 MCHC (RBC) [Mass/Vol] 33.9 g/dL 32.0-35.0 [facility] MCV Auto (RBC) [Entitic vol] on 08-16-2020 MCV (RBC) [Entitic vol] 93.2 fL 80-100 [facility] Monocytes Auto (Bld) [#/Vol] on 08-16-2020 Monocytes (Bld) [#/Vol] 0.6 10*3/uL 0.0-0.8 [facility] Monocytes/100 WBC Auto (Bld) on 08-16-2020 Monocytes/100 WBC (Bld) 8.0 % [facility] Neutrophils Auto (Bld) [#/Vo l]on 08-16-2020 Neutrophils (Bld) [#/Vol] 3.9 10*3/uL 1.8-7.7 [facility] Neutrophils/100 WBC Auto (Bl d)on 08-16-2020 Neutrophils/100 WBC (Bld) 52.7 % [facility] No Panel Informationon 08-16 Estimated GFR () > 60 mL/Min [facility] Comment on above: GFR estimated refere nce range: According to KDOQI guidelines, <60 ml/min/1.73m2 is sufficient to diagnose a patient with chronic kidney disease. Pharmacy Creatinine Clearance (Chem N/A [facility] Platelet mean volume Auto (B ld) [Entitic vol]on 08-16-2020 Platelet mean volume (Bld) [Entitic vol] 8.6 fL 6.3-10.7 [facility] Platelets Auto (Bld) [#/Vol] on 08-16-2020 Platelets (Bld) [#/Vol] 254 10*3/uL 150-450 [facility] RBC Auto (Bld) [#/Vol]on RBC (Bld) [#/Vol] 4.35 10*6/uL 3.60-5.00 [facility] Serum or plasma calcium kashmir urement (mass/volume)on 08-16-2020 Calcium [Mass/Vol] 9.7 mg/dL 8.2-10.2 [facility] Serum or plasma chloride bruce surement (moles/volume)on 08-16-2020 Chloride [Moles/Vol] 104 mmol/L 95-114 [facility] Serum or plasma glucose kashmir urement (mass/volume)on 08-16-2020 Glucose [Mass/Vol] 106 mg/dL 70-100 [facility] Comment on above: ADA recommended refe rence rangeRandom Glucose Reference Range is dependent on time and content of last meal. Glucose of more than 200 mg/dL in a nonstressed, ambulatory subject supports the diagnosis of Diabetes Mellitus. Serum or plasma potassium me asurement (moles/volume)on 08-16-2020 Potassium [Moles/Vol] 4.4 mmol/L 3.5-5.1 [facility] Serum or plasma sodium measu rement (moles/volume)on 08-16-2020 Sodium [Moles/Vol] 141 mmol/L 136-146 [facility] Serum or plasma total carbon dioxide measurement (moles/volume)on 08-16-2020 CO2 [Moles/Vol] 29.2 mmol/L 22.0-30.0 [facility] Serum or plasma urea nitroge n measurement (mass/volume)on 08-16-2020 Urea nitrogen [Mass/Vol] 13 mg/dL 9-23 [facility] Vital Signs Date Time Vital Sign Value Performing Clinician Facility 01-27-2024 14:00-0400 Blood Pressure Location Vamsi ANAYA [facility] 01-27-2024 14:00-0400 Diastolic blood pressure 77 mm[Hg] Vamsi ANAYA [facility] 01-27-2024 14:00-0400 Heart rate 88 /min Vamsi ANAYA [facility] 01-27-2024 14:00-0400 Respiratory rate 16 /min Vamsi ANAYA [facility] 01-27-2024 14:00-0400 Systolic blood pressure 148 mm[Hg] Vamsi ANAYA [facility] 01-05-2024 22:00-0400 Hourly Rounding Sudhir Munir [facility] 01-05-2024 22:00-0400 Promise to Return Sudhir Munir [facility] 01-05-2024 21:00-0400 Hourly Rounding Sudhir Munir [facility] 01-05-2024 21:00-0400 Promise to Return Sudhir Munir [facility] 01-05-2024 20:00-0400 Hourly Rounding Sudhir Munir [facility] 01-05-2024 20:00-0400 Promise to Return Sudhir Munir [facility] 01-05-2024 17:36-0400 Body temperature 97.88 [degF] Sudhir Munir [facility] 01-05-2024 17:36-0400 Diastolic blood pressure 77 mm[Hg] Sudhir Munir [facility] 01-05-2024 17:36-0400 Heart rate 82 /min Sudhir Munir [facility] 01-05-2024 17:36-0400 Respiratory rate 18 /min Sudhir Munir [facility] 01-05-2024 17:36-0400 SaO2% (BldA) [Mass fraction] 98 % Sudhir Munir [facility] 01-05-2024 17:36-0400 Systolic blood pressure 117 mm[Hg] Sudhir Munir [facility] 01-24-2022 17:40-0400 Blood Pressure Location Vera Hargrove [facility] 01-24-2022 17:40-0400 Body temperature 97.88 [degF] Vera Hargrove [facility] 01-24-2022 17:40-0400 Diastolic blood pressure 90 mm[Hg] Vera Garzaar [facility] 01-24-2022 17:40-0400 Heart rate 104 /min Vera Hargrove [facility] 01-24-2022 17:40-0400 SaO2% (BldA) [Mass fraction] 99 % Vera Hargrove [facility] 01-24-2022 17:40-0400 Systolic blood pressure 140 mm[Hg] Vera Hargrove [facility] 07-25-2021 14:40-0400 Body height 157.48 cm Boy Thompson Other [employer] Other 07-25-2021 14:40-0400 Body mass index (BMI) [Ratio] 36.76 kg/m2 Boy Thompson Other [employer] Other 07-25-2021 14:40-0400 Body weight 91.17 kg Boy Thompson Other [employer] Other 2021 14:40-0500 Body height 157.48 cm Boy Thompson Other [employer] Other 2021 14:40-0500 Body mass index (BMI) [Ratio] 36.76 kg/m2 Boy Thompson Other [employer] Other 2021 14:40-0500 Body weight 91.17 kg Boy Thompson Other [employer] Other Encounters Encounter Date Encounter Type Care Provider Facility Start: 03-03-2024 ambulatory Vamsi ANAYA Facili ty:[id number] Start: 02-12-2024 End: 02-12-2024 ambulatory Vamsi ANAYA Facility:[facility] [place] Start: 02-12-2024 End: 02-12-2024 Patient encounter procedure Vamsi ANAYA [facility] Start: 02-04-2024 End: 02-04-2024 ambulatory Vamsi ANAYA Facility:CD:[id number] Start: 01-27-2024 End: 01-27-2024 ambulatory Vamsi ANAYA Facility: [facility] Start: 01-27-2024 End: 01-27-2024 Patient encounter procedure Vamsi ANAYA [facility] Start: 01-27-2024 End: 01-27-2024 ambulatory Vamsi ANAYA Facility:[facility] [place] Start: 01-27-2024 End: 01-27-2024 Patient encounter procedure Vamsi ANAYA [facility] Start: 01-22-2024 ambulatory Vamsi ANAYA Facility :[facility] Start: 01-19-2024 End: 01-19-2024 Emergency department patient visit Janis Calderon Facility:[facility] [place] Start: 01-05-2024 End: 01-05-2024 Emergency department patient visit Sudhir Amaral [facility] Start: 09-17-2023 ambulatory Rhonda Rodrigez lity:[facility] [place] Start: 09-17-2023 End: 09-17-2023 ambulatory Rhonda Narayan Facility:[facility] [place] Start: 09-17-2023 End: 09-17-2023 Patient encounter procedure Rhonda Narayan [facility] Start: 02-12-2023 End: 02-13-2023 ambulatory Rhonda Narayan Facility:[facility] [place] Start: 02-12-2023 End: 02-12-2023 Patient encounter procedure Rhonda Narayan [facility] Start: 05-20-2022 End: 05-20-2022 Patient encounter procedure Rhonda Narayan [facility] Start: 01-24-2022 End: 01-24-2022 Patient encounter procedure Vera Hargrove [facility] Start: 11-21-2021 End: 11-21-2021 Patient encounter procedure Rhonda Narayan [facility] Start: 07-25-2021 End: 07-25-2021 ambulatory Boy Ulises Other [facility] Other Start: 07-25-2021 Office outpatient visit 15 minutes Boy Thompson [facility] Start: 2021 End: 2021 ambulatory Boy Thompson Other [facility] Other Start: 2021 Office outpatient visit 15 minutes Boy Thompson [facility] Start: 08-27-2020 End: 08-27-2020 Patient encounter [...] on above: Result Comment: PERF ORMED BY: [facility] [place] [address] PATHOLOGIST DONOR SUPPORT TECHNICIAN JANELLE SHANNON M.D. Start: 07-12-2020 MRI of [...] SARS-CoV-2 (COVID-19 ) mRNA-1273 vaccine Vera Cogar [facility] 05-22-2020 SARS-CoV-2 (COVID-19 ) mRNA BNT-162b2 vax Vera Cogar [facility] 05-08-2020 SARS-CoV-2 (COVID-19 ) mRNA-1273 vaccine Vera Cogar [facility] 05-01-2020 SARS-CoV-2 (COVID-19 ) mRNA BNT-162u0 vax Vera Cogar [facility] Payers Date Payer Category Payer Medicaid [id number] 1960 Unknown [id number] 2.16.8 [id number] 1960 Unknown [id number] 2.16.8 40.1.037749.3.579.2.72 1959 Unknown [id number] 2.16.8 40.1.622366.3.579.2.72 1959 Unknown [id number] 2.16.8 40.1.219829.3.579.2. 1959 Unknown 1990 2.16.8 40.1.190225.3.579.2.72 1959 Unknown [id number] 2.16.8 40.1.587962.3.579.2. 1959 Unknown [id number] 2.16.8 40.1.764663.3.579.2.72 1959 Unknown [id number] 2.16.8 40.1.531979.3.579.2.72 1959 Unknown [id number] 2.16.8 40.1.544273.3.579.2.72 1959 Unknown [id number] 2.16.8 40.1.427711.3.579.2.72 1959 Unknown [id number] 2.16.8 40.1.214703.3.579.2.72 1959 Unknown [id number] 2.16.8 40.1.909689.3.579.2. 1959 Unknown [id number] 2.16.8 40.1.321274.3.579.2.72 1959 Unknown [id number] 2.16.8 40.1.702558.3.579.2.72 Self-pay Self Pay [id number] Unknown [id number] Social History Date Type Detail Facility Start: 08-16-2020 End: 01-27-2024 Tobacco smoking status NHIS Never smoked tobacco (finding) [facility] Start: 1960 Sex Assigned At Female F [facility] Sex Assigned At [facility] Other Tobacco smoking status No Smokin g Status Entered [facility] Comment on above: Denies. Tobacco smoking status Never [facility] Tobacco smoking status No Smokin g Status Entered [facility] Goals Date Patient Goal Desired Activity /State Functional Status Date Assessment Result Facility 01-27-2024 Functional Status N/A [facility] 01-05-2024 Functional Status N/A [facility] 01-24-2022 Functional Status N/A [facility] Clinical Notes 2021 to 01-27-2024 [...] Follow these instructions at home: Medicines Take jiko-wgq-ggqxkec and prescription medicines only as told by [...] to keep your pee pale yellow. ?Take wglu-jpa-ezrdrsg or prescription medicines. ?Eat foods that are [...] Document Reviewed: 12/19/2022 Elsevier Patient Education 2023 [employer]. 01/27/2024 14:45:08 Laser Therapy for Kidney Stones [...] including vitamins, herbs, eye drops, creams, and vjyq-ywk-gwxfvua medicines. Any problems you or family members [...] unless your provider tells you to. ?Taking ynhf-wwc-noysovf medicines, vitamins, herbs, and supplements. Tests You [...] provider. Document Revised: 12/19/2022 Document Reviewed: 12/19/2022 [employer] Patient Education 2023 [employer]. Follow Up Care 01/25/2024 14:14:00 With:PAUL GARDNER, Vamsi Schultz, URL Address: [facility] [address] , [place] [id number]- [phone] When: Unknown Comments:jessica REDDY [facility] 01-27-2024 Note Patient Education Nephrology Laser Therapy [...] these instructions at home: Medicines ? Take nuox-khc-altyqbn and prescription medicines only as told by [...] keep your pee pale yellow. ? Take eicq-yhf-ofbejxf or prescription medicines. ? Eat foods that [...] provider. Document Revised: 12/19/2022 Document Reviewed: 12/19/2022 [employer] Patient Education ? 2023 [employer] Laser Therapy for Kidney Stones Laser [...] including vitamins, herbs, eye drops, creams, and sifp-rwz-kraayyr medicines. ? Any problems you or family [...] Do not e (more content not included)... [facility] 01-19-2024 Note Progress Note-Nurse This nurse into answer call light and patient off bedside commode, pt re-vitalized and tachy on the monitor in the 120's and hypertension. Primary nurse aware and Dr. Calderon [facility] 01-05-2024 Hospital Discharge instructions Patient Education 01/05/2024 21:44:46 Urinary Tract Infection, Adult, Hfsj-so-Avyn Urinary Tract Infection, Adult A urinary tract [...] Follow these instructions at home: Medicines Take hkzm-brp-tfisgso and prescription medicines only as told by [...] provider. Document Revised: 11/25/2020 Document Reviewed: 11/30/2020 [employer] Patient Education 2023 [employer] Follow Up Care 01/05/2024 17:14:57 With:Rhonda Narayan Address: [address] [place] [address]. [address] [place] [address] Business (1) When:01/08/2024 21:44:28 Comments:Call to schedule a follow-up appoint with your family physician if symptoms not improve in the next 2 to 3 days. Use the antibiotic as prescribed. Return to the ED with any worsening symptoms. [facility] 01-05-2024 Note ED Patient Education Note Obstetrics [...] these instructions at home: Medicines ? Take taan-eqo-rsjdfvh and prescription medicines only as told by [...] provider. Document Revised: 11/25/2020 Document Reviewed: 11/30/2020 [employer] Patient Education ? 2023 [employer]. [facility] 01-05-2024 Evaluation + Plan note Diagnostic Tests PendingUrine Culture 01/05/24 [facility] 01-24-2022 Hospital Discharge instructions Patient Education 01/24/2022 [...] height. This can be done either in [place] ([place] or metric measurements. Note that charts are available to help you find your BMI quickly and easily without having to do these calculations yourself. To calculate your BMI in [place] ([place] measurements, your health care provider will: [...] medical problems. BMI can be measured using Moldovan measurements or metric measurements. To interpret your [...] 12/30/2004 Document Revised: 04/02/2018 Document Reviewed: 03/03/2018 [employer] Patient Education 2020 [employer]. 01/24/2022 18:42:28 Rash, Adult Rash, Adult A [...] with your condition: Medicine Take or apply ngkx-ecm-mdaxcca and prescription medicines only as told by [...] taking a bath with: ?Epsom salts. Follow center lead consultant instructions on the packaging. You can get these at your local pharmacy or grocery store. ?Baking soda. Pour a small amount into the bath as told by your health care provider. ?Colloidal oatmeal. Follow center lead consultant instructions on the packaging. You can get this at your local pharmacy or grocery store. Try applying baking soda paste to your skin. Stir water into baking soda until it reaches a paste-like consistency. Try applying calamine lotion. This is an netx-vrv-ncbzfcj lotion that helps to relieve itchiness. Keep [...] the rash from spreading. Take or apply pgnx-fhg-evrobgm and prescription medicines only as told by [...] 04/10/2003 Document Revised: 08/12/2019 Document Reviewed: 11/22/2018 [employer] Patient Education 2020 [employer]. Follow Up Care 01/24/2022 17:38:26 With:Shahnaz GARDNER, KENDRA Esteban Address:Unknown When: Unknown [facility] 07-25-2021 Evaluation note Encounter Date [...] basis Jul, Cervical myelopathy (ICD-10 - G95.9) [employer] Other 11-18-2021 Evaluation note* Encounter Date Diagnosis [...] months. Mar, Cervical myelopathy (ICD-10 - G95.9) [facility] Other evaluation + Plan note No data available for this section [facility] Information Available [facility] N[facility]ative - Reported* Type Description Date Medical History hypertension Medical History Esophageal reflux Medical History overactive bladder Medical History diabetes mallitus Medical History chronic depression Medical History anxiety Surgical History Neck Surgery Hospitalization History See Above [facility] Other Hospital Discharge instructions No data available for this section [facility] No data available for this section [facility] Advance Directives No Advanced Directives Records Found [...] section and content) DATE CREATED AUTHOR 08/13/2021 [facility] DATE CREATED AUTHOR AUTHOR'S ORGANIZ ATION 09/19/2023 [facility] DATE CREATED AUTHOR AUTHOR'S ORGANIZ ATION 09/20/2023 [facility] DATE CREATED AUTHOR AUTHOR'S ORGANIZ ATION 01/07/2024 [facility] DATE CREATED AUTHOR AUTHOR'S ORGANIZ ATION 01/09/2024 [facility] DATE CREATED AUTHOR AUTHOR'S ORGANIZ ATION 01/21/2024 [facility] DATE CREATED AUTHOR AUTHOR'S ORGANIZ ATION 02/23/2024 [facility] REASON FOR VISIT (unrecogniz ed section and content) 6 months po ACDF10 month po ACDF Care Team (unrecognized sect ion and content) Personnel Name: Rhonda Narayan MD Address: [address] [place] [address] [place] [id number] Name: Emely Larose Personnel Name: Rhonda Narayan MD Address: [address] [place] [address]. [address] Name: Emely Larose Personnel Name: Rhonda Narayan MD Address: Address: [address] [place] [address]. [address] Name: Emely Larose Personnel Name: Rhonda Narayan MD Address: Address: [address] [place] [address]. [address] Name: Emely Larose Personnel Name: Rhonda Narayan MD Address: Address: [address] [place] [address]. [address] Name: Emely Larose Personnel Name: Rhonda Narayan MD Address: Address: [address] [place] [address]. [address] Name: Emely Larose Personnel Name: Rhonda Narayan MD Address: Address: [address] [place] [address]. [address] Name: Emely Larose Personnel Name: Rhonda Narayan MD Address: Address: [address] [place] [address]. [address] Name: Emely Larose Personnel Name: Rhonda Narayan MD Address: Address: [address] [place] [address]. [address] Name: Emely Larose FOR RECORDS PERTAINING [...] BE BASED ON THE PRIMARY CLINICAL RECORDS. [employer] [facility]. provides no warranty or guarantee of the accuracy or completeness of information in this document.
[2024-03-10 07:27] LABS: Basophils Absolute Auto 0.1 10^3/uL (0.0-0.1); Basophils Percent Auto 0.5 % (0.2-2.0); Eosinophils Absolute Auto 0.2 10^3/uL (0.0-0.7); Eosinophils Percent Auto 1.7 % (0.9-7.0); Hematocrit 39.7 % (36.0-48.0); Hemoglobin 13.7 g/dL (12.0-16.0); Immature Granulocytes Abs Auto 0.03 10^3/uL (0.00-0.03); Immature Granulocytes Pct Auto 0.3 % (0.0-0.5); Lymphocytes Absolute Auto 3.7 10^3/uL (1.2-3.8); Mean Corpuscular HGB Conc 34.5 g/dL (29.9-35.2); Mean Corpuscular Hemoglobin 32.4 pg (26.7-34.0); Mean Corpuscular Volume 93.9 fL (81.0-99.0); Mean Platelet Volume 10.5 fL (9.5-13.5); Monocytes Absolute Auto 0.9 10^3/uL (0.3-0.8); Monocytes Percent Auto 8.1 % (1.7-12.0); Neutrophils Percent Auto 55.4 % (43.0-75.0); Platelet Count 292 10^3/uL (150-450); Red Blood Count 4.23 10^6/uL (4.20-5.40); Red Cell Distribution Width 13.2 % (11.0-15.0); White Blood Count 10.9 10^3/uL (4.0-11.0)
--- NOTE | 2024-03-10 07:30 | XR_ITS ---
The [address] [address] Patient Name: ABIEL MARTIN MRN: [id number] date: 1960 Sex: F Assigned Patient Location: [facility] Current Patient Location: [facility] Accession/Order Number: [id number] Exam Date: 03/10/2024 07:00 Report Date: 03/14/2024 13:51 At the request of: JESS MILLER Procedure: XR abdomen 1V EXAMINATION: XR abdomen 1V HISTORY: kidney stones COMPARISON: 02/04/2024 FINDINGS: KIDNEY/URETER - RIGHT: Right double-J ureteral stent in normal position. Interval fragmentation the previously noted right nephroliths the largest area measuring 1.7 cm projects along the lower pole KIDNEY/URETER - LEFT: No visible renal or ureteral calcifications. PELVIS: No visible ureteral calcifications. Any visible calcifications favor phleboliths. BOWEL: Moderate amount of stool BONES: Moderate degenerative change OTHER: Negative. No abnormal gaseous collections. XR/XR abdomen 1V IMPRESSION: Change in configuration of right nephroliths consistent with interval lithotripsy Stable right ureteral stent Electronically authenticated by: JESS ZUÑIGA Date: 03/14/2024 13:51
[2024-03-10 07:32] LABS: Anion Gap 15.2; BUN Creatinine Ratio 7.2; Calcium 9.3 mg/dL (8.5-10.1); Carbon Dioxide 26.8 mmol/L (21.0-32.0); Chloride 103 mmol/L (98-107); Estimated GFR (African America 52 (>=60 mL/min/1.73m^2); Estimated GFR (Non-African Ame 43 (>=60 mL/min/1.73m^2); Glucose 142 mg/dL (74-106); Sodium 142 mmol/L (136-145)
[2024-03-10 07:41] LABS: INR 1.06; Partial Thromboplastin Time 25.7 sec (22.3-36.2); Prothrombin Time 11.2 sec (9.0-11.6)
[2024-03-10] MEDS: LACTATED RINGER'S SOLUTION 1,000 ML 50 ML IV (08:03)
[2024-03-10] MEDS: CIPROFLOXACIN 400 MG/200 ML D5W PREMIX 200 MG IV (08:38)
--- NOTE | 2024-03-10 09:45 | PM.URSON ---
Urology Surgery Operative Note Operative Note Procedure Date: 03/10/24 Time Out Performed: yes Pre-op Diagnosis: Right nephrolithiasis; status post right ESWL and stent placement Post-op Diagnosis: same as pre-op Procedures performed: 1. Right ESWL. 2. Cystoscopy. 3. Right stent removal Anesthesia: General-LMA Primary Surgeon: Vamsi Anaya Complications: None Estimated blood loss (mL): 0 Findings: Non encrusted stent. Soft renal stones with total fragmentation Specimens: None Drains: None Indications for Procedures: This lady had a very large stone burden on her right side. She underwent 1 ESWL treatment and stent placement. This treatment fragmented her large renal pelvis stone. She now presents for right ESWL and possible cystoscopy right stent removal. She still has a significant burden remaining within the kidney. It is nearly 1-1/2 to 2 cm in size. She has signed an informed consent after risks were explained. Some of these include bleeding, perinephric hematoma, infection and anesthesia to name a few. Detailed description of Procedure: The patient was brought to the Operating Room and placed on Siemens electromagnetic lithotripsy treatment table in the supine position. SCDs were placed on their lower extremities and turned on and functioning during the entire case. Timeout was done by all parties in the room. We all agreed upon the patient's identification and the planned procedures for this patient. General Anesthesia was then administered via LMA. I elected to begin the case in a gated fashion since she did have some ectopy and required gating during her last ESWL. Treatment head was then brought to the patient's correct side. While using flourscopy the largest portion of stone was identified and lined up into the crosshairs within the mid portion of the kidney. We then began applying shocks. We started at a power level 2.0 and increased to a maximum power level of 3.5. Fortunately, the stone was not extremely hard and we witnessed early fragmentation. We were able to fragment all of the remaining stones. Upon completion of applying 3000 shocks there was no visible formed stone remaining. The entire procedure was done in a gated fashion. The patient was then repositioned into the frog-leg position. Her perineum and genitalia were sterilely prepped and draped in the usual fashion. I then passed a flexible cystoscope per urethra and into the bladder. The stent was not encrusted. I then passed a flexible grasping forceps through the scope and into the bladder. The stent was identified and grasped. I then removed the scope and stent without difficulty. [facility] and [facility]ed to PACU in stable condition.
--- NOTE | 2024-03-10 11:39 | PC.NURSE ---
1125-Patient upto br with assist x1. Patient voids 200cc of blood tinged urine. Urine strained and no stone fragments passed
== END 2024-03-10 11:50 | disposition home or self-care (01) ==
PROVIDERS: PCP Family Medicine; Visit Provider Urology
PROC: (CPT 873; principal; 2024-03-10 08:45)
DX: N20.0 Calculus of kidney (principal); I10 Essential (primary) hypertension; E11.9 Type 2 diabetes mellitus without complications; E78.5 Hyperlipidemia, unspecified; F32.A Depression, unspecified; Z46.6 Encounter for fitting and adjustment of urinary device; K21.9 Gastro-esophageal reflux disease without esophagitis
CPT/HCPCS: 50590; 52310; 36415; 74018; 80048; 85025; 85610; 85730; J0744; J1100; J2250; J2405; J2704; J3010